=== PATIENT | female | born 1985 | race Caucasian/White ===

== ENCOUNTER 2019-01-24 20:14 | Observation (INO) | payer SELFPAY ==
[~2019-01-24] VITALS: Ht 172.7 cm; Wt 133.9 kg
--- OUTSIDE RECORDS SUMMARY | 2019-01-24 20:21 | XMS REPORT | CCD ---
Author Author MACK SCHULTZ Unknown Address [address] [facility] [address] [place] [address] Care Team Providers Care Associate Merchandise Planner Name Role Phone ELIU SANTIAGO, YAIN Locke Attphys AWAIS CRUZ MD Prisurg J., MACK NASST S., YOSHI Gonzalez NASST V., MILTON Ghosh NASST P., SUSI NASST S., DANNIELLE NASST A., MARION RENAE NASST K., DANNIELLE Gonzalez NASST R., BRIAN Locke NASST B., KYA NASST H., MARIA [place] NASST G., ODESSA NASST M., IRINA NASST G., SUSIE NASST R., ASAD NASST S., NIKKI PATTERSON NASST B., EDY NASST M., SHAAN Gonzalez NASST S., JUAN NASST A., YON NASST K., RAHUL NASST Allergies Allergy Code Allergy Type Reaction Status PCN (penicillin) 0 Drug allergy Active HALDOL 130216 Drug allergy Active BACTRIM 906852 Drug allergy Active Active Medications Problems Problem Code Start Date Resolved Date Status Swallowed foreign body 89622933 03/14/2016 Active Abdominal pain 79013306 03/14/2016 Active Procedures Procedure Code Procedure Type Date Extirpation of Matter from Small Intestine, Open Approach [id number] ICD-10 PCS 03/18/2016 Inspection of Lower Intestinal Tract, Via Natural or Artificial Opening En [id number] ICD-10 PCS 03/17/2016 Insertion of Infusion Device into Right Subclavian Vein, Percutaneous Appr [id number] ICD-10 PCS 03/18/2016 CX CHEST [id number] 03/18/2016 CT ABD AND PELVIS W/O CONTRAST 329739425 SNOMED CT 03/17/2016 ABDOMEN ONE VIEW 214416677 SNOMED CT 03/17/2016 ABDOMEN ONE VIEW 142691956 SNOMED CT 03/16/2016 ABDOMEN ONE VIEW 175478344 SNOMED CT 03/15/2016 ABDOMEN ACUTE SERIES 4433515 SNOMED CT 03/14/2016 COMPREHENSIVE METABOLIC PANEL 521580548 SNOMED CT 03/20/2016 COMPREHENSIVE METABOLIC PANEL 197658106 SNOMED CT 03/19/2016 CBC W/ AUTO DIFF (RFLX MAN DIFF IF IND) 9521933 SNOMED CT 03/20/2016 CBC W/ AUTO DIFF (RFLX MAN DIFF IF IND) 9581243 SNOMED CT 03/19/2016 PATHOLOGY ORDER [id number] SNOMED CT 03/18/2016 BEDSIDE GLUCOSE 71422689 SNOMED CT 03/17/2016 CULTURE URINE 604866570 SNOMED CT 03/14/2016 TEST URINE 768686803 SNOMED CT 03/14/2016 UA ROUTINE C&S IF IND 880988825 SNOMED CT 03/14/2016 COMPREHENSIVE METABOLIC PANEL 455257799 SNOMED CT 03/14/2016 CBC W/ AUTO DIFF (RFLX MAN DIFF IF IND) 1705389 SNOMED CT 03/14/2016 ^CBC W/AUTO DIFF 6666684 SNOMED CT 03/20/2016 ^CBC W/AUTO DIFF 9467083 SNOMED CT 03/19/2016 ^CULTURE URINE IDENTIFICATION 241366797 SNOMED CT 03/14/2016 ^CULTURE AEROBIC ID [id number] SNOMED CT 03/14/2016 ^UA WITH MICRO 136451400 SNOMED CT 03/14/2016 ^CBC W/AUTO DIFF 9592734 SNOMED CT 03/14/2016 Results BEDSIDE GLUCOSE - Collect Date/Time: 03/17/2016 11:11 Test Name Code Test Result Test Units Test Ref Range GLUCOSE POCT 96 MG/DL L=70 H=100 COMPREHENSIVE METABOLIC PANEL - Collect Date/Time: 03/20/2016 05:35 Test Name Code Test Result Test Units Test Ref Range GLUCOSE 2345-7 87 MG/DL L=70 H=100 SODIUM 2951-2 140 MEQ/L L=135 H=148 POTASSIUM 2823-3 3.4 MEQ/L L=3.5 H=5.3 CHLORIDE 2075-0 105 MEQ/L L=96 H=110 CO2 2028-9 25 MEQ/L L=22 H=29 BUN 3094-0 4 MG/DL L=8 H=22 CREATININE 2160-0 0.7 MG/DL L=0.6 H=1.6 SGOT/AST 1920-8 16 IU/L L=10 H=40 SGPT/ALT 1742-6 25 IU/L L=8 H=54 ALK PHOS 6768-6 56 IU/L L=35 H=115 TOTAL PROTEIN 2885-2 5.9 G/DL L=5.5 H=8.5 ALBUMIN 1751-7 3.2 G/DL L=3.1 H=5.4 TOTAL BILI 1975-2 0.2 MG/DL L=0.0 H=1.5 CALCIUM 85912-6 9.1 MG/DL L=8.2 H=10.6 AGE [birth year]-[age] yrs GFR NonAA 77980-1 100 GFR [place] 99168-9 121 eGFR 16266-7 >60 N/A eGFR AA* 26149-6 >60 N/A COMPREHENSIVE METABOLIC PANEL - Collect Date/Time: 03/19/2016 05:15 Test Name Code Test Result Test Units Test Ref Range GLUCOSE 2345-7 95 MG/DL L=70 H=100 SODIUM 2951-2 145 MEQ/L L=135 H=148 POTASSIUM 2823-3 3.9 MEQ/L L=3.5 H=5.3 CHLORIDE 2075-0 111 MEQ/L L=96 H=110 CO2 2028-9 26 MEQ/L L=22 H=29 BUN 3094-0 3 MG/DL L=8 H=22 CREATININE 2160-0 0.7 MG/DL L=0.6 H=1.6 SGOT/AST 1920-8 18 IU/L L=10 H=40 SGPT/ALT 1742-6 33 IU/L L=8 H=54 ALK PHOS 6768-6 62 IU/L L=35 H=115 TOTAL PROTEIN 2885-2 5.9 G/DL L=5.5 H=8.5 ALBUMIN 1751-7 3.2 G/DL L=3.1 H=5.4 TOTAL BILI 1975-2 0.2 MG/DL L=0.0 H=1.5 CALCIUM 86474-8 9.0 MG/DL L=8.2 H=10.6 AGE 82760-0 30 yrs GFR NonAA 24552-0 100 GFR AA 26601-0 121 eGFR 67633-8 >60 N/A eGFR AA* 47822-8 >60 N/A COMPREHENSIVE METABOLIC PANEL - Collect Date/Time: 03/14/2016 20:10 Test Name Code Test Result Test Units Test Ref Range GLUCOSE 2345-7 98 MG/DL L=70 H=100 SODIUM 2951-2 141 MEQ/L L=135 H=148 POTASSIUM 2823-3 4.2 MEQ/L L=3.5 H=5.3 CHLORIDE 2075-0 105 MEQ/L L=96 H=110 CO2 2028-9 24 MEQ/L L=22 H=29 BUN 3094-0 10 MG/DL L=8 H=22 CREATININE 2160-0 1.0 MG/DL L=0.6 H=1.6 SGOT/AST 1920-8 23 IU/L L=10 H=40 SGPT/ALT 1742-6 33 IU/L L=8 H=54 ALK PHOS 6768-6 70 IU/L L=35 H=115 TOTAL PROTEIN 2885-2 7.6 G/DL L=5.5 H=8.5 ALBUMIN 1751-7 4.3 G/DL L=3.1 H=5.4 TOTAL BILI 1975-2 0.3 MG/DL L=0.0 H=1.5 CALCIUM 00375-6 9.7 MG/DL L=8.2 H=10.6 AGE 30 yrs GFR NonAA 66 GFR AA 80 eGFR >60 N/A eGFR AA* >60 N/A CBC W/ AUTO DIFF (RFLX MAN DIFF IF IND) - Collect Date/Time: 03/20/2016 05:35 Test Name Code Test Result Test Units Test Ref Range WBC 75127-7 7.5 TH/CMM L=4.5 H=10.8 RBC 789-8 3.81 ML/CMM L=4.20 H=5.40 HGB 718-7 10.9 G/DL L=12.0 H=16.0 HCT 4544-3 33.8 % L=37.0 H=47.0 MCV 73207-4 89 FL L=81 H=99 MCH 33248-6 28.6 PG L=27.0 H=33.0 MCHC 03291-8 32.2 G/DL L=31.0 H=36.0 [place] [address]-0 40 FL L=36 H=50 [place] [address]-3 12.6 % L=0.0 H=14.8 MPV 52204-4 10.0 FL L=9.3 H=12.5 PLT 777-3 196 TH/CMM L=130 H=440 NRBC# 11912-5 0.00 TH/CMM L=0.00 H=0.00 NRBC% 89332-2 0.0 /100WBC L=0.0 H=2.0 %NEUT 30109-2 61.9 % %LYMP 91394-4 23.6 % %MONO 25451-4 12.6 % %EOS 40237-7 1.1 % %BASO 41629-3 0.4 % #NEUT 85455-2 4.65 TH/CMM L=2.10 H=8.20 #LYMP 98683-6 1.77 TH/CMM L=0.90 H=5.20 #MONO 74172-3 0.95 TH/CMM L=0.16 H=1.00 #EOS 32000-4 0.08 TH/CMM L=0.00 H=0.80 #BASO 42393-8 0.03 TH/CMM L=0.00 H=0.20 MANUAL DIFF 27718-4 NOT IND N/A CBC W/ AUTO DIFF (RFLX MAN DIFF IF IND) - Collect Date/Time: 03/19/2016 05:15 Test Name Code Test Result Test Units Test Ref Range WBC 92604-3 7.9 TH/CMM L=4.5 H=10.8 RBC 789-8 3.84 ML/CMM L=4.20 H=5.40 HGB 718-7 11.1 G/DL L=12.0 H=16.0 HCT 4544-3 34.7 % L=37.0 H=47.0 MCV 45631-1 90 FL L=81 H=99 MCH 75632-5 28.9 PG L=27.0 H=33.0 MCHC 25867-9 32.0 G/DL L=31.0 H=36[place] [address]-2 42 FL L=36 H=50 [place] [address]-9 12.8 % L=0.0 H=14.8 MPV 98814-1 9.9 FL L=9.3 H=12.5 PLT 777-3 203 TH/CMM L=130 H=440 NRBC# 15488-4 0.00 TH/CMM L=0.00 H=0.00 NRBC% 53304-4 0.0 /100WBC L=0.0 H=2.0 %NEUT 75413-2 65.3 % %LYMP 10506-3 23.2 % %MONO 06775-4 11.1 % %EOS 76495-5 0.0 % %BASO 14096-3 0.1 % #NEUT 17502-8 5.18 TH/CMM L=2.10 H=8.20 #LYMP 80128-8 1.84 TH/CMM L=0.90 H=5.20 #MONO 71657-4 0.88 TH/CMM L=0.16 H=1.00 #EOS 01624-3 0.00 TH/CMM L=0.00 H=0.80 #BASO 20866-9 0.01 TH/CMM L=0.00 H=0.20 MANUAL DIFF 07077-9 NOT IND N/A CBC W/ AUTO DIFF (RFLX MAN DIFF IF IND) - Collect Date/Time: 03/14/2016 20:10 Test Name Code Test Result Test Units Test Ref Range WBC 75235-0 8.7 TH/CMM L=4.5 H=10.8 RBC 789-8 4.83 ML/CMM L=4.20 H=5.40 HGB 718-7 14.1 G/DL L=12.0 H=16.0 HCT 4544-3 42.7 % L=37.0 H=47.0 MCV 88 FL L=81 H=99 MCH 29.2 PG L=27.0 H=33.0 MCHC 33.0 G/DL L=31.0 H=36.0 RDW SD 40 FL L=36 H=50 RDW CV 12.3 % L=0.0 H=14.8 MPV 9.6 FL L=9.3 H=12.5 PLT 777-3 283 TH/CMM L=130 H=440 NRBC# 0.00 TH/CMM L=0.00 H=0.00 NRBC% 0.0 /100WBC L=0.0 H=2.0 %NEUT 52.8 % %LYMP 34.0 % %MONO 10.6 % %EOS 1.9 % %BASO 0.5 % #NEUT 4.61 TH/CMM L=2.10 H=8.20 #LYMP 2.97 TH/CMM L=0.90 H=5.20 #MONO 0.93 TH/CMM L=0.16 H=1.00 #EOS 0.17 TH/CMM L=0.00 H=0.80 #BASO 0.04 TH/CMM L=0.00 H=0.20 MANUAL DIFF NOT IND N/A UA ROUTINE C&S IF IND - Collect Date/Time: 03/14/2016 20:20 Test Name Code Test Result Test Units Test Ref Range COLOR YELLOW N/A NL: YELLOW APPEARANCE CLOUDY N/A NL: CLEAR SPEC GRAV 1.020 N/A NL: 1.002 - 1.022 pH 6.5 N/A NL: 5 - 9 PROTEIN 100 N/A NL: NEGATIVE mg/dl GLUCOSE NEGATIVE N/A NL: NEGATIVE mg/dl KETONE 15 N/A NL: NEGATIVE mg/dl BILIRUBIN NEGATIVE N/A NL: NEGATIVE BLOOD NEGATIVE N/A NL: NEGATIVE NITRITE NEGATIVE N/A NL: NEGATIVE LEUK SCREEN SMALL N/A NL: NEGATIVE MICRO INDICATED? SEE BELOW N/A WBC/HPF 10-20 N/A NL: NEGATIVE RBC/HPF 0-5 N/A NL: NEGATIVE CASTS/LPF NEGATIVE N/A NL: NEGATIVE CRYSTALS NEGATIVE N/A NL: NEGATIVE MUCOUS THRDS 1+ N/A NL: NEGATIVE BACTERIA FEW N/A NL: NEGATIVE EPITH CELLS 2++ SQUAMOUS N/A NL: NEGATIVE TRICHOMONAS NEGATIVE N/A NL: NEGATIVE YEAST NEGATIVE N/A NL: NEGATIVE CULT SET UP? YES N/A TEST URINE - Collect Date/Time: 03/14/2016 20:25 Test Name Code Test Result Test Units Test Ref Range TEST UR 2106-3 NEGATIVE N/A Function Status Unknown or Not Available. History of Immunizations Immunization Code Date Hep B, adolescent or pediatric 06/03/2000 Plan of Treatment Unknown or Not Available. Social History Smoking Status Code Start Date End Date Current every day smoker 996915606 Vital Signs Vital Sign Value Unit Date/Time Recent/Initial? Weight Measured 335.38 [lb_av] 03/14/2016 20:40 Initial VS Height 69 [in_i] 03/14/2016 20:40 Initial VS BMI (Body Mass Index) 49.53 kg/m2 03/14/2016 20:40 Initial VS BSA (Body Surface Area) 2.72 m2 03/14/2016 20:40 Initial VS BP Systolic 146 mm[Hg] 03/14/2016 20:40 Initial VS BP Diastolic 91 mm[Hg] 03/14/2016 20:40 Initial VS Respiratory Rate 20 /min 03/14/2016 20:40 Initial VS Heart Rate 98 /min 03/14/2016 20:40 Initial VS O2 % BldC Oximetry 99 % 03/14/2016 20:40 Initial VS Body Temperature 97.1 [degF] 03/14/2016 20:40 Initial VS BP Systolic 139 mm[Hg] 03/23/2016 07:34 Most Recent VS BP Diastolic 88 mm[Hg] 03/23/2016 07:34 Most Recent VS Respiratory Rate 16 /min 03/23/2016 07:34 Most Recent VS Heart Rate 76 /min 03/23/2016 07:34 Most Recent VS O2 % BldC Oximetry 97 % 03/23/2016 07:34 Most Recent VS Body Temperature 96.3 [degF] 03/23/2016 07:34 Most Recent VS Function Status Unknown or Not Available. Goals Unknown or Not Available. ASSESSMENTS Unknown or Not Available. Health Concerns Section Unknown or Not Available.
--- OUTSIDE RECORDS SUMMARY | 2019-01-24 20:22 | XMS REPORT | CCD ---
Author Author JAY ALEXIS Organization Unknown Address [address] [facility] [address] [place], [place] [id number] Care Team Providers Care Can Line Operator Name Role Phone NELLI KNAPP DO Gwendolyn Attphys Vital Signs Vital Sign Value Unit Date/Time Recent/Initial? Respiratory Rate 21 bpm 09/09/2015 11:26 Initial VS Heart Rate 109 bpm 09/09/2015 11:26 Initial VS O2 % BldC Oximetry 98 % 09/09/2015 11:26 Initial VS BP Systolic 128 mmHg 09/09/2015 11:27 Initial VS BP Diastolic 81 mmHg 09/09/2015 11:27 Initial VS BP Systolic 116 mmHg 09/09/2015 11:46 Most Recent VS BP Diastolic 95 mmHg 09/09/2015 11:46 Most Recent VS Respiratory Rate 12 bpm 09/09/2015 11:46 Most Recent VS Heart Rate 83 bpm 09/09/2015 11:46 Most Recent VS O2 % BldC Oximetry 98 % 09/09/2015 11:46 Most Recent VS Allergies Allergy Code Allergy Type Reaction Status PCN (penicillin) 0 Drug allergy Active HALDOL 933780 Drug allergy Active BACTRIM 477308 Drug allergy Active Procedures Procedure Code Procedure Type Date Esophagogastroduodenoscopy, flexible, transoral; with removal of foreign b 38459 CPT 09/09/2015 TEST URINE 674524366 SNOMED CT 09/09/2015 History of Immunizations Immunization Code Date Hep B, adolescent or pediatric 08 06/03/2000 Problems Problem Code Start Date Resolved Date Status Swallowed foreign body 11034266 12/27/2014 Active Results TEST URINE - Collect Date/Time: 09/09/2015 10:20 Test Name Code Test Result Test Units Test Ref Range TEST UR 2106-3 NEGATIVE N/A Active Medications Medication Code Dose Units Frequency Route Modification Start Date/Time Chloraseptic 1.4% Oromucosal [place] 04323861829 1 EACH NEEDED EVERY 8 HR OROMUCOSAL 12/29/2014 12:08 Prescription Detail 1 EACH OROMUCOSAL NEEDED EVERY 8 HR Colace 100MG Oral Capsule, Liquid Filled 3847526 100 MILLIGRAMS TWO TIMES A DAY ORAL 05/13/2014 10:32 Prescription Detail 100 MILLIGRAMS ORAL TWO TIMES A DAY Melatonin 5MG Oral Capsule 744732 5 MILLIGRAMS NEEDED ORAL 05/13/2014 10:32 Prescription Detail 5 MILLIGRAMS ORAL NEEDED Omeprazole 20MG Oral Tablet, Delayed Release 657034 20 MILLIGRAMS DAILY ORAL 05/13/2014 10:32 Prescription Detail 20 MILLIGRAMS ORAL DAILY ROBITUSSIN 0 10 MILLILITERS NEEDED ORAL 05/13/2014 10:32 Prescription Detail 10 MILLILITERS ORAL NEEDED Tylenol 325MG Oral Tablet 058512 650 MILLIGRAMS NEEDED ORAL 05/13/2014 10:32 Prescription Detail 650 MILLIGRAMS ORAL NEEDED ZyrTEC 10MG Oral Tablet 6812869 10 MILLIGRAMS DAILY ORAL 05/13/2014 10:32 Prescription Detail 10 MILLIGRAMS ORAL DAILY Depo-Provera 150MG/ML Intramuscular Suspension 0972444 1 EACH every 3 months INTRAMUSCULAR 12/11/2013 08:39 Prescription Detail 1 EACH INTRAMUSCULAR every 3 months Depakote 500MG Oral Tablet, Delayed Release 2913070 0788 MILLIGRAMS TWO TIMES A DAY ORAL 12/07/2013 13:49 Prescription Detail 1000 MILLIGRAMS ORAL TWO TIMES A DAY Paxil 40MG Oral Tablet 296183 40 MILLIGRAMS DAILY ORAL 12/07/2013 13:49 Prescription Detail 40 MILLIGRAMS ORAL DAILY Seroquel 200MG Oral Tablet 293744 200 MILLIGRAMS AT BEDTIME ORAL 12/07/2013 13:49 Prescription Detail 200 MILLIGRAMS ORAL AT BEDTIME Medications Administered During Visit Unknown or Not Available. Encounters Encounter Diagnosis Diagnosis Code Start Date Foreign body in stomach, initial encounter [id number] 09/09/2015 Social History Smoking Status Code Start Date End Date Current every day smoker 953515855 Patient Decision Aids Unknown or Not Available. Discharge Instructions You were admitted to [facility] on 09/09/2015 09:53 with a principal diagnosis of Foreign body in stomach, initial encounter You had the following procedures done: Esophagogastroduodenoscopy, flexible, transoral; with removal of foreign b You had the following tests done: TEST URINE You were discharged from [facility] on 09/09/2015 15:51 Should you have any questions prior to discharge, please contact a member of your healthcare team. If you have left the hospital and have any questions, please contact your primary care physician. Chief Complaint and Reason For Visit Chief Complaint Date of Onset GEN EGD Function Status Unknown or Not Available. Plan of Care Unknown or Not Available. Referral/Transition of Care Unknown or Not Available.
--- OUTSIDE RECORDS SUMMARY | 2019-01-24 20:22 | XMS REPORT | CCD ---
Author Author JAY ALEXIS Organization Unknown Address [address] [facility] [address] [place], [place] [address] Care Team Providers Care Migration Specialist Name Role Phone HANDSHY ER, LARS SANTIAGO Attphys HANDSHY ER, LARS SANTIAGO Prisurg Vital Signs Unknown or Not Available. Allergies Allergy Code Allergy Type Reaction Status PCN (penicillin) 0 Drug allergy Active HALDOL 678556 Drug allergy Active BACTRIM 155952 Drug allergy Active Procedures Procedure Code Procedure Type Date CT ABD AND PELVIS W/O CONTRAST 019170099 SNOMED CT 09/08/2015 ^CBC W/AUTO DIFF 3865280 SNOMED CT 09/08/2015 COMPREHENSIVE METABOLIC PANEL 045905453 SNOMED CT 09/08/2015 CBC W/ AUTO DIFF (RFLX MAN DIFF IF IND) 5456702 SNOMED CT 09/08/2015 History of Immunizations Immunization Code Date Hep B, adolescent or pediatric 08 06/03/2000 Problems Problem Code Start Date Resolved Date Status Swallowed foreign body 98574849 12/27/2014 Active Results COMPREHENSIVE METABOLIC PANEL - Collect Date/Time: 09/08/2015 19:45 Test Name Code Test Result Test Units Test Ref Range GLUCOSE 2345-7 133 MG/DL L=70 H=100 SODIUM 2951-2 139 MEQ/L L=135 H=148 POTASSIUM 2823-3 4.4 MEQ/L L=3.5 H=5.3 CHLORIDE 2075-0 107 MEQ/L L=96 H=110 CO2 2028-9 20 MEQ/L L=22 H=29 BUN 3094-0 12 MG/DL L=8 H=22 CREATININE 2160-0 0.7 MG/DL L=0.6 H=1.6 SGOT/AST 1920-8 21 IU/L L=10 H=40 SGPT/ALT 1742-6 21 IU/L L=8 H=54 ALK PHOS 6768-6 68 IU/L L=35 H=115 TOTAL PROTEIN 2885-2 6.7 G/DL L=5.5 H=8.5 ALBUMIN 1751-7 3.9 G/DL L=3.1 H=5.4 TOTAL BILI 1975-2 0.2 MG/DL L=0.0 H=1.5 CALCIUM 45308-6 9.4 MG/DL L=8.2 H=10.6 AGE 30 yrs GFR NonAA 100 GFR AA 121 eGFR >60 N/A eGFR AA* >60 N/A CBC W/ AUTO DIFF (RFLX MAN DIFF IF IND) - Collect Date/Time: 09/08/2015 19:45 Test Name Code Test Result Test Units Test Ref Range WBC 63947-8 6.7 TH/CMM L=4.5 H=10.8 RBC 789-8 4.21 ML/CMM L=4.20 H=5.40 HGB 718-7 12.8 G/DL L=12.0 H=16.0 HCT 4544-3 38.0 % L=37.0 H=47.0 MCV 90 FL L=81 H=99 MCH 30.4 PG L=27.0 H=33.0 MCHC 33.7 G/DL L=31.0 H=36.0 RDW SD 40 FL L=36 H=50 RDW CV 12.4 % L=0.0 H=14.8 MPV 10.0 FL L=9.3 H=12.5 PLT 777-3 196 TH/CMM L=130 H=440 NRBC# 0.00 TH/CMM L=0.00 H=0.00 NRBC% 0.0 /100WBC L=0.0 H=2.0 %NEUT 52.1 % %LYMP 36.9 % %MONO 9.6 % %EOS 1.2 % %BASO 0.2 % #NEUT 3.47 TH/CMM L=2.10 H=8.20 #LYMP 2.46 TH/CMM L=0.90 H=5.20 #MONO 0.64 TH/CMM L=0.16 H=1.00 #EOS 0.08 TH/CMM L=0.00 H=0.80 #BASO 0.01 TH/CMM L=0.00 H=0.20 MANUAL DIFF NOT IND N/A Active Medications Medication Code Dose Units Frequency Route Modification Start Date/Time Chloraseptic 1.4% Oromucosal [place] 86714508495 1 EACH NEEDED EVERY 8 HR OROMUCOSAL 12/29/2014 12:08 Prescription Detail 1 EACH OROMUCOSAL NEEDED EVERY 8 HR Colace 100MG Oral Capsule, Liquid Filled 1855636 100 MILLIGRAMS TWO TIMES A DAY ORAL 05/13/2014 10:32 Prescription Detail 100 MILLIGRAMS ORAL TWO TIMES A DAY Melatonin 5MG Oral Capsule 926565 5 MILLIGRAMS NEEDED ORAL 05/13/2014 10:32 Prescription Detail 5 MILLIGRAMS ORAL NEEDED Omeprazole 20MG Oral Tablet, Delayed Release 612221 20 MILLIGRAMS DAILY ORAL 05/13/2014 10:32 Prescription Detail 20 MILLIGRAMS ORAL DAILY ROBITUSSIN 0 10 MILLILITERS NEEDED ORAL 05/13/2014 10:32 Prescription Detail 10 MILLILITERS ORAL NEEDED Tylenol 325MG Oral Tablet 010136 650 MILLIGRAMS NEEDED ORAL 05/13/2014 10:32 Prescription Detail 650 MILLIGRAMS ORAL NEEDED ZyrTEC 10MG Oral Tablet 7793986 10 MILLIGRAMS DAILY ORAL 05/13/2014 10:32 Prescription Detail 10 MILLIGRAMS ORAL DAILY Depo-Provera 150MG/ML Intramuscular Suspension 1733190 1 EACH every 3 months INTRAMUSCULAR 12/11/2013 08:39 Prescription Detail 1 EACH INTRAMUSCULAR every 3 months Depakote 500MG Oral Tablet, Delayed Release 2933377 4078 MILLIGRAMS TWO TIMES A DAY ORAL 12/07/2013 13:49 Prescription Detail 1000 MILLIGRAMS ORAL TWO TIMES A DAY Paxil 40MG Oral Tablet 097243 40 MILLIGRAMS DAILY ORAL 12/07/2013 13:49 Prescription Detail 40 MILLIGRAMS ORAL DAILY Seroquel 200MG Oral Tablet 486416 200 MILLIGRAMS AT BEDTIME ORAL 12/07/2013 13:49 Prescription Detail 200 MILLIGRAMS ORAL AT BEDTIME Medications Administered During Visit Unknown or Not Available. Encounters Encounter Diagnosis Diagnosis Code Start Date Foreign body in stomach 74339684 09/08/2015 Social History Smoking Status Code Start Date End Date Current every day smoker 014800546 Patient Decision Aids Unknown or Not Available. Discharge Instructions You were admitted to [facility] on 09/08/2015 with a principal diagnosis of Foreign body in stomach . You were discharged from [facility] on 09/08/2015. Should you have any questions prior to discharge, please contact a member of your healthcare team. If you have left the hospital and have any questions, please contact your primary care physician. Chief Complaint and Reason For Visit Chief Complaint Date of Onset SWALLOWED FOREIGN OBJECT Function Status Unknown or Not Available. Plan of Care Unknown or Not Available. Referral/Transition of Care Unknown or Not Available.
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
--- OUTSIDE RECORDS SUMMARY | 2019-01-24 20:23 | XMS REPORT ---
Author Author Wilberto Wen [facility] Address [address] [place], [place] [address] Care Team Providers Care Bonding Machine Operator Name Role Phone Wilberto Wen PCP Unavailable Allergies and Adverse Reactions Name Reaction Notes Haldol Bactrim DS PENICILLINS Plan of Treatment Not available. Medications Active Name Start Date Estimated Completion [...] HC BMI BSA BMI Percentile O2 Sat(%) 03/30/2016 10:47:00 AM 124 mmHg 86 mmHg 101 bpm 20 rpm 95.4 F 94 % 07/08/2015 1:31:00 PM 152 mmHg 97 mmHg 89 bpm 97.8 F 342 lbs 68 in 52.0004 kg/m 2.7281 m 06/24/2015 2:23:00 PM 147 mmHg 122 mmHg 100 bpm 20 rpm 97.9 F 347 lbs 68 in 52.76 kg/m2 2.75 m2 06/04/2011 3:34:00 PM 120 mmHg 70 mmHg 106 bpm 18 rpm 96.4 F 277 lbs 67 in 43.3839 kg/m 2.4371 m 97 % Social History Name Description Comments Lives at [facility] Tobacco Former smoker History of Procedures Date Ordered Description Order Status 06/24/2015 12:00 AM SPECIMEN HANDLING OFFICE-LAB Reviewed 06/24/2015 12:00 AM CHLAMYDIA CULTURE Returned 06/24/2015 12:00 AM N.GONORRHOEAE DNA AMP PROB Returned 06/24/2015 12:00 AM CYTOPATH C/V THIN LAYER Returned 07/08/2015 12:00 AM BIOPSY SKIN LESION Returned Results Summary Data and Description Results 02/28/2014 [...] >60 mL/min/1.73 m2C REACTIVE PROTEIN <0.5 MG/DL 09/09/2015 10:20 AM TEST UR NEGATIVE 03/14/2016 8:10 PM WBC 8.7 RBC 4.83 HGB 14.10 g/dLHCT 42.70 %MCV 88.0 fLMCH 29.20 pgMCHC 33.0 g/dLRDW CV 12.30 %MPV 9.60 fLPLT 283 %NEUT 52.80 %%LYMP 34.0 %%MONO 10.60 %%EOS 1.90 %%BASO 0.50 %#NEUT 4.61 #LYMP 2.97 #MONO 0.93 #EOS 0.17 #BASO 0.04 GLUCOSE 98.0 mg/dLSODIUM 141.0 mmol/LPOTASSIUM 4.20 mmol/LCHLORIDE 105.0 mmol/LCO2 24.0 mmol/LBUN 10.0 mg/dLCREATININE 1.0 mg/dLSGOT/AST 23.0 IU/LSGPT/ALT 33.0 IU/LALK PHOS 70.0 IU/LTOTAL PROTEIN 7.60 g/dLALBUMIN 4.30 g/dLTOTAL BILI 0.30 mg/dLCALCIUM 9.70 mg/dLeGFR >60 mL/min/1.73m 03/14/2016 8:20 PM COLOR YELLOW APPEARANCE CLOUDY SPEC GRAV 1.020 pH 6.5 PROTEIN 100 GLUCOSE NEGATIVE mg/dLKETONE 15 BILIRUBIN NEGATIVE BLOOD NEGATIVE NITRITE NEGATIVE LEUK SCREEN SMALL CASTS/LPF NEGATIVE /LPFCRYSTALS NEGATIVE MUCOUS THRDS 1+ BACTERIA FEW EPITH CELLS 2++ SQUAMOUS /HPFTRICHOMONAS NEGATIVE YEAST NEGATIVE 03/14/2016 8:25 PM TEST UR NEGATIVE 03/17/2016 11:11 AM GLUCOSE POCT 96.0 mg/dL 03/19/2016 5:15 AM WBC 7.9 RBC 3.84 HGB 11.10 g/dLHCT 34.70 %MCV 90.0 fLMCH 28.90 pgMCHC 32.0 g/dLRDW CV 12.80 %MPV 9.90 fLPLT 203 %NEUT 65.30 %%LYMP 23.20 %%MONO 11.10 %%EOS 0.0 %%BASO 0.10 %#NEUT 5.18 #LYMP 1.84 #MONO 0.88 #EOS 0.00 #BASO 0.01 GLUCOSE 95.0 mg/dLSODIUM 145.0 mmol/LPOTASSIUM 3.90 mmol/LCHLORIDE 111.0 mmol/LCO2 26.0 mmol/LBUN 3.0 mg/dLCREATININE 0.70 mg/dLSGOT/AST 18.0 IU/LSGPT/ALT 33.0 IU/LALK PHOS 62.0 IU/LTOTAL PROTEIN 5.90 g/dLALBUMIN 3.20 g/dLTOTAL BILI 0.20 mg/dLCALCIUM 9.0 mg/dLeGFR >60 mL/min/1.73m 03/20/2016 5:35 AM WBC 7.5 RBC 3.81 HGB 10.90 g/dLHCT 33.80 %MCV 89.0 fLMCH 28.60 pgMCHC 32.20 g/dLRDW CV 12.60 %MPV 10.0 fLPLT 196 %NEUT 61.90 %%LYMP 23.60 %%MONO 12.60 %%EOS 1.10 %%BASO 0.40 %#NEUT 4.65 #LYMP 1.77 #MONO 0.95 #EOS 0.08 #BASO 0.03 GLUCOSE 87.0 mg/dLSODIUM 140.0 mmol/LPOTASSIUM 3.40 mmol/LCHLORIDE 105.0 mmol/LCO2 25.0 mmol/LBUN 4.0 mg/dLCREATININE 0.70 mg/dLSGOT/AST 16.0 IU/LSGPT/ALT 25.0 IU/LALK PHOS 56.0 IU/LTOTAL PROTEIN 5.90 g/dLALBUMIN 3.20 g/dLTOTAL BILI 0.20 mg/dLCALCIUM 9.10 mg/dLeGFR >60 mL/min/1.73m History Of Immunizations Not available. History of [...] Routine gynecological examination Jun 24 2015 2:27PM Skin tag of labia Jul 08 2015 1:35PM Postoperative Follow-Up Mar 30 2016 10:47AM Payers Insurance Name Company Name Plan Name Plan Number Policy Number Policy Group Number Start Date [place] Pneumatic Tester Mechanic [facility] [id number] N/A [place] Medical Assistance Program [place] Medical Assistance Prog [id number] N/A History of Encounters Visit Date Visit Type Provider 03/30/2016 Office visit Wilberto Wen MD 03/18/2016 [facility] Wilberto Wen MD 03/17/2016 [facility] Wilberto Wen MD 09/09/2015 [facility] Wilian Mosley DO 07/08/2015 Procedures Mayra Matthews TELESALES SPECIALIST 06/24/2015 Office visit Mayra Matthews TELESALES SPECIALIST 12/27/2014 [facility] Wilberto Wen MD 05/15/2014 [facility] Wilian Mosley DO 05/12/2014 [facility] Wilberto Wen MD 03/06/2014 [facility] Wilberto Wen MD 03/06/2014 [facility] Wilberto Wen MD 03/01/2014 [facility] Wilberto Wen MD 02/27/2014 [facility] Wilberto Wen MD 02/27/2014 [facility] Wilberto Wen MD 12/11/2013 Voided Wilberto Wen MD 12/07/2013 [facility] Wilberto Wen MD 12/07/2013 [facility] Wilberto Wen MD 12/07/2013 Voided Wilberto Wen MD 12/07/2013 Voided Wilberto Wen MD 12/06/2013 Voided Wilberto Wen MD 12/06/2013 Voided Wilberto Wen MD 08/04/2013 [facility] Wilian Mosley DO 08/04/2013 [facility] Wilian Mosley DO 06/04/2011 Office visit Wilberto Wen MD 02/26/2011 [facility] Wilberto Wen MD
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
--- OUTSIDE RECORDS SUMMARY | 2019-01-24 20:24 | XMS REPORT ---
Author Wilberto [facility] Address [address] [place], [place] [id number] Care Team Providers Care Corrugated Sheet Material Sheeter Name Role Phone Wilberto Wen PCP Unavailable [...] HC BMI BSA BMI Percentile O2 Sat(%) 04/27/2016 10:21:00 AM 128 mmHg 76 mmHg 94 bpm 20 rpm 95.4 F 97 % 03/30/2016 10:47:00 AM 124 mmHg 86 mmHg [...] F 277 lbs 67 in 43.3839 kg/m 2.44 m2 97 % Social History Name Description Comments Lives at [facility] Tobacco Former smoker History of Procedures Date [...] 1:35PM Postoperative Follow-Up Mar 30 2016 10:47AM Postoperative Follow-Up Apr 27 2016 10:21AM Payers Insurance Name Company Name Plan Name Plan Number Policy Number Policy Group Number Start Date [place] Compatibility Test Engineer Prog - [facility] [place] Compatibility Test Engineer Prog - C [id number] N/A [place] Medical Assistance [facility] Medical Assistance Prog [id number] N/A History of Encounters Visit Date Visit Type Provider 04/27/2016 Office visit Wilberto Wen MD 03/30/2016 Office visit Wilberto Wen MD 03/19/2016 [facility] Wilberto Wen MD 03/18/2016 [facility] Wilberto Wen MD 03/17/2016 [facility] Wilberto Wen MD 03/15/2016 [facility] Wilberto Wen MD 09/09/2015 [facility] Wilian Mosley DO 07/08/2015 Procedures Mayra Matthews HATCHERY HELPER 06/24/2015 Office visit Mayra Matthews HATCHERY HELPER 12/27/2014 [facility] Wilberto Wen MD 05/15/2014 [facility] Wilian Mosley DO 05/12/2014 [facility] Wilberto Wen MD 03/06/2014 [facility] Wilberto Wen MD 03/06/2014 [facility] Wilberto Wen MD 03/01/2014 [facility] Wilberto Wen MD 02/27/2014 [facility] Wilberto Wen MD 02/27/2014 [facility] Wilberto Wen MD 12/11/2013 Voided Wilberto Wen MD 12/07/2013 [facility] Wilberto Wen MD 12/07/2013 [facility] Wilberto Wen MD 12/07/2013 Voided Wilberto Wen MD 12/07/2013 Voided Wilberto Wen MD 12/06/2013 Voided Wilberto Wen MD 12/06/2013 Voided Wilberto Wen MD 08/04/2013 [facility] Wilian Mosley DO 08/04/2013 [facility] Wilian Mosley DO 06/04/2011 Office visit Wilberto Wen MD 02/26/2011 [facility] Wilberto Wen MD
--- OUTSIDE RECORDS SUMMARY | 2019-01-24 20:25 | XMS REPORT | CCD ---
Author Author JACOBY STEWART Unknown Address [address] [facility] [address] [place], [place] [id number] Care Team Providers Care Licensed [place] Real Estate Appraiser Name Role Phone ELIU SANTIAGO, WILBERTO Locke Attphys [facility], LUPILLO TRUONG Prisurg M., MALIK NASST R., HANNAH NASST A., SHAAN NASST M., SHE S NASST M., BERTRAM NASST Vital Signs Vital Sign Value Unit Weight Measured 300.01 lbs Height 68 in BMI (Body Mass Index) 45.62 kg/m^2 BSA (Body Surface Area) 2.56 m^2 BP Systolic 129 mmHg BP Diastolic 86 mmHg BP Systolic 137 mmHg BP Diastolic 80 mmHg BP Systolic 125 mmHg BP Diastolic 85 mmHg BP Systolic 122 mmHg BP Diastolic 78 mmHg BP Systolic 117 mmHg BP Diastolic 75 mmHg BP Systolic 115 mmHg BP Diastolic 75 mmHg BP Systolic 124 mmHg BP Diastolic 75 mmHg BP Systolic 118 mmHg BP Diastolic 78 mmHg BP Systolic 145 mmHg BP Diastolic 94 mmHg BP Systolic 146 mmHg BP Diastolic 99 mmHg BP Systolic 139 mmHg BP Diastolic 96 mmHg BP Systolic 131 mmHg BP Diastolic 91 mmHg BP Systolic 146 mmHg BP Diastolic 94 mmHg BP Systolic 135 mmHg BP Diastolic 99 mmHg BP Systolic 124 mmHg BP Diastolic 86 mmHg Respiratory Rate 22 bpm Respiratory Rate 22 bpm Respiratory Rate 22 bpm Respiratory Rate 20 bpm Respiratory Rate 20 bpm Respiratory Rate 20 bpm Respiratory Rate 22 bpm Respiratory Rate 18 bpm Respiratory Rate 18 bpm Respiratory Rate 18 bpm Respiratory Rate 18 bpm Respiratory Rate 20 bpm Respiratory Rate 18 bpm Respiratory Rate 18 bpm Respiratory Rate 18 bpm Heart Rate 91 bpm Heart Rate 78 bpm Heart Rate 78 bpm Heart Rate 88 bpm Heart Rate 89 bpm Heart Rate 86 bpm Heart Rate 84 bpm Heart Rate 78 bpm Heart Rate 83 bpm Heart Rate 75 bpm Heart Rate 89 bpm Heart Rate 81 bpm Heart Rate 92 bpm Heart Rate 91 bpm Heart Rate 95 bpm O2 % BldC Oximetry 98 % O2 % BldC Oximetry 96 % O2 % BldC Oximetry 96 % O2 % BldC Oximetry 94 % O2 % BldC Oximetry 94 % O2 % BldC Oximetry 100 % O2 % BldC Oximetry 96 % O2 % BldC Oximetry 96 % O2 % BldC Oximetry 94 % O2 % BldC Oximetry 98 % O2 % BldC Oximetry 99 % O2 % BldC Oximetry 96 % O2 % BldC Oximetry 96 % O2 % BldC Oximetry 94 % O2 % BldC Oximetry 94 % Body Temperature 96.8 degrees Body Temperature 99.3 degrees Body Temperature 96.3 degrees Body Temperature 96.2 degrees Body Temperature 96.8 degrees Body Temperature 97.6 degrees Body Temperature 97.7 degrees Body Temperature 97.7 degrees Body Temperature 97.5 degrees Body Temperature 96.5 degrees Body Temperature 98.1 degrees Body Temperature 97.1 degrees Body Temperature 98 degrees Body Temperature 98.3 degrees Allergies Allergy Code Allergy Type Reaction Status PCN (penicillin) 0 Drug allergy (disorder) Active HALDOL 0 Drug allergy (disorder) Active BACTRIM 0 Drug allergy (disorder) Active Procedures Unknown. History of Immunizations Unknown. Problems Problem Code Start Date Resolved Date Status Swallowed foreign body, initial encounter [id number] 12/07/2013 Active Results Unknown. Medications Medication Code Dose Units Frequency Route Modification Start Date/Time Stop Date/Time BUTORPHANOL [STADOL] INJ 2 MG/ML VIAL 917085 2 MG PRN IVP 12/07/2013 01:19 NS 1000 ML IV [PREDEFINED] (7983) 762164 CONT IV IV 12/07/2013 01:57 ~~ NACL 0.9% (7983) 1000ML IV BAG 144663 6006 ML ONDANSETRON [ZOFRAN] INJ 4 MG/2 ML VIAL 952658 4 MG PRN Q 8 HRS SIVP 12/07/2013 01:59 PROMETHAZINE [PHENERGAN] INJ 25 MG/ML 856596 12.5 MG PRN IVP 12/07/2013 03:33 Depakote 500MG Oral Tablet, Delayed Release [id number] 8907 MILLIGRAMS TWO TIMES A DAY ORAL 12/07/2013 13:49 Paxil 40MG Oral Tablet [id number] 40 MILLIGRAMS DAILY ORAL 12/07/2013 13:49 Seroquel 200MG Oral Tablet [id number] 200 MILLIGRAMS AT BEDTIME ORAL 12/07/2013 13:49 Prilosec 20MG Oral Capsule, Delayed Release [id number] 20 MILLIGRAMS DAILY ORAL 12/07/2013 13:49 Colace 100MG Oral Capsule, Liquid Filled [id number] 100 MILLIGRAMS DAILY ORAL 12/07/2013 13:49 Colace 100MG Oral Capsule, Liquid Filled [id number] 200 MILLIGRAMS AT BEDTIME ORAL 12/07/2013 13:49 Melatonin 5MG Oral Capsule 550661 5 MILLIGRAMS AT BEDTIME ORAL 12/07/2013 13:49 Melatonin 5MG Oral Capsule 467729 5 MILLIGRAMS AT BEDTIME ORAL Colace 100MG Oral Capsule, Liquid Filled [id number] 200 MILLIGRAMS AT BEDTIME ORAL Colace 100MG Oral Capsule, Liquid Filled 5463469 100 MILLIGRAMS DAILY ORAL Prilosec 20MG Oral Capsule, Delayed Release 117325 20 MILLIGRAMS DAILY ORAL Seroquel 200MG Oral Tablet 618298 200 MILLIGRAMS AT BEDTIME ORAL Paxil 40MG Oral Tablet 706553 40 MILLIGRAMS DAILY ORAL Depakote 500MG Oral Tablet, Delayed Release [id number] 9319 MILLIGRAMS TWO TIMES A DAY ORAL Medications Administered Medication Dose Units Frequency Route Date/Time of Last Dose BUTORPHANOL [STADOL] INJ 2 MG/ML VIAL 1 MG PRN IVP 12/07/2013 14:41 PROMETHAZINE [PHENERGAN] INJ 25 MG/ML 12.5 MG PRN IVP 12/07/2013 03:36 Encounters Encounter Diagnosis Diagnosis Code Start Date FOREIGN BODY IN STOMACH 9352 12/07/2013 Social History Smoking Status Code Start Date End Date Current every day smoker [id number] Patient Decision Aids Patient Decision Aid Foreign Body Ingestion Instructions You were admitted to [facility] on 12/07/2013 with a principle diagnosis of FOREIGN BODY IN STOMACH. You had the following procedures done: EGD REMOVE FOREIGN BODY REMOV INTRALUM GASTR FB You were discharged from [facility] on 12/07/2013. Should you have any questions prior to discharge, please contact a member of your healthcare team. If you have left the hospital and have any questions, please contact your primary care physician. HOME DIET: Regular. CONDITION AT DISMISSAL Stable. ACTIVITY INSTRUCTIONS(list limitations): Activity as Tolerated. SCRIPTS WRITTEN BY DOCTOR GIVEN TO PATIENT? No-none written by physician:. FOLLOW UP APPOINTMENT: NO FOLLOW UP APPT NEEDED. PRIMARY CARE PHYSICIAN OR PRACTITIONER: Wilberto Wen MD, . CONTACT YOUR PHYSICIAN IF YOU EXPERIENCE ANY: SEVERE PAIN, Shortness of Breath, Nausea/Vomiting, Difficulty swallowing. PERSONAL ITEMS RETURNED: Yes. INSTRUCTIONS GIVEN AND DISCHARGE TO: [facility] Staff. VOICES UNDERSTANDING OF INSTRUCTIONS: Yes. INSTRUCTIONS GIVEN BY (TYPE IN NAME AND DATE) ARLEY RENTERIA 12/07/13 CHIEF COMPLAINT: ABD PAIN DUE TO SWALLOWING BATTERIES Chief Complaint and Reason For Visit Chief Complaint Date of Onset SWALLOWED FOREIGN BODY Function Status Unknown. Plan of Care Unknown. Referral/Transition of Care Unknown.
--- OUTSIDE RECORDS SUMMARY | 2019-01-24 20:25 | XMS REPORT ---
Author Author Mayra Matthews [facility] Address [address] [place], [place] [address] Care Team Providers Care Recycling Operations Manager Name Role Phone Mayra Matthews PCP Unavailable [...] Social History Name Description Comments Lives at [facility] Tobacco Former smoker History of Procedures [...] Policy Number Policy Group Number Start Date [place] Cardroom Manager Prog - [facility] Cardroom Manager Pro - [facility] [id number] N/A [place] Medical Assistance [facility] Medical Assistance Pro [id number] N/A History of Encounters Visit Date Visit Type Provider 06/24/2015 Office visit Mayra Matthews NEGATIVE RETOUCHER 12/27/2014 [facility] Wilberto Wen MD 05/15/2014 [facility] Wilian Mosely DO 05/12/2014 [facility] Wilberto Wen MD 03/06/2014 [facility] Wilberto Wen MD 03/06/2014 [facility] Wilberto Wen MD 03/01/2014 [facility] Wilberto Wen MD 02/27/2014 [facility] Wilberto Wen MD 02/27/2014 [facility] Wilberto Wen MD 12/11/2013 Voided Wilberto Wen MD 12/07/2013 [facility] Wilberto Wen MD 12/07/2013 [facility] Wilberto Wen MD 12/07/2013 Voided Wilberto Wen MD 12/07/2013 Voided Wilberto Wen MD 12/06/2013 Voided Wilberto Wen MD 12/06/2013 Voided Wilberto Wen MD 08/04/2013 [facility] Wilian Mosley DO 08/04/2013 [facility] Wilian Mosley DO 06/04/2011 Office visit Wilberto Wen MD 02/26/2011 [facility] Wilberto Wen MD
--- OUTSIDE RECORDS SUMMARY | 2019-01-24 20:26 | XMS REPORT | CCD ---
Author Author JACOBY STEWART Unknown Address [address] [facility] [address] [place] [id number] Care Team Providers Care Emt Dispatcher Name Role Phone ELIU SANTIAGO, YANI Locke Attphys SHAYLA MELVIN DO Prisurg A., ANTHONY NASST M., JEFFREY NASST F., DAISY NASST C., DANNIELLE Dang NASST M., SHE Jones NASST C., MARILYN NASST T., FREDERIC NASST Vital Signs Vital Sign Value Unit Date/Time Recent/Initial? Weight Measured 285.7 lbs 05/11/2014 23:00 Initial VS Height 71 in 05/11/2014 23:00 Initial VS BMI (Body Mass Index) 39.85 kg/m^2 05/11/2014 23:00 Initial VS BSA (Body Surface Area) 2.55 m^2 05/11/2014 23:00 Initial VS BP Systolic 148 mmHg 05/11/2014 23:00 Initial VS BP Diastolic 88 mmHg 05/11/2014 23:00 Initial VS Respiratory Rate 20 bpm 05/11/2014 23:00 Initial VS Heart Rate 86 bpm 05/11/2014 23:00 Initial VS O2 % BldC Oximetry 98 % 05/11/2014 23:00 Initial VS Body Temperature 97.2 degrees 05/11/2014 23:00 Initial VS Body Temperature 98.9 degrees 05/13/2014 00:23 Most Recent VS BP Systolic 139 mmHg 05/13/2014 07:27 Most Recent VS BP Diastolic 88 mmHg 05/13/2014 07:27 Most Recent VS Respiratory Rate 16 bpm 05/13/2014 07:27 Most Recent VS Heart Rate 77 bpm 05/13/2014 07:27 Most Recent VS O2 % BldC Oximetry 99 % 05/13/2014 07:27 Most Recent VS Allergies Allergy Code Allergy Type Reaction Status PCN (penicillin) 0 Drug allergy Active HALDOL 213903 Drug allergy Active BACTRIM 304016 Drug allergy Active Procedures Procedure Code Procedure Type Date GASTROSCOPY NEC 4413 ICD-9 CM, Volume 3 05/12/2014 REMOV INTRALUM GASTR FB 9803 ICD-9 CM, Volume 3 05/12/2014 ABDOMEN ONE VIEW 252131569 SNOMED CT 05/11/2014 BLOOD COLLECTION 74607910 SNOMED [address] 05/12/[address] 05/12/2014 VENTILATOR MGNT INITIAL DAY 603682054 SNOMED CT 05/12/2014 TECH ASSIST HOURLY 673297674 [facility] CT 05/12/2014 OXYGEN/HOUR 141339611 [facility] CT 05/12/2014 History of Immunizations Unknown or Not Available. Problems Problem Code Start Date Resolved Date Status Swallowed FB 95051542 05/12/2014 Active Results TEST - Collect Date/Time: 05/12/2014 10:20 Test Name Code Test Result Test Units Test Ref Range TEST 2117- NEGATIVE N/A Medications Medication Code Dose Units Frequency Route Modification Start Date/Time Stop Date/Time NS 1000 ML IV [PREDEFINED] (7983) 985398 CONT IV IV 05/11/2014 22:05 ~~ NACL 0.9% (7983) 1000ML IV BAG 443106 4566 ML HYDROmorphone SYR(DILAUDID)SYR:2MG/ML 279347 1 MG PRN Q 2 HRS IVP 05/11/2014 23:25 LORAZEPAM (ATIVAN) INJ : 2 MG/ML TUBEX 425510 1 MG PRN IVP 05/11/2014 23:46 DIPHENHYDRAMINE (BENADRYL)INJ : 50MG/ML 2055272 12.5 MG PRN Q 6 HRS SIVP 05/12/2014 09:39 NORCO [HYDROCODONE/APAP] 5/325MG TAB 058667 1 TAB PRN Q 4 HRS PO 05/12/2014 20:36 Depakote 500MG Oral Tablet, Delayed Release 2623934 2993 MILLIGRAMS TWO TIMES A DAY ORAL 12/07/2013 13:49 Paxil 40MG Oral Tablet 921068 40 MILLIGRAMS DAILY ORAL 12/07/2013 13:49 Seroquel 200MG Oral Tablet 801755 200 MILLIGRAMS AT BEDTIME ORAL 12/07/2013 13:49 Depo-Provera 150MG/ML Intramuscular Suspension 4640252 1 EACH every 3 months INTRAMUSCULAR 12/11/2013 08:39 ROBITUSSIN 0 10 MILLILITERS NEEDED ORAL 05/13/2014 10:32 ZyrTEC 10MG Oral Tablet 7490854 10 MILLIGRAMS DAILY ORAL 05/13/2014 10:32 Melatonin 5MG Oral Capsule 593757 5 MILLIGRAMS NEEDED ORAL 05/13/2014 10:32 Tylenol 325MG Oral Tablet 612943 650 MILLIGRAMS NEEDED ORAL 05/13/2014 10:32 Omeprazole 20MG Oral Tablet, Delayed Release 101063 20 MILLIGRAMS DAILY ORAL 05/13/2014 10:32 Colace 100MG Oral Capsule, Liquid Filled 6544467 100 MILLIGRAMS TWO TIMES A DAY ORAL 05/13/2014 10:32 Colace 100MG Oral Capsule, Liquid Filled 7329989 100 MILLIGRAMS TWO TIMES A DAY ORAL Omeprazole 20MG Oral Tablet, Delayed Release 467669 20 MILLIGRAMS DAILY ORAL Tylenol 325MG Oral Tablet 302255 650 MILLIGRAMS NEEDED ORAL Melatonin 5MG Oral Capsule 157011 5 MILLIGRAMS NEEDED ORAL ZyrTEC 10MG Oral Tablet 9618171 10 MILLIGRAMS DAILY ORAL ROBITUSSIN 0 10 MILLILITERS NEEDED ORAL ROBITUSSIN 0 10 MILLILITERS NEEDED ORAL ZyrTEC 10MG Oral Tablet 3973692 10 MILLIGRAMS DAILY ORAL Melatonin 5MG Oral Capsule 544547 5 MILLIGRAMS NEEDED ORAL Tylenol 325MG Oral Tablet 861938 650 MILLIGRAMS NEEDED ORAL Omeprazole 20MG Oral Tablet, Delayed Release 802402 20 MILLIGRAMS DAILY ORAL Colace 100MG Oral Capsule, Liquid Filled 8408466 100 MILLIGRAMS TWO TIMES A DAY ORAL Medications Administered Medication Dose Units Frequency Route Date/Time of Last Dose NS 1000 ML IV [PREDEFINED] (7983) CONT IV IV 05/13/2014 08:11 HYDROmorphone SYR(DILAUDID)SYR:2MG/ML 0.5 MG PRN Q 2 HRS IVP 05/12/2014 21:03 LORAZEPAM (ATIVAN) INJ : 2 MG/ML TUBEX 1 MG PRN IVP 05/12/2014 20:09 DIPHENHYDRAMINE (BENADRYL)INJ : 50MG/ML 12.5 MG PRN Q 6 HRS SIVP 05/13/2014 08:11 NORCO [HYDROCODONE/APAP] 5/325MG TAB 1 TAB PRN Q 4 HRS PO 05/13/2014 07:27 Encounters Encounter Diagnosis Diagnosis Code Start Date FOREIGN BODY IN STOMACH 9352 05/11/2014 Social History Smoking Status Code Start Date End Date Current every day smoker [id number] Patient Decision Aids Unknown or Not Available. Discharge Instructions You were admitted to [facility] on 05/11/2014 with a principal diagnosis of FOREIGN BODY IN STOMACH. You had the following procedures done: EGD REMOVE FOREIGN BODY REMOV INTRALUM GASTR FB You were discharged from [facility] on 05/13/2014. Should you have any questions prior to discharge, please contact a member of your healthcare team. If you have left the hospital and have any questions, please contact your primary care physician. HOME DIET: Regular. CONDITION AT DISMISSAL Stable. HOME MEDICATION INSTRUCTIONS: Take only the medications listed above.. HOME MEDS RETURNED TO PATIENT: N/A. ACTIVITY INSTRUCTIONS(list limitations): Activity as Tolerated. PRIMARY CARE PROVIDER: Danny Hare CODE STATUS: Full Code. TRANSFER TO: Report given to:Nora Drake Charge RN Time report given:_, 103 Discharge Nurse:Frederic Drake RN DIET: REGULAR. STAY DATES: Acute stay dates:_,05/11/2014- 05/13/2014 DISCHARGE HEIGHT/WEIGHT: Height:_, 71" Weight:_, 285.7# CURRENT TREATMENTS: IV fluids, PRN pain medication ELIMINATION: Bladder, 05/13/2014 Bowel - Last BM:_, None since admission AMBULATION: As tolerated BED MOBILITY: Independent. TRANSFER BED/CHAIR: Independent. TOILET USE: Indepen dent. EATING: Independent. AMBULATING: Independent. IN THE LAST 14 DAYS THE PATIENT RECEIVED: IV fluids, IV medication. VACCINATIONS: Flu Vax:__, Current Pneu Vax:__, Does not qualify [facility]: Time:_. Transported by:. [place] transport staff. Name:Noelle Lamine CHIEF COMPLAINT: PT STATES THAT SHE SWALLOWED 2 EYE GLASS LENSES AND A SCREW. Chief Complaint and Reason For Visit Chief Complaint Date of Onset SWALLOWED FOREIGN BODY Function Status Unknown or Not Available. Plan of Care Unknown or Not Available. Referral/Transition of Care Unknown or Not Available.
--- OUTSIDE RECORDS SUMMARY | 2019-01-24 20:26 | XMS REPORT | CCD ---
Author Author MACK SCHULTZ Organization Unknown Address [address] [facility] [address] [place], [place] [id number] Care Team Providers Care Incising Machine Operator Name Role Phone WILBERTO WEN MD Attphys HANDSHY ISAIAS, LARS SANTIAGO Prisurg Vital Signs Vital Sign Value Unit Weight Measured 292 lbs Height 68 in BMI (Body Mass Index) 44.4 kg/m^2 BSA (Body Surface Area) 2.52 m^2 BP Systolic 107 mmHg BP Diastolic 85 mmHg BP Systolic 127 mmHg BP Diastolic 82 mmHg BP Systolic 141 mmHg BP Diastolic 93 mmHg BP Systolic 130 mmHg BP Diastolic 94 mmHg BP Systolic 135 mmHg BP Diastolic 95 mmHg BP Systolic 136 mmHg BP Diastolic 96 mmHg BP Systolic 106 mmHg BP Diastolic 81 mmHg BP Systolic 122 mmHg BP Diastolic 73 mmHg BP Systolic 133 mmHg BP Diastolic 87 mmHg BP Systolic 120 mmHg BP Diastolic 74 mmHg Respiratory Rate 12 bpm Respiratory Rate 20 bpm Respiratory Rate 20 bpm Respiratory Rate 20 bpm Respiratory Rate 20 bpm Respiratory Rate 20 bpm Respiratory Rate 20 bpm Respiratory Rate 20 bpm Respiratory Rate 20 bpm Respiratory Rate 20 bpm Heart Rate 73 bpm Heart Rate 74 bpm Heart Rate 72 bpm Heart Rate 67 bpm Heart Rate 61 bpm Heart Rate 66 bpm Heart Rate 95 bpm Heart Rate 91 bpm Heart Rate 83 bpm Heart Rate 82 bpm O2 % BldC Oximetry 97 % O2 % BldC Oximetry 100 % O2 % BldC Oximetry 98 % O2 % BldC Oximetry 98 % O2 % BldC Oximetry 94 % O2 % BldC Oximetry 98 % O2 % BldC Oximetry 100 % O2 % BldC Oximetry 95 % O2 % BldC Oximetry 95 % O2 % BldC Oximetry 94 % Body Temperature 97.6 degrees Body Temperature 97.9 degrees Body Temperature 98 degrees Body Temperature 98 degrees Body Temperature 98.1 degrees Body Temperature 98.6 degrees Body Temperature 98 degrees Allergies Allergy Code Allergy Type Reaction Status PCN (penicillin) 0 Drug allergy (disorder) Active HALDOL 0 Drug allergy (disorder) Active BACTRIM 0 Drug allergy (disorder) Active Procedures Unknown. History of Immunizations Unknown. Problems Problem Code Start Date Resolved Date Status Swallowed foreign body, initial encounter 27207551 12/07/2013 Active Results CBC W/ AUTO DIFF (RFLX MAN DIFF IF IND) Test Name Code Test Result Test Units Test Date/Time WBC 64635-7 6.1000 TH/CMM 12/10/2013 18:35 RBC 789-8 4.1500 ML/CMM 12/10/2013 18:35 HGB 718-7 13.0000 G/DL 12/10/2013 18:35 HCT 4544-3 38.0000 % 12/10/2013 18:35 MCV 92.0000 FL 12/10/2013 18:35 MCH 31.3000 PG 12/10/2013 18:35 MCHC 34.2000 G/DL 12/10/2013 18:35 RDW SD 40.0000 FL 12/10/2013 18:35 RDW CV 11.8000 % 12/10/2013 18:35 MPV 10.1000 FL 12/10/2013 18:35 PLT 777-3 171.0000 TH/CMM 12/10/2013 18:35 NRBC# 0.0000 TH/CMM 12/10/2013 18:35 NRBC% 0.0000 /100WBC 12/10/2013 18:35 %NEUT 51.1000 % 12/10/2013 18:35 %LYMP 39.5000 % 12/10/2013 18:35 %MONO 6.7000 % 12/10/2013 18:35 %EOS 2.5000 % 12/10/2013 18:35 %BASO 0.2000 % 12/10/2013 18:35 #NEUT 3.1100 TH/CMM 12/10/2013 18:35 #LYMP 2.4000 TH/CMM 12/10/2013 18:35 #MONO 0.4100 TH/CMM 12/10/2013 18:35 #EOS 0.1500 TH/CMM 12/10/2013 18:35 #BASO 0.0100 TH/CMM 12/10/2013 18:35 MANUAL DIFF NOT IND N/A 12/10/2013 18:35 PT/PTT Test Name Code Test Result Test Units Test Date/Time PROTIME 94739-3 10.9000 SEC 12/10/2013 18:35 INR 1.1000 12/10/2013 18:35 PTT 3173-2 27.3000 SEC 12/10/2013 18:35 COMPREHENSIVE METABOLIC PANEL Test Name Code Test Result Test Units Test Date/Time GLUCOSE 2345-7 117.0000 MG/DL 12/10/2013 18:35 SODIUM 2951-2 139.0000 MEQ/L 12/10/2013 18:35 POTASSIUM 2823-3 4.5000 MEQ/L 12/10/2013 18:35 CHLORIDE 2075-0 109.0000 MEQ/L 12/10/2013 18:35 CO2 2028-9 20.0000 MEQ/L 12/10/2013 18:35 BUN 3094-0 15.0000 MG/DL 12/10/2013 18:35 CREATININE 2160-0 0.8000 MG/DL 12/10/2013 18:35 SGOT/AST 1920-8 19.0000 IU/L 12/10/2013 18:35 SGPT/ALT 1742-6 21.0000 IU/L 12/10/2013 18:35 ALK PHOS 6768-6 53.0000 IU/L 12/10/2013 18:35 TOTAL PROTEIN 2885-2 6.3000 G/DL 12/10/2013 18:35 ALBUMIN 1751-7 3.5000 G/DL 12/10/2013 18:35 TOTAL BILI 1975-2 0.2000 MG/DL 12/10/2013 18:35 CALCIUM 21145-6 9.0000 MG/DL 12/10/2013 18:35 AGE 28.0000 yrs 12/10/2013 18:35 GFR NonAA 87.0000 12/10/2013 18:35 GFR AA 105.0000 12/10/2013 18:35 eGFR 60.0000 mL/min/1.7 12/10/2013 18:35 eGFR AA* 60.0000 mL/min/1.7 12/10/2013 18:35 Medications Medication Code Dose Units Frequency Route Modification Start Date/Time Stop Date/Time PANTOPRAZOLE [PROTONIX] TABLET : 40 MG 505784 40 MG DAILY PO 12/10/2013 20:08 QUETIAPINE [SEROQUEL] TABLET: 100 MG 696274 100 MG DAILY PO 12/10/2013 20:08 PAROXETINE [PAXIL] TAB: 10 MG 100823 10 MG DAILY PO 12/10/2013 20:08 DIVALPROEX NA [DEPAKOTE] 500 MG TAB 3326473 7084 MG BID PO 12/10/2013 20:08 ZOLPIDEM [AMBIEN] TABLET : 5 MG 119849 5 MG PRN PO 12/10/2013 22:27 Depakote 500MG Oral Tablet, Delayed Release 4959885 0822 MILLIGRAMS TWO TIMES A DAY ORAL 12/07/2013 13:49 Paxil 40MG Oral Tablet 903854 40 MILLIGRAMS DAILY ORAL 12/07/2013 13:49 Seroquel 200MG Oral Tablet 782871 200 MILLIGRAMS AT BEDTIME ORAL 12/07/2013 13:49 Prilosec 20MG Oral Capsule, Delayed Release 441691 20 MILLIGRAMS DAILY ORAL 12/07/2013 13:49 Colace 100MG Oral Capsule, Liquid Filled 0297717 100 MILLIGRAMS DAILY ORAL 12/07/2013 13:49 Colace 100MG Oral Capsule, Liquid Filled 3835309 200 MILLIGRAMS AT BEDTIME ORAL 12/07/2013 13:49 Melatonin 5MG Oral Capsule 065735 5 MILLIGRAMS AT BEDTIME ORAL 12/07/2013 13:49 Tylenol 325MG Oral Tablet 462446 325 MILLIGRAMS NEEDED EVERY 4 HR ORAL 12/11/2013 08:39 Depo-Provera 150MG/ML Intramuscular Suspension 4649167 1 EACH every 3 months INTRAMUSCULAR 12/11/2013 08:39 Depo-Provera 150MG/ML Intramuscular Suspension 6056856 1 EACH every 3 months INTRAMUSCULAR Tylenol 325MG Oral Tablet 697599 325 MILLIGRAMS NEEDED EVERY 4 HR ORAL Medications Administered Medication Dose Units Frequency Route Date/Time of Last Dose PANTOPRAZOLE [PROTONIX] TABLET : 40 MG 40 MG DAILY PO 12/11/2013 09:13 QUETIAPINE [SEROQUEL] TABLET: 100 MG 100 MG DAILY PO 12/11/2013 09:13 PAROXETINE [PAXIL] TAB: 10 MG 10 MG DAILY PO 12/11/2013 09:13 DIVALPROEX NA [DEPAKOTE] 500 MG TAB 1000 MG BID PO 12/11/2013 09:13 ZOLPIDEM [AMBIEN] TABLET : 5 MG 5 MG PRN PO 12/10/2013 22:35 Encounters Encounter Diagnosis Diagnosis Code Start Date FOREIGN BODY IN STOMACH 9352 12/10/2013 Social History Smoking Status Code Start Date End Date Current every day smoker [id number] Patient Decision Aids Unknown. Instructions You were admitted to [facility] on 12/10/2013 with a principle diagnosis of FOREIGN BODY IN STOMACH. You had the following procedures done: EGD REMOVE FOREIGN BODY SM BOWEL ENDOSCOPY NEC You were discharged from [facility] on 12/11/2013. Should you have any questions prior to discharge, please contact a member of your healthcare team. If you have left the hospital and have any questions, please contact your primary care physician. HOME DIET: Regular. CONDITION AT DISMISSAL Stable. ACTIVITY INSTRUCTIONS(list limitations): Activity as Tolerated. PRIMARY CARE PHYSICIAN OR PRACTITIONER: Wilberto Wen MD, . CONTACT YOUR PHYSICIAN IF YOU EXPERIENCE ANY: pain, bleeding, fever, Shortness of Breath, Difficulty swallowing. PERSONAL ITEMS RETURNED: Yes. INSTRUCTIONS GIVEN AND DISCHARGE TO: Patient, Test Grader. VOICES UNDERSTANDING OF INSTRUCTIONS: Yes. OTHER IMMUNIZATIONS: Patient refuses vaccine:(list). Chief Complaint and Reason For Visit Chief Complaint Date of Onset SWALLOWED FB/EGD Function Status Unknown. Plan of Care Unknown. Referral/Transition of Care Unknown.
--- OUTSIDE RECORDS SUMMARY | 2019-01-24 20:27 | XMS REPORT | Continuity of Care Document ---
Author Organization Unknown Address Unknown Allergies Active Description Code Type Severity Reaction Onset Reported/Identified Relationship to Patient Clinical Status Yes BACTRIM 64740490 BRANDNAME N/A N/A Yes HALDOL 43687123 BRANDNAME N/A N/A Yes PCN (penicillin) 50384582 CLASS N/A N/A Medications There is no data. Problems There is no data. Procedures There is no data. Results There is no data. Encounters ACCT No. Visit Date/Time Discharge Status Pt. Type Provider Facility Loc./Unit Complaint [id number] 10/15/2017 12:15:33 10/15/2017 23:59:59 CLS Outpatient Trevin Christian [id number] 04/27/2016 10:58:25 04/27/2016 23:59:59 CLS Outpatient Wilberto Wen [id number] 03/31/2016 10:52:23 03/31/2016 23:59:59 CLS Outpatient Wilberto Wen [id number] 03/31/2016 10:49:20 03/31/2016 23:59:59 CLS Outpatient Wilberto Wen [id number] 03/30/2016 11:22:15 03/30/2016 23:59:59 CLS Outpatient Wilberto Wen [id number] 03/23/2016 09:52:33 03/23/2016 23:59:59 CLS Outpatient Wilberto Wen [id number] 03/23/2016 09:49:09 03/23/2016 23:59:59 CLS Outpatient Wilberto Wen [id number] 09/16/2015 10:24:31 09/16/2015 23:59:59 CLS Outpatient Wilian Mosley [id number] 07/08/2015 14:16:58 07/08/2015 23:59:59 CLS Outpatient Mayra Matthews [id number] 06/24/2015 15:19:22 06/24/2015 23:59:59 CLS Outpatient Mayra Matthews [id number] 03/11/2015 21:48:31 03/11/2015 23:59:59 CLS Outpatient [place], Wilberto [id number] 05/21/2014 13:54:14 05/21/2014 23:59:59 CLS Outpatient [place], Wilberto [id number] 05/17/2014 14:34:02 05/17/2014 23:59:59 CLS Outpatient Wilian Mosley [id number] 03/27/2014 15:35:55 03/27/2014 23:59:59 CLS Outpatient [place], Wilberto [id number] 03/20/2014 09:22:33 03/20/2014 23:59:59 CLS Outpatient [place], Wilberto [id number] 03/15/2014 15:04:13 03/15/2014 23:59:59 CLS Outpatient [place], Wilberto [id number] 03/08/2014 16:22:24 03/08/2014 23:59:59 CLS Outpatient [place], Wilberto [id number] 03/05/2014 21:53:39 03/05/2014 23:59:59 CLS Outpatient [place], Wilberto [id number] 03/05/2014 21:48:33 03/05/2014 23:59:59 CLS Outpatient [place], Wilberto [id number] 01/31/2014 11:47:47 01/31/2014 23:59:59 CLS Outpatient [place], Wilberto [id number] 12/26/2013 16:25:17 12/26/2013 23:59:59 CLS Outpatient [place], Wilberto [id number] 12/14/2013 11:25:32 12/14/2013 23:59:59 CLS Outpatient [place], Wilberto [id number] 12/14/2013 11:19:47 12/14/2013 23:59:59 CLS Outpatient [place], Wilberto [id number] 12/14/2013 11:19:06 12/14/2013 23:59:59 CLS Outpatient [place], Wilberto [id number] 12/12/2013 17:13:14 12/12/2013 23:59:59 CLS Outpatient [place], Wilberto [id number] 09/04/2013 12:58:40 09/04/2013 23:59:59 CLS Outpatient Wilian Mosley [id number] 08/23/2013 17:22:25 08/23/2013 23:59:59 CLS Outpatient Wilian Mosley [id number] 03/20/2012 20:26:00 03/20/2012 21:03:00 DIS Emergency Lázaro SANTIAGO, Wallace [facility] W.EDW [id number] 05/20/2018 09:20:03 Document Registration [id number] 02/11/2018 13:32:55 Document Registration [id number] 11/10/2017 15:59:04 Document Registration [id number] 11/05/2017 10:21:51 Document Registration [id number] 10/25/2017 15:58:05 Document Registration [id number] 09/30/2017 19:47:50 Document Registration [id number] 09/26/2017 16:57:31 Document Registration [id number] 09/26/2017 16:55:14 Document Registration [id number] 09/01/2017 10:18:00 Document Registration [id number] 05/11/2017 09:22:14 Document Registration [id number] 04/26/2015 13:45:53 04/26/2015 13:45:53 DIS Outpatient
--- NOTE | 2019-01-24 20:34 | ED Abdominal Pain ---
General Stated Complaint: VOMITING BLOOD,CRAMPING Source of Information: Patient Exam Limitations: No Limitations History of Present Illness Date Seen by Provider: Jan 24, 2019 Time Seen by Provider: 20:32 Initial Comments To ER by private vehicle accompanied by her caregiver from [employer] [facility] with reports of right-sided abdominal pain. She also has vomited some bright red blood. She states that she did have some bloody stools and vomiting blood about 3 days ago but she didn't tell anybody. She states that she has a history of eating things such as toenail clippers that have had to be removed surgically. Two weeks ago while at also [facility] she broke her eyeglasses and ate them. She assures me she has not eaten anything since then Timing/Duration: 1-2 Days Severity/Quality: Moderate Location: RUQ, RLQ Radiation: No Radiation Activities at Onset: None Associated Symptoms: Nausea/Vomiting (I1 100% vision) Allergies and Home Medications Allergies Coded Allergies: No Allergy Information Available (Unverified , 01/24/19) Patient Home Medication List Home Medication List Reviewed: Yes Review of Systems Review of Systems Constitutional: see HPI EENTM: No Symptoms Reported Respiratory: No Symptoms Reported Cardiovascular: No Symptoms Reported Gastrointestinal: See HPI, Abdominal Pain Genitourinary: No Symptoms Reported Musculoskeletal: no symptoms reported Skin: no symptoms reported Psychiatric/Neurological: No Symptoms Reported Endocrine: No Symptoms Reported Past Shfrsyp-Odmroj-Zplmgq Hx Patient Social History Recent Foreign Travel: No Contact w/Someone Who Travel: No Physical Exam Vital Signs Vital Signs - First Documented 01/24/19 20:25 Temp 97.2 Pulse 101 Resp 18 B/P (MAP) 131/95 (107) Capillary Refill : Height/Weight/BMI Height: '" Weight: lbs. oz. kg; BMI Method: General Appearance: WD/WN, no apparent distress Neck: non-tender, full range of motion Respiratory: normal breath sounds, no respiratory distress, no accessory muscle use Cardiovascular: regular rate, rhythm, no murmur Gastrointestinal: normal bowel sounds, soft, tenderness Extremities: normal range of motion, non-tender Neurologic/Psychiatric: alert, normal mood/affect, oriented x 3 Skin: normal color, warm/dry Progress/Results/Core Measures Results/Orders Lab Results Laboratory Tests Test 01/24/19 20:35 01/24/19 20:45 Range/Units White Blood Count 6.5 4.3-11.0 10^3/uL Red Blood Count 3.75 L 4.35-5.85 10^6/uL Hemoglobin 11.0 L 11.5-16.0 G/DL Hematocrit 33 L 35-52 % Mean Corpuscular Volume 89 80-99 FL Mean Corpuscular Hemoglobin 29 25-34 PG Mean Corpuscular Hemoglobin Concent 33 32-36 G/DL Red Cell Distribution Width 13.1 10.0-14.5 % Platelet Count 267 130-400 10^3/uL Mean Platelet Volume 9.5 7.4-10.4 FL Neutrophils (%) (Auto) 48 42-75 % Lymphocytes (%) (Auto) 42 12-44 % Monocytes (%) (Auto) 8 0-12 % Eosinophils (%) (Auto) 2 0-10 % Basophils (%) (Auto) 0 0-10 % Neutrophils # (Auto) 3.1 1.8-7.8 X 10^3 Lymphocytes # (Auto) 2.7 1.0-4.0 X 10^3 Monocytes # (Auto) 0.5 0.0-1.0 X 10^3 Eosinophils # (Auto) 0.1 0.0-0.3 10^3/uL Basophils # (Auto) 0.0 0.0-0.1 10^3/uL Sodium Level 140 135-145 MMOL/L Potassium Level 3.9 3.6-5.0 MMOL/L Chloride Level 109 H 98-107 MMOL/L Carbon Dioxide Level 21 21-32 MMOL/L Anion Gap 10 5-14 MMOL/L Blood Urea Nitrogen 9 7-18 MG/DL Creatinine 0.81 0.60-1.30 MG/DL Estimat Glomerular Filtration Rate > 60 BUN/Creatinine Ratio 11 Glucose Level 103 70-105 MG/DL Calcium Level 9.3 8.5-10.1 MG/DL Corrected Calcium 9.4 8.5-10.1 MG/DL Total Bilirubin 0.1 0.1-1.0 MG/DL Aspartate Amino Transf (AST/SGOT) 12 5-34 U/L Alanine Aminotransferase (ALT/SGPT) 14 0-55 U/L Alkaline Phosphatase 65 40-136 U/L Total Protein 6.6 6.4-8.2 GM/DL Albumin 3.9 3.2-4.5 GM/DL Serum Test, Qualitative NEGATIVE NEGATIVE Gastric Fluid Occult Blood POSITIVE H NEGATIVE My Orders Orders - LEON MONTOYA [employer]GER MEDICA[employer] Cbc With Automated Diff (01/24/19 20:29) Comprehensive Metabolic Panel (01/24/19 20:29) Ua Culture If Indicated (01/24/19 20:29) Hcg,Qualitative Serum (01/24/19 20:29) Ed Iv/Invasive Line Start (01/24/19 20:29) Ct Abdomen/Pelvis W (01/24/19 20:29) Abdomen/Kub 1view (01/24/19 20:29) Iohexol Injection (Omnipaque 350 Mg/Ml 1 (01/24/19 20:45) Received Contrast (Hold Metformin- Contr (01/24/19 20:45) Ns (Ivpb) (Sodium Chloride 0.9% Ivpb Bag (01/24/19 20:45) Occult Blood,Gastric Fluid (01/24/19 20:50) Pantoprazole Injection (Protonix Injecti (01/24/19 22:00) Antacid Suspension (Mylanta Suspension (01/24/19 22:00) Lidocaine 2% Viscous 15 Ml (Xylocaine Vi (01/24/19 22:00) Fentanyl Injection (Sublimaze Injection (01/24/19 22:00) Vital Signs/I&O 01/24/19 20:25 Temp 97.2 Pulse 101 Resp 18 B/P (MAP) 131/95 (107) Departure Communication (Admissions) Time/Spoke to Admitting Phy: 21:[address] Barraza. Also spoke with Dr. Phillips. We'll admit, observe nothing by mouth status IV Protonix 4-patient brings with her some blood in the Ziploc bag. I tested this for ga stric occult blood and it was positive. Patient did shake my hand promising that she would not be any foreign substances while she is admitted here Impression Primary Impression: Hematemesis Qualified Codes: K92.0 - Hematemesis Disposition: ADMITTED INPATIENT Condition: Stable Admissions Decision to Admit Reason: Admit from ER (General) Decision to Admit/Date: Jan 24, 2019 Time/Decision to Admit Time: 22:00 Departure-Patient Inst. Referrals: BUD GARCIA MD (PCP/Family) Primary Care Physician LEON MONTOYA MANAGER MEDICA[employer] Jan 24, 2019 20:34
[2019-01-24] MEDS ORDERED: HOLD METFORMIN - RECEIVED CONTRAST 20 ML VIAL IV SCH (20:45)
[2019-01-24] MEDS ORDERED: IOHEXOL 350 MG/ML 100 ML (OMNIPAQUE 350) VIAL IV ONE (20:45)
[2019-01-24] MEDS ORDERED: NS 100 ML (IVPB) BAG IV ONE (20:45)
[2019-01-24 20:47] LABS: BASOPHILS % (AUTO) 0 % (0-10); EOSINOPHILS # (AUTO) 0.1 10^3/uL (0.0-0.3); EOSINOPHILS % (AUTO) 2 % (0-10); HEMATOCRIT 33 % (35-52); LYMPHOCYTES # (AUTO) 2.7 X 10^3 (1.0-4.0); LYMPHOCYTES % (AUTO) 42 % (12-44); MEAN CORPUSCULAR HEMOGLOBIN 29 PG (25-34); MEAN CORPUSCULAR HGB CONC 33 G/DL (32-36); MEAN CORPUSCULAR VOLUME 89 FL (80-99); MEAN PLATELET VOLUME 9.5 FL (7.4-10.4); MONOCYTES # (AUTO) 0.5 X 10^3 (0.0-1.0); MONOCYTES % (AUTO) 8 % (0-12); NEUTROPHILS # (AUTO) 3.1 X 10^3 (1.8-7.8); NEUTROPHILS % (AUTO) 48 % (42-75); PLATELET COUNT 267 10^3/uL (130-400); RED CELL DISTRIBUTION WIDTH 13.1 % (10.0-14.5); WHITE BLOOD COUNT 6.5 10^3/uL (4.3-11.0)
[2019-01-24 20:57] LABS: OCCULT BLOOD,GASTRIC FLUID POSITIVE (NEGATIVE)
[2019-01-24 21:07] LABS: ALANINE AMINOTRANSFERASE 14 U/L (0-55); ALBUMIN 3.9 GM/DL (3.2-4.5); ALKALINE PHOSPHATASE 65 U/L (40-136); BILIRUBIN,TOTAL 0.1 MG/DL (0.1-1.0); BUN/CREATININE RATIO 11; CALCIUM 9.3 MG/DL (8.5-10.1); CARBON DIOXIDE 21 MMOL/L (21-32); CHLORIDE 109 MMOL/L (98-107); CREATININE SERUM 0.81 MG/DL (0.60-1.30); GFR ESTIMATED > 60; GLUCOSE 103 MG/DL (70-105); POTASSIUM 3.9 MMOL/L (3.6-5.0); SODIUM 140 MMOL/L (135-145); TOTAL PROTEIN 6.6 GM/DL (6.4-8.2)
--- NOTE | 2019-01-24 21:44 | Diagnostic Imaging Report ---
PROCEDURE: CT abdomen and pelvis with contrast. TECHNIQUE: Multiple contiguous axial images were obtained through the abdomen and pelvis after administration of intravenous contrast. Auto Exposure Controls were utilized during the CT exam to meet ALARA standards for radiation dose reduction. INDICATION: Upper abdominal and right lower quadrant pain. Vomiting blood. COMPARISON: None FINDINGS: The lung bases are clear. The heart is normal in size. There is no pericardial effusion. The liver demonstrates no focal lesions. The spleen appears normal. The pancreas is normal. Cholecystectomy clips are noted. There is a right adrenal nodule measuring 1.8 cm in size which demonstrates significant washout on delayed imaging, most likely an adenoma. The kidneys appear normal with a small 1 cm cyst on the left kidney. There is no hydronephrosis. The bowel loops are nondistended without obstruction seen. The appendix is not well seen, but no secondary findings of appendicitis are seen. There is moderate stool in the ascending colon. No free fluid or free air seen. There is mild wall thickening of the distal stomach, may represent a gastritis. IMPRESSION: 1. Mild wall thickening of the distal stomach may represent gastritis. No free air is seen. 2. Moderate stool in the ascending colon. 3. Right adrenal adenoma. Dictated by: Dictated on workstation # [id number]
--- NOTE | 2019-01-24 21:48 | Diagnostic Imaging Report ---
PATIENT HISTORY: Abdominal pain. TECHNIQUE: Frontal view of the abdomen COMPARISON: 02/07/2003 FINDINGS: There is moderate stool in the ascending colon. No distended loops of small bowel are seen. There is no large collection of free air. Contrast is seen excreting from the kidneys into the bladder. No acute osseous abnormalities seen. Cholecystectomy clips are noted. IMPRESSION: 1. No bowel obstruction or large collection of free air. 2. Moderate stool in the ascending colon. Dictated by: Dictated on workstation # [id number]
[2019-01-24] MEDS ORDERED: PANTOPRAZOLE 40 MG (PROTONIX) VIAL IV ONE (22:00)
[2019-01-24] MEDS ORDERED: LIDOCAINE 2% VISCOUS 15 ML UDC PO ONE (22:00)
[2019-01-24] MEDS ORDERED: fentaNYL INJECTION 100 MCG/2 ML AMP IVP ONE (22:00)
[2019-01-24] MEDS ORDERED: ANTACID SUSP 30 ML UDC (MYLANTA) PO ONE (22:00)
--- OUTSIDE RECORDS SUMMARY | 2019-01-24 22:31 | XMS REPORT | Continuity of Care Document ---
Author Organization Unknown Address Unknown Allergies Active Description Code Type Severity Reaction Onset Reported/Identified Relationship to Patient Clinical Status Yes BACTRIM [id number] BRANDNAME N/A N/A Yes HALDOL [id number] BRANDNAME N/A N/A Yes PCN (penicillin) [id number] CLASS N/A N/A Medications There is no data. Problems There is no data. Procedures There is no data. Results There is no data. Encounters ACCT No. Visit Date/Time Discharge Status Pt. Type Provider Facility Loc./Unit Complaint [id number] 10/15/2017 12:15:33 10/15/2017 23:59:59 CLS Outpatient Trevin Christian [id number] 04/27/2016 10:58:25 04/27/2016 23:59:59 CLS Outpatient Wilberto Wen [id number] 03/31/2016 10:52:23 03/31/2016 23:59:59 CLS Outpatient Wilberto Wen [id number] 03/31/2016 10:49:20 03/31/2016 23:59:59 CLS Outpatient Wilberto Wen [id number] 03/30/2016 11:22:15 03/30/2016 23:59:59 CLS Outpatient Wilberto Wen [id number] 03/23/2016 09:52:33 03/23/2016 23:59:59 CLS Outpatient Wilberto Wen [id number] 03/23/2016 09:49:09 03/23/2016 23:59:59 CLS Outpatient Wilberto Wen [id number] 09/16/2015 10:24:31 09/16/2015 23:59:59 CLS Outpatient Wilian Mosley [id number] 07/08/2015 14:16:58 07/08/2015 23:59:59 CLS Outpatient Mayra Matthews [id number] 06/24/2015 15:19:22 06/24/2015 23:59:59 CLS Outpatient Mayra Matthews [id number] 03/11/2015 21:48:31 03/11/2015 23:59:59 CLS Outpatient [place], Wilberto [id number] 05/21/2014 13:54:14 05/21/2014 23:59:59 CLS Outpatient [place], Wilberto [id number] 05/17/2014 14:34:02 05/17/2014 23:59:59 CLS Outpatient Wilian Mosley [id number] 03/27/2014 15:35:55 03/27/2014 23:59:59 CLS Outpatient [place], Wilberto [id number] 03/20/2014 09:22:33 03/20/2014 23:59:59 CLS Outpatient [place], Wilberto [id number] 03/15/2014 15:04:13 03/15/2014 23:59:59 CLS Outpatient [place], Wilberto [id number] 03/08/2014 16:22:24 03/08/2014 23:59:59 CLS Outpatient [place], Wilberto [id number] 03/05/2014 21:53:39 03/05/2014 23:59:59 CLS Outpatient [place], Wilberto [id number] 03/05/2014 21:48:33 03/05/2014 23:59:59 CLS Outpatient [place], Wilberto [id number] 01/31/2014 11:47:47 01/31/2014 23:59:59 CLS Outpatient [place], Wilberto [id number] 12/26/2013 16:25:17 12/26/2013 23:59:59 CLS Outpatient [place], Wilberto [id number] 12/14/2013 11:25:32 12/14/2013 23:59:59 CLS Outpatient [place], Wilberto [id number] 12/14/2013 11:19:47 12/14/2013 23:59:59 CLS Outpatient [place], Wilberto [id number] 12/14/2013 11:19:06 12/14/2013 23:59:59 CLS Outpatient [place], Wilberto [id number] 12/12/2013 17:13:14 12/12/2013 23:59:59 CLS Outpatient [place], Wilberto [id number] 09/04/2013 12:58:40 09/04/2013 23:59:59 CLS Outpatient Wilian Mosley [id number] 08/23/2013 17:22:25 08/23/2013 23:59:59 CLS Outpatient Wilian Mosley [id number] 03/20/2012 20:26:00 03/20/2012 21:03:00 DIS Emergency Lázaro SANTIAGO, [facility] W.EDW [id number] 05/20/2018 09:20:03 Document Registration [id number] 02/11/2018 13:32:55 Document Registration [id number] 11/10/2017 15:59:04 Document Registration [id number] 11/05/2017 10:21:51 Document Registration [id number] 10/25/2017 15:58:05 Document Registration [id number] 09/30/2017 19:47:50 Document Registration [id number] 09/26/2017 16:57:31 Document Registration [id number] 09/26/2017 16:55:14 Document Registration [id number] 09/01/2017 10:18:00 Document Registration [id number] 05/11/2017 09:22:14 Document Registration [id number] 04/26/2015 13:45:53 04/26/2015 13:45:53 DIS Outpatient
--- NOTE | 2019-01-24 23:10 | NUR ---
TANESHA OWENS admitted to room 405-1, with an admitting diagnosis of HEMATEMESIS, on 01/24/19 from ED via WC, accompanied by ED STAFF AND ASSEMBLER TYPE BAR AND SEGMENT.TANESHA OWENS introduced to surroundings, call light, bed controls, phone, TV, temperature control, lights, meal times, smoking policy, visitor policy, side rail policy, bathrooms and showers. Patient Rights given to patient in the handbook. TANESHA OWENS verbalizes understanding that [facility] is not responsible for the loss or damage to any personal effects or valuables that are kept in the patients posession during their hospitalization. Patient Care Plans were discussed with the PT TANESHA OWENS verbalizes understanding of Interdisciplinary Patient Education. Patient and/or family were informed about the Rapid Response Team and its purpose.
[2019-01-24 23:11] VITALS: BP 127/89
[2019-01-24] MEDS ORDERED: LACTATED RINGERS 1,000 ML IV ONE (23:28)
[2019-01-24] MEDS: LACTATED RINGERS 1,000 ML IV SCH (23:38)
[2019-01-25 00:15] VITALS: BP 127/85
[2019-01-25 03:48] VITALS: BP 121/77
[2019-01-25 06:27] LABS: BASOPHILS % (AUTO) 0 % (0-10); EOSINOPHILS # (AUTO) 0.1 10^3/uL (0.0-0.3); EOSINOPHILS % (AUTO) 2 % (0-10); HEMATOCRIT 31 % (35-52); HEMOGLOBIN 10.1 G/DL (11.5-16.0); LYMPHOCYTES # (AUTO) 2.5 X 10^3 (1.0-4.0); LYMPHOCYTES % (AUTO) 40 % (12-44); MEAN CORPUSCULAR HEMOGLOBIN 29 PG (25-34); MEAN CORPUSCULAR HGB CONC 33 G/DL (32-36); MEAN CORPUSCULAR VOLUME 89 FL (80-99); MEAN PLATELET VOLUME 9.5 FL (7.4-10.4); MONOCYTES # (AUTO) 0.5 X 10^3 (0.0-1.0); MONOCYTES % (AUTO) 8 % (0-12); NEUTROPHILS # (AUTO) 3.1 X 10^3 (1.8-7.8); NEUTROPHILS % (AUTO) 50 % (42-75); PLATELET COUNT 245 10^3/uL (130-400); RED CELL DISTRIBUTION WIDTH 13.2 % (10.0-14.5); WHITE BLOOD COUNT 6.2 10^3/uL (4.3-11.0)
[2019-01-25] MEDS: LACTATED RINGERS 1,000 ML IV SCH (06:33)
[2019-01-25 08:00] VITALS: BP 129/90
[2019-01-25] MEDS ORDERED: PANTOPRAZOLE 40 MG (PROTONIX) VIAL IV SCH (09:00)
--- NOTE | 2019-01-25 10:42 | Consultation-Hospitalist ---
HPI History of Present Illness: HPI/Chief Complaint CC: Hematemesis medical management of comorbidities while hospitalized HPI: This is a 33yo -Martiniquais female who resides in a fdc due to PICA and Bipolar syndrome who is known for eating toenails clippers and other devices who presents to the ER with Hematemesis. Labs were stable and Dr. Phillips has agreed to advance to clear liquid diet at noon if all is stable. After I saw her she decided she was going to leave against medical advice and she was taken back to her fdc with her caregiver. Source: patient, RN/MD, caregiver Exam Limitations: no limitations Date Seen 01/25/19 Attending Physician Mnauel Phillips DO PCP Scarlet Mina MD Referring Physician Date of Admission Jan 24, 2019 at 21:57 Home Medications & Allergies Home Medications Reviewed patient Home Medication Reconciliation performed by pharmacy medication reconciliations predictive maintenance technician and/or nursing. Patients Allergies have been reviewed. Allergies Allergies Coded Allergies Fish Containing Products (Verified Allergy, Unknown, 01/24/19) Penicillins (Verified Allergy, Unknown, 01/24/19) Sulfa (Sulfonamide Antibiotics) (Verified Allergy, Unknown, 01/24/19) haloperidol (Verified Allergy, Unknown, 01/24/19) Past Gapabud-Tznmyt-Sjttzh Hx Past Med/Social Hx: Reviewed Nursing Past Med/Soc Hx, Reviewed and Corrections made Patient Social History Marrital Status: single Employed/Student: unemployed Alcohol Use: Denies Use Recreational Drug Use: No Smoking Status: Current Everyday Smoker Recent Foreign Travel: No Contact w/other who traveled: No Recent Hopitalizations: No Recent Infectious Disease Expo: No Seasonal Allergies Seasonal Allergies: No Past Medical History Surgeries: Gallbladder Cardiac: Hypertension Gastrointestinal: Gastroesophageal Reflux Psychosocial: Bipolar Review of Systems Constitutional: see HPI Gastrointestinal: abdominal pain (RUQ) Physical Exam Physical Exam Vital Signs Vital Signs - First Documented 01/24/19 01/24/19 01/24/19 20:25 23:05 23:11 Temp 97.2 Pulse 101 Resp 18 B/P (MAP) 131/95 (107) Pulse Ox 100 O2 Delivery Room Air Capillary Refill : Less Than 3 Seconds Height, Weight, BMI Height: 5'8.00" Weight: 295lbs. 3.0oz. 133.242386nc; 44.9 BMI Method:Stated General Appearance: No Apparent Distress, WD/WN, Chronically ill Eyes: Bilateral Eye Normal Inspection, Bilateral Eye PERRL HEENT: PERRL/EOMI, Normal ENT Inspection, Pharynx Normal Neck: Full Range of Motion, Normal Inspection, Non Tender, Supple, Carotid Bruit Respiratory: Chest Non Tender, Lungs Clear, Normal Breath Sounds, No Accessory Muscle Use, No Respiratory Distress Cardiovascular: Regular Rate, Rhythm, No Edema, No Gallop, No JVD, No Murmur, Normal Peripheral Pulses Gastrointestinal: Normal Bowel Sounds, No Organomegaly, No Pulsatile Mass, Non Tender, Soft Back: Normal Inspection, No CVA Tenderness, No Vertebral Tenderness Extremity: Normal Capillary Refill, Normal Inspection, Normal Range of Motion, Non Tender, No Calf Tenderness, No Pedal Edema Neurologic/Psychiatric: Alert, Oriented x3, No Motor/Sensory Deficits, Normal Mood/Affect Skin: Normal Color, Warm/Dry Lymphatic: No Adenopathy Results Results/Procedures Labs Laboratory Tests 01/24/19 20:35 01/25/19 05:54 Patient resulted labs reviewed. Assessment/Plan Assessment and Plan Assess & Plan/Chief Complaint Assessment: Hematemesis PICA Bipolar Obesity Plan: CLD at lunch Patient likely will leave AMA Diagnosis/Problems Diagnosis/Problems (1) Hematemesis Status: Acute Qualifiers: Nausea presence: without nausea Qualified Codes: K92.0 - Hematemesis (2) History of pica Status: Chronic (3) Bipolar disorder Status: Chronic Qualifiers: Active/Remission status: currently active Current bipolar episode type: mixed Current episode severity: unspecified Qualified Codes: F31.60 - Bipolar disorder, current episode mixed, unspecified (4) Obesity Status: Chronic Qualifiers: Obesity type: due to excess calories Obesity classification: adult class 3 (BMI >= 40) Body mass index: BMI 40.0-44.9 Clinical Quality Measures DVT/VTE Risk/Contraindication: Risk Factor Score Per Nursin RFS Level Per Nursing on Admit: 2=Moderate JOYCE TOUSSAINT DO Jan 25, 2019 10:42
[2019-01-25] MEDS ORDERED: SUCRALFATE 1 GM (CARAFATE) TAB PO SCH (11:00)
--- NOTE | 2019-01-25 11:45 | NUR ---
Pt requested to leave Against Medical Advice. Discussed at length with patient and legal guardian, Carlos Anne, the risks of leaving against medical advice as well as the benefits to the patient of staying. Pt verbalized understanding stating she still wanted to sign out. This RN communicated with patient's legal guardian via telephone. Legal guardian Carlos Anne stated that she consented to the patient signing out against medical advice; confirmed by ARLEY Hannon via telephone. Dr. Phillips notified the patient wanted to leave. Dr. Kelsey notified of the patients intent to leave. The director of [employer] [facility] was also notified that patient wanted to leave against medial advice. Patient was escorted out by employee of [employer].
[2019-01-25] MEDS ORDERED: MEDR150D6 IM (11:51)
[2019-01-25] MEDS ORDERED: CHLO100T22 PO ×2 (11:51→12:25)
[2019-01-25] MEDS ORDERED: BACL10TA PO (11:51)
[2019-01-25] MEDS ORDERED: BENZ1TAB6 PO (11:51)
[2019-01-25] MEDS ORDERED: DIVA-21 PO (11:51)
[2019-01-25] MEDS ORDERED: CLON0.5T13 PO (11:51)
[2019-01-25] MEDS ORDERED: ATEN25TA PO (11:51)
[2019-01-25] MEDS ORDERED: DIVA500T15 PO (11:51)
[2019-01-25] MEDS ORDERED: DOCU100C37 PO (11:51)
[2019-01-25] MEDS ORDERED: FERR500P12 MC (11:51)
[2019-01-25] MEDS ORDERED: LEVO50TA6 PO (11:51)
[2019-01-25] MEDS ORDERED: FERR-65 PO (11:51)
[2019-01-25] MEDS ORDERED: MULT-904 PO (11:55)
[2019-01-25] MEDS ORDERED: OMEP40CA36 PO (11:55)
[2019-01-25] MEDS ORDERED: MIRT30TA6 PO (11:55)
[2019-01-25] MEDS ORDERED: POLY454P4 PO (11:56)
[2019-01-25] MEDS ORDERED: METH28OI2 TP (12:04)
[2019-01-25] MEDS ORDERED: BENZ14GE TOP (12:04)
[2019-01-25] MEDS ORDERED: ACET325T49 PO (12:04)
[2019-01-25] MEDS ORDERED: SENN-145 PO (12:04)
[2019-01-25] MEDS ORDERED: CHLO100T2 PO (12:04)
[2019-01-25] MEDS ORDERED: PHEN57OI3 RC (12:11)
[2019-01-25] MEDS ORDERED: MAGN400O7 PO (12:11)
[2019-01-25] MEDS ORDERED: HYDR50CA3 PO (12:11)
[2019-01-25] MEDS ORDERED: OLAN10TA19 PO (12:11)
--- NOTE | 2019-01-25 12:40 | NUR ---
UPDATED MED REC WITH MARS FROM [facility] FOUND IN PATIENT CHART. CALLED AND LEFT MESSAGE TO CLARIFY MISSING PAGE 4 OF 4, WILL UPDATE IF NEEDED Addendum: 01/25/19 at 1503 by AVA DOVER CPhT RECEIVED 4TH PAGE FROM [facility], ADDED THE FOLLOWING MEDICATIONS: SERTRALINE 100MG TRAZODONE 150MG
[2019-01-25] MEDS ORDERED: TRAZ150T72 PO (15:01)
[2019-01-25] MEDS ORDERED: SERT100T8 PO (15:01)
--- NOTE | 2019-01-25 21:44 | History & Physical-Surgical ---
History of Present Illness History of Present Illness Reason for visit/HPI CC: hematemesis patient is a 33 year old female who states she has been having hematemsis last couple of days. SHe has has nausea and vomiting and more bright red blood. Patient states she was in [place] at [facility] couple weeks ago and ate her glasses. She state that she has not ate anything since being discharged. Patient states having 7/10 pain in abdomen at times. No radiation. Since admitted not having any emesis. Denies any blood in stools. Nothing really making her symptoms worse, or better. Patient currently NPO. She has required emergency surgery previously for swallowing objects. She had a ct scan abd/pelvis demonstrating some thickening of distal stomach and moderate stool ascending colon, no free air. Abd x ray moderate stool, no free air. Date of Admission Jan 24, 2019 at 21:57 Date Seen by a Provider: Jan 25, 2019 Time Seen by a Provider: 07:43 I consulted on this patient on 01/25/19 21:39 Attending Physician Grace Phillips DO Admitting Physician Scarlet Mina MD Consult Allergies and Home Medications Allergies Coded Allergies: Fish Containing Products (Verified Allergy, Unknown, 01/24/19) Penicillins (Verified Allergy, Unknown, 01/24/19) Sulfa (Sulfonamide Antibiotics) (Verified Allergy, Unknown, 01/24/19) haloperidol (Verified Allergy, Unknown, 01/24/19) Home Medications Acetaminophen 325 Mg Tablet, 650 MG PO Q6H PRN for PAIN-MILD, (Reported) Atenolol 25 Mg Tablet, 25 MG PO BID, (Reported) Baclofen 10 Mg Tablet, 10 MG PO HS, (Reported) Benzocaine 14 Gm Gel..gram., TOP Q6H PRN for tooth pain, (Reported) APPLY TO TOOTH Benztropine Mesylate 1 Mg Tablet, 1 MG PO HS, (Reported) Chlorpromazine HCl 100 Mg Tablet, 200 MG PO HS, (Reported) Chlorpromazine HCl 100 Mg Tablet, 100 MG PO Q2H PRN for AGGRESSION, (Reported) Clonazepam 0.5 Mg Tablet, 0.5 MG PO 1200, (Reported) Divalproex Sodium 500 Mg Tab.er.24h, 500 MG PO DAILY, (Reported) Divalproex Sodium 500 Mg Tab.er.24h, 1,000 MG PO HS, (Reported) Docusate Sodium 100 Mg Capsule, 200 MG PO DAILY, (Reported) Ferrous Sulfate 325 Mg Tablet, 325 MG PO 1700, (Reported) Hydroxyzine Pamoate 50 Mg Capsule, 100 MG PO Q8H PRN for ANXIETY, (Reported) Levothyroxine Sodium 50 Mcg Tablet, 50 MCG PO DAILY, (Reported) Magnesium Hydroxide 400 Mg/5 Ml Oral.susp, 30 ML PO DAILY PRN for CONSTIPATION- 7TH LINE, (Reported) use if no bm > 3 days Medroxyprogesterone Acetate 150 Mg/1 Ml Syringe, 150 MG IM every 3 months, (Reported) NEXT DOSE DUE 02-12-19 Methyl Salicylate/Menthol 28 Gm Oint...g., TP Q4H PRN for MUSCLE PAIN, (Reported) Mirtazapine 30 Mg Tablet, 30 MG PO HS, (Reported) Multivitamin/Iron/Folic Acid 1 Each Tablet, 2 TAB PO DAILY, (Reported) Olanzapine 10 Mg Tablet, 10 MG PO Q8H PRN for AGGRESSION, (Reported) Omeprazole 40 Mg Capsule.dr, 40 MG PO BID, (Reported) Phenylephrine/Shk Lv/Mo/Pet,Wh 57 Gm Oint...g., RC UD PRN for HEMORRHOIDS, (Reported) Polyethylene Glycol 1000 500 Gm Powder, 17 GM PO DAILY, (Reported) Sennosides/Docusate Sodium 1 Each Tablet, 2 TAB PO HS, (Reported) Sertraline HCl 100 Mg Tablet, 100 MG PO DAILY, (Reported) Trazodone HCl 150 Mg Tablet, 150 MG PO HS, (Reported) Patient Home Medication List Home Medication List Reviewed: Yes Past Iwwytqd-Xcbmee-Gavfwg Hx Patient Social History Alcohol Use: Denies Use Recreational Drug Use: No Smoking Status: Current Everyday Smoker Recent Foreign Travel: No Contact w/Someone Who Travel: No Recent Infectious Disease Expo: No Recent Hopitalizations: No Seasonal Allergies Seasonal Allergies: No Surgeries History of Surgeries: Yes (CONTENTS REMOVED FROM STOMACH SHE SWALLOWED) Surgeries: Gallbladder Respiratory History of Respiratory Disorde: No Cardiovascular History of Cardiac Disorders: Yes Cardiac Disorders: Hypertension Neurological History of Neurological Disord: No Genitourinary History of Genitourinary Disor: No Gastrointestinal History of Gastrointestinal Di: Yes Gastrointestinal Disorders: Gastroesophageal Reflux Cancer History of Cancer: No Psychosocial History of Psychiatric Problem: Yes Behavioral Health Disorders: Bipolar Integumentary History of Skin or Integumenta: No Family Medical History Significant Family History: No Pertinent Family Hx Review of Systems Constitutional: see HPI EENTM: no symptoms reported Respiratory: no symptoms reported Cardiovascular: no symptoms reported Gastrointestinal: see HPI Genitourinary: no symptoms reported Musculoskeletal: no symptoms reported Skin: no symptoms reported Psychiatric/Neurological: No Symptoms Reported Physical Exam Vital Signs Vital Signs - First Documented 01/24/19 01/24/19 01/24/19 20:25 23:05 23:11 Temp 97.2 Pulse 101 Resp 18 B/P (MAP) 131/95 (107) Pulse Ox 100 O2 Delivery Room Air Capillary Refill : Less Than 3 Seconds Height, Weight, BMI Height: 5'8.00" Weight: 295lbs. 3.0oz. 133.911465rf; 44.9 BMI Method:Stated General Appearance: No Apparent Distress HEENT: PERRL/EOMI, Normal ENT Inspection Neck: Normal Inspection, Non Tender, Supple Respiratory: Chest Non Tender, No Accessory Muscle Use, No Respiratory Distress Cardiovascular: Regular Rate, Rhythm Gastrointestinal: Soft; No Distended, No Guarding; Tenderness (ruq abdomen, no pain apparent when distratcted) Rectal: Deferred Back: No CVA Tenderness, No Vertebral Tenderness Extremity: Normal Inspection, Non Tender Neurologic/Psychiatric: Alert, Oriented x3, No Motor/Sensory Deficits, Normal Mood/Affect, loft patternmaker II-XII Norm as Tested Skin: Normal Color, Warm/Dry Lymphatic: No Adenopathy Data Review Labs Laboratory Tests 01/25/19 05:54: White Blood Count 6.2, Red Blood Count 3.46L, Hemoglobin 10.1L, Hematocrit 31L, Mean Corpuscular Volume 89, Mean Corpuscular Hemoglobin 29, Mean Corpuscular Hemoglobin Concent 33, Red Cell Distribution Width 13.2, Platelet Count 245, Mean Platelet Volume 9.5, Neutrophils (%) (Auto) 50, Lymphocytes (%) (Auto) 40, Monocytes (%) (Auto) 8, Eosinophils (%) (Auto) 2, Basophils (%) (Auto) 0, Neutrophils # (Auto) 3.1, Lymphocytes # (Auto) 2.5, Monocytes # (Auto) 0.5, Eosinophils # (Auto) 0.1, Basophils # (Auto) 0.0 Assessment/Plan Assessment/Plan Admission Diagonsis hematemesis PICA bipolar ruq abdominal pain Admission Status: Observation Assessment/Plan hematemesis PICA bipolar ruq abdominal pain On protonix NPO currently, may need EGD to further evaluate, inpatient vs outpatient If abd pain improves and no further emesis will start clears later today. Later after exam and discussing plan with patient, was called by nurse, and patient left against medical advice Final Diagnosis hematemesis PICA bipolar ruq abdominal pain Patient left against medical advice. Clinical Quality Measures DVT/VTE Risk/Contraindication: Risk Factor Score Per Nursin RFS Level Per Nursing on Admit: 2=Moderate GRACE PHILLIPS DO Jan 25, 2019 21:44
== END 2019-01-25 11:45 | disposition left against medical advice (07) ==
LOC: EDUNIT# 20:14 → ER 20:16 → 4TH 21:57
PROVIDERS: ADMIT Surgery; ATTEND Surgery
DX: K92.0 Hematemesis (principal); R10.11 Right upper quadrant pain; F50.89 Other specified eating disorder; F31.60 Bipolar disorder, current episode mixed, unspecified; I10 Essential (primary) hypertension; K21.9 Gastro-esophageal reflux disease without esophagitis; F17.210 Nicotine dependence, cigarettes, uncomplicated; E66.09 Other obesity due to excess calories; Z68.41 Body mass index [BMI] 40.0-44.9, adult; Z79.899 Other long term (current) drug therapy; Z53.21 Procedure and treatment not carried out due to patient leaving prior to being seen by health care provider
CPT/HCPCS: 36415; 74018; 74177; 80053; 82271; 84703; 85025; 96374; 96375; G0378

== ENCOUNTER 2019-01-31 09:51 | Outpatient (CLI) | payer MEDICAID ==
[~2019-01-31] VITALS: Ht 172.7 cm; Wt 133.9 kg
[~2019-01-31 09:51] MED LIST: ACET325T49 PO; ATEN25TA PO; BACL10TA PO; BENZ14GE TOP; BENZ1TAB6 PO; CHLO100T2 PO; CHLO100T22 PO; CLON0.5T13 PO; DIVA-21 PO; DIVA500T15 PO; DOCU100C37 PO; FERR-65 PO; FERR500P12 MC; HYDR50CA3 PO; LEVO50TA6 PO; MAGN400O7 PO; MEDR150D6 IM; METH28OI2 TP; MIRT30TA6 PO; MULT-904 PO; OLAN10TA19 PO; OMEP40CA36 PO; PHEN57OI3 RC; POLY454P4 PO; SENN-145 PO; SERT100T8 PO; TRAZ150T72 PO
[2019-01-31] MEDS ORDERED: PANT40TA3 PO (10:25)
[2019-01-31] MEDS ORDERED: SUCR1TAB PO (10:25)
== END 2019-01-31 10:29 | disposition home or self-care (01) ==
LOC: PREOP 09:51
PROVIDERS: ATTEND Surgery
DX: Z01.818 Encounter for other preprocedural examination (principal)

== ENCOUNTER 2019-02-01 11:10 | Day surgery (SDC) | payer MEDICAID ==
[~2019-02-01] VITALS: Ht 172.7 cm; Wt 133.9 kg
[~2019-02-01 11:10] MED LIST changes: +PANT40TA3 PO; +SUCR1TAB PO
[2019-02-01] MEDS ORDERED: NS IV 500 ML 500 ML IV PRN (11:12)
[2019-02-01] MEDS ORDERED: MIDAZOLAM 2 MG/2 ML (VERSED) VIAL IVP ONE (11:15)
[2019-02-01] MEDS ORDERED: HURRICAINE EXT TUBE (BENZOCAINE) XX PRN (11:15)
[2019-02-01] MEDS ORDERED: fentaNYL INJECTION 100 MCG/2 ML AMP IVP ONE (11:15)
[2019-02-01] MEDS ORDERED: NS IV 500 ML 500 ML ONE (11:16)
--- NOTE | 2019-02-01 11:42 | Conscious Sedation/ASA ---
Conscious Sedation Pre-Proced Time 11:30 ASA Score 2 For ASA 3 and 4: Consider anesthesia and medical clearance. Also, for patients with a history of failed moderate sedation consider anesthesia. Airway Lungs Heart ASA score ASA 1: a normal healthy patient ASA 2: a patient with a mild systemic disease (mid diabetes, controlled hypertension, obesity ASA 3: a patient with a severe systemic disease that limits activity (angina, COPD, prior Myocardial infarction) ASA 4: a patient with an incapacitating disease that is a constant threat to life (CHF, renal failure) ASA 5: a moribund patient not expected to survive 24 hrs. (ruptured aneurysm) ASA 6: a declared brain- patient whose organs are being harvested. For emergent operations, add the letter E after the classification Mallampati Classification Grade 2 Sedation Plan Analgesia, Amnesia, Plan communicated to team members, Discussed options with patient/fam, Discussed risks with patient/fam The patient is an appropriate candidate to undergo the planned procedure, sedation, and anesthesia. The patient immediately re-assessed prior to indication. MARCI SERRANO MD Feb 01, 2019 11:42
--- NOTE | 2019-02-01 11:43 | Progress Note-Pre Operative ---
Pre-Operative Progress Note H&P Reviewed The H&P was reviewed, patient examined and no changes noted. Date Seen by Provider: Feb 01, 2019 Time Seen by Provider: 11:30 Date H&P Reviewed: Feb 01, 2019 Time H&P Reviewed: 11:30 Pre-Operative Diagnosis: hematamesis MARCI SERRANO MD Feb 01, 2019 11:43
[2019-02-01] MEDS ORDERED: ONDANSETRON 4 MG/2 ML (SDV) Z0FRAN IVP PRN (11:45)
[2019-02-01] MEDS ORDERED: HYDROcodone/APAP 5 MG/325 MG (LORTAB) TAB PO PRN (11:45)
[2019-02-01] MEDS ORDERED: ACETAMINOPHEN 325 MG TABLET PO PRN (11:45)
[2019-02-01] MEDS ORDERED: morphine INJ 10 MG/ML 1ML (SYR OR VIAL) IVP PRN ×2 (11:45)
--- NOTE | 2019-02-01 11:46 | Discharge Inst-Surgical ---
D/C Lap Instructions-ZACH Follow Up Activity as tolerated High Fiber Diet 25g or more per day Avoid Alcohol, Caffeine, Spicy [place] and Acid foods. Drink 64 fluid oz or more of fluids per day. Symptoms to Report: Fever over 101 degree F, Nausea/Vomiting If any problems/questions: Contact your physician or go to Emergency Room MARCI SERRANO MD Feb 01, 2019 11:46
--- OUTSIDE RECORDS SUMMARY | 2019-02-01 11:58 | XMS REPORT | Continuity of Care Document ---
Author Organization Unknown Address Unknown Allergies Active Description Code Type Severity Reaction Onset Reported/Identified Relationship to Patient Clinical Status Yes BACTRIM [id number] BRANDNAME N/A N/A Yes HALDOL [id number] BRANDNAME N/A N/A Yes PCN (penicillin) [id number] CLASS N/A N/A Medications There is no data. Problems There is no data. Procedures There is no data. Results There is no data. Encounters ACCT No. Visit Date/Time Discharge Status Pt. Type Provider Facility Loc./Unit Complaint [id number] 10/15/2017 12:15:33 10/15/2017 23:59:59 CLS Outpatient Trevin Christian [id number] 04/27/2016 10:58:25 04/27/2016 23:59:59 CLS Outpatient Wilberto eWn [id number] 03/31/2016 10:52:23 03/31/2016 23:59:59 CLS Outpatient Wilberto Wen [id number] 03/31/2016 10:49:20 03/31/2016 23:59:59 CLS Outpatient Wilberto Wen [id number] 03/30/2016 11:22:15 03/30/2016 23:59:59 CLS Outpatient Wilberto Wen [id number] 03/23/2016 09:52:33 03/23/2016 23:59:59 CLS Outpatient Wilberto Wen [id number] 03/23/2016 09:49:09 03/23/2016 23:59:59 CLS Outpatient Wilberto Wen [id number] 09/16/2015 10:24:31 09/16/2015 23:59:59 CLS Outpatient Wilian Mosley [id number] 07/08/2015 14:16:58 07/08/2015 23:59:59 CLS Outpatient Mayra Matthews [id number] 06/24/2015 15:19:22 06/24/2015 23:59:59 CLS Outpatient Mayra Matthews [id number] 03/11/2015 21:48:31 03/11/2015 23:59:59 CLS Outpatient [place], Wilberto [id number] 05/21/2014 13:54:14 05/21/2014 23:59:59 CLS Outpatient [place], Wilberto [id number] 05/17/2014 14:34:02 05/17/2014 23:59:59 CLS Outpatient Wilian Mosley [id number] 03/27/2014 15:35:55 03/27/2014 23:59:59 CLS Outpatient [place], Wilberto [id number] 03/20/2014 09:22:33 03/20/2014 23:59:59 CLS Outpatient [place], Wilberto [id number] 03/15/2014 15:04:13 03/15/2014 23:59:59 CLS Outpatient [place], Wilberto [id number] 03/08/2014 16:22:24 03/08/2014 23:59:59 CLS Outpatient [place], Wilberto [id number] 03/05/2014 21:53:39 03/05/2014 23:59:59 CLS Outpatient [place], Wilberto [id number] 03/05/2014 21:48:33 03/05/2014 23:59:59 CLS Outpatient [place], Wilberto [id number] 01/31/2014 11:47:47 01/31/2014 23:59:59 CLS Outpatient [place], Wilberto [id number] 12/26/2013 16:25:17 12/26/2013 23:59:59 CLS Outpatient [place], Wilberto [id number] 12/14/2013 11:25:32 12/14/2013 23:59:59 CLS Outpatient [place], Wilberto [id number] 12/14/2013 11:19:47 12/14/2013 23:59:59 CLS Outpatient [place], Wilberto [id number] 12/14/2013 11:19:06 12/14/2013 23:59:59 CLS Outpatient [place], Wilberto [id number] 12/12/2013 17:13:14 12/12/2013 23:59:59 CLS Outpatient [place], Wilberto [id number] 09/04/2013 12:58:40 09/04/2013 23:59:59 CLS Outpatient Wilian Mosley [id number] 08/23/2013 17:22:25 08/23/2013 23:59:59 CLS Outpatient Wilian Mosley [id number] 03/20/2012 20:26:00 03/20/2012 21:03:00 DIS Emergency Lázaro SANTIAGO, [facility] W.EDW [id number] 05/20/2018 09:20:03 Document Registration [id number] 02/11/2018 13:32:55 Document Registration [id number] 11/10/2017 15:59:04 Document Registration [id number] 11/05/2017 10:21:51 Document Registration [id number] 10/25/2017 15:58:05 Document Registration [id number] 09/30/2017 19:47:50 Document Registration [id number] 09/26/2017 16:57:31 Document Registration [id number] 09/26/2017 16:55:14 Document Registration [id number] 09/01/2017 10:18:00 Document Registration [id number] 05/11/2017 09:22:14 Document Registration [id number] 04/26/2015 13:45:53 04/26/2015 13:45:53 DIS Outpatient
[2019-02-01 12:42] VITALS: BP 111/85
[2019-02-01] MEDS ORDERED: fentaNYL INJECTION 100 MCG/2 ML AMP ONE (13:55)
[2019-02-01] MEDS ORDERED: LIDOCAINE JELLY 2% 6 ML SYRINGE ONE (13:55)
[2019-02-01] MEDS ORDERED: HURRICAINE EXT TUBE (BENZOCAINE) ONE (13:56)
[2019-02-01] MEDS ORDERED: MIDAZOLAM 2 MG/2 ML (VERSED) VIAL ONE ×5 (13:56→14:25)
[2019-02-01] MEDS ORDERED: LACTATED RINGERS 1,000 ML IV ONE (14:17)
[2019-02-01] MEDS ORDERED: proPOfol 200 MG/20 ML (DIPRIVAN) VIAL IV ONE ×2 (14:25→14:50)
[2019-02-01] MEDS ORDERED: LACTATED RINGERS 1,000 ML IV SCH (14:45)
--- NOTE | 2019-02-01 15:10 | Progress Note-Post Operative ---
Post-Operative Progess Note Surgeon (s)/Plant Production Worker (s) Surgeon MARCI SERRANO MD Plant Production Worker: none Pre-Operative Diagnosis hematamesis Post-Operative Diagnosis reflux esophagitis(stage 2), small HH(2cm), moderate-severe gastritis. Procedure & Operative Findings Date of Procedure 02/01/19 Procedure Performed/Findings EGD with bx. Anesthesia Type mac Estimated Blood Loss Estimated blood loss (mL): minimal Specimens/Packing Specimens Removed ge jxn, antrum MARCI SERRANO MD Feb 01, 2019 15:10
[2019-02-01 15:15] VITALS: BP 118/78
[2019-02-01 15:35] VITALS: BP 116/76
[2019-02-01 15:57] VITALS: BP 116/76
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
== END 2019-02-01 15:45 | disposition home or self-care (01) ==
LOC: ENDO 11:10
PROVIDERS: ATTEND Surgery
DX: K21.0 Gastro-esophageal reflux disease with esophagitis (principal); K44.9 Diaphragmatic hernia without obstruction or gangrene; K29.70 Gastritis, unspecified, without bleeding; E03.9 Hypothyroidism, unspecified; I10 Essential (primary) hypertension; F41.9 Anxiety disorder, unspecified; F32.9 Major depressive disorder, single episode, unspecified; G47.00 Insomnia, unspecified; F79 Unspecified intellectual disabilities; F43.10 Post-traumatic stress disorder, unspecified; F17.210 Nicotine dependence, cigarettes, uncomplicated; E66.9 Obesity, unspecified; Z68.41 Body mass index [BMI] 40.0-44.9, adult; Z79.899 Other long term (current) drug therapy
CPT/HCPCS: 84703

== ENCOUNTER → 2019-02-07 | Day surgery (SDC) | payer MEDICAID ==
[~2019-02-07] VITALS: Ht 175.3 cm; Wt 133.9 kg
[~2019-02-07] MED LIST changes: +HURRICAINE EXT TUBE (BENZOCAINE) ONE; +HURRICAINE EXT TUBE (BENZOCAINE) XX ONE; +LACTATED RINGERS 1,000 ML IV ONE; +MIDAZOLAM 2 MG/2 ML (VERSED) VIAL ONE; +proPOfol 200 MG/20 ML (DIPRIVAN) VIAL IV ONE
--- NOTE | 2019-02-07 19:20 | ED Psychosocial ---
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 I saw her January 24 after she broke her eyeglasses and ate them. She has a history of doing this, she's been inpatient at [facility]. Timing/Duration: just prior to arrival Severity: moderate Associated Symptoms: denies symptoms Allergies and Home Medications Allergies Coded Allergies: Fish Containing Products (Verified Allergy, Unknown, 01/24/19) Penicillins (Verified Allergy, Unknown, 01/24/19) Sulfa (Sulfonamide Antibiotics) (Verified Allergy, Unknown, 01/24/19) haloperidol (Verified Allergy, Unknown, 01/24/19) Home Medications Acetaminophen 325 Mg Tablet, 650 MG PO Q6H PRN for PAIN-MILD, (Reported) Atenolol 25 Mg Tablet, 25 MG PO BID, (Reported) Baclofen 10 Mg Tablet, 10 MG PO HS, (Reported) Benzocaine 14 Gm Gel..gram., TOP Q6H PRN for tooth pain, (Reported) APPLY TO TOOTH Benztropine Mesylate 1 Mg Tablet, 1 MG PO HS, (Reported) Chlorpromazine HCl 100 Mg Tablet, 200 MG PO HS, (Reported) Chlorpromazine HCl 100 Mg Tablet, 100 MG PO Q2H PRN for AGGRESSION, (Reported) Clonazepam 0.5 Mg Tablet, 0.5 MG PO 1200, (Reported) Divalproex Sodium 500 Mg Tab.er.24h, 500 MG PO DAILY, (Reported) Divalproex Sodium 500 Mg Tab.er.24h, 1,000 MG PO HS, (Reported) Docusate Sodium 100 Mg Capsule, 200 MG PO DAILY, (Reported) Ferrous Sulfate 325 Mg Tablet, 325 MG PO 1700, (Reported) Hydroxyzine Pamoate 50 Mg Capsule, 100 MG PO Q8H PRN for ANXIETY, (Reported) Levothyroxine Sodium 50 Mcg Tablet, 50 MCG PO DAILY, (Reported) Magnesium Hydroxide 400 Mg/5 Ml Oral.susp, 30 ML PO DAILY PRN for CONSTIPATION- 7TH LINE, (Reported) use if no bm > 3 days Medroxyprogesterone Acetate 150 Mg/1 Ml Syringe, 150 MG IM every 3 months, (Reported) NEXT DOSE DUE 02-12-19 Methyl Salicylate/Menthol 28 Gm Oint...g., TP Q4H PRN for MUSCLE PAIN, (Reported) Mirtazapine 30 Mg Tablet, 30 MG PO HS, (Reported) Multivitamin/Iron/Folic Acid 1 Each Tablet, 2 TAB PO DAILY, (Reported) Olanzapine 10 Mg Tablet, 10 MG PO Q8H PRN for AGGRESSION, (Reported) Omeprazole 40 Mg Capsule.dr, 40 MG PO BID, (Reported) Pantoprazole Sodium 40 Mg Tablet.dr, 40 MG PO DAILY, (Reported) Phenylephrine/Shk Lv/Mo/Pet,Wh 57 Gm Oint...g., RC UD PRN for HEMORRHOIDS, (Reported) Polyethylene Glycol 1000 500 Gm Powder, 17 GM PO DAILY, (Reported) Sennosides/Docusate Sodium 1 Each Tablet, 2 TAB PO HS, (Reported) Sertraline HCl 100 Mg Tablet, 100 MG PO DAILY, (Reported) Sucralfate 1 Gm Tablet, 1 GM PO QID, (Reported) Trazodone HCl 150 Mg Tablet, 150 MG PO HS, (Reported) Patient Home Medication List Home Medication List Reviewed: Yes Review of Systems Constitutional: see HPI EENTM: see HPI Respiratory: no symptoms reported Cardiovascular: no symptoms reported Genitourinary: no symptoms reported Musculoskeletal: no symptoms reported Skin: no symptoms reported Psychiatric/Neurological: No Symptoms Reported Past Fjcbajj-Bdksxh-Eptpwk Hx Patient Social History Type Used: Cigarettes Recent Foreign Travel: No Contact w/Someone Who Travel: No Recent Hopitalizations: No Seasonal Allergies Seasonal Allergies: No Past Medical History Surgeries: Yes (CONTENTS REMOVED FROM STOMACH SHE SWALLOWED) Gallbladder Respiratory: No Cardiac: Yes Hypertension Neurological: No Genitourinary: No Gastrointestinal: Yes Gastroesophageal Reflux Musculoskeletal: No Endocrine: No HEENT: No Cancer: No Psychosocial: Yes Bipolar Integumentary: No Blood Disorders: No Family Medical History No Pertinent Family Hx Physical Exam Vital Signs - First Documented 02/07/19 19:17 Temp 97.6 Pulse 91 Resp 18 B/P (MAP) 130/94 (106) Pulse Ox 99 Capillary Refill : Height, Weight, BMI Height: 5'8.00" Weight: 295lbs. 3.0oz. 133.972278js; 44.9 BMI Method:Stated General Appearance: WD/WN, no apparent distress Respiratory: normal breath sounds, no respiratory distress, no accessory muscle use Cardiovascular: regular rate, rhythm, no murmur Gastrointestinal: normal bowel sounds, soft Extremities: normal range of motion, non-tender Neurologic/Psychiatric: alert, normal mood/affect, oriented x 3 Appearance/Memory: appropriate appearance, appropriate insight, neat Behavior/Eye Contact: cooperative, good eye contact, normal speech, other (cooperative, pleasant) Thoughts/Hallucinations: normal thought pattern, no apparent hallucination Skin: normal color, warm/dry Progress/Results/Core Measures Results/Orders Lab Results Laboratory Tests Test 02/07/19 19:28 02/07/19 20:11 Range/Units Urine Color YELLOW Urine Clarity CLEAR Urine pH 7 5-9 Urine Specific Pr[place]ard 1.005 L 1.016-1.022 Urine Protein NEGATIVE NEGATIVE Urine Glucose (UA) NEGATIVE NEGATIVE Urine Ketones NEGATIVE NEGATIVE Urine Nitrite NEGATIVE NEGATIVE Urine Bilirubin NEGATIVE NEGATIVE Urine Urobilinogen NORMAL NORMAL MG/DL Urine Leukocyte Esterase 2+ H NEGATIVE Urine RBC (Auto) NEGATIVE NEGATIVE Urine RBC NONE /HPF Urine WBC 5-10 H /HPF Urine Squamous Epithelial Cells 2-5 /HPF Urine Crystals NONE /LPF Urine Bacteria FEW H /HPF Urine Casts NONE /LPF Urine Mucus NEGATIVE /LPF Urine Culture Indicated YES White Blood Count 6.9 4.3-11.0 10^3/uL Red Blood Count 3.89 L 4.35-5.85 10^6/uL Hemoglobin 11.5 11.5-16.0 G/DL Hematocrit 34 L 35-52 % Mean Corpuscular Volume 87 80-99 FL Mean Corpuscular Hemoglobin 30 25-34 PG Mean Corpuscular Hemoglobin Concent 34 32-36 G/DL Red Cell Distribution Width 12.5 10.0-14.5 % Platelet Count 261 130-400 10^3/uL Mean Platelet Volume 9.3 7.4-10.4 FL Neutrophils (%) (Auto) 62 42-75 % Lymphocytes (%) (Auto) 32 12-44 % Monocytes (%) (Auto) 6 0-12 % Eosinophils (%) (Auto) 0 0-10 % Basophils (%) (Auto) 0 0-10 % Neutrophils # (Auto) 4.3 1.8-7.8 X 10^3 Lymphocytes # (Auto) 2.2 1.0-4.0 X 10^3 Monocytes # (Auto) 0.4 0.0-1.0 X 10^3 Eosinophils # (Auto) 0.0 0.0-0.3 10^3/uL Basophils # (Auto) 0.0 0.0-0.1 10^3/uL Sodium Level 139 135-145 MMOL/L Potassium Level 4.0 3.6-5.0 MMOL/L Chloride Level 109 H 98-107 MMOL/L Carbon Dioxide Level 19 L 21-32 MMOL/L Anion Gap 11 5-14 MMOL/L Blood Urea Nitrogen 8 7-18 MG/DL Creatinine 0.75 0.60-1.30 MG/DL Estimat Glomerular Filtration Rate > 60 BUN/Creatinine Ratio 11 Glucose Level 90 70-105 MG/DL Calcium Level 9.6 8.5-10.1 MG/DL Corrected Calcium 9.7 8.5-10.1 MG/DL Total Bilirubin 0.2 0.1-1.0 MG/DL Aspartate Amino Transf (AST/SGOT) 12 5-34 U/L Alanine Aminotransferase (ALT/SGPT) 13 0-55 U/L Alkaline Phosphatase 56 40-136 U/L Total Protein 6.8 6.4-8.2 GM/DL Albumin 3.9 3.2-4.5 GM/DL Salicylates Level < 5.0 L 5.0-20.0 MG/DL Acetaminophen Level < 10 L 10-30 UG/ML Serum Alcohol < 10 <10 MG/DL My Orders Orders - LEON MONTOYA APRN Acute Abd Series (02/07/19 19:13) Ua Culture If Indicated (02/07/19 19:24) Cbc With Automated Diff (02/07/19 19:24) Comprehensive Metabolic Panel (02/07/19 19:24) Ed Iv/Invasive Line Start (02/07/19 19:24) Urine Culture (02/07/19 19:28) Salicylate (02/07/19 19:56) Ekg Tracing (02/07/19 19:56) Acetaminophen (02/07/19 19:56) Alcohol (02/07/19 19:56) Vital Signs/I&O 02/07/19 7 19:17 22:06 Temp 97.6 97.6 Pulse 91 91 Resp 18 18 B/P (MAP) 130/94 (106) 130/94 (106) Pulse Ox 99 99 Departure Communication (Admissions) 2034-To Endoscopy 2046- I've spoken with even medical support specialist Camron Ajerd. He states they would be willing to take her back tonight, they have plans to put her in "lockdown" which is whether remove all belongings from the room, they bring him additional staff stay with her. States they wanted to do this to begin with but insurance wouldn't pay for it until there was evidence that she would act out. Patient's guardian/power of divorce attorney is Carlos burton at [phone]. 2140-Dr. Phillips called to inform that he was able to remove the toenail clippers. I relayed the plan to Carlos who agrees with plan to discharge back to the [facility] facility. She is in agreement with this. Impression Primary Impression: Foreign body ingestion Qualified Codes: T18.9XXA - Foreign body of alimentary tract, part unspecified, initial encounter Disposition: 01 HOME, SELF-CARE Condition: Stable Departure-Patient Inst. Decision time for Depature: 21:45 Referrals: BUD GARCIA MD (PCP/Family) Primary Care Physician Patient Instructions: Foreign Body, Swallowed, Adult (DC) Add. Discharge Instructions: All discharge instructions reviewed with patient and/or family. Voiced understanding. LEON MONTOYA PRESIDENTIAL SUPPORT SPECIALIST Feb 07, 2019 19:19
[2019-02-07 19:33] LABS: BILIRUBIN,URINE NEGATIVE (NEGATIVE); CLARITY,URINE CLEAR; COLOR,URINE YELLOW; GLUCOSE, URINE (UA) NEGATIVE (NEGATIVE); KETONES,URINE NEGATIVE (NEGATIVE); LEUKOCYTE ESTERASE ,URINE 2+ (NEGATIVE); NITRITE,URINE NEGATIVE (NEGATIVE); PH,URINE 7 (5-9); PROTEIN,URINE NEGATIVE (NEGATIVE); UROBILINOGEN,URINE NORMAL (NORMAL)
--- NOTE | 2019-02-07 19:40 | Diagnostic Imaging Report ---
INDICATION: Foreign body, toenail clippers. FINDINGS: A frontal view of the chest and supine and upright views of the abdomen demonstrate toenail clippers overlying the gastric antrum. The lungs are clear. The heart and vascularity are normal. Bowel loops appear normal. IMPRESSION: Toenail clippers overlie the stomach. Dictated by: Dictated on workstation # [id number]
[2019-02-07 19:42] LABS: BACTERIA,URINE FEW /HPF
--- OUTSIDE RECORDS SUMMARY | 2019-02-07 19:45 | XMS REPORT | Continuity of Care Document ---
Author Organization Unknown Address Unknown Allergies Active Description Code Type Severity Reaction Onset Reported/Identified Relationship to Patient Clinical Status Yes BACTRIM [id number] BRANDNAME N/A N/A Yes HALDOL [id number] BRANDNAME N/A N/A Yes PCN (penicillin) [id number] CLASS N/A N/A Medications There is no data. Problems There is no data. Procedures There is no data. Results There is no data. Encounters ACCT No. Visit Date/Time Discharge Status Pt. Type Provider Facility Loc./Unit Complaint [id number] 10/15/2017 12:15:33 10/15/2017 23:59:59 CLS Outpatient Trevin Christian [id number] 04/27/2016 10:58:25 04/27/2016 23:59:59 CLS Outpatient Wilberto Wen [id number] 03/31/2016 10:52:23 03/31/2016 23:59:59 CLS Outpatient Wilberto Wen [id number] 03/31/2016 10:49:20 03/31/2016 23:59:59 CLS Outpatient Wilberto Wen [id number] 03/30/2016 11:22:15 03/30/2016 23:59:59 CLS Outpatient Wilberto Wen [id number] 03/23/2016 09:52:33 03/23/2016 23:59:59 CLS Outpatient Wilberto Wen [id number] 03/23/2016 09:49:09 03/23/2016 23:59:59 CLS Outpatient Wilberto Wen [id number] 09/16/2015 10:24:31 09/16/2015 23:59:59 CLS Outpatient Wilian Mosley [id number] 07/08/2015 14:16:58 07/08/2015 23:59:59 CLS Outpatient Mayra Matthews [id number] 06/24/2015 15:19:22 06/24/2015 23:59:59 CLS Outpatient Mayra Matthews [id number] 03/11/2015 21:48:31 03/11/2015 23:59:59 CLS Outpatient [place], Wilberto [id number] 05/21/2014 13:54:14 05/21/2014 23:59:59 CLS Outpatient [place], Wilberto [id number] 05/17/2014 14:34:02 05/17/2014 23:59:59 CLS Outpatient Wilian Mosley [id number] 03/27/2014 15:35:55 03/27/2014 23:59:59 CLS Outpatient [place], Wilberto [id number] 03/20/2014 09:22:33 03/20/2014 23:59:59 CLS Outpatient [place], Wilberto [id number] 03/15/2014 15:04:13 03/15/2014 23:59:59 CLS Outpatient [place], Wilberto [id number] 03/08/2014 16:22:24 03/08/2014 23:59:59 CLS Outpatient [place], Wilberto [id number] 03/05/2014 21:53:39 03/05/2014 23:59:59 CLS Outpatient [place], Wilberto [id number] 03/05/2014 21:48:33 03/05/2014 23:59:59 CLS Outpatient [place], Wilberto [id number] 01/31/2014 11:47:47 01/31/2014 23:59:59 CLS Outpatient [place], Wilberto [id number] 12/26/2013 16:25:17 12/26/2013 23:59:59 CLS Outpatient [place], Wilberto [id number] 12/14/2013 11:25:32 12/14/2013 23:59:59 CLS Outpatient [place], Wilberto [id number] 12/14/2013 11:19:47 12/14/2013 23:59:59 CLS Outpatient [place], Wilberto [id number] 12/14/2013 11:19:06 12/14/2013 23:59:59 CLS Outpatient [place], Wilberto [id number] 12/12/2013 17:13:14 12/12/2013 23:59:59 CLS Outpatient [place], Wilberto [id number] 09/04/2013 12:58:40 09/04/2013 23:59:59 CLS Outpatient Wilian Mosley [id number] 08/23/2013 17:22:25 08/23/2013 23:59:59 CLS Outpatient Wilian Mosley [id number] 03/20/2012 20:26:00 03/20/2012 21:03:00 DIS Emergency Lázaro SANTIAGO, [facility] W.EDW [id number] 05/20/2018 09:20:03 Document Registration [id number] 02/11/2018 13:32:55 Document Registration [id number] 11/10/2017 15:59:04 Document Registration [id number] 11/05/2017 10:21:51 Document Registration [id number] 10/25/2017 15:58:05 Document Registration [id number] 09/30/2017 19:47:50 Document Registration [id number] 09/26/2017 16:57:31 Document Registration [id number] 09/26/2017 16:55:14 Document Registration [id number] 09/01/2017 10:18:00 Document Registration [id number] 05/11/2017 09:22:14 Document Registration [id number] 04/26/2015 13:45:53 04/26/2015 13:45:53 DIS Outpatient
[2019-02-07 20:18] LABS: BASOPHILS % (AUTO) 0 % (0-10); EOSINOPHILS % (AUTO) 0 % (0-10); HEMATOCRIT 34 % (35-52); HEMOGLOBIN 11.5 G/DL (11.5-16.0); LYMPHOCYTES # (AUTO) 2.2 X 10^3 (1.0-4.0); LYMPHOCYTES % (AUTO) 32 % (12-44); MEAN CORPUSCULAR HEMOGLOBIN 30 PG (25-34); MEAN CORPUSCULAR HGB CONC 34 G/DL (32-36); MEAN CORPUSCULAR VOLUME 87 FL (80-99); MEAN PLATELET VOLUME 9.3 FL (7.4-10.4); MONOCYTES # (AUTO) 0.4 X 10^3 (0.0-1.0); MONOCYTES % (AUTO) 6 % (0-12); NEUTROPHILS # (AUTO) 4.3 X 10^3 (1.8-7.8); NEUTROPHILS % (AUTO) 62 % (42-75); PLATELET COUNT 261 10^3/uL (130-400); RED CELL DISTRIBUTION WIDTH 12.5 % (10.0-14.5); WHITE BLOOD COUNT 6.9 10^3/uL (4.3-11.0)
[2019-02-07 20:34] LABS: ALANINE AMINOTRANSFERASE 13 U/L (0-55); ALBUMIN 3.9 GM/DL (3.2-4.5); ALKALINE PHOSPHATASE 56 U/L (40-136); BILIRUBIN,TOTAL 0.2 MG/DL (0.1-1.0); BUN/CREATININE RATIO 11; CALCIUM 9.6 MG/DL (8.5-10.1); CARBON DIOXIDE 19 MMOL/L (21-32); CHLORIDE 109 MMOL/L (98-107); CREATININE SERUM 0.75 MG/DL (0.60-1.30); GFR ESTIMATED > 60; GLUCOSE 90 MG/DL (70-105); SALICYLATE < 5.0 MG/DL (5.0-20.0); SODIUM 139 MMOL/L (135-145); TOTAL PROTEIN 6.8 GM/DL (6.4-8.2)
--- NOTE | 2019-02-07 20:38 | NUR ---
PT TO ENDO AT THIS TIME.
[2019-02-07 20:42] LABS: ACETAMINOPHEN < 10 UG/ML (10-30)
--- NOTE | 2019-02-07 20:59 | Consultation (Surgery) ---
History of Present Illness History of Present Illness Patient Consulted On(luis miguel/time) 02/07/19 20:51 Date Seen by Provider: Feb 07, 2019 Time Seen by Provider: 20:51 History of Present Illness Consult requested by Gómez Salas for ingestion foreign body. Patient is a 33 swallowed toenail clippers prior to arrival. She has had nausea and hematemesis. She has history of swallowing eye glasses previously that she broke. She denies any significant pain at this time. Not had any emesis since here. No other complaints. Allergies and Home Medications Allergies Coded Allergies: Fish Containing Products (Verified Allergy, Unknown, 01/24/19) Penicillins (Verified Allergy, Unknown, 01/24/19) Sulfa (Sulfonamide Antibiotics) (Verified Allergy, Unknown, 01/24/19) haloperidol (Verified Allergy, Unknown, 01/24/19) Home Medications Acetaminophen 325 Mg Tablet, 650 MG PO Q6H PRN for PAIN-MILD, (Reported) Atenolol 25 Mg Tablet, 25 MG PO BID, (Reported) Baclofen 10 Mg Tablet, 10 MG PO HS, (Reported) Benzocaine 14 Gm Gel..gram., TOP Q6H PRN for tooth pain, (Reported) APPLY TO TOOTH Benztropine Mesylate 1 Mg Tablet, 1 MG PO HS, (Reported) Chlorpromazine HCl 100 Mg Tablet, 200 MG PO HS, (Reported) Chlorpromazine HCl 100 Mg Tablet, 100 MG PO Q2H PRN for AGGRESSION, (Reported) Clonazepam 0.5 Mg Tablet, 0.5 MG PO 1200, (Reported) Divalproex Sodium 500 Mg Tab.er.24h, 500 MG PO DAILY, (Reported) Divalproex Sodium 500 Mg Tab.er.24h, 1,000 MG PO HS, (Reported) Docusate Sodium 100 Mg Capsule, 200 MG PO DAILY, (Reported) Ferrous Sulfate 325 Mg Tablet, 325 MG PO 1700, (Reported) Hydroxyzine Pamoate 50 Mg Capsule, 100 MG PO Q8H PRN for ANXIETY, (Reported) Levothyroxine Sodium 50 Mcg Tablet, 50 MCG PO DAILY, (Reported) Magnesium Hydroxide 400 Mg/5 Ml Oral.susp, 30 ML PO DAILY PRN for CONSTIPATION- 7TH LINE, (Reported) use if no bm > 3 days Medroxyprogesterone Acetate 150 Mg/1 Ml Syringe, 150 MG IM every 3 months, (Reported) NEXT DOSE DUE 02-12-19 Methyl Salicylate/Menthol 28 Gm Oint...g., TP Q4H PRN for MUSCLE PAIN, (Reported) Mirtazapine 30 Mg Tablet, 30 MG PO HS, (Reported) Multivitamin/Iron/Folic Acid 1 Each Tablet, 2 TAB PO DAILY, (Reported) Olanzapine 10 Mg Tablet, 10 MG PO Q8H PRN for AGGRESSION, (Reported) Omeprazole 40 Mg Capsule.dr, 40 MG PO BID, (Reported) Pantoprazole Sodium 40 Mg Tablet.dr, 40 MG PO DAILY, (Reported) Phenylephrine/Shk Lv/Mo/Pet,Wh 57 Gm Oint...g., RC UD PRN for HEMORRHOIDS, (Reported) Polyethylene Glycol 1000 500 Gm Powder, 17 GM PO DAILY, (Reported) Sennosides/Docusate Sodium 1 Each Tablet, 2 TAB PO HS, (Reported) Sertraline HCl 100 Mg Tablet, 100 MG PO DAILY, (Reported) Sucralfate 1 Gm Tablet, 1 GM PO QID, (Reported) Trazodone HCl 150 Mg Tablet, 150 MG PO HS, (Reported) Patient Home Medication List Home Medication List Reviewed: Yes Past [id number] Hx Patient Social History Alcohol Use: Denies Use Recreational Drug Use: No Type Used: Cigarettes Recent Foreign Travel: No Contact w/Someone Who Travel: No Recent Infectious Disease Expo: No Recent Hopitalizations: No Seasonal Allergies Seasonal Allergies: No Surgeries History of Surgeries: Yes (CONTENTS REMOVED FROM STOMACH SHE SWALLOWED) Surgeries: Gallbladder Respiratory History of Respiratory Disorde: No Cardiovascular History of Cardiac Disorders: Yes Cardiac Disorders: Hypertension Neurological History of Neurological Disord: No Genitourinary History of Genitourinary Disor: No Gastrointestinal History of Gastrointestinal Di: Yes Gastrointestinal Disorders: Gastroesophageal Reflux Musculoskeletal History of Musculoskeletal Dis: No Endocrine History of Endocrine Disorders: No HEENT History of HEENT Disorders: No Cancer History of Cancer: No Psychosocial History of Psychiatric Problem: Yes Behavioral Health Disorders: Bipolar Integumentary History of Skin or Integumenta: No Blood Transfusions History of Blood Disorders: No Family Medical History Significant Family History: No Pertinent Family Hx Review of Systems-General Constitutional: no symptoms reported EENTM: no symptoms reported Respiratory: no symptoms reported Cardiovascular: no symptoms reported Gastrointestinal: see HPI Genitourinary: no symptoms reported Musculoskeletal: no symptoms reported Skin: no symptoms reported Psychiatric/Neurological: No Symptoms Reported Physical Exam-General Problems Physical Exam Vital Signs Vital Signs - First Documented 02/07/19 19:17 Temp 97.6 Pulse 91 Resp 18 B/P (MAP) 130/94 (106) Pulse Ox 99 Capillary Refill : Less Than 3 Seconds General Appearance: WD/WN, no apparent distress, obese HEENT: PERRL/EOMI, normal ENT inspection Neck: non-tender, full range of motion, supple Respiratory: chest non-tender, no respiratory distress, no accessory muscle use Cardiovascular: regular rate, rhythm Gastrointestinal: non tender, soft, no organomegaly Rectal: deferred Back: normal inspection, no CVA tenderness Extremities: non-tender, normal inspection Neurologic/Psychiatric: field care coordinator II-XII nml as tested, no motor/sensory deficits, alert, normal mood/affect, oriented x 3 Skin: normal color, warm/dry Lymphatic: no adenopathy Data Review Labs Laboratory Tests 02/07/19 19:28: Urine Color YELLOW, Urine Clarity CLEAR, Urine pH 7, Urine Specific [place] 1.005L, Urine Protein NEGATIVE, Urine Glucose (UA) NEGATIVE, Urine Ketones NEGATIVE, Urine Nitrite NEGATIVE, Urine Bilirubin NEGATIVE, Urine Urobilinogen NORMAL, Urine Leukocyte Esterase 2+H, Urine RBC (Auto) NEGATIVE, Urine RBC NONE, Urine WBC 5-10H, Urine Squamous Epithelial Cells 2-5, Urine Crystals NONE, Urine Bacteria FEWH, Urine Casts NONE, Urine Mucus NEGATIVE, Urine Culture Indicated YES 02/07/19 20:11: White Blood Count 6.9, Red Blood Count 3.89L, Hemoglobin 11.5, Hematocrit 34L, Mean Corpuscular Volume 87, Mean Corpuscular Hemoglobin 30, Mean Corpuscular Hemoglobin Concent 34, Red Cell Distribution Width 12.5, Platelet Count 261, Mean Platelet Volume 9.3, Neutrophils (%) (Auto) 62, Lymphocytes (%) (Auto) 32, Monocytes (%) (Auto) 6, Eosinophils (%) (Auto) 0, Basophils (%) (Auto) 0, Neutrophils # (Auto) 4.3, Lymphocytes # (Auto) 2.2, Monocytes # (Auto) 0.4, Eosinophils # (Auto) 0.0, Basophils # (Auto) 0.0, Sodium Level 139, Potassium Level 4.0, Chloride Level 109H, Carbon Dioxide Level 19L, Anion Gap 11, Blood Urea Nitrogen 8, Creatinine 0.75, Estimat Glomerular Filtration Rate > 60, BUN/Creatinine Ratio 11, Glucose Level 90, Calcium Level 9.6, Corrected Calcium 9.7, Total Bilirubin 0.2, Aspartate Amino Transf (AST/SGOT) 12, Alanine Aminotransferase (ALT/SGPT) 13, Alkaline Phosphatase 56, Total Protein 6.8, Albumin 3.9, Salicylates Level < 5.0L, Acetaminophen Level < 10L, Serum Alcohol < 10 Assessment/Plan Assessment/Plan Assessment/Plan ingested foreign body hematemesis discussed risks and benefits of egd and removal of foreign body if able to retrieve it. Understands risks and benefits, consent obtained to endoscopy for egd GRACE QUEZADA DO Feb 07, 2019 20:59
--- NOTE | 2019-02-07 21:44 | Progress Note-Post Operative ---
Post-Operative Progess Note Surgeon (s)/Line Builder (s) Surgeon GRACE QUEZADA DO Line Builder: na Pre-Operative Diagnosis ingested foreign body, hematamesis Post-Operative Diagnosis ingested foreign body Procedure & Operative Findings Date of Procedure 02/07/19 Procedure Performed/Findings egd c removal ingested foreign body Anesthesia Type per client consultant Estimated Blood Loss Estimated blood loss (mL): na Specimens/Packing Specimens Removed foreign body retrieved GRACE QUEZADA DO Feb 07, 2019 21:44
--- OUTSIDE RECORDS SUMMARY | 2019-02-07 21:50 | XMS REPORT | Continuity of Care Document ---
Author Organization Unknown Address Unknown Allergies Active Description Code Type Severity Reaction Onset Reported/Identified Relationship to Patient Clinical Status Yes BACTRIM [id number] BRANDNAME N/A N/A Yes HALDOL [id number] BRANDNAME N/A N/A Yes PCN (penicillin) [id number] CLASS N/A N/A Medications There is no data. Problems There is no data. Procedures There is no data. Results There is no data. Encounters ACCT No. Visit Date/Time Discharge Status Pt. Type Provider Facility Loc./Unit Complaint [id number] 10/15/2017 12:15:33 10/15/2017 23:59:59 CLS Outpatient Trevin Christian [id number] 04/27/2016 10:58:25 04/27/2016 23:59:59 CLS Outpatient Wilberto Wen [id number] 03/31/2016 10:52:23 03/31/2016 23:59:59 CLS Outpatient Wilberto Wen [id number] 03/31/2016 10:49:20 03/31/2016 23:59:59 CLS Outpatient Wilberto Wen [id number] 03/30/2016 11:22:15 03/30/2016 23:59:59 CLS Outpatient Wilberto Wen [id number] 03/23/2016 09:52:33 03/23/2016 23:59:59 CLS Outpatient Wilberto Wen [id number] 03/23/2016 09:49:09 03/23/2016 23:59:59 CLS Outpatient Wilberto Wen [id number] 09/16/2015 10:24:31 09/16/2015 23:59:59 CLS Outpatient Wilian Mosley [id number] 07/08/2015 14:16:58 07/08/2015 23:59:59 CLS Outpatient Mayra Matthews [id number] 06/24/2015 15:19:22 06/24/2015 23:59:59 CLS Outpatient Mayra Matthews [id number] 03/11/2015 21:48:31 03/11/2015 23:59:59 C[place], Wilberto [id number] 05/21/2014 13:54:14 05/21/2014 23:59:59 CLS Outpatient [place], Wilberto [id number] 05/17/2014 14:34:02 05/17/2014 23:59:59 CLS Outpatient Wilian Mosley [id number] 03/27/2014 15:35:55 03/27/2014 23:59:59 CLS Outpatient [place], Wilberto [id number] 03/20/2014 09:22:33 03/20/2014 23:59:59 CLS Outpatient [place], Wilberto [id number] 03/15/2014 15:04:13 03/15/2014 23:59:59 CLS Outpatient [place], Wilberto [id number] 03/08/2014 16:22:24 03/08/2014 23:59:59 CLS Outpatient [place], Wilberto [id number] 03/05/2014 21:53:39 03/05/2014 23:59:59 CLS Outpatient [place], Wilberto [id number] 03/05/2014 21:48:33 03/05/2014 23:59:59 CLS Outpatient [place], Wilberto [id number] 01/31/2014 11:47:47 01/31/2014 23:59:59 CLS Outpatient [place], Wilberto [id number] 12/26/2013 16:25:17 12/26/2013 23:59:59 CLS Outpatient [place], Wilberto [id number] 12/14/2013 11:25:32 12/14/2013 23:59:59 CLS Outpatient [place], Wilberto [id number] 12/14/2013 11:19:47 12/14/2013 23:59:59 CLS Outpatient [place], Wilberto [id number] 12/14/2013 11:19:06 12/14/2013 23:59:59 CLS Outpatient [place], Wilberto [id number] 12/12/2013 17:13:14 12/12/2013 23:59:59 CLS Outpatient [place], Wilberto [id number] 09/04/2013 12:58:40 09/04/2013 23:59:59 CLS Outpatient Wilian Mosley [id number] 08/23/2013 17:22:25 08/23/2013 23:59:59 CLS Outpatient Wilian Mosley [id number] 03/20/2012 20:26:00 03/20/2012 21:03:00 DIS Emergency Lázaro SANTIAGO, Wallace [facility] W.EDW [id number] 05/20/2018 09:20:03 Document Registration [id number] 02/11/2018 13:32:55 Document Registration [id number] 11/10/2017 15:59:04 Document Registration [id number] 11/05/2017 10:21:51 Document Registration [id number] 10/25/2017 15:58:05 Document Registration [id number] 09/30/2017 19:47:50 Document Registration [id number] 09/26/2017 16:57:31 Document Registration [id number] 09/26/2017 16:55:14 Document Registration [id number] 09/01/2017 10:18:00 Document Registration [id number] 05/11/2017 09:22:14 Document Registration [id number] 04/26/2015 13:45:53 04/26/2015 13:45:53 DIS Outpatient
--- NOTE | 2019-02-07 22:01 | NUR ---
PT RETURN FROM ENDOSCOPY. PT SITTING UP, ALERT AND ORIENT AND ABLE TO TAKE FLUIDS.
[2019-02-07 22:06] VITALS: BP 130/94
--- NOTE | 2019-02-08 04:42 | OPERATIVE REPORT ---
DATE OF SERVICE: 02/07/2019 PREOPERATIVE DIAGNOSES: Ingested foreign body, hematemesis. POSTOPERATIVE DIAGNOSIS: Ingested foreign body in the stomach. PROCEDURE: EGD with removal of ingested foreign body. SURGEON: Grace Phillips DO ANESTHESIA: Per SUPERVISOR BENZENE REFINING. ESTIMATED BLOOD LOSS: None. COMPLICATIONS: None. INDICATIONS: The patient is a 33-year-old female who ingested a pair of fingernail clippers. She was having episodes of hematemesis as well. Risks and benefits were discussed and consent was signed and on the chart. DESCRIPTION OF PROCEDURE: The patient was taken to the endoscopy suite, placed in left lateral recumbent position. Timeout was performed. Scope was inserted into the mouth, down the esophagus, stomach and into the duodenum without difficulty. There were no polyps, mass or ulceration of the duodenum. The scope was slowly retracted back into the stomach, where it was further insufflated. No evidence of any polyps, masses or ulcerations. A pair of nail clippers were present within the stomach. Scope was retroflexed noting no other pathology. Scope was returned to its normal position. A Reynolds Net was used to grasp on to the nail clippers and then slowly withdrawn until completely removed. The scope was then reinserted into the mouth, down the esophagus and into the stomach. No evidence of any trauma or any active bleeding present. At this time, the scope was then slowly retracted back to completely remove, noting no other pathology. The patient tolerated the procedure well without any complications. She was taken to recovery room in stable condition. Job ID: [id number] DocumentID: [id number] Dictated Date: 02/07/2019 21:47:00 Babysitter Date: 02/08/2019 04:41:15 Dictated By: GRACE PHILLIPS DO
== END | disposition home or self-care (01) ==
LOC: EDUNIT# 19:08 → ER 19:10 → ENDO 20:34
PROVIDERS: ATTEND Surgery
DX: T18.2XXA Foreign body in stomach, initial encounter (principal); K92.0 Hematemesis; I10 Essential (primary) hypertension; K21.9 Gastro-esophageal reflux disease without esophagitis; F31.9 Bipolar disorder, unspecified; F17.210 Nicotine dependence, cigarettes, uncomplicated; Z88.0 Allergy status to penicillin; Z88.2 Allergy status to sulfonamides; Z79.899 Other long term (current) drug therapy
CPT/HCPCS: 36415; 74022; 80053; 80320; 80329; 81000; 84703; 85025; 87088; 93005; 96360

== ENCOUNTER → 2019-03-18 | Day surgery (SDC) | payer MEDICAID ==
[~2019-03-18] VITALS: Ht 172.7 cm; Wt 108.9 kg
[~2019-03-18] MED LIST changes: +DEXAMETHASONE 10 MG/ML (DECADRON) 1 ML VIAL ONE; -HURRICAINE EXT TUBE (BENZOCAINE) ONE; -HURRICAINE EXT TUBE (BENZOCAINE) XX ONE; +HYDROmorphone 2 MG/ML VIAL (DILAUDID) IV ONE; +LACTATED RINGERS 1,000 ML IV SCH; +LIDOCAINE PF 2% 5 ML (XYLOCAINE) VIAL ONE; +ONDANSETRON 4 MG/2 ML (SDV) Z0FRAN IVP PRN; +ONDANSETRON 4 MG/2 ML (SDV) Z0FRAN ONE; +SEVOFLURANE (ULTANE) 15 ML INHAL SOLN ONE; +SUCCINYLCHOLINE INJ 100 MG/5 ML SYR ONE; +fentaNYL INJECTION 100 MCG/2 ML AMP ONE
--- NOTE | 2019-03-18 14:43 | Diagnostic Imaging Report ---
INDICATION: Belief of foreign body ingestion, anna as well as a battery. COMPARISON: Exam compared with study 02/07/2019. FINDINGS: No radiopaque thoracic foreign body. No pneumomediastinum, pneumothorax, infiltrate, effusion or atelectatic segment. There are at least five aggregates of what appears to be anna projecting over the epigastrium, likely in the distal stomach. There are clips at the gallbladder fossa. There are more cylindrical solid metallic opacities compatible with batteries in the right lower quadrant. The midline pelvic one could be within the sigmoid and the right lower quadrant may be within the proximal ascending colon. IMPRESSION: 1. Multiple metallic foreign bodies include multiple aggregated ingested but unused anna, likely in the stomach as well as cylindrical opacities compatible with batteries in the midline pelvis and right lower quadrant, more likely than not in the large bowel proximally and distally. 2. No thoracic foreign body. Dictated by: Dictated on workstation # [id number]
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
[2019-03-18 14:51] LABS: BILIRUBIN,URINE NEGATIVE (NEGATIVE); CLARITY,URINE CLEAR; COLOR,URINE YELLOW; GLUCOSE, URINE (UA) NEGATIVE (NEGATIVE); KETONES,URINE NEGATIVE (NEGATIVE); LEUKOCYTE ESTERASE ,URINE NEGATIVE (NEGATIVE); NITRITE,URINE NEGATIVE (NEGATIVE); PH,URINE 7 (5-9); PROTEIN,URINE NEGATIVE (NEGATIVE); UROBILINOGEN,URINE NORMAL (NORMAL)
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
[2019-03-18 15:06] LABS: BACTERIA,URINE NEGATIVE /HPF; SQUAMOUS EPITHELIAL CELL,UR 0-2 /HPF
[2019-03-18 15:09] LABS: AMPHETAMINE SCREEN, URINE NEGATIVE (NEGATIVE); BARBITURATE SCREEN URINE NEGATIVE (NEGATIVE); BENZODIAZEPINES SCREEN URINE NEGATIVE (NEGATIVE); CANNABINOID SCREEN, URINE NEGATIVE (NEGATIVE); COCAINE SCREEN URINE NEGATIVE (NEGATIVE); METHADONE STAT NEGATIVE (NEGATIVE); METHAMPHETAMINE SCREEN URINE S NEGATIVE (NEGATIVE); OPIATE SCREEN URINE NEGATIVE (NEGATIVE); OXYCODONE STAT NEGATIVE (NEGATIVE); PROPOXYPHENE STAT NEGATIVE (NEGATIVE); TRICYCLIC ANTIDEPRESSANTS SCRE NEGATIVE (NEGATIVE)
[2019-03-18 15:47] LABS: BASOPHILS % (AUTO) 1 % (0-10); EOSINOPHILS # (AUTO) 0.4 10^3/uL (0.0-0.3); EOSINOPHILS % (AUTO) 5 % (0-10); HEMATOCRIT 36 % (35-52); HEMOGLOBIN 12.2 G/DL (11.5-16.0); LYMPHOCYTES # (AUTO) 1.9 X 10^3 (1.0-4.0); LYMPHOCYTES % (AUTO) 28 % (12-44); MEAN CORPUSCULAR HEMOGLOBIN 29 PG (25-34); MEAN CORPUSCULAR HGB CONC 34 G/DL (32-36); MEAN CORPUSCULAR VOLUME 88 FL (80-99); MEAN PLATELET VOLUME 10.4 FL (7.4-10.4); MONOCYTES # (AUTO) 0.5 X 10^3 (0.0-1.0); MONOCYTES % (AUTO) 7 % (0-12); NEUTROPHILS % (AUTO) 59 % (42-75); PLATELET COUNT 196 10^3/uL (130-400); RED CELL DISTRIBUTION WIDTH 12.2 % (10.0-14.5); WHITE BLOOD COUNT 6.8 10^3/uL (4.3-11.0)
--- NOTE | 2019-03-18 15:55 | NUR ---
REPORT TO OR NURSE AT THIS TIME. PT TAKEN TO PREOP AT THIS TIME.
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
--- NOTE | 2019-03-18 16:58 | Progress Note-Post Operative ---
Post-Operative Progess Note Surgeon (s)/Global Account Director (s) Surgeon BILL HILL DO Global Account Director: none Pre-Operative Diagnosis ingested foreign body, hematamesis Post-Operative Diagnosis same Procedure & Operative Findings Date of Procedure 03/18/19 Procedure Performed/Findings EGD with removal of foreign body x 8 Anesthesia Type GET Estimated Blood Loss Estimated blood loss (mL): scant Specimens/Packing Specimens Removed 8 pieces of staple BILL HILL DO Mar 18, 2019 16:58
[2019-03-18 17:02] VITALS: BP 139/99
--- NOTE | 2019-03-18 17:03 | Discharge Inst-Surgical ---
Discharge Inst-Surgical Depart Medication/Instructions New, Converted or Re-Newed RX: Other (no rx needed) Patient Instructions Follow up Appt: Make appointment for 1 week. [phone] Instructions: May shower in 24 hours or tub bath or soaking. Use incentive spirometer at home as directed. No Smoking Symptoms to Report: Appetite Changes, Extremity Discoloration, Numbness/Tingling, Swelling Increased, Bleeding Excessive, Eyesight Changes, Pain Increased, Urine Color Change, Constipation(Persistent), Fever over 101 degree F, Pain/Pressure in chest, Urinating Difficulty, Cough Up/Vomit Blood, Heart Beat Irreg/Pounding, Pain/Pressure in jaw, Cramps in feet or legs, Lightheadedness, Pain/Pressure in shoulder, Diarrhea(Persistent), Memory Changes Suddenly, Questions/Concerns, Weight gain consecutive days, Dizziness/Fainting, Nausea/Vomiting, Shortness of Breath, Weight gain over 2 pounds If questions or concerns contact your physician Or seek help at emergency department. Activity Activity as Tolerated: Yes Diet Discharge Diet: Liquid Diet, Soft Diet If Any Problems/Questions/Issu: Contact Your Physician, Go to Emergency Room Skin/Wound Care Infection Signs and Symptoms: Temperature Above 101 F BILL HILL DO Mar 18, 2019 17:03
[2019-03-18 17:10] VITALS: BP 142/106
--- NOTE | 2019-03-18 17:16 | Anesthesia-General Post-Op ---
General Patient Condition Mental Status/LOC: Same as Preop Cardiovascular: Satisfactory Nausea/Vomiting: Absent Respiratory: Satisfactory Pain: Controlled Complications: Absent Post Op Complications Complications None Follow Up Care/Instructions Patient Instructions None needed. Anesthesia/Patient Condition Patient Condition Patient is doing well, no complaints, stable vital signs, no apparent adverse anesthesia problems. No complications reported per nursing. D/C home per [facility] Criteria: Yes JASPAL CASTILLO CRNA Mar 18, 2019 17:16
[2019-03-18 17:20] VITALS: BP 148/96
[2019-03-18 17:30] VITALS: BP 151/109
[2019-03-18 17:40] VITALS: BP 154/100
[2019-03-18 17:50] VITALS: BP 153/103
--- NOTE | 2019-03-18 18:11 | NUR ---
pt returns to ED FOR RECOVERY FROM EGD. PT ALERT AND ORIENT X4 AND ABLE TO DRINK. CALL [facility] FOR PT TO BE TRANSPORTED BACK.
--- NOTE | 2019-03-18 18:23 | NUR ---
PT DISCHARGED INTO CARE OF [facility] FROM [facility]. IV REMOVED INTACT.
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
== END ==
LOC: EDUNIT# 14:09 → ER 14:11 → ENDO 15:51
PROVIDERS: ATTEND Surgery
DX: T18.2XXA Foreign body in stomach, initial encounter (principal); K21.9 Gastro-esophageal reflux disease without esophagitis; I10 Essential (primary) hypertension; F17.210 Nicotine dependence, cigarettes, uncomplicated; G43.909 Migraine, unspecified, not intractable, without status migrainosus; E66.01 Morbid (severe) obesity due to excess calories; E03.9 Hypothyroidism, unspecified; F32.9 Major depressive disorder, single episode, unspecified; F41.9 Anxiety disorder, unspecified; Z88.0 Allergy status to penicillin; Z88.2 Allergy status to sulfonamides; Z91.013 Allergy to seafood; Z88.8 Allergy status to other drugs, medicaments and biological substances; Z79.891 Long term (current) use of opiate analgesic; Z90.49 Acquired absence of other specified parts of digestive tract; Z68.36 Body mass index [BMI] 36.0-36.9, adult
CPT/HCPCS: 74022; 80306; 81000; 84703; 96360

== ENCOUNTER 2019-05-07 13:09 | Emergency (ER) | payer MEDICAID ==
[~2019-05-07] VITALS: Ht 175 cm; Wt 142.0 kg
[~2019-05-07 13:09] MED LIST changes: -DEXAMETHASONE 10 MG/ML (DECADRON) 1 ML VIAL ONE; -HYDROmorphone 2 MG/ML VIAL (DILAUDID) IV ONE; -LACTATED RINGERS 1,000 ML IV ONE; -LACTATED RINGERS 1,000 ML IV SCH; -LIDOCAINE PF 2% 5 ML (XYLOCAINE) VIAL ONE; -MIDAZOLAM 2 MG/2 ML (VERSED) VIAL ONE; -ONDANSETRON 4 MG/2 ML (SDV) Z0FRAN IVP PRN; -ONDANSETRON 4 MG/2 ML (SDV) Z0FRAN ONE; -SEVOFLURANE (ULTANE) 15 ML INHAL SOLN ONE; -SUCCINYLCHOLINE INJ 100 MG/5 ML SYR ONE; -fentaNYL INJECTION 100 MCG/2 ML AMP ONE; -proPOfol 200 MG/20 ML (DIPRIVAN) VIAL IV ONE
[2019-05-07] MEDS ORDERED: PANTOPRAZOLE 40 MG (PROTONIX) VIAL IV ONE (13:30)
[2019-05-07] MEDS ORDERED: ONDANSETRON 4 MG/2 ML (SDV) Z0FRAN IVP ONE (13:30)
--- NOTE | 2019-05-07 13:37 | ED GI ---
General Chief Complaint: Abdominal/GI Problems Stated Complaint: VOMITING BLOOD Nursing Triage Note: STATES AT APPX 1215 SHE VOMITED BLOOD AFTER EATING LUNCH AND IT HAS CONTINUED. Sepsis Screen: No Definite Risk Source of Information: Patient, Caregiver Exam Limitations: No Limitations History of Present Illness Date Seen by Provider: May 07, 2019 Time Seen by Provider: 13:17 Initial Comments Patient presents to ER by private conveyance with chief complaint of about an hour ago she was eating chicken Scot and then says she started vomiting of bloody secretions. She denies having swallowed any foreign objects away she doesn't history of swallowing multiple foreign objects in the past, toenail clippers, needles, pencils, pins, eyeglasses, batteries, anna etc. She denies a history of esophageal varices or ulcers. She's had multiple EGDs and colonoscopies as well as 3 separate surgeries to remove foreign objects. She has a headache. She does not have anything at home for nausea. She denies a history of hepatitis or liver disorders although she says many people in her family have cirrhosis. She has had a cholecystectomy. She is on Depo-Provera shots. The patient states she has had several episodes of hematemesis in the past and it does not usually related to anything she eats. Allergies and Home Medications Allergies Coded Allergies: Fish Containing Products (Verified Allergy, Unknown, 01/24/19) Penicillins (Verified Allergy, Unknown, 01/24/19) Sulfa (Sulfonamide Antibiotics) (Verified Allergy, Unknown, 01/24/19) haloperidol (Verified Allergy, Unknown, 01/24/19) Home Medications Acetaminophen 325 Mg Tablet, 650 MG PO Q6H PRN for PAIN-MILD, (Reported) Atenolol 25 Mg Tablet, 25 MG PO BID, (Reported) Baclofen 10 Mg Tablet, 10 MG PO HS, (Reported) Benzocaine 14 Gm Gel..gram., TOP Q6H PRN for tooth pain, (Reported) APPLY TO TOOTH Benztropine Mesylate 1 Mg Tablet, 1 MG PO HS, (Reported) Chlorpromazine HCl 100 Mg Tablet, 200 MG PO HS, (Reported) Chlorpromazine HCl 100 Mg Tablet, 100 MG PO Q2H PRN for AGGRESSION, (Reported) Clonazepam 0.5 Mg Tablet, 0.5 MG PO 1200, (Reported) Divalproex Sodium 500 Mg Tab.er.24h, 500 MG PO DAILY, (Reported) Divalproex Sodium 500 Mg Tab.er.24h, 1,000 MG PO HS, (Reported) Docusate Sodium 100 Mg Capsule, 200 MG PO DAILY, (Reported) Ferrous Sulfate 325 Mg Tablet, 325 MG PO 1700, (Reported) Hydroxyzine Pamoate 50 Mg Capsule, 100 MG PO Q8H PRN for ANXIETY, (Reported) Levothyroxine Sodium 50 Mcg Tablet, 50 MCG PO DAILY, (Reported) Magnesium Hydroxide 400 Mg/5 Ml Oral.susp, 30 ML PO DAILY PRN for CONSTIPATION- 7TH LINE, (Reported) use if no bm > 3 days Medroxyprogesterone Acetate 150 Mg/1 Ml Syringe, 150 MG IM every 3 months, (Reported) NEXT DOSE DUE 02-12-19 Methyl Salicylate/Menthol 28 Gm Oint...g., TP Q4H PRN for MUSCLE PAIN, (Reported) Mirtazapine 30 Mg Tablet, 30 MG PO HS, (Reported) Multivitamin/Iron/Folic Acid 1 Each Tablet, 2 TAB PO DAILY, (Reported) Olanzapine 10 Mg Tablet, 10 MG PO Q8H PRN for AGGRESSION, (Reported) Omeprazole 40 Mg Capsule.dr, 40 MG PO BID, (Reported) Pantoprazole Sodium 40 Mg Tablet.dr, 40 MG PO DAILY, (Reported) Phenylephrine/Shk Lv/Mo/Pet,Wh 57 Gm Oint...g., RC UD PRN for HEMORRHOIDS, (Reported) Polyethylene Glycol 1000 500 Gm Powder, 17 GM PO DAILY, (Reported) Sennosides/Docusate Sodium 1 Each Tablet, 2 TAB PO HS, (Reported) Sertraline HCl 100 Mg Tablet, 100 MG PO DAILY, (Reported) Sucralfate 1 Gm Tablet, 1 GM PO QID, (Reported) Trazodone HCl 150 Mg Tablet, 150 MG PO HS, (Reported) Patient Home Medication List Home Medication List Reviewed: Yes Review of Systems Review of Systems Constitutional: No chills, No diaphoresis, No fever EENTM: No Blurred Vision, No Double Vision Respiratory: Denies Cough, Denies Shortness of Air Cardiovascular: Denies Chest Pain, Denies Edema Gastrointestinal: See HPI; Denies Abdominal Pain, Denies Constipated, Denies Diarrhea; Nausea, Vomiting Genitourinary: Denies Burning, Denies Discharge Musculoskeletal: No back pain, No joint pain Past Vkhygdq-Jlbdmr-Gaycbe Hx Patient Social History Alcohol Use: Occasionally Uses Recreational Drug Use: No Smoking Status: Current Everyday Smoker Type Used: Cigarettes Recent Foreign Travel: No Contact w/Someone Who Travel: No Recent Infectious Disease Expo: No Recent Hopitalizations: No Seasonal Allergies Seasonal Allergies: No Past Medical History Surgeries: Yes (CONTENTS REMOVED FROM STOMACH SHE SWALLOWED) Gallbladder Respiratory: No Cardiac: Yes Hypertension Neurological: No Genitourinary: No Gastrointestinal: Yes Gastroesophageal Reflux Musculoskeletal: No Endocrine: No HEENT: No Cancer: No Psychosocial: Yes Bipolar Integumentary: No Blood Disorders: No Family Medical History Hypertension Physical Exam Vital Signs Vital Signs - First Documented 05/07/19 13:10 Temp 36.0 Pulse 99 Resp 16 B/P (MAP) 133/93 (106) Pulse Ox 100 O2 Delivery Room Air Capillary Refill : Less Than 3 Seconds Height/Weight/BMI Height: 5'8.00" Weight: 240lbs. 3.0oz. 108.219123pv; 46.00 BMI Method:Estimated General Appearance: mild distress, obese HEENT: PERRL/EOMI, pharynx normal Neck: full range of motion, normal inspection Respiratory: no respiratory distress, no accessory muscle use Cardiovascular: normal peripheral pulses, regular rate, rhythm Peripheral Pulses: 2+ Radial Pulses (R), 2+ Radial Pulses (L) Gastrointestinal: normal bowel sounds, non tender, soft Neurologic/Psychiatric: alert, normal mood/affect, oriented x 3 Progress/Results/Core Measures Results/Orders Lab Results Laboratory Tests Test 05/07/19 14:05 05/07/19 15:14 Range/Units White Blood Count 8.7 4.3-11.0 10^3/uL Red Blood Count 4.15 L 4.35-5.85 10^6/uL Hemoglobin 12.5 11.5-16.0 G/DL Hematocrit 37 35-52 % Mean Corpuscular Volume 88 80-99 FL Mean Corpuscular Hemoglobin 30 25-34 PG Mean Corpuscular Hemoglobin Concent 34 32-36 G/DL Red Cell Distribution Width 12.2 10.0-14.5 % Platelet Count 266 130-400 10^3/uL Mean Platelet Volume 9.2 7.4-10.4 FL Neutrophils (%) (Auto) 60 42-75 % Lymphocytes (%) (Auto) 31 12-44 % Monocytes (%) (Auto) 7 0-12 % Eosinophils (%) (Auto) 1 0-10 % Basophils (%) (Auto) 0 0-10 % Neutrophils # (Auto) 5.3 1.8-7.8 X 10^3 Lymphocytes # (Auto) 2.7 1.0-4.0 X 10^3 Monocytes # (Auto) 0.7 0.0-1.0 X 10^3 Eosinophils # (Auto) 0.1 0.0-0.3 10^3/uL Basophils # (Auto) 0.0 0.0-0.1 10^3/uL Sodium Level 141 135-145 MMOL/L Potassium Level 3.9 3.6-5.0 MMOL/L Chloride Level 107 98-107 MMOL/L Carbon Dioxide Level 23 21-32 MMOL/L Anion Gap 11 5-14 MMOL/L Blood Urea Nitrogen 12 7-18 MG/DL Creatinine 0.72 0.60-1.30 MG/DL Estimat Glomerular Filtration Rate > 60 BUN/Creatinine Ratio 17 Glucose Level 96 70-105 MG/DL Calcium Level 9.3 8.5-10.1 MG/DL Corrected Calcium 9.5 8.5-10.1 MG/DL Magnesium Level 1.7 1.6-2.4 MG/DL Total Bilirubin 0.1 0.1-1.0 MG/DL Aspartate Amino Transf (AST/SGOT) 12 5-34 U/L Alanine Aminotransferase (ALT/SGPT) 18 0-55 U/L Alkaline Phosphatase 63 40-136 U/L Total Protein 6.8 6.4-8.2 GM/DL Albumin 3.8 3.2-4.5 GM/DL Lipase 37 8-78 U/L Human Chorionic Gonadotropin, Quant < 5 <5 MIU/ML Urine Color YELLOW Urine Clarity CLEAR Urine pH 6.5 5-9 Urine Specific [place] 1.010 L 1.016-1.022 Urine Protein NEGATIVE NEGATIVE Urine Glucose (UA) NEGATIVE NEGATIVE Urine Ketones NEGATIVE NEGATIVE Urine Nitrite NEGATIVE NEGATIVE Urine Bilirubin NEGATIVE NEGATIVE Urine Urobilinogen NORMAL NORMAL MG/DL Urine Leukocyte Esterase NEGATIVE NEGATIVE Urine RBC (Auto) NEGATIVE NEGATIVE Urine RBC NONE /HPF Urine WBC NONE /HPF Urine Squamous Epithelial Cells >50 H /HPF Urine Crystals NONE /LPF Urine Bacteria TRACE /HPF Urine Casts NONE /LPF Urine Mucus NEGATIVE /LPF Urine Culture Indicated NO My Orders Orders - ROYAL ROCK Urine Bedside (05/07/19 13:16) Ua Culture If Indicated (05/07/19 13:16) Cbc With Automated Diff (05/07/19 13:19) Comprehensive Metabolic Panel (05/07/19 13:19) Lipase (05/07/19 13:19) Magnesium (05/07/19 13:19) Ed Iv/Invasive Line Start (05/07/19 13:28) Ondansetron Injection (Zofran Injectio (05/07/19 13:30) Acute Abd Series (05/07/19 13:28) Pantoprazole Injection (Protonix Injecti (05/07/19 13:30) Occult Blood,Gastric Fluid (05/07/19 13:56) Hcg,Quantitative (05/07/19 14:03) Medications Given in ED Current Medications Medications Dose Ordered Sig/Susanna Route Start Time Stop Time Status Last Admin Dose Admin Ondansetron HCl 8 mg ONCE ONCE IVP 05/07/19 13:30 05/07/19 13:33 DC 05/07/19 13:58 8 MG Pantoprazole 40 mg ONCE ONCE IV 05/07/19 13:30 05/07/19 13:33 DC 05/07/19 13:57 40 MG Vital Signs/I&O 05/07/19 13:10 Temp 36.0 Pulse 99 Resp 16 B/P (MAP) 133/93 (106) Pulse Ox 100 O2 Delivery Room Air Blood Pressure Mean: 106 Progress Progress Note #1: Time: 13:36 Progress Note Plan to obtain acute abdominal x-ray series looking for foreign objects. Pantoprazole, labs and urine to include bedside . Progress Note #2: Time: 16:00 Progress Note Patient says her nausea and discomfort went away after the IV injections. Plan to put her on antacids and send her home some Zofran and urine. Diagnostic Imaging Diagonstic Imaging: Xray Plain Films/CT/US/NM/MRI: abdomen (acute series) Comments NAME: AUGUSTO OWENSAugie Nettles [facility] REC#: [id number] PT STATUS: REG ER : 1985 PHYSICIAN: ROYAL ROCK MD ADMIT DATE: 05/07/19/ER Draft Date of Exam:05/07/19 ACUTE ABD SERIES REASON FOR EXAM: Vomiting blood. COMPARISON: 03/18/2019 TECHNIQUE: frontal views of the chest and abdomen. FINDINGS: Lung volumes are normal. No focal consolidation or mass. No pleural effusion or pneumothorax. The cardiac silhouette is unremarkable. The osseous structures demonstrate no evidence of acute abnormalities. The bowel gas pattern is nondistended. No large collection of free intraperitoneal air is seen. A moderate amount of gas and fecal material are present in the colon. No abnormal extraosseous calcifications are present. No evidence of radiopaque foreign body. The osseous structures are age-appropriate. IMPRESSION: 1. No evidence of radiopaque foreign body. No bowel obstruction. 2. No acute pleuroparenchymal process. 3. Moderate amount of stool throughout the colon, which can be seen with constipation. Dictated on workstation # [id number] Dict: 05/07/19 1446 Trans: 05/07/19 1454 [facility] [id number] Interpreted by: ARNULFO JACOBSEN DO Electronically signed by: Reviewed: Reviewed by Me Consults : Consulting Physician: GRACE QUEZADA DO Consults Notes He is okay with outpatient follow-up in the clinic. Departure Impression Primary Impression: Hematemesis Qualified Codes: K92.0 - Hematemesis Disposition: 01 HOME, SELF-CARE Condition: Improved Departure-Patient Inst. Decision time for Depature: 16:01 Referrals: GRACE QUEZADA RACHEL L MD (PCP/Family) Primary Care Physician Patient Instructions: Nausea and Vomiting, Adult (DC) Add. Discharge Instructions: Tomorrow morning call Dr. Quezada General Surgery and request an appointment for follow-up. For the next 2 weeks start taking omeprazole 40 mg daily. If you have nausea you can take Zofran 1 tablet under the tongue every 6 hours as needed. For intractable nausea vomiting, worsening symptoms or severe pain or shortness of breath please return to the nearest ER. All discharge instructions reviewed with patient and/or family. Voiced understanding. Scripts Ondansetron (Ondansetron Odt) 4 Mg Tab.rapdis 4 MG PO Q6H PRN for NAUSEA/VOMITING, #12 TAB 0 Refills Prov: ROYAL ROCK 05/07/19 Omeprazole (Omeprazole) 40 Mg Capsule. 40 MG PO DAILY for 14 Days, #30 CAP 0 Refills Prov: ROYAL ROCK 05/07/19 ROYAL ROCK May 07, 2019 13:37
[2019-05-07 14:13] LABS: BASOPHILS % (AUTO) 0 % (0-10); EOSINOPHILS # (AUTO) 0.1 10^3/uL (0.0-0.3); EOSINOPHILS % (AUTO) 1 % (0-10); HEMATOCRIT 37 % (35-52); HEMOGLOBIN 12.5 G/DL (11.5-16.0); LYMPHOCYTES # (AUTO) 2.7 X 10^3 (1.0-4.0); LYMPHOCYTES % (AUTO) 31 % (12-44); MEAN CORPUSCULAR HEMOGLOBIN 30 PG (25-34); MEAN CORPUSCULAR HGB CONC 34 G/DL (32-36); MEAN CORPUSCULAR VOLUME 88 FL (80-99); MEAN PLATELET VOLUME 9.2 FL (7.4-10.4); MONOCYTES # (AUTO) 0.7 X 10^3 (0.0-1.0); MONOCYTES % (AUTO) 7 % (0-12); NEUTROPHILS # (AUTO) 5.3 X 10^3 (1.8-7.8); NEUTROPHILS % (AUTO) 60 % (42-75); PLATELET COUNT 266 10^3/uL (130-400); RED CELL DISTRIBUTION WIDTH 12.2 % (10.0-14.5); WHITE BLOOD COUNT 8.7 10^3/uL (4.3-11.0)
[2019-05-07 14:34] LABS: ALANINE AMINOTRANSFERASE 18 U/L (0-55); ALBUMIN 3.8 GM/DL (3.2-4.5); ALKALINE PHOSPHATASE 63 U/L (40-136); BILIRUBIN,TOTAL 0.1 MG/DL (0.1-1.0); BUN/CREATININE RATIO 17; CALCIUM 9.3 MG/DL (8.5-10.1); CARBON DIOXIDE 23 MMOL/L (21-32); CHLORIDE 107 MMOL/L (98-107); CREATININE SERUM 0.72 MG/DL (0.60-1.30); GFR ESTIMATED > 60; GLUCOSE 96 MG/DL (70-105); LIPASE 37 U/L (8-78); MAGNESIUM 1.7 MG/DL (1.6-2.4); POTASSIUM 3.9 MMOL/L (3.6-5.0); SODIUM 141 MMOL/L (135-145); TOTAL PROTEIN 6.8 GM/DL (6.4-8.2)
--- NOTE | 2019-05-07 14:54 | Diagnostic Imaging Report ---
REASON FOR EXAM: Vomiting blood. COMPARISON: 03/18/2019 TECHNIQUE: frontal views of the chest and abdomen. FINDINGS: Lung volumes are normal. No focal consolidation or mass. No pleural effusion or pneumothorax. The cardiac silhouette is unremarkable. The osseous structures demonstrate no evidence of acute abnormalities. The bowel gas pattern is nondistended. No large collection of free intraperitoneal air is seen. A moderate amount of gas and fecal material are present in the colon. No abnormal extraosseous calcifications are present. No evidence of radiopaque foreign body. The osseous structures are age-appropriate. IMPRESSION: 1. No evidence of radiopaque foreign body. No bowel obstruction. 2. No acute pleuroparenchymal process. 3. Moderate amount of stool throughout the colon, which can be seen with constipation. Dictated by: Dictated on workstation # [id number]
[2019-05-07 15:22] LABS: BILIRUBIN,URINE NEGATIVE (NEGATIVE); CLARITY,URINE CLEAR; COLOR,URINE YELLOW; GLUCOSE, URINE (UA) NEGATIVE (NEGATIVE); KETONES,URINE NEGATIVE (NEGATIVE); LEUKOCYTE ESTERASE ,URINE NEGATIVE (NEGATIVE); NITRITE,URINE NEGATIVE (NEGATIVE); PH,URINE 6.5 (5-9); PROTEIN,URINE NEGATIVE (NEGATIVE); UROBILINOGEN,URINE NORMAL (NORMAL)
[2019-05-07 15:29] LABS: BACTERIA,URINE TRACE /HPF; SQUAMOUS EPITHELIAL CELL,UR >50 /HPF
[2019-05-07] MEDS ORDERED: OMEP40CA36 PO (16:04)
[2019-05-07] MEDS ORDERED: ONDA4TAB11 PO (16:04)
[2019-05-07 16:31] VITALS: BP 125/89
== END 2019-05-07 16:31 | disposition home or self-care (01) ==
LOC: EDUNIT# 13:09 → ER 13:10
DX: K92.0 Hematemesis (principal); I10 Essential (primary) hypertension; K21.9 Gastro-esophageal reflux disease without esophagitis; F31.9 Bipolar disorder, unspecified; F17.210 Nicotine dependence, cigarettes, uncomplicated; Z90.49 Acquired absence of other specified parts of digestive tract; Z88.0 Allergy status to penicillin; Z88.2 Allergy status to sulfonamides; Z88.8 Allergy status to other drugs, medicaments and biological substances; Z82.49 Family history of ischemic heart disease and other diseases of the circulatory system
CPT/HCPCS: 36415; 74022; 80053; 81000; 83690; 83735; 84702; 85025

== ENCOUNTER → 2019-05-10 | Outpatient (CLI) | payer MEDICAID ==
[~2019-05-10] MED LIST changes: +ONDA4TAB11 PO
--- NOTE | 2019-05-10 12:46 | Diagnostic Imaging Report ---
INDICATION: Milky discharge from the right nipple. COMPARISON: 02/22/2018. TECHNIQUE: 2D and 3D bilateral diagnostic mammography was performed with CAD. FINDINGS: Scattered fibroglandular densities are identified bilaterally. There has been an increase in the calcifications in the lateral portion of the left breast. The calcifications are indeterminate. No soft tissue mass is seen. The axillae are unremarkable. The right breast is unremarkable. IMPRESSION: 1. No abnormality in the retroareolar right breast. Sonographic interrogation of the retroareolar right breast will be performed due to discharge from the right nipple. 2. New calcifications in the lateral portion of the left breast are indeterminate. Tissue sampling would be recommended. These would be amenable to stereotactic biopsy approach. ACR BI-RADS Category 0: Incomplete. (Needs additional imaging evaluation). Result letter will be mailed to the patient. Note: At least 10% of breast cancer is not imaged by mammography. Dictated by: Dictated on workstation # [id number]
--- NOTE | 2019-05-10 12:52 | Diagnostic Imaging Report ---
INDICATION: Galactorrhea. COMPARISON: Correlation is made with the diagnostic mammogram from earlier this same day. TECHNIQUE/FINDINGS: Sonographic interrogation of the retroareolar right breast was performed. No sonographic abnormality is seen. No solid or cystic mass is detected. IMPRESSION: 1. No sonographic abnormality in the right breast is identified. 2. Left breast calcifications as described on the diagnostic mammogram report. A stereotactic biopsy of the left breast calcifications is recommended. ACR BI-RADS Category 4: Suspicious abnormality. Result letter will be mailed to the patient. Note: At least 10% of breast cancer is not imaged by mammography. Dictated by: Dictated on workstation # [id number]
== END ==
LOC: RAD 08:45
PROVIDERS: ATTEND Family Medicine
DX: N64.3 Galactorrhea not associated with childbirth (principal); R92.1 Mammographic calcification found on diagnostic imaging of breast
CPT/HCPCS: 77066

== ENCOUNTER → 2019-05-18 | Outpatient (CLI) | payer MEDICAID ==
[~2019-05-18] VITALS: Ht 171 cm; Wt 127.0 kg
[~2019-05-18] MED LIST changes: +LIDOCAINE 1% INJ 20 ML 20 ML VIAL INJ ONE
--- NOTE | 2019-05-18 11:04 | Diagnostic Imaging Report ---
INDICATION: Left breast calcifications. Patient presents for stereotactic biopsy. Patient is brought to the stereotactic suite and placed in a chair in a sitting upright position. Left breast was positioned lateral medial. Mammographic imaging was performed to evaluate appropriate entry site. Sterile tactic imaging was performed. The calcifications in lateral left breast were stereotactically targeted. The lateral left breast was then prepped and draped in usual sterile fashion. Small amount of 1% lidocaine was utilized for local anesthesia. 8 gauge needle was advanced into the left breast and placed per stereotactic coordinates. A total of 4 core biopsies were obtained utilizing a vacuum-assisted device. Specimen radiographs demonstrate multiple calcifications within the samples: #1, #3 as well as #7 and #8. A marker clip was then deployed. Needle was removed and hemostasis was obtained. Follow-up two-view mammogram demonstrates marker clip in the outer portion of the left breast. IMPRESSION: Stereotactic biopsy of calcifications in the outer aspect of the left breast. Pathology results are currently pending. Dictated by: Dictated on workstation # [id number]
== END ==
LOC: RAD 08:17
PROVIDERS: ATTEND Family Medicine
DX: R92.0 Mammographic microcalcification found on diagnostic imaging of breast (principal); R92.8 Other abnormal and inconclusive findings on diagnostic imaging of breast
CPT/HCPCS: 19081

== ENCOUNTER 2019-05-20 19:27 | Emergency (ER) | payer MEDICAID ==
[~2019-05-20] VITALS: Ht 170 cm; Wt 144.0 kg
[~2019-05-20 19:27] MED LIST changes: -LIDOCAINE 1% INJ 20 ML 20 ML VIAL INJ ONE
--- NOTE | 2019-05-20 19:43 | ED General ---
General Chief Complaint: Psych/Social Disorder Stated Complaint: ANXIETY,SOA Source of Information: Patient Exam Limitations: No Limitations History of Present Illness Date Seen by Provider: May 20, 2019 Time Seen by Provider: 19:43 Initial Comments to ER services where she lives with her heritage consultant with reports of anxiety since this morning. Timing/Duration: 4-6 Hours Severity: Moderate Associated Systoms: Denies Symptoms Allergies and Home Medications Allergies Coded Allergies: Fish Containing Products (Verified Allergy, Unknown, 01/24/19) Penicillins (Verified Allergy, Unknown, 01/24/19) Sulfa (Sulfonamide Antibiotics) (Verified Allergy, Unknown, 01/24/19) haloperidol (Verified Allergy, Unknown, 01/24/19) Home Medications Acetaminophen 325 Mg Tablet, 650 MG PO Q6H PRN for PAIN-MILD, (Reported) Atenolol 25 Mg Tablet, 25 MG PO BID, (Reported) Baclofen 10 Mg Tablet, 10 MG PO HS, (Reported) Benzocaine 14 Gm Gel..gram., TOP Q6H PRN for tooth pain, (Reported) APPLY TO TOOTH Benztropine Mesylate 1 Mg Tablet, 1 MG PO HS, (Reported) Chlorpromazine HCl 100 Mg Tablet, 200 MG PO HS, (Reported) Chlorpromazine HCl 100 Mg Tablet, 100 MG PO Q2H PRN for AGGRESSION, (Reported) Clonazepam 0.5 Mg Tablet, 0.5 MG PO 1200, (Reported) Divalproex Sodium 500 Mg Tab.er.24h, 500 MG PO DAILY, (Reported) Divalproex Sodium 500 Mg Tab.er.24h, 1,000 MG PO HS, (Reported) Docusate Sodium 100 Mg Capsule, 200 MG PO DAILY, (Reported) Ferrous Sulfate 325 Mg Tablet, 325 MG PO 1700, (Reported) Hydroxyzine Pamoate 50 Mg Capsule, 100 MG PO Q8H PRN for ANXIETY, (Reported) Levothyroxine Sodium 50 Mcg Tablet, 50 MCG PO DAILY, (Reported) Magnesium Hydroxide 400 Mg/5 Ml Oral.susp, 30 ML PO DAILY PRN for CONSTIPATION- 7TH LINE, (Reported) use if no bm > 3 days Medroxyprogesterone Acetate 150 Mg/1 Ml Syringe, 150 MG IM every 3 months, (Reported) NEXT DOSE DUE 02-12-19 Methyl Salicylate/Menthol 28 Gm Oint...g., TP Q4H PRN for MUSCLE PAIN, (Reported) Mirtazapine 30 Mg Tablet, 30 MG PO HS, (Reported) Multivitamin/Iron/Folic Acid 1 Each Tablet, 2 TAB PO DAILY, (Reported) Olanzapine 10 Mg Tablet, 10 MG PO Q8H PRN for AGGRESSION, (Reported) Omeprazole 40 Mg Capsule.dr, 40 MG PO BID, (Reported) Omeprazole 40 Mg Capsule.dr, 40 MG PO DAILY Prescribed by: ROYAL ROCK on 05/07/19 160 Ondansetron 4 Mg Tab.rapdis, 4 MG PO Q6H PRN for NAUSEA/VOMITING Prescribed by: ROYAL ROCK on 05/07/19 1604 Pantoprazole Sodium 40 Mg Tablet.dr, 40 MG PO DAILY, (Reported) Phenylephrine/Shk Lv/Mo/Pet,Wh 57 Gm Oint...g., RC UD PRN for HEMORRHOIDS, (Reported) Polyethylene Glycol 1000 500 Gm Powder, 17 GM PO DAILY, (Reported) Sennosides/Docusate Sodium 1 Each Tablet, 2 TAB PO HS, (Reported) Sertraline HCl 100 Mg Tablet, 100 MG PO DAILY, (Reported) Sucralfate 1 Gm Tablet, 1 GM PO QID, (Reported) Trazodone HCl 150 Mg Tablet, 150 MG PO HS, (Reported) Patient Home Medication List Home Medication List Reviewed: Yes Review of Systems Review of Systems Constitutional: see HPI EENTM: see HPI Respiratory: no symptoms reported Cardiovascular: no symptoms reported Genitourinary: no symptoms reported Musculoskeletal: no symptoms reported Skin: no symptoms reported Psychiatric/Neurological: No Symptoms Reported Hematologic/Lymphatic: No Symptoms Reported Past Mlkngtt-[id number]-Foqucq Hx Patient Social History Type Used: Cigarettes Recent Foreign Travel: No Contact w/Someone Who Travel: No Recent Hopitalizations: No Seasonal Allergies Seasonal Allergies: No Past Medical History Surgeries: Yes (CONTENTS REMOVED FROM STOMACH SHE SWALLOWED) Gallbladder Respiratory: No Cardiac: Yes Hypertension Neurological: No Genitourinary: No Gastrointestinal: Yes Gastroesophageal Reflux Musculoskeletal: No Endocrine: No HEENT: No Cancer: No Psychosocial: Yes Bipolar Integumentary: No Blood Disorders: No Family Medical History Hypertension Physical Exam Vital Signs Vital Signs - First Documented 05/20/19 19:36 Temp 38.1 Pulse 95 Resp 18 B/P (MAP) 150/109 (123) Pulse Ox 98 Capillary Refill : Height, Weight, BMI Height: 5'8.00" Weight: 240lbs. 3.0oz. [id number]; 43.43 BMI Method:Estimated General Appearance: WD/WN, Anxious, Obese Eyes: Bilateral Eye Normal Inspection, Bilateral Eye PERRL, Bilateral Eye EOMI Respiratory: Lungs Clear, Normal Breath Sounds, No Accessory Muscle Use, No Respiratory Distress Cardiovascular: Regular Rate, Rhythm, Normal Peripheral Pulses Gastrointestinal: Normal Bowel Sounds, Non Tender, Soft Neurologic/Psychiatric: Alert, Oriented x3 Progress/Results/Core Measures Suspected Sepsis SIRS Temperature: Pulse: Respiratory Rate: Laboratory Tests 05/20/19 19:40: White Blood Count 7.8 Blood Pressure / Mean: Laboratory Tests 05/20/19 19:40: Creatinine 0.77, INR Comment 0.9, Platelet Count 315, Total Bilirubin 0.2 Results/Orders Lab Results Laboratory Tests Test 05/20/19 19:40 05/20/19 20:02 Range/Units White Blood Count 7.8 4.3-11.0 10^3/uL Red Blood Count 4.06 L 4.35-5.85 10^6/uL Hemoglobin 12.3 11.5-16.0 G/DL Hematocrit 36 35-52 % Mean Corpuscular Volume 88 80-99 FL Mean Corpuscular Hemoglobin 30 25-34 PG Mean Corpuscular Hemoglobin Concent 35 32-36 G/DL Red Cell Distribution Width 12.0 10.0-14.5 % Platelet Count 315 130-400 10^3/uL Mean Platelet Volume 9.1 7.4-10.4 FL Neutrophils (%) (Auto) 73 42-75 % Lymphocytes (%) (Auto) 20 12-44 % Monocytes (%) (Auto) 7 0-12 % Eosinophils (%) (Auto) 1 0-10 % Basophils (%) (Auto) 0 0-10 % Neutrophils # (Auto) 5.7 1.8-7.8 X 10^3 Lymphocytes # (Auto) 1.5 1.0-4.0 X 10^3 Monocytes # (Auto) 0.6 0.0-1.0 X 10^3 Eosinophils # (Auto) 0.1 0.0-0.3 10^3/uL Basophils # (Auto) 0.0 0.0-0.1 10^3/uL Prothrombin Time 12.5 12.2-14.7 SEC INR Comment 0.9 0.8-1.4 D-Dimer 0.58 H 0.00-0.49 UG/ML Sodium Level 137 135-145 MMOL/L Potassium Level 4.2 3.6-5.0 MMOL/L Chloride Level 104 98-107 MMOL/L Carbon Dioxide Level 21 21-32 MMOL/L Anion Gap 12 5-14 MMOL/L Blood Urea Nitrogen 11 7-18 MG/DL Creatinine 0.77 0.60-1.30 MG/DL Estimat Glomerular Filtration Rate > 60 BUN/Creatinine Ratio 14 Glucose Level 112 H 70-105 MG/DL Calcium Level 9.3 8.5-10.1 MG/DL Corrected Calcium 9.4 8.5-10.1 MG/DL Total Bilirubin 0.2 0.1-1.0 MG/DL Aspartate Amino Transf (AST/SGOT) 13 5-34 U/L Alanine Aminotransferase (ALT/SGPT) 20 0-55 U/L Alkaline Phosphatase 73 40-136 U/L Total Protein 6.6 6.4-8.2 GM/DL Albumin 3.9 3.2-4.5 GM/DL Serum Test, Qualitative NEGATIVE NEGATIVE Urine Color YELLOW Urine Clarity CLEAR Urine pH 7 5-9 Urine Specific [place] 1.010 L 1.016-1.022 Urine Protein 1+ H NEGATIVE Urine Glucose (UA) NEGATIVE NEGATIVE Urine Ketones NEGATIVE NEGATIVE Urine Nitrite NEGATIVE NEGATIVE Urine Bilirubin NEGATIVE NEGATIVE Urine Urobilinogen NORMAL NORMAL MG/DL Urine Leukocyte Esterase 1+ H NEGATIVE Urine RBC (Auto) NEGATIVE NEGATIVE Urine RBC NONE /HPF Urine WBC 0-2 /HPF Urine Squamous Epithelial Cells 10-25 H /HPF Urine Crystals PRESENT H /LPF Urine Calcium Oxalate Crystals FEW H /LPF Urine Bacteria TRACE /HPF Urine Casts NONE /LPF Urine Mucus SMALL H /LPF Urine Culture Indicated NO My Orders Orders - LEON MONTOYA APRN Lorazepam Injection (Ativan Injection) (05/20/19 19:45) Ketorolac Injection (Toradol Injection) (05/20/19 19:45) Cbc With Automated Diff (05/20/19 19:40) Comprehensive Metabolic Panel (05/20/19 19:40) Protime With Inr (05/20/19 19:40) Fibrin Degradation Products (05/20/19 19:40) Ua Culture If Indicated (05/20/19 19:40) Hcg,Qualitative Serum (05/20/19 19:40) Ct Angio Chest W (05/20/19 20:09) Iohexol Injection (Omnipaque 350 Mg/Ml 1 (05/20/19 20:30) Received Contrast (Hold Metformin- Contr (05/20/19 20:30) Ns (Ivpb) (Sodium Chloride 0.9% Ivpb Bag (05/20/19 20:30) Medications Given in ED Current Medications Medications Dose Ordered Sig/Susanna Route Start Time Stop Time Status Last Admin Dose Admin Ketorolac Tromethamine 30 mg ONCE ONCE IVP 05/20/19 19:45 05/20/19 19:46 DC 05/20/19 19:49 30 MG Lorazepam 1 mg ONCE ONCE IVP 05/20/19 19:45 05/20/19 19:46 DC 05/20/19 19:51 1 MG Vital Signs/I&O 05/20/19 19:36 Temp 38.1 Pulse 95 Resp 18 B/P (MAP) 150/109 (123) Pulse Ox 98 Capillary Refill : Departure Impression Primary Impression: Anxiety Disposition: 01 HOME, SELF-CARE Condition: Stable Departure-Patient Inst. Decision time for Depature: 21:06 Referrals: BUD GARCIA MD (PCP/Family) Primary Care Physician Patient Instructions: Panic Disorder (DC) Add. Discharge Instructions: 1. Return to ER for any concerns 2. Follow-up with your doctor next week 3. All discharge instructions reviewed with patient and/or family. Voiced understanding. LEON MONTOYA SPEECH INSTRUCTOR May 20, 2019 19:43
[2019-05-20] MEDS ORDERED: KETOROLAC 30 MG/ML VIAL IVP ONE (19:45)
[2019-05-20] MEDS ORDERED: LORazepam INJ 2 MG/ML (ATIVAN) VIAL IVP ONE (19:45)
[2019-05-20 19:49] LABS: BASOPHILS % (AUTO) 0 % (0-10); EOSINOPHILS # (AUTO) 0.1 10^3/uL (0.0-0.3); EOSINOPHILS % (AUTO) 1 % (0-10); HEMATOCRIT 36 % (35-52); HEMOGLOBIN 12.3 G/DL (11.5-16.0); LYMPHOCYTES # (AUTO) 1.5 X 10^3 (1.0-4.0); LYMPHOCYTES % (AUTO) 20 % (12-44); MEAN CORPUSCULAR HEMOGLOBIN 30 PG (25-34); MEAN CORPUSCULAR HGB CONC 35 G/DL (32-36); MEAN CORPUSCULAR VOLUME 88 FL (80-99); MEAN PLATELET VOLUME 9.1 FL (7.4-10.4); MONOCYTES # (AUTO) 0.6 X 10^3 (0.0-1.0); MONOCYTES % (AUTO) 7 % (0-12); NEUTROPHILS # (AUTO) 5.7 X 10^3 (1.8-7.8); NEUTROPHILS % (AUTO) 73 % (42-75); PLATELET COUNT 315 10^3/uL (130-400); WHITE BLOOD COUNT 7.8 10^3/uL (4.3-11.0)
[2019-05-20 20:02] LABS: FIBRIN DEGRADATION PRODUCTS 0.58 UG/ML (0.00-0.49); INR 0.9 (0.8-1.4); PROTHROMBIN TIME PATIENT 12.5 SEC (12.2-14.7)
[2019-05-20 20:08] LABS: ALANINE AMINOTRANSFERASE 20 U/L (0-55); ALBUMIN 3.9 GM/DL (3.2-4.5); ALKALINE PHOSPHATASE 73 U/L (40-136); BILIRUBIN,TOTAL 0.2 MG/DL (0.1-1.0); BUN/CREATININE RATIO 14; CALCIUM 9.3 MG/DL (8.5-10.1); CARBON DIOXIDE 21 MMOL/L (21-32); CHLORIDE 104 MMOL/L (98-107); CREATININE SERUM 0.77 MG/DL (0.60-1.30); GFR ESTIMATED > 60; GLUCOSE 112 MG/DL (70-105); POTASSIUM 4.2 MMOL/L (3.6-5.0); SODIUM 137 MMOL/L (135-145); TOTAL PROTEIN 6.6 GM/DL (6.4-8.2)
[2019-05-20 20:10] LABS: BILIRUBIN,URINE NEGATIVE (NEGATIVE); CLARITY,URINE CLEAR; COLOR,URINE YELLOW; GLUCOSE, URINE (UA) NEGATIVE (NEGATIVE); KETONES,URINE NEGATIVE (NEGATIVE); LEUKOCYTE ESTERASE ,URINE 1+ (NEGATIVE); NITRITE,URINE NEGATIVE (NEGATIVE); PH,URINE 7 (5-9); PROTEIN,URINE 1+ (NEGATIVE)
[2019-05-20 20:18] LABS: BACTERIA,URINE TRACE /HPF; CALCIUM OXALATE CRYSTALS,UR FEW /LPF; WBC,URINE 0-2 /HPF
[2019-05-20] MEDS ORDERED: HOLD METFORMIN - RECEIVED CONTRAST 20 ML VIAL IV SCH (20:30)
[2019-05-20] MEDS ORDERED: NS 100 ML (IVPB) BAG IV ONE (20:30)
[2019-05-20] MEDS ORDERED: IOHEXOL 350 MG/ML 100 ML (OMNIPAQUE 350) VIAL IV ONE (20:30)
--- NOTE | 2019-05-20 21:04 | Diagnostic Imaging Report ---
INDICATION: Chest tightness and difficulty breathing. EXAMINATION: CTA chest was obtained with IV contrast bolus and axial slices and MIP reconstructions. FINDINGS: There are no enlarged mediastinal or hilar nodes. There is no pleural or pericardial fluid. There are no enlarged axillary nodes. There is no evidence of aortic dissection or aneurysm. Great vessel origins are patent. The pulmonary parenchymal vessels appear well opacified with no CT evidence of pulmonary emboli. Visualized portions of the upper abdomen demonstrate postcholecystectomy changes. Lung parenchymal windows demonstrate some dependent atelectatic changes in the lung bases. There is no consolidation, pleural fluid or pneumothorax. IMPRESSION: No evidence of pulmonary emboli, aortic dissection or aneurysm. No acute process in the chest except for mild dependent atelectatic changes in the lung bases. Dictated by: Dictated on workstation # [id number]
[2019-05-20] MEDS ORDERED: RX-HYDROXYZINE PAMOATE 25 MG CAP #4 PO STA (21:11)
[2019-05-20 21:19] VITALS: BP 150/100
== END 2019-05-20 21:21 | disposition home or self-care (01) ==
LOC: EDUNIT# 19:27 → ER 19:28
DX: F41.9 Anxiety disorder, unspecified (principal); I10 Essential (primary) hypertension; K21.9 Gastro-esophageal reflux disease without esophagitis; F31.9 Bipolar disorder, unspecified; Z88.0 Allergy status to penicillin; Z88.2 Allergy status to sulfonamides; Z88.8 Allergy status to other drugs, medicaments and biological substances; Z82.49 Family history of ischemic heart disease and other diseases of the circulatory system
CPT/HCPCS: 36415; 71275; 80053; 81000; 84703; 85025; 85379; 85610

== ENCOUNTER 2019-08-06 23:17 | Emergency (ER) | payer MEDICAID ==
[~2019-08-06] VITALS: Ht 160 cm; Wt 91.0 kg
[2019-08-06] MEDS ORDERED: FAMOTIDINE 20 MG (PEPCID) TABLET PO STA (23:27)
[2019-08-06] MEDS ORDERED: ONDANSETRON 4 MG (ZOFRAN) ORAL DISSOLVE TAB SL STA (23:27)
[2019-08-06] MEDS ORDERED: ANTACID SUSP 30 ML UDC (MYLANTA) PO ONE (23:30)
[2019-08-06] MEDS ORDERED: LIDOCAINE 2% VISCOUS 15 ML UDC PO ONE (23:30)
--- NOTE | 2019-08-06 23:36 | ED GI ---
General Chief Complaint: Abdominal/GI Problems Stated Complaint: VOMITING BLOOD Source of Information: Patient Exam Limitations: No Limitations History of Present Illness Date Seen by Provider: Aug 06, 2019 Time Seen by Provider: 23:20 Initial Comments Patient presents to ER by private conveyance with her caregiver from her snf with chief complaint that about half an hour prior to arrival she was sitting watching TV and she started feeling queasy and then threw up some bright red blood tinged vomitus without blood clots. She's having some abdominal pain mostly in her left flank. No history of kidney stones. No dysuria. She'll bowel movement was normal, soft earlier today. She has a history of swallowing foreign objects. She denies having done that in the last few weeks. She has had endoscopy and surgeries by Dr. Newell and Jacqueline previously. No blood in her stool. Because she was having pain in her back her staff gave her cyclobenzaprine which she subsequently vomited back up. Allergies and Home Medications Allergies Coded Allergies: Fish Containing Products (Verified Allergy, Unknown, 01/24/19) Penicillins (Verified Allergy, Unknown, 01/24/19) Sulfa (Sulfonamide Antibiotics) (Verified Allergy, Unknown, 01/24/19) haloperidol (Verified Allergy, Unknown, 01/24/19) Home Medications Acetaminophen 325 Mg Tablet, 650 MG PO Q6H PRN for PAIN-MILD, (Reported) Atenolol 25 Mg Tablet, 25 MG PO BID, (Reported) Baclofen 10 Mg Tablet, 10 MG PO HS, (Reported) Benzocaine 14 Gm Gel..gram., TOP Q6H PRN for tooth pain, (Reported) APPLY TO TOOTH Benztropine Mesylate 1 Mg Tablet, 1 MG PO HS, (Reported) Chlorpromazine HCl 100 Mg Tablet, 200 MG PO HS, (Reported) Chlorpromazine HCl 100 Mg Tablet, 100 MG PO Q2H PRN for AGGRESSION, (Reported) Clonazepam 0.5 Mg Tablet, 0.5 MG PO 1200, (Reported) Divalproex Sodium 500 Mg Tab.er.24h, 500 MG PO DAILY, (Reported) Divalproex Sodium 500 Mg Tab.er.24h, 1,000 MG PO HS, (Reported) Docusate Sodium 100 Mg Capsule, 200 MG PO DAILY, (Reported) Ferrous Sulfate 325 Mg Tablet, 325 MG PO 1700, (Reported) Hydroxyzine Pamoate 50 Mg Capsule, 100 MG PO Q8H PRN for ANXIETY, (Reported) Levothyroxine Sodium 50 Mcg Tablet, 50 MCG PO DAILY, (Reported) Magnesium Hydroxide 400 Mg/5 Ml Oral.susp, 30 ML PO DAILY PRN for CONSTIPATION- 7TH LINE, (Reported) use if no bm > 3 days Medroxyprogesterone Acetate 150 Mg/1 Ml Syringe, 150 MG IM every 3 months, (Reported) NEXT DOSE DUE 02-12-19 Methyl Salicylate/Menthol 28 Gm Oint...g., TP Q4H PRN for MUSCLE PAIN, (Reported) Mirtazapine 30 Mg Tablet, 30 MG PO HS, (Reported) Multivitamin/Iron/Folic Acid 1 Each Tablet, 2 TAB PO DAILY, (Reported) Olanzapine 10 Mg Tablet, 10 MG PO Q8H PRN for AGGRESSION, (Reported) Omeprazole 40 Mg Capsule.dr, 40 MG PO BID, (Reported) Omeprazole 40 Mg Capsule.dr, 40 MG PO DAILY Prescribed by: ROYAL ROCK on 05/07/19 1604 Ondansetron 4 Mg Tab.rapdis, 4 MG PO Q6H PRN for NAUSEA/VOMITING Prescribed by: ROYAL ROCK on 05/07/19 1604 Ondansetron 4 Mg Tab.rapdis, 4 MG PO Q6H PRN for NAUSEA/VOMITING-1ST LINE Prescribed by: ROYAL ROCK on 08/07/19 0056 Pantoprazole Sodium 40 Mg Tablet.dr, 40 MG PO DAILY, (Reported) Phenylephrine/Shk Lv/Mo/Pet,Wh 57 Gm Oint...g., RC UD PRN for HEMORRHOIDS, (Reported) Polyethylene Glycol 1000 500 Gm Powder, 17 GM PO DAILY, (Reported) Sennosides/Docusate Sodium 1 Each Tablet, 2 TAB PO HS, (Reported) Sertraline HCl 100 Mg Tablet, 100 MG PO DAILY, (Reported) Sucralfate 1 Gm Tablet, 1 GM PO QID, (Reported) Trazodone HCl 150 Mg Tablet, 150 MG PO HS, (Reported) Patient Home Medication List Home Medication List Reviewed: Yes Review of Systems Review of Systems Constitutional: No chills, No diaphoresis EENTM: No Blurred Vision, No Double Vision Respiratory: Denies Cough, Denies Orthopnea Cardiovascular: Denies Chest Pain, Denies Edema Gastrointestinal: See HPI, Abdominal Pain; Denies Constipated, Denies Diarrhea; Nausea, Vomiting Genitourinary: Denies Burning, Denies Discharge Musculoskeletal: No back pain, No joint pain Skin: No change in color, No rash Psychiatric/Neurological: Denies Headache, Denies Numbness Hematologic/Lymphatic: Denies Anemia, Denies Blood Clots, Denies Easy Bleeding, Denies Easy Bruising All Other Systems Reviewed Negative Unless Noted: Yes Past Nasfcjy-Xjeirb-Bjuymz Hx Patient Social History Alcohol Use: Occasionally Uses Recreational Drug Use: No Smoking Status: Current Everyday Smoker Type Used: Cigarettes (0.25 ppd) Recent Foreign Travel: No Contact w/Someone Who Travel: No Recent Hopitalizations: No Seasonal Allergies Seasonal Allergies: No Past Medical History Surgeries: No Gallbladder Respiratory: No Cardiac: No Hypertension Neurological: No Genitourinary: No Gastrointestinal: Yes Gastroesophageal Reflux Musculoskeletal: No Endocrine: No HEENT: No Cancer: No Psychosocial: Yes Bipolar Integumentary: No Blood Disorders: No Family Medical History Hypertension Physical Exam Vital Signs Vital Signs - First Documented 08/06/19 23:30 Temp 36.7 Pulse 86 Resp 18 B/P (MAP) 154/100 (118) Pulse Ox 97 O2 Delivery Room Air Capillary Refill : Height/Weight/BMI Height: 5'8.00" Weight: 240lbs. 3.0oz. [id number]; 49.00 BMI Method:Estimated General Appearance: no apparent distress, obese HEENT: PERRL/EOMI, normal ENT inspection Neck: full range of motion, normal inspection Respiratory: lungs clear, normal breath sounds, no respiratory distress, no accessory muscle use Cardiovascular: normal peripheral pulses, regular rate, rhythm Peripheral Pulses: 2+ Radial Pulses (R), 2+ Radial Pulses (L) Gastrointestinal: normal bowel sounds, non tender, soft, no organomegaly Extremities: no pedal edema, normal capillary refill Back: normal inspection, no vertebral tenderness, CVA tenderness (L) Neurologic/Psychiatric: alert, normal mood/affect, oriented x 3 Skin: normal color, warm/dry Progress/Results/Core Measures Results/Orders Lab Results Laboratory Tests Test 08/06/19 23:44 08/06/19 23:50 Range/Units White Blood Count 8.0 4.3-11.0 10^3/uL Red Blood Count 4.02 L 4.35-5.85 10^6/uL Hemoglobin 12.0 11.5-16.0 G/DL Hematocrit 35 35-52 % Mean Corpuscular Volume 87 80-99 FL Mean Corpuscular Hemoglobin 30 25-34 PG Mean Corpuscular Hemoglobin Concent 35 32-36 G/DL Red Cell Distribution Width 11.7 10.0-14.5 % Platelet Count 270 130-400 10^3/uL Mean Platelet Volume 9.6 7.4-10.4 FL Neutrophils (%) (Auto) 56 42-75 % Lymphocytes (%) (Auto) 34 12-44 % Monocytes (%) (Auto) 9 0-12 % Eosinophils (%) (Auto) 1 0-10 % Basophils (%) (Auto) 0 0-10 % Neutrophils # (Auto) 4.5 1.8-7.8 X 10^3 Lymphocytes # (Auto) 2.7 1.0-4.0 X 10^3 Monocytes # (Auto) 0.7 0.0-1.0 X 10^3 Eosinophils # (Auto) 0.1 0.0-0.3 10^3/uL Basophils # (Auto) 0.0 0.0-0.1 10^3/uL Sodium Level 139 135-145 MMOL/L Potassium Level 3.8 3.6-5.0 MMOL/L Chloride Level 109 H 98-107 MMOL/L Carbon Dioxide Level 18 L 21-32 MMOL/L Anion Gap 12 5-14 MMOL/L Blood Urea Nitrogen 7 7-18 MG/DL Creatinine 0.65 0.60-1.30 MG/DL Estimat Glomerular Filtration Rate > 60 BUN/Creatinine Ratio 11 Glucose Level 108 H 70-105 MG/DL Calcium Level 8.9 8.5-10.1 MG/DL Corrected Calcium 9.2 8.5-10.1 MG/DL Total Bilirubin 0.1 0.1-1.0 MG/DL Aspartate Amino Transf (AST/SGOT) 14 5-34 U/L Alanine Aminotransferase (ALT/SGPT) 19 0-55 U/L Alkaline Phosphatase 67 40-136 U/L Total Protein 6.5 6.4-8.2 GM/DL Albumin 3.6 3.2-4.5 GM/DL Urine Color YELLOW Urine Clarity CLEAR Urine pH 6.5 5-9 Urine Specific [place] 1.015 L 1.016-1.022 Urine Protein NEGATIVE NEGATIVE Urine Glucose (UA) NEGATIVE NEGATIVE Urine Ketones NEGATIVE NEGATIVE Urine Nitrite NEGATIVE NEGATIVE Urine Bilirubin NEGATIVE NEGATIVE Urine Urobilinogen 0.2 < = 1.0 MG/DL Urine Leukocyte Esterase NEGATIVE NEGATIVE Urine RBC (Auto) NEGATIVE NEGATIVE Urine RBC NONE /HPF Urine WBC 2-5 /HPF Urine Squamous Epithelial Cells 2-5 /HPF Urine Crystals NONE /LPF Urine Bacteria MODERATE H /HPF Urine Casts NONE /LPF Urine Mucus SMALL H /LPF Urine Culture Indicated YES My Orders Orders - ROYAL ROCK Ondansetron Oral Dissolve Tab (Zofran (08/06/19 23:27) Lidocaine 2% Viscous 15 Ml (Xylocaine Vi (08/06/19 23:30) Famotidine Tablet (Pepcid Tablet) (08/06/19 23:27) Antacid Suspension (Mylanta Suspension (08/06/19 23:30) Cbc With Automated Diff (08/06/19 23:27) Comprehensive Metabolic Panel (08/06/19 23:27) Ua Culture If Indicated (08/06/19 23:27) Urine Bedside (08/06/19 23:27) Abdomen/[place]ub 1[place] (08/07/19 00:01) Urine Culture (08/06/19 23:50) Ketorolac Injection (Toradol Injection) (08/07/19 00:15) Medications Given in ED Current Medications Medications Dose Ordered Sig/Susanna Route Start Time Stop Time Status Last Admin Dose Admin Al Hydrox/Mg Hydrox/Simethicone 30 ml ONCE ONCE PO 08/06/19 23:30 08/06/19 23:31 DC 08/06/19 23:42 30 ML Ketorolac Tromethamine 60 mg ONCE ONCE IM 08/07/19 00:15 08/07/19 00:16 DC 08/07/19 00:17 60 MG Lidocaine HCl 15 ml ONCE ONCE PO 08/06/19 23:30 08/06/19 23:31 DC 08/06/19 23:42 15 ML Vital Signs/I&O 08/06/19 23:30 Temp 36.7 Pulse 86 Resp 18 B/P (MAP) 154/100 (118) Pulse Ox 97 O2 Delivery Room Air Progress Progress Note : Time: 23:35 Progress Note GI cocktail after some Zofran for her nausea vomiting and bloody emesis. We'll check urine and labs. X-ray flat plate of her abdomen. If nothing significant then we'll let her follow up with surgeons to explore endoscopy. She denies ingestion of any foreign objects. Gastritis, esophagitis possible. Because of her left CVA tenderness to percussion could also consider bladder infection or kidney stone. Diagnostic Imaging Diagonstic Imaging: Xray Plain Films/CT/US/NM/MRI: abdomen Comments No radiopaque foreign bodies seen on KUB. Reviewed: Reviewed by Me Departure Impression Primary Impression: Hematemesis Qualified Codes: K92.0 - Hematemesis Disposition: HOME, SELF-CARE Condition: Improved Departure-Patient Inst. Decision time for Depature: 00:53 Referrals: GRACE PHILLIPS RACHEL L MD (PCP/Family) Primary Care Physician Patient Instructions: Gastrointestinal Bleeding (DC) Add. Discharge Instructions: Zofran 1 tablet every 6 hours under the tongue as necessary for nausea or vomiting. Tomorrow during business hours please call Dr. Phillips and request a follow-up appointment for endoscopy. All discharge instructions reviewed with patient and/or family. Voiced understanding. Scripts Naproxen (Naprosyn) 500 Mg Tablet 500 MG PO BID, #30 TAB 0 Refills Prov: ROYAL ROCK 08/07/19 Ondansetron (Ondansetron Odt) 4 Mg Tab.rapdis 4 MG PO Q6H PRN for NAUSEA/VOMITING-1ST LINE, #12 TAB 0 Refills Prov: ROYAL ROCK 08/07/19 Copy Copies To 1: GRACE PHILLIPS TITUS J Aug 06, 2019 23:36
[2019-08-06 23:53] LABS: BASOPHILS % (AUTO) 0 % (0-10); EOSINOPHILS # (AUTO) 0.1 10^3/uL (0.0-0.3); EOSINOPHILS % (AUTO) 1 % (0-10); HEMATOCRIT 35 % (35-52); LYMPHOCYTES # (AUTO) 2.7 X 10^3 (1.0-4.0); LYMPHOCYTES % (AUTO) 34 % (12-44); MEAN CORPUSCULAR HEMOGLOBIN 30 PG (25-34); MEAN CORPUSCULAR HGB CONC 35 G/DL (32-36); MEAN CORPUSCULAR VOLUME 87 FL (80-99); MEAN PLATELET VOLUME 9.6 FL (7.4-10.4); MONOCYTES # (AUTO) 0.7 X 10^3 (0.0-1.0); MONOCYTES % (AUTO) 9 % (0-12); NEUTROPHILS # (AUTO) 4.5 X 10^3 (1.8-7.8); NEUTROPHILS % (AUTO) 56 % (42-75); PLATELET COUNT 270 10^3/uL (130-400); RED CELL DISTRIBUTION WIDTH 11.7 % (10.0-14.5)
[2019-08-07 00:01] LABS: BILIRUBIN,URINE NEGATIVE (NEGATIVE); CLARITY,URINE CLEAR; COLOR,URINE YELLOW; GLUCOSE, URINE (UA) NEGATIVE (NEGATIVE); KETONES,URINE NEGATIVE (NEGATIVE); LEUKOCYTE ESTERASE ,URINE NEGATIVE (NEGATIVE); NITRITE,URINE NEGATIVE (NEGATIVE); PH,URINE 6.5 (5-9); PROTEIN,URINE NEGATIVE (NEGATIVE)
[2019-08-07 00:13] LABS: ALANINE AMINOTRANSFERASE 19 U/L (0-55); ALBUMIN 3.6 GM/DL (3.2-4.5); ALKALINE PHOSPHATASE 67 U/L (40-136); BILIRUBIN,TOTAL 0.1 MG/DL (0.1-1.0); BUN/CREATININE RATIO 11; CALCIUM 8.9 MG/DL (8.5-10.1); CARBON DIOXIDE 18 MMOL/L (21-32); CHLORIDE 109 MMOL/L (98-107); CREATININE SERUM 0.65 MG/DL (0.60-1.30); GFR ESTIMATED > 60; GLUCOSE 108 MG/DL (70-105); POTASSIUM 3.8 MMOL/L (3.6-5.0); SODIUM 139 MMOL/L (135-145); TOTAL PROTEIN 6.5 GM/DL (6.4-8.2)
[2019-08-07 00:13] LABS: BACTERIA,URINE MODERATE /HPF
[2019-08-07] MEDS ORDERED: KETOROLAC 60 MG/2 ML VIAL IM ONE (00:15)
[2019-08-07] MEDS ORDERED: ONDA4TAB11 PO (00:56)
[2019-08-07] MEDS ORDERED: RX-ONDANSETRON 4 MG ODT (ZOFRAN) PPK #4 PO STA (01:00)
[2019-08-07] MEDS ORDERED: NAPR-1071 PO (01:01)
[2019-08-07 01:08] VITALS: BP 136/95
--- NOTE | 2019-08-07 05:34 | Diagnostic Imaging Report ---
INDICATION: Nausea and vomiting COMPARISON: None FINDINGS: Two supine radiographic views of the abdomen were obtained and demonstrate nondistended loops of small bowel. There is no large collection of free peritoneal air. Mild air and stool are seen scattered throughout the colon. No unexpected extraosseous calcifications or radiopaque foreign bodies are seen. Bony structures show no gross acute abnormalities. IMPRESSION: 1. Nonobstructed small bowel gas pattern. Dictated by: Dictated on workstation # [id number]
== END 2019-08-07 01:07 | disposition home or self-care (01) ==
LOC: ER 23:17 → EDUNIT# 23:17 → ER 08-07 01:07
DX: K92.0 Hematemesis (principal); I10 Essential (primary) hypertension; K21.9 Gastro-esophageal reflux disease without esophagitis; F31.9 Bipolar disorder, unspecified; F17.210 Nicotine dependence, cigarettes, uncomplicated; Z88.0 Allergy status to penicillin; Z88.2 Allergy status to sulfonamides; Z88.8 Allergy status to other drugs, medicaments and biological substances; Z82.49 Family history of ischemic heart disease and other diseases of the circulatory system
CPT/HCPCS: 36415; 74018; 80053; 81000; 84703; 85025; 87088; 96372

== ENCOUNTER 2019-08-23 12:00 | Outpatient (CLI) | payer MEDICAID ==
[~2019-08-23] VITALS: Ht 175.3 cm; Wt 143.2 kg
[~2019-08-23 12:00] MED LIST changes: -CLON0.5T13 PO; +CLON0.5T4 PO; +NAPR-1071 PO; +OMEP40CA27 PO; -OMEP40CA36 PO
== END 2019-08-23 13:55 | disposition home or self-care (01) ==
LOC: PREOP 12:00
PROVIDERS: ATTEND Surgery
DX: Z01.818 Encounter for other preprocedural examination (principal)

== ENCOUNTER 2019-11-04 15:16 | Day surgery (SDC) | payer MEDICAID ==
[~2019-11-04] VITALS: Ht 68 cm; Wt 136.1 kg
--- NOTE | 2019-11-04 15:22 | ED General ---
General Stated Complaint: SWALLOWED A NAIL Source of Information: Patient Exam Limitations: No Limitations History of Present Illness Date Seen by Provider: Nov 04, 2019 Time Seen by Provider: 15:20 Initial Comments [facility] after she reportedly swallowed a nail just prior to arrival. She states that she was upset because they take one of her staff workers away last week, he swallowed a nail to get back at them. Timing/Duration: 1/2 Hour Severity: Mild Associated Systoms: Denies Symptoms Allergies and Home Medications Allergies Coded Allergies: Fish Containing Products (Verified Allergy, Unknown, 01/24/19) Penicillins (Verified Allergy, Unknown, 01/24/19) Sulfa (Sulfonamide Antibiotics) (Verified Allergy, Unknown, 01/24/19) haloperidol (Verified Allergy, Unknown, 01/24/19) Home Medications Acetaminophen 325 Mg Tablet, 650 MG PO Q6H PRN for PAIN-MILD, (Reported) Atenolol 25 Mg Tablet, 25 MG PO BID, (Reported) Baclofen 10 Mg Tablet, 10 MG PO HS, (Reported) Benzocaine 14 Gm Gel..gram., TOP Q6H PRN for tooth pain, (Reported) APPLY TO TOOTH Benztropine Mesylate 1 Mg Tablet, 1 MG PO HS, (Reported) Chlorpromazine HCl 100 Mg Tablet, 200 MG PO HS, (Reported) Chlorpromazine HCl 100 Mg Tablet, 100 MG PO Q2H PRN for AGGRESSION, (Reported) Divalproex Sodium 500 Mg Tab.er.24h, 500 MG PO DAILY, (Reported) Divalproex Sodium 500 Mg Tab.er.24h, 1,000 MG PO HS, (Reported) Docusate Sodium 100 Mg Capsule, 200 MG PO DAILY, (Reported) Ferrous Sulfate 325 Mg Tablet, 325 MG PO 1700, (Reported) Hydroxyzine Pamoate 50 Mg Capsule, 100 MG PO Q8H PRN for ANXIETY, (Reported) Levothyroxine Sodium 50 Mcg Tablet, 50 MCG PO DAILY, (Reported) Medroxyprogesterone Acetate 150 Mg/1 Ml Syringe, 150 MG IM every 3 months, (Reported) Methyl Salicylate/Menthol 28 Gm Oint...g., TP Q4H PRN for MUSCLE PAIN, (Reported) Multivitamin/Iron/Folic Acid 1 Each Tablet, 2 TAB PO DAILY, (Reported) Olanzapine 10 Mg Tablet, 10 MG PO Q8H PRN for AGGRESSION, (Reported) Pantoprazole Sodium 40 Mg Tablet.dr, 40 MG PO DAILY, (Reported) Phenylephrine/Shk Lv/Mo/Pet,Wh 57 Gm Oint...g., RC UD PRN for HEMORRHOIDS, (Reported) Polyethylene Glycol 1000 500 Gm Powder, 17 GM PO DAILY, (Reported) Sennosides/Docusate Sodium 1 Each Tablet, 2 TAB PO HS, (Reported) Sertraline HCl 100 Mg Tablet, 100 MG PO DAILY, (Reported) Sucralfate 1 Gm Tablet, 2 GM PO QID, (Reported) Trazodone HCl 150 Mg Tablet, 200 MG PO HS, (Reported) Patient Home Medication List Home Medication List Reviewed: Yes Review of Systems Review of Systems Constitutional: see HPI EENTM: see HPI Respiratory: no symptoms reported Cardiovascular: no symptoms reported Genitourinary: no symptoms reported Musculoskeletal: no symptoms reported Skin: no symptoms reported Psychiatric/Neurological: No Symptoms Reported Hematologic/Lymphatic: No Symptoms Reported Immunological/Allergic: no symptoms reported Past Unpsywc-Xpqppj-Wmlsgc Hx Patient Social History Type Used: Cigarettes Recent Hopitalizations: No Immunizations Up To Date PED Vaccines UTD: No Date of Influenza Vaccine: May 17, 2019 Seasonal Allergies Seasonal Allergies: No Past Medical History Surgeries: Yes (bilat upper arm F.B. removal, colon resection with F.B removal) Gallbladder Respiratory: No Cardiac: Yes Hypertension Neurological: No Genitourinary: No Gastrointestinal: Yes (hematemesis) Gastroesophageal Reflux Musculoskeletal: No Endocrine: Yes Hypothyroidsim HEENT: No Cancer: No Psychosocial: Yes (lots of pysch issues) Bipolar Integumentary: No Blood Disorders: No Family Medical History Hypertension Physical Exam Vital Signs Vital Signs - First Documented 11/04/19 15:16 Temp 35.9 Pulse 96 Resp 18 B/P (MAP) 141/96 (111) Pulse Ox 97 O2 Delivery Room Air Capillary Refill : Height, Weight, BMI Height: 5'8.00" Weight: 240lbs. 3.0oz. [id number]; 46.59 BMI Method:Estimated General Appearance: No Apparent Distress, WD/WN, Other (allergic no distress no stridor no hematemesis) HEENT: PERRL/EOMI, TMs Normal Neck: Full Range of Motion, Normal Inspection Respiratory: No Accessory Muscle Use, No Respiratory Distress Cardiovascular: Regular Rate, Rhythm, Normal Peripheral Pulses Gastrointestinal: Normal Bowel Sounds, Non Tender, Soft Extremity: Normal Capillary Refill, Normal Inspection Neurologic/Psychiatric: Alert, Oriented x3 Skin: Normal Color, Warm/Dry Progress/Results/Core Measures Suspected Sepsis SIRS Temperature: Pulse: Respiratory Rate: Blood Pressure / Mean: Results/Orders My Orders Orders - LEON MONTOYA APRN Acute Abd Series (11/04/19 15:19) Urine Bedside (11/04/19 15:19) Vital Signs/I&O 11/04/19 15:16 Temp 35.9 Pulse 96 Resp 18 B/P (MAP) 141/96 (111) Pulse Ox 97 O2 Delivery Room Air Capillary Refill : Departure Communication (Admissions) [id number] with Dr. Phillips he'll be in. Would like anesthesia and endo crew called in unable to establish IV access despite multiple attempts by RN and me, eventually placed a 20ga 3 inch peripheral IV into the right IJ using ultrasound guidance. Impression Primary Impression: Foreign body ingestion Qualified Codes: T18.9XXA - Foreign body of alimentary tract, part unspecified, initial encounter Disposition: ADMITTED INPATIENT Condition: Stable Departure-Patient Inst. Referrals: BUD GARCIA MD (PCP/Family) Primary Care Physician LEON MONTOYA APRN Nov 04, 2019 15:22
--- NOTE | 2019-11-04 15:44 | NUR ---
Dr. Phillips contacted by provider. Endo staff called in.
--- NOTE | 2019-11-04 15:52 | Diagnostic Imaging Report ---
HISTORY: Swallowed a nail. COMPARISON: 08/07/2019 TECHNIQUE: Upright and supine frontal views of the abdomen. Frontal view of the chest. FINDINGS: Lung volumes are normal. No focal consolidation is seen. There is no pleural effusion or pneumothorax. The cardiac silhouette is normal in size and contour. There is a metal nail measuring 4.5 cm in length projecting just to the left of midline in the midabdomen. This appears to be in the body or antrum of the stomach on this frontal view. No bowel distention is seen. There is no free air seen. Cholecystectomy clips are noted. IMPRESSION: 1. Metal nail projects over the stomach. No free air is seen. 2. No acute pulmonary abnormality is seen. Dictated by: Dictated on workstation # [id number]
--- NOTE | 2019-11-04 16:00 | NUR ---
PASCUAL Chandler in room with pt at this time.
--- NOTE | 2019-11-04 16:15 | NUR ---
Dr. Phillips in room with pt at this time.
[2019-11-04] MEDS ORDERED: PROPOFOL INJECTION 50 ML IV ONE ×3 (16:22→18:01)
[2019-11-04] MEDS ORDERED: MIDAZOLAM 2 MG/2 ML (VERSED) VIAL ONE (16:22)
--- NOTE | 2019-11-04 16:24 | History & Physical-Surgical ---
History of Present Illness History of Present Illness Reason for visit/HPI CC: swallowed nail seen and evaluated in ed patient is a 34 year old female. [facility]. got upset with staff being taken away. swallowed nail to get back at them. occurred about 45 min ago. Last ate food last night. Has had some liquids this morning. Not having any abdominal pain, but nervous. Denies n/v fever sweats chills shortness of breath or chest pain. Abdominal x ray shows nail that appears to be in region of stomach, no free air. Date of Admission T Date Seen by a Provider: Nov 04, 2019 Time Seen by a Provider: 16:20 I consulted on this patient on 11/04/19 16:18 Attending Physician Grace Phillips DO Admitting Physician Scarlet Mina MD Consult Allergies and Home Medications Allergies Coded Allergies: Fish Containing Products (Verified Allergy, Unknown, 01/24/19) Penicillins (Verified Allergy, Unknown, 01/24/19) Sulfa (Sulfonamide Antibiotics) (Verified Allergy, Unknown, 01/24/19) haloperidol (Verified Allergy, Unknown, 01/24/19) Home Medications Acetaminophen 325 Mg Tablet, 650 MG PO Q6H PRN for PAIN-MILD, (Reported) Atenolol 25 Mg Tablet, 25 MG PO BID, (Reported) Baclofen 10 Mg Tablet, 10 MG PO HS, (Reported) Benzocaine 14 Gm Gel..gram., TOP Q6H PRN for tooth pain, (Reported) APPLY TO TOOTH Benztropine Mesylate 1 Mg Tablet, 1 MG PO HS, (Reported) Chlorpromazine HCl 100 Mg Tablet, 200 MG PO HS, (Reported) Chlorpromazine HCl 100 Mg Tablet, 100 MG PO Q2H PRN for AGGRESSION, (Reported) Divalproex Sodium 500 Mg Tab.er.24h, 500 MG PO DAILY, (Reported) Divalproex Sodium 500 Mg Tab.er.24h, 1,000 MG PO HS, (Reported) Docusate Sodium 100 Mg Capsule, 200 MG PO DAILY, (Reported) Ferrous Sulfate 325 Mg Tablet, 325 MG PO 1700, (Reported) Hydroxyzine Pamoate 50 Mg Capsule, 100 MG PO Q8H PRN for ANXIETY, (Reported) Levothyroxine Sodium 50 Mcg Tablet, 50 MCG PO DAILY, (Reported) Medroxyprogesterone Acetate 150 Mg/1 Ml Syringe, 150 MG IM every 3 months, (Reported) Methyl Salicylate/Menthol 28 Gm Oint...g., TP Q4H PRN for MUSCLE PAIN, ( Reported) Multivitamin/Iron/Folic Acid 1 Each Tablet, 2 TAB PO DAILY, (Reported) Olanzapine 10 Mg Tablet, 10 MG PO Q8H PRN for AGGRESSION, (Reported) Pantoprazole Sodium 40 Mg Tablet.dr, 40 MG PO DAILY, (Reported) Phenylephrine/Shk Lv/Mo/Pet,Wh 57 Gm Oint...g., RC UD PRN for HEMORRHOIDS, (Reported) Polyethylene Glycol 1000 500 Gm Powder, 17 GM PO DAILY, (Reported) Sennosides/Docusate Sodium 1 Each Tablet, 2 TAB PO HS, (Reported) Sertraline HCl 100 Mg Tablet, 100 MG PO DAILY, (Reported) Sucralfate 1 Gm Tablet, 2 GM PO QID, (Reported) Trazodone HCl 150 Mg Tablet, 200 MG PO HS, (Reported) Patient Home Medication List Home Medication List Reviewed: Yes Past Trxkcon-Kizvbv-Rwpupn Hx Patient Social History Alcohol Use: Past History Number of Drinks Today: 0 Recreational Drug Use: No Drug of Choice: HX: ICE, THC Smoking Status: Current Everyday Smoker Type Used: Cigarettes 2nd Hand Smoke Exposure: Yes Recent Foreign Travel: No Contact w/Someone Who Travel: No Recent Infectious Disease Expo: No Recent Hopitalizations: No Immunizations Up To Date PED Vaccines UTD: No Date of Influenza Vaccine: May 17, 2019 Seasonal Allergies Seasonal Allergies: No Surgeries History of Surgeries: Yes (bilat upper arm F.B. removal, colon resection with F.B removal) Surgeries: Gallbladder Respiratory History of Respiratory Disorde: No Cardiovascular History of Cardiac Disorders: Yes Cardiac Disorders: Hypertension Neurological History of Neurological Disord: No Reproductive System : No Genitourinary History of Genitourinary Disor: No Gastrointestinal History of Gastrointestinal Di: Yes (hematemesis) Gastrointestinal Disorders: Gastroesophageal Reflux Musculoskeletal History of Musculoskeletal Dis: No Endocrine History of Endocrine Disorders: Yes Endocrine Disorders: Hypothyroidsim HEENT History of HEENT Disorders: No Cancer History of Cancer: No Psychosocial History of Psychiatric Problem: Yes (lots of pysch issues) Behavioral Health Disorders: Bipolar Integumentary History of Skin or Integumenta: No Blood Transfusions History of Blood Disorders: No Reviewed Nursing Assessment Reviewed/Agree w Nursing PMH: Yes Family Medical History Significant Family History: Hypertension Review of Systems Constitutional: No chills, No diaphoresis EENTM: No blurred vision, No double vision Respiratory: No dyspnea on exertion, No short of breath Cardiovascular: No chest pain Gastrointestinal: No abdominal pain, No hematemesis, No heartburn Genitourinary: No decreased output, No discharge Musculoskeletal: No back pain, No joint pain Skin: No change in color, No change in hair/nails Psychiatric/Neurological: Emotional Problems Physical Exam Vital Signs Vital Signs - First Documented 11/04/19 15:16 Temp 35.9 Pulse 96 Resp 18 B/P (MAP) 141/96 (111) Pulse Ox 97 O2 Delivery Room Air Capillary Refill : Less Than 3 Seconds Height, Weight, BMI Height: 5'8.00" Weight: 240lbs. 3.0oz. 108.717277uq; 294.00 BMI Method:Estimated General Appearance: No Apparent Distress, WD/WN HEENT: PERRL/EOMI, Normal ENT Inspection Neck: Normal Inspection, Non Tender, Supple Respiratory: Chest Non Tender, No Accessory Muscle Use, No Respiratory Distress Cardiovascular: Regular Rate, Rhythm Gastrointestinal: No Organomegaly, No Pulsatile Mass, Non Tender, Soft Rectal: Deferred Back: No Vertebral Tenderness Extremity: Normal Inspection, Non Tender, No Calf Tenderness Neurologic/Psychiatric: Alert, Oriented x3, No Motor/Sensory Deficits, Normal Mood/Affect, tile erector II-XII Norm as Tested Skin: Normal Color, Warm/Dry Lymphatic: No Adenopathy Assessment/Plan Assessment/Plan Admission Diagonsis Foreign body ingestion Admission Status: Other (Same Day Surgery) Assessment/Plan Foreign body ingestion discussed risks and benefits of EGD and all other indicated procedures she understands along with caregiver who is present and they wish to proceed. to ENDO for EGD. GRACE PHILLIPS DO Nov 04, 2019 16:24
--- NOTE | 2019-11-04 16:30 | NUR ---
Contacted, Carlos Anne, pt legal gardian for verbal consent for esophagogastroduodenoscopy preformed by Dr. Phillips. Carlos voices no further questions or concerns regarding procedure.
[2019-11-04] MEDS ORDERED: LACTATED RINGERS 1,000 ML IV ONE (16:39)
--- NOTE | 2019-11-04 17:15 | NUR ---
IJ NOT FUNCTIONING PROPERLY. NEW IV ACCESS STARTED BY Cherri READING TO LEFT FOOT #24 GAUGE. PT STUCK x6 BY ANESTHESIA TO OBTAIN ACCESS.
[2019-11-04 18:25] VITALS: BP 113/63
[2019-11-04 18:30] VITALS: BP 137/67
[2019-11-04] MEDS ORDERED: LACTATED RINGERS 1,000 ML IV STA (18:34)
[2019-11-04 18:35] VITALS: BP 125/68
--- NOTE | 2019-11-04 18:37 | Discharge Inst-Simple/Standard ---
Discharge Inst-Standard Patient Instructions/Follow Up Plan of Care/Instructions/FU: Follow up Dr. Phillips as needed. Recommend 1 on 1 observational care at long term. Activity as Tolerated: Yes Discharge Diet: Regular Diet GRACE PHILLIPS DO Nov 04, 2019 18:37
--- NOTE | 2019-11-04 18:39 | Progress Note-Post Operative ---
Post-Operative Progess Note Surgeon (s)/Tire Beader Maker (s) Surgeon GRACE QUEZADA DO Tire Beader Maker: na Pre-Operative Diagnosis foreign body stomach Post-Operative Diagnosis same Procedure & Operative Findings Date of Procedure 11/04/19 Procedure Performed/Findings egd c removal of foreign body stomach Anesthesia Type per filter changer Estimated Blood Loss Estimated blood loss (mL): none Specimens/Packing Specimens Removed foreign body GRACE QUEZADA DO Nov 04, 2019 18:39
[2019-11-04] MEDS ORDERED: HURRICAINE EXT TUBE (BENZOCAINE) XX PRN (18:45)
--- NOTE | 2019-11-04 18:49 | Anesthesia-General Post-Op ---
MAC Patient Condition Mental Status/LOC: Same as Preop Cardiovascular: Satisfactory Nausea/Vomiting: Absent Respiratory: Satisfactory Pain: Controlled Complications: Absent Post Op Complications Complications None Follow Up Care/Instructions Patient Instructions None needed. Anesthesiology Discharge Order Discharge Order Patient is doing well, no complaints, stable vital signs, no apparent adverse anesthesia problems. No complications reported per nursing. SOURAV SARABIA CRNA Nov 04, 2019 18:49
--- NOTE | 2019-11-04 19:10 | NUR ---
IV ACCESS DC'D AT THIS TIME. PT INSTRUCTED TO GET DRESSED FOR DC TO HOME.
--- NOTE | 2019-11-04 19:16 | OPERATIVE REPORT ---
DATE OF SERVICE: 11/04/2019 PREOPERATIVE DIAGNOSIS: Foreign body of stomach. POSTOPERATIVE DIAGNOSIS: Foreign body of stomach. PROCEDURE: EGD with removal of foreign body. SURGEON: Grace Phillips DO ANESTHESIA: Per REC THERAPIST. ESTIMATED BLOOD LOSS: None. COMPLICATIONS: None. INDICATIONS: The patient is a 34-year-old female who swallowed a nail after being upset with staffing, she did this just prior to arrival to the hospital. The patient went to endoscopy for EGD and attempted removal. DESCRIPTION OF PROCEDURE: The patient was placed in left lateral recumbent position. Timeout was performed. Scope was inserted in mouth, down the esophagus and into the stomach, which had a lot of food particulate present within the stomach. Lots of irrigation and suction was performed. Unable to visualize anything and difficult to suction any of the food particulate. The scope was then continued to advance through the pylorus into the duodenum, which was easily visualized. There was no foreign body or any other pathology noted within the visualized portion of the duodenum. Scope was then slowly retracted back into the stomach where it was further insufflated, irrigated and suctioned, but still difficult to visualize due to the food particulate. A Reynolds Net was then used to begin retrieving a significant portion of the food particulate. Once a lot of this burden was removed by inserting and retracting the scope with a Reynolds Net multiple times, the metallic foreign body was able to be visualized within the stomach, which then a snare was able to be used to go around the metallic object and grasped it. This was then retracted out without any difficulty and removed. The scope was then reinserted in mouth, down the esophagus and into the stomach and I reinsufflated . Scope was retroflexed noting no other pathology or any injury. Scope was then returned to its normal position, slowly withdrawn through the distal esophagus and slowly removing noting no other pathology or injury. The patient tolerated the procedure well without any complications. She was taken to recovery room in stable condition. RECOMMENDATIONS: The patient to follow up on an as needed basis with myself. We also recommended one-on-one observational care. Job ID: [id number] DocumentID: [id number] Dictated Date: 11/04/2019 18:43:28 Blower Installer Date: 11/04/2019 19:15:37 Dictated By: GRACE PHILLIPS DO
== END 2019-11-04 19:16 | disposition home or self-care (01) ==
LOC: EDUNIT# 15:16 → ER 15:18 → SDC 15:47
PROVIDERS: ATTEND Surgery
DX: T18.2XXA Foreign body in stomach, initial encounter (principal); I10 Essential (primary) hypertension; K21.9 Gastro-esophageal reflux disease without esophagitis; E03.9 Hypothyroidism, unspecified; F17.200 Nicotine dependence, unspecified, uncomplicated; E66.01 Morbid (severe) obesity due to excess calories; Z88.2 Allergy status to sulfonamides; Z88.8 Allergy status to other drugs, medicaments and biological substances; Z88.0 Allergy status to penicillin; Z91.013 Allergy to seafood; Z79.891 Long term (current) use of opiate analgesic; Z79.899 Other long term (current) drug therapy
CPT/HCPCS: 74022; 84703

== ENCOUNTER 2019-12-06 10:37 | Emergency (ER) | payer MEDICAID ==
[~2019-12-06] VITALS: Ht 170.1 cm; Wt 133.9 kg
[2019-12-06] MEDS ORDERED: DOXY100T2 PO (11:15)
--- NOTE | 2019-12-06 11:16 | ED Integumentary General ---
General Chief Complaint: Skin/Wound Problems Stated Complaint: ABCESSE ON R BREAST Source: patient Exam Limitations: no limitations History of Present Illness Date Seen by Provider: December 06, 2019 Time Seen by Provider: 11:12 Initial Comments To ER with abscess on the inferior aspect of the right breast for a few days. Timing/Duration: just prior to arrival Severity: mild Associated Symptoms: denies symptoms Allergies and Home Medications Allergies Coded Allergies: Fish Containing Products (Verified Allergy, Unknown, 01/24/19) Penicillins (Verified Allergy, Unknown, 01/24/19) Sulfa (Sulfonamide Antibiotics) (Verified Allergy, Unknown, 01/24/19) haloperidol (Verified Allergy, Unknown, 01/24/19) Home Medications Acetaminophen 325 Mg Tablet, 650 MG PO Q6H PRN for PAIN-MILD, (Reported) Atenolol 25 Mg Tablet, 25 MG PO BID, (Reported) Baclofen 10 Mg Tablet, 10 MG PO HS, (Reported) Benzocaine 14 Gm Gel..gram., TOP Q6H PRN for tooth pain, (Reported) APPLY TO TOOTH Benztropine Mesylate 1 Mg Tablet, 1 MG PO HS, (Reported) Chlorpromazine HCl 100 Mg Tablet, 200 MG PO HS, (Reported) Chlorpromazine HCl 100 Mg Tablet, 100 MG PO Q2H PRN for AGGRESSION, (Reported) Divalproex Sodium 500 Mg Tab.er.24h, 500 MG PO DAILY, (Reported) Divalproex Sodium 500 Mg Tab.er.24h, 1,000 MG PO HS, (Reported) Docusate Sodium 100 Mg Capsule, 200 MG PO DAILY, (Reported) Ferrous Sulfate 325 Mg Tablet, 325 MG PO 1700, (Reported) Hydroxyzine Pamoate 50 Mg Capsule, 100 MG PO Q8H PRN for ANXIETY, (Reported) Levothyroxine Sodium 50 Mcg Tablet, 50 MCG PO DAILY, (Reported) Medroxyprogesterone Acetate 150 Mg/1 Ml Syringe, 150 MG IM every 3 months, (Reported) Methyl Salicylate/Menthol 28 Gm Oint...g., TP Q4H PRN for MUSCLE PAIN, (Reported) Multivitamin/Iron/Folic Acid 1 Each Tablet, 2 TAB PO DAILY, (Reported) Olanzapine 10 Mg Tablet, 10 MG PO Q8H PRN for AGGRESSION, (Reported) Pantoprazole Sodium 40 Mg Tablet.dr, 40 MG PO DAILY, (Reported) Phenylephrine/Shk Lv/Mo/Pet,Wh 57 Gm Oint...g., RC UD PRN for HEMORRHOIDS, (Reported) Polyethylene Glycol 1000 500 Gm Powder, 17 GM PO DAILY, (Reported) Sennosides/Docusate Sodium 1 Each Tablet, 2 TAB PO HS, (Reported) Sertraline HCl 100 Mg Tablet, 100 MG PO DAILY, (Reported) Sucralfate 1 Gm Tablet, 2 GM PO QID, (Reported) Trazodone HCl 150 Mg Tablet, 200 MG PO HS, (Reported) Patient Home Medication List Home Medication List Reviewed: Yes Review of Systems Review of Systems Constitutional: see HPI EENTM: see HPI Respiratory: no symptoms reported Cardiovascular: no symptoms reported Genitourinary: no symptoms reported Musculoskeletal: no symptoms reported Skin: see HPI Psychiatric/Neurological: No Symptoms Reported Endocrine: No Symptoms Reported Hematologic/Lymphatic: No Symptoms Reported Past Ewpomve-Ularur-Unqzdc Hx Patient Social History Alcohol Beverage of Choice: Vodka Drug of Choice: HX: ICE, THC Type Used: Cigarettes 2nd Hand Smoke Exposure: Yes Recent Foreign Travel: No Contact w/Someone Who Travel: No Recent Hopitalizations: No Immunizations Up To Date PED Vaccines UTD: No Date of Influenza Vaccine: May 17, 2019 Seasonal Allergies Seasonal Allergies: No Past Medical History Surgeries: Yes (bilat upper arm F.B. removal, colon resection with F.B removal) Gallbladder Respiratory: No Cardiac: Yes Hypertension Neurological: No Genitourinary: No Gastrointestinal: Yes (hematemesis) Gastroesophageal Reflux Musculoskeletal: No Endocrine: Yes Hypothyroidsim HEENT: No Cancer: No Psychosocial: Yes (lots of pysch issues) Bipolar Integumentary: No Blood Disorders: No Family Medical History Hypertension Physical Exam Vital Signs Capillary Refill : General Appearance: WD/WN, no apparent distress, obese HEENT: PERRL/EOMI, normal ENT inspection Respiratory: no respiratory distress, no accessory muscle use Neurologic/Psychiatric: alert, normal mood/affect, oriented x 3 Skin: normal color, warm/dry Skin Problem Location: other (inferior aspect of the right breast is a nickel- sized fluctuant abscess well demarcated. Procedure note incision and drainage: Anesthetized the overlying skin with 0.5 mL of 1% lidocaine without epinephrine. A stab incision made with an 11 blade scalpel, small amount of purulent material expressed. Culture collected and sent to lab) Skin Problem Character: abscess Progress/Results/Core Measures Results/Orders My Orders Orders - LEON MONTOYA APRN Wound Culture (12/06/19 11:09) Departure Impression Primary Impression: Abscess Disposition: 01 HOME, SELF-CARE Condition: Stable Departure-Patient Inst. Decision time for Depature: 11:14 Referrals: BUD GARCIA MD (PCP/Family) Primary Care Physician Patient Instructions: Skin Abscess Add. Discharge Instructions: Change the dressing as needed Antibiotics as directed 3. Follow-up with your doctor next week. All discharge instructions reviewed with patient and/or family. Voiced understanding. Scripts Doxycycline Hyclate (Doxycycline Hyclate) 100 Mg Tablet 100 MG PO BID, #14 TAB 0 Refills Prov: LEON MONTOYA APRN 12/06/19 LEON MONTOYA APRN December 06, 2019 11:16
[2019-12-06 11:23] VITALS: BP 124/83
== END 2019-12-06 11:22 | disposition home or self-care (01) ==
LOC: EDUNIT# 10:37 → ER 10:41
DX: N61.1 Abscess of the breast and nipple (principal); I10 Essential (primary) hypertension; K21.9 Gastro-esophageal reflux disease without esophagitis; E03.9 Hypothyroidism, unspecified; F31.9 Bipolar disorder, unspecified; Z88.0 Allergy status to penicillin; Z88.2 Allergy status to sulfonamides; Z79.899 Other long term (current) drug therapy; Z87.891 Personal history of nicotine dependence; Z77.22 Contact with and (suspected) exposure to environmental tobacco smoke (acute) (chronic)
CPT/HCPCS: 10060; 87070; 87205

== ENCOUNTER 2020-01-24 20:34 | Emergency (ER) | payer MEDICAID ==
[~2020-01-24] VITALS: Ht 178 cm; Wt 132.2 kg
[~2020-01-24 20:34] MED LIST changes: +DOXY100T2 PO
--- OUTSIDE RECORDS SUMMARY | 2020-01-24 20:41 | XMS REPORT | Continuity of Care Document ---
Demographics Preferred Language Unknown Marital Status Unknown Jainism Affiliation Unknown Race Unknown Ethnic Group Unknown Author Organization Unknown Address Unknown Phone Unavailable Allergies Active Description Code Type Severity Reaction Onset Reported/Identified Relationship to Patient Clinical Status Yes BACTRIM [id number] BRANDNAME N/A N/A Yes HALDOL [id number] BRANDNAME N/A N/A Yes PCN (penicillin) [id number] CLASS N/A N/A Yes SULFA (SULFONAMIDE ANTIBIOTICS) UNKNOWN UNKNOWN Yes Fish Containing Products [id number] Drug Allergy Unknown N/A 01/24/2019 Yes haloperidol [id number] Drug Aller gy Unknown N/A 01/24/2019 Yes No Allergy Information Available [id number] Drug Allergy Unknown N/A 019 Yes Penicillins [id number] Drug Aller gy Unknown N/A 01/24/2019 Yes Sulfa (Sulfonamide Antibiotics) [id number] Drug Allergy Unknown N/A 019 Medications There is no data. Problems Date Dx Coded Attending Type Code Diagnosis Diagnosed By 01/25/2019 GRACE QUEZADA DO Ot E66. 09 OTHER OBESITY DUE TO EXCESS CALORIES 01/25/2019 GRACE QUEZADA DO Ot F17.210 NICOTINE DEPENDENCE, CIGARETTES, UNCOMPL 01/25/2019 GRACE QUEZADA DO Ot F31. 60 BIPOLAR DISORDER, CURRENT EPISODE MIXED, 01/25/2019 GRACE QUEZADA DO Ot F50. 89 OTHER SPECIFIED EATING DISORDER 01/25/2019 GRACE QUEZADA DO Ot I10 ESSENTIAL (PRIMARY) HYPERTENSION 01/25/2019 GRACE QUEZADA DO Ot K21. 9 GASTRO-ESOPHAGEAL REFLUX DISEASE WITHOUT 01/25/2019 GRACE QUEZADA DO Ot K92. 0 HEMATEMESIS 01/25/2019 GRACE QUEZADA DO Ot R10. 11 RIGHT UPPER QUADRANT PAIN 01/25/2019 GRACE QUEZADA DO Ot Z53. 21 PROC/TRTMT NOT CRD OUT D/T PT LV BEF SEE 01/25/2019 GRACE QUEZADA DO Ot Z68. 41 BODY MASS INDEX (BMI) 40.0-44.9, ADULT 01/25/2019 GRACE QUEZADA DO Ot Z79.899 OTHER STORY READER (CURRENT) DRUG THERAPY 01/26/2019 W 300.89 OTH ER SOMATOFORM DISORDERS 01/26/2019 W 578.0 CJ TEMESIS 01/26/2019 W K92.0 CJ TEMESIS 01/26/2019 W Z72.89 OTH ER PROBLEMS RELATED TO LIFESTYLE 01/31/2019 MARCI SERRANO MD Ot Z01.81 8 ENCOUNTER FOR OTHER PREPROCEDURAL EXAMIN 02/01/2019 MARCI SERRANO MD, Ot Z01.81 8 ENCOUNTER FOR OTHER PREPROCEDURAL EXAMIN 02/01/2019 MARCI SERRANO MD, Ot E03.9 HYPOTHYROIDISM, UNSPECIFIED 02/01/2019 MARCI SERRANO MD, Ot E66.9 OBESITY, UNSPECIFIED 02/01/2019 MARCI SERRANO MD, Ot F17.21 0 NICOTINE DEPENDENCE, CIGARETTES, UNCOMPL 02/01/2019 MARCI SERRANO MD, Ot F32.9 MAJOR DEPRESSIVE DISORDER, SINGLE EPISOD 02/01/2019 MARCI SERRANO MD, Ot F41.9 ANXIETY DISORDER, UNSPECIFIED 02/01/2019 MARCI SERRANO MD, Ot F43.10 POST-TRAUMATIC STRESS DISORDER, UNSPECIF 02/01/2019 MARCI SERRANO MD, Ot F79 UNSPECIFIED INTELLECTUAL DISABILITIES 02/01/2019 MARCI SERRANO MD, Ot G47.00 INSOMNIA, UNSPECIFIED 02/01/2019 MARCI SERRANO MD Ot I10 ESSENTIAL (PRIMARY) HYPERTENSION 02/01/2019 MARCI SERRANO MD Ot K21.0 GASTRO-ESOPHAGEAL REFLUX DISEASE WITH ES 02/01/2019 MARCI SERRANO MD Ot K29.70 GASTRITIS, UNSPECIFIED, WITHOUT BLEEDING 02/01/2019 MARCI SERRANO MD Ot K44.9 DIAPHRAGMATIC HERNIA WITHOUT OBSTRUCTION 02/01/2019 MARCI SERRANO MD, Ot Z68.41 BODY MASS INDEX (BMI) 40.0-44.9, ADULT 02/01/2019 MARCI SERRANO MD, Ot Z79.89 9 OTHER HALFWAY (CURRENT) DRUG THERAPY 02/07/2019 MARCI SERRANO MD, Ot E03.9 HYPOTHYROIDISM, UNSPECIFIED 02/07/2019 KIDO MD, TAKAAKI Ot E66.9 OBESITY, UNSPECIFIED 02/07/2019 MARCI SERRANO MD Ot F17.21 0 NICOTINE DEPENDENCE, CIGARETTES, UNCOMPL 02/07/2019 MARCI SERRANO MD Ot F32.9 MAJOR DEPRESSIVE DISORDER, SINGLE EPISOD 02/07/2019 MARCI SERRANO MD Ot F41.9 ANXIETY DISORDER, UNSPECIFIED 02/07/2019 MARCI SERRANO MD Ot F43.10 POST-TRAUMATIC STRESS DISORDER, UNSPECIF 02/07/2019 MARCI SERRANO MD Ot F79 UNSPECIFIED INTELLECTUAL DISABILITIES 02/07/2019 MARCI SERRANO MD Ot G47.00 INSOMNIA, UNSPECIFIED 02/07/2019 MARCI SERRANO MD Ot I10 ESSENTIAL (PRIMARY) HYPERTENSION 02/07/2019 MARCI SERRANO MD Ot K21.0 GASTRO-ESOPHAGEAL REFLUX DISEASE WITH ES 02/07/2019 MARCI SERRANO MD Ot K29.70 GASTRITIS, UNSPECIFIED, WITHOUT BLEEDING 02/07/2019 MARCI SERRANO MD Ot K44.9 DIAPHRAGMATIC HERNIA WITHOUT OBSTRUCTION 02/07/2019 MARCI SERRANO MD Ot Z68.41 BODY MASS INDEX (BMI) 40.0-44.9, ADULT 02/07/2019 MARCI SERRANO MD Ot Z79.89 9 OTHER HALFWAY (CURRENT) DRUG THERAPY 02/08/2019 MARCI SERRANO MD Ot E03.9 HYPOTHYROIDISM, UNSPECIFIED 02/08/2019 MARCI SERRANO MD Ot E66.9 OBESITY, UNSPECIFIED 02/08/2019 MARCI SERRANO MD Ot F17.21 0 NICOTINE DEPENDENCE, CIGARETTES, UNCOMPL 02/08/2019 MARCI SERRANO MD Ot F32.9 MAJOR DEPRESSIVE DISORDER, SINGLE EPISOD 02/08/2019 MARCI SERRANO MD Ot F41.9 ANXIETY DISORDER, UNSPECIFIED 02/08/2019 MARCI SERRANO MD Ot F43.10 POST-TRAUMATIC STRESS DISORDER, UNSPECIF 02/08/2019 MARCI SERRANO MD Ot F79 UNSPECIFIED INTELLECTUAL DISABILITIES 02/08/2019 MARCI SERRANO MD Ot G47.00 INSOMNIA, UNSPECIFIED 02/08/2019 MARCI SERRANO MD Ot I10 ESSENTIAL (PRIMARY) HYPERTENSION 02/08/2019 MARCI SERRANO MD, Ot K21.0 GASTRO-ESOPHAGEAL REFLUX DISEASE WITH ES 02/08/2019 MARCI SERRANO MD, Ot K29.70 GASTRITIS, UNSPECIFIED, WITHOUT BLEEDING 02/08/2019 MARCI SERRANO MD, Ot K44.9 DIAPHRAGMATIC HERNIA WITHOUT OBSTRUCTION 02/08/2019 MARCI SERRANO MD, Ot Z68.41 BODY MASS INDEX (BMI) 40.0-44.9, ADULT 02/08/2019 MARCI SERRANO MD, Ot Z79.89 9 OTHER STORY READER (CURRENT) DRUG THERAPY 02/09/2019 GRACE QUEZADA DO D Ot F17.210 NICOTINE DEPENDENCE, CIGARETTES, UNCOMPL 02/09/2019 GRACE QUEZADA DO D Ot F31. 9 BIPOLAR DISORDER, UNSPECIFIED 02/09/2019 MIKAYLA QUEZADA DOTT D Ot I10 ESSENTIAL (PRIMARY) HYPERTENSION 02/09/2019 GRACE QUEZADA DO D Ot K21. 9 GASTRO-ESOPHAGEAL REFLUX DISEASE WITHOUT 02/09/2019 MIKAYLA QUEZADA DOTT D Ot K92. 0 HEMATEMESIS 02/09/2019 GRACE QUEZADA DO D Ot T18.2XXA FOREIGN BODY IN STOMACH, INITIAL ENCOUNT 02/09/2019 MIKAYLA QUEZADA DOTT D Ot Z79.899 OTHER HALFWAY (CURRENT) DRUG THERAPY 02/09/2019 GRACE QUEZADA DO D Ot Z88. 0 ALLERGY STATUS TO PENICILLIN 02/09/2019 MIKAYLA QUEZADA DOTT D Ot Z88. 2 ALLERGY STATUS TO SULFONAMIDES STATUS 02/14/2019 GRACE QUEZADA DO D Ot F17.210 NICOTINE DEPENDENCE, CIGARETTES, UNCOMPL 02/14/2019 GRACE QUEZADA DO Ot F31. 9 BIPOLAR DISORDER, UNSPECIFIED 02/14/2019 MIKAYLA QUEZADA DOTT D Ot I10 ESSENTIAL (PRIMARY) HYPERTENSION 02/14/2019 MIKAYLA QUEZADA DOTT D Ot K21. 9 GASTRO-ESOPHAGEAL REFLUX DISEASE WITHOUT 02/14/2019 MIKAYLA QUEZADA DOTT D Ot K92. 0 HEMATEMESIS 02/14/2019 MIKAYLA QUEZADA DOTT D Ot T18.2XXA FOREIGN BODY IN STOMACH, INITIAL ENCOUNT 02/14/2019 MIKAYLA QUEZADA DOTT D Ot Z79.899 OTHER STORY READER (CURRENT) DRUG THERAPY 02/14/2019 MIKAYLA QUEZADA DOTT D Ot Z88. 0 ALLERGY STATUS TO PENICILLIN 02/14/2019 DAMIEN DO, GRACE D Ot Z88. 2 ALLERGY STATUS TO SULFONAMIDES STATUS 02/20/2019 MIKAYLA QUEZADA DOTT D Ot F17.210 NICOTINE DEPENDENCE, CIGARETTES, UNCOMPL 02/20/2019 MIKAYLA QUEZADA DOTT D Ot F31. 9 BIPOLAR DISORDER, UNSPECIFIED 02/20/2019 DAMIEN TRUONG GRACE D Ot I10 ESSENTIAL (PRIMARY) HYPERTENSION 02/20/2019 MIKAYLA QUEZADA DOTT D Ot K21. 9 GASTRO-ESOPHAGEAL REFLUX DISEASE WITHOUT 02/20/2019 DAMIEN DO, GRACE D Ot K92. 0 HEMATEMESIS 02/20/2019 MIKAYLA QUEZADA DOTT D Ot T18.2XXA FOREIGN BODY IN STOMACH, INITIAL ENCOUNT 02/20/2019 GRACE QUEZADA DO D Ot Z79.899 OTHER HALFWAY (CURRENT) DRUG THERAPY 02/20/2019 MIKAYLA QUEZADA DOTT D Ot Z88. 0 ALLERGY STATUS TO PENICILLIN 02/20/2019 GRACE QUEZADA DO Ot Z88. 2 ALLERGY STATUS TO SULFONAMIDES STATUS 02/23/2019 GRACE QUEZADA DO Ot F17.210 NICOTINE DEPENDENCE, CIGARETTES, UNCOMPL 02/23/2019 MIKAYLA QUEZADA DOTT D Ot F31. 9 BIPOLAR DISORDER, UNSPECIFIED 02/23/2019 MIKAYLA QUEZADA DOTT D Ot I10 ESSENTIAL (PRIMARY) HYPERTENSION 02/23/2019 MIKAYLA QUEZADA DOTT D Ot K21. 9 GASTRO-ESOPHAGEAL REFLUX DISEASE WITHOUT 02/23/2019 MIKAYLA QUEZADA DOTT D Ot K92. 0 HEMATEMESIS 02/23/2019 GRACE QUEZADA DO D Ot T18.2XXA FOREIGN BODY IN STOMACH, INITIAL ENCOUNT 02/23/2019 MIKAYLA QUEZADA DOTT D Ot Z79.899 OTHER HALFWAY (CURRENT) DRUG THERAPY 02/23/2019 MIKAYLA QUEZADA DOTT D Ot Z88. 0 ALLERGY STATUS TO PENICILLIN 02/23/2019 MIKAYLA QUEZADA DOTT D Ot Z88. 2 ALLERGY STATUS TO SULFONAMIDES STATUS 03/24/2019 BILL HILL DO Ot E03.9 HYPOTHYROIDISM, UNSPECIFIED 03/24/2019 BILL HILL DO Ot E66.0 1 MORBID (SEVERE) OBESITY DUE TO EXCESS CA 03/24/2019 BILL HILL DO Ot F17.2 10 NICOTINE DEPENDENCE, CIGARETTES, UNCOMPL 03/24/2019 BILL HILL DO Ot F32.9 MAJOR DEPRESSIVE DISORDER, SINGLE EPISOD 03/24/2019 BILL HILL DO Ot F41.9 ANXIETY DISORDER, UNSPECIFIED 03/24/2019 BILL HILL DO Ot G43.9 09 MIGRAINE, UNSP, NOT INTRACTABLE, WITHOUT 03/24/2019 BILL HILL DO Ot I10 ESSENTIAL (PRIMARY) HYPERTENSION 03/24/2019 BILL HILL DO Ot K21.9 GASTRO-ESOPHAGEAL REFLUX DISEASE WITHOUT 03/24/2019 BILL HILL DO Ot T18.2XXA FOREIGN BODY IN STOMACH, INITIAL ENCOUNT 03/24/2019 BILL HILL DO Ot Z68.3 6 BODY MASS INDEX (BMI) 36.0-36.9, ADULT 03/24/2019 BILL HILL DO Ot Z79.8 91 STORY READER (CURRENT) USE OF OPIATE ANALGE 03/24/2019 BILL HILL DO Ot Z88.0 ALLERGY STATUS TO PENICILLIN 03/24/2019 BILL HILL DO Ot Z88.2 ALLERGY STATUS TO SULFONAMIDES STATUS 03/24/2019 BILL HILL DO Ot Z88.8 ALLERGY STATUS TO OTH DRUG/MEDS/BIOL SUB 03/24/2019 BILL HILL DO Ot Z90.4 9 ACQUIRED ABSENCE OF OTHER SPECIFIED PART 03/24/2019 BILL HILL DO Ot Z91.0 13 ALLERGY TO SEAFOOD 03/27/2019 BILL HILL DO Ot E03.9 HYPOTHYROIDISM, UNSPECIFIED 03/27/2019 BILL HILL DO Ot E66.0 1 MORBID (SEVERE) OBESITY DUE TO EXCESS CA 03/27/2019 BILL HILL DO Ot F17.2 10 NICOTINE DEPENDENCE, CIGARETTES, UNCOMPL 03/27/2019 BILL HILL DO Ot F32.9 MAJOR DEPRESSIVE DISORDER, SINGLE EPISOD 03/27/2019 BILL HILL DO Ot F41.9 ANXIETY DISORDER, UNSPECIFIED 03/27/2019 BILL HILL DO Ot G43.9 09 MIGRAINE, UNSP, NOT INTRACTABLE, WITHOUT 03/27/2019 BILL HILL DO Ot I10 ESSENTIAL (PRIMARY) HYPERTENSION 03/27/2019 BILL HILL DO B Ot K21.9 GASTRO-ESOPHAGEAL REFLUX DISEASE WITHOUT 03/27/2019 BILL HILL DO B Ot T18.2XXA FOREIGN BODY IN STOMACH, INITIAL ENCOUNT 03/27/2019 BILL HILL DO B Ot Z68.3 6 BODY MASS INDEX (BMI) 36.0-36.9, ADULT 03/27/2019 BILL HILL DO B Ot Z79.8 91 HALFWAY (CURRENT) USE OF OPIATE ANALGE 03/27/2019 BILL HILL DO B Ot Z88.0 ALLERGY STATUS TO PENICILLIN 03/27/2019 BILL HILL DO B Ot Z88.2 ALLERGY STATUS TO SULFONAMIDES STATUS 03/27/2019 BILL HILL DO Ot Z88.8 ALLERGY STATUS TO OTH DRUG/MEDS/BIOL SUB 03/27/2019 BILL HILL DO Ot Z90.4 9 ACQUIRED ABSENCE OF OTHER SPECIFIED PART 03/27/2019 BILL HILL DO Ot Z91.0 13 ALLERGY TO SEAFOOD 03/27/2019 BILL HILL DO B Ot E03.9 HYPOTHYROIDISM, UNSPECIFIED 03/27/2019 BILL HILL DO B Ot E66.0 1 MORBID (SEVERE) OBESITY DUE TO EXCESS CA 03/27/2019 BILL HILL DO B Ot F17.2 10 NICOTINE DEPENDENCE, CIGARETTES, UNCOMPL 03/27/2019 BILL HILL DO B Ot F32.9 MAJOR DEPRESSIVE DISORDER, SINGLE EPISOD 03/27/2019 BILL HILL DO B Ot F41.9 ANXIETY DISORDER, UNSPECIFIED 03/27/2019 BILL HILL DO Ot G43.9 09 MIGRAINE, UNSP, NOT INTRACTABLE, WITHOUT 03/27/2019 ISAIAS HILL DOIC B Ot I10 ESSENTIAL (PRIMARY) HYPERTENSION 03/27/2019 BILL HILL DO B Ot K21.9 GASTRO-ESOPHAGEAL REFLUX DISEASE WITHOUT 03/27/2019 BILL HILL DO B Ot T18.2XXA FOREIGN BODY IN STOMACH, INITIAL ENCOUNT 03/27/2019 BILL HILL DO B Ot Z68.3 6 BODY MASS INDEX (BMI) 36.0-36.9, ADULT 03/27/2019 BLIL HILL DO B Ot Z79.8 91 HALFWAY (CURRENT) USE OF OPIATE ANALGE 03/27/2019 SERGIO ISAIAS TRUONGIC Trey Ot Z88.0 ALLERGY STATUS TO PENICILLIN 03/27/2019 SERGIO TRUONGISAIASIC Trey Ot Z88.2 ALLERGY STATUS TO SULFONAMIDES STATUS 03/27/2019 SERGIO TRUONGBILL Ot Z88.8 ALLERGY STATUS TO OTH DRUG/MEDS/BIOL SUB 03/27/2019 SERGIO TRUONGBILL Ot Z90.4 9 ACQUIRED ABSENCE OF OTHER SPECIFIED PART 03/27/2019 SERGIO BILL TRUONG Ot Z91.0 13 ALLERGY TO SEAFOOD 05/01/2019 BUD GARCIA V76.47 SCREENING FOR MALIGNANT NEOPLASMS OF THE VAGINA 05/01/2019 BUD GARCIA Z12.72 ENCOUNTER FOR SCREENING FOR MALIGNANT NEOPLASM OF VAGINA 05/01/2019 BUD GARCIA V76.47 SCREENING FOR MALIGNANT NEOPLASMS OF THE VAGINA 05/01/2019 BUD GARCIA Z12.72 ENCOUNTER FOR SCREENING FOR MALIGNANT NEOPLASM OF VAGINA 05/01/2019 BUD GARCIA V76.47 SCREENING FOR MALIGNANT NEOPLASMS OF THE VAGINA 05/01/2019 BUD GARCIA Z12.72 ENCOUNTER FOR SCREENING FOR MALIGNANT NEOPLASM OF VAGINA 05/01/2019 BUD GARCIA V76.47 SCREENING FOR MALIGNANT NEOPLASMS OF THE VAGINA 05/01/2019 BUD GARCIA Z12.72 ENCOUNTER FOR SCREENING FOR MALIGNANT NEOPLASM OF VAGINA 05/07/2019 ROYAL ROCK MD Ot F17.210 NICOTINE DEPENDENCE, CIGARETTES, UNCOMPL 05/07/2019 ROYAL ROCK MD Ot F31. 9 BIPOLAR DISORDER, UNSPECIFIED 05/07/2019 ROYAL ROCK MD Ot I10 ESSENTIAL (PRIMARY) HYPERTENSION 05/07/2019 ROYAL ROCK MD Ot K21. 9 GASTRO-ESOPHAGEAL REFLUX DISEASE WITHOUT 05/07/2019 ROYAL ROCK MD Ot K92. 0 HEMATEMESIS 05/07/2019 ROYAL ROCK MD Ot Z82. 49 FAMILY HX OF ISCHEM HEART DIS AND OTH DI 05/07/2019 ROYAL ROCK MD Ot Z88. 0 ALLERGY STATUS TO PENICILLIN 05/07/2019 ROYAL ROCK MD Ot Z88. 2 ALLERGY STATUS TO SULFONAMIDES STATUS 05/07/2019 SHWETA MD, ROYAL J Ot Z88. 8 ALLERGY STATUS TO OTH DRUG/MEDS/BIOL SUB 05/07/2019 ROYAL ROCK MD Ot Z90. 49 ACQUIRED ABSENCE OF OTHER SPECIFIED PART 05/17/2019 ROYAL ROCK MD Ot F17.210 NICOTINE DEPENDENCE, CIGARETTES, UNCOMPL 05/17/2019 ROYAL ROCK MD Ot F31. 9 BIPOLAR DISORDER, UNSPECIFIED 05/17/2019 ROYAL ROCK MD Ot I10 ESSENTIAL (PRIMARY) HYPERTENSION 05/17/2019 ROYAL ROCK MD Ot K21. 9 GASTRO-ESOPHAGEAL REFLUX DISEASE WITHOUT 05/17/2019 ROYAL ROCK MD Ot K92. 0 HEMATEMESIS 05/17/2019 ROYAL ROCK MD Ot Z82. 49 FAMILY HX OF ISCHEM HEART DIS AND OTH DI 05/17/2019 ROYAL ROCK MD Ot Z88. 0 ALLERGY STATUS TO PENICILLIN 05/17/2019 ROYAL ROCK MD Ot Z88. 2 ALLERGY STATUS TO SULFONAMIDES STATUS 05/17/2019 ROYAL ROCK MD Ot Z88. 8 ALLERGY STATUS TO OTH DRUG/MEDS/BIOL SUB 05/17/2019 ROYAL ROCK MD Ot Z90. 49 ACQUIRED ABSENCE OF OTHER SPECIFIED PART 05/20/2019 LEON MONTOYA APRN Ot F31 .9 BIPOLAR DISORDER, UNSPECIFIED 05/20/2019 LEON MONTOYA APRN Ot F41 .9 ANXIETY DISORDER, UNSPECIFIED 05/20/2019 LEON MONTOYA APRN Ot I10 ESSENTIAL (PRIMARY) HYPERTENSION 05/20/2019 LEON MONTOYA APRN Ot K21 .9 GASTRO-ESOPHAGEAL REFLUX DISEASE WITHOUT 05/20/2019 LEON MONTOYA APRN Ot R06.02 SHORTNESS OF BREATH 05/20/2019 LEON MONTOYA APRN Ot Z82.49 FAMILY HX OF ISCHEM HEART DIS AND OTH DI 05/20/2019 LEON MONTOYA APRN Ot Z88 .0 ALLERGY STATUS TO PENICILLIN 05/20/2019 LEON MONTOYA APRN Ot Z88 .2 ALLERGY STATUS TO SULFONAMIDES STATUS 05/20/2019 LEON MONTOYA APRN Ot Z88 .8 ALLERGY STATUS TO OTH DRUG/MEDS/BIOL SUB 05/22/2019 JOSE SANTIAGO, BUD Dang Ot R92.0 MAMMOGRAPHIC MICROCALCIFICATION FOUND ON 05/22/2019 JOSE SANTIAGO, BUD L Ot R92.8 OTH ABN AND INCONCLUSIVE FINDINGS ON DX 05/24/2019 LEON MONTOYA APRN Ot F31 .9 BIPOLAR DISORDER, UNSPECIFIED 05/24/2019 LEON MONTOYA APRN Ot F41 .9 ANXIETY DISORDER, UNSPECIFIED 05/24/2019 LEON MONTOYA APRN Ot I10 ESSENTIAL (PRIMARY) HYPERTENSION 05/24/2019 LEON MONTOYA APRN Ot K21 .9 GASTRO-ESOPHAGEAL REFLUX DISEASE WITHOUT 05/24/2019 LEON MONTOYA APRN Ot R06.02 SHORTNESS OF BREATH 05/24/2019 LEON MONTOYA APRN Ot Z82.49 FAMILY HX OF ISCHEM HEART DIS AND OTH DI 05/24/2019 ELON MONTOYA APRN Ot Z88 .0 ALLERGY STATUS TO PENICILLIN 05/24/2019 LEON MONTOYA APRN Ot Z88 .2 ALLERGY STATUS TO SULFONAMIDES STATUS 05/24/2019 LEON MONTOYA APRN Ot Z88 .8 ALLERGY STATUS TO OTH DRUG/MEDS/BIOL SUB 05/30/2019 BUD GARCIA MD L Ot R92.0 MAMMOGRAPHIC MICROCALCIFICATION FOUND ON 05/30/2019 JOSE SANTIAGO, BUD L Ot R92.8 OTH ABN AND INCONCLUSIVE FINDINGS ON DX 08/07/2019 ROYAL ROCK MD Ot F17.210 NICOTINE DEPENDENCE, CIGARETTES, UNCOMPL 08/07/2019 ROYAL ROCK MD Ot F31. 9 BIPOLAR DISORDER, UNSPECIFIED 08/07/2019 ROYAL ROCK MD Ot I10 ESSENTIAL (PRIMARY) HYPERTENSION 08/07/2019 ROYAL ROCK MD Ot K21. 9 GASTRO-ESOPHAGEAL REFLUX DISEASE WITHOUT 08/07/2019 ROYAL ROCK MD Ot K92. 0 HEMATEMESIS 08/07/2019 ROYAL ROCK MD Ot Z82. 49 FAMILY HX OF ISCHEM HEART DIS AND OTH DI 08/07/2019 ROYAL ROCK MD Ot Z88. 0 ALLERGY STATUS TO PENICILLIN 08/07/2019 ROYAL ROCK MD Ot Z88. 2 ALLERGY STATUS TO SULFONAMIDES STATUS 08/07/2019 ROYAL ROCK MD Ot Z88. 8 ALLERGY STATUS TO OTH DRUG/MEDS/BIOL SUB 08/14/2019 ROYAL ROCK MD Ot F17.210 NICOTINE DEPENDENCE, CIGARETTES, UNCOMPL 08/14/2019 ROYAL ROCK MD Ot F31. 9 BIPOLAR DISORDER, UNSPECIFIED 08/14/2019 ROYAL ROCK MD Ot I10 ESSENTIAL (PRIMARY) HYPERTENSION 08/14/2019 ROYAL ROCK MD Ot K21. 9 GASTRO-ESOPHAGEAL REFLUX DISEASE WITHOUT 08/14/2019 ROYAL ROCK MD Ot K92. 0 HEMATEMESIS 08/14/2019 ROYAL ROCK MD Ot Z82. 49 FAMILY HX OF ISCHEM HEART DIS AND OTH DI 08/14/2019 ROYAL ROCK MD Ot Z88. 0 ALLERGY STATUS TO PENICILLIN 08/14/2019 ROYAL ROCK MD Ot Z88. 2 ALLERGY STATUS TO SULFONAMIDES STATUS 08/14/2019 ROYAL ROCK MD Ot Z88. 8 ALLERGY STATUS TO OTH DRUG/MEDS/BIOL SUB 08/22/2019 ISAIAS HILL DOIC B Ot Z01.8 18 ENCOUNTER FOR OTHER PREPROCEDURAL EXAMIN 08/23/2019 SERGIO TRUONG BILL B Ot Z01.8 18 ENCOUNTER FOR OTHER PREPROCEDURAL EXAMIN 08/23/2019 SERGIO TRUONG BILL B Ot Z01.8 18 ENCOUNTER FOR OTHER PREPROCEDURAL EXAMIN 09/01/2019 ISAIAS HILL DOIC B Ot E03.9 HYPOTHYROIDISM, UNSPECIFIED 09/01/2019 SERGIO TRUONG BILL B Ot E66.0 1 MORBID (SEVERE) OBESITY DUE TO EXCESS CA 09/01/2019 SERGIO TRUONG BILL B Ot F17.2 10 NICOTINE DEPENDENCE, CIGARETTES, UNCOMPL 09/01/2019 SERGIO TRUONG BILL B Ot F31.9 BIPOLAR DISORDER, UNSPECIFIED 09/01/2019 SERGIO TRUONG BILL B Ot I10 ESSENTIAL (PRIMARY) HYPERTENSION 09/01/2019 SERGIO TRUONG BILL B Ot K20.9 ESOPHAGITIS, UNSPECIFIED 09/01/2019 ISAIAS HILL DOIC B Ot K29.5 0 UNSPECIFIED CHRONIC GASTRITIS WITHOUT BL 09/01/2019 SERGIO TRUONG BILL B Ot K31.8 9 OTHER DISEASES OF STOMACH AND DUODENUM 09/01/2019 SERGIO TRUONG BILL B Ot K44.9 DIAPHRAGMATIC HERNIA WITHOUT OBSTRUCTION 09/01/2019 DELMAN DO, BILL B Ot K57.3 0 DVRTCLOS OF LG INT W/O PERFORATION OR AB 09/01/2019 [facility] BILL B Ot K62.5 HEMORRHAGE OF ANUS AND RECTUM 09/01/2019 [facility] BILL B Ot K64.8 OTHER HEMORRHOIDS 09/01/2019 [facility] BILL B Ot K92.0 HEMATEMESIS 09/01/2019 [facility] BILL B Ot Z68.4 2 BODY MASS INDEX (BMI) 45.0-49.9, ADULT 09/01/2019 [facility] BILL B Ot Z79.8 99 OTHER HALFWAY (CURRENT) DRUG THERAPY 09/01/2019 [facility] BILL B Ot Z80.8 FAMILY HISTORY OF MALIGNANT NEOPLASM OF 09/01/2019 [facility] BILL B Ot Z88.0 ALLERGY STATUS TO PENICILLIN 09/01/2019 [facility] BILL B Ot Z88.2 ALLERGY STATUS TO SULFONAMIDES STATUS 09/01/2019 [facility] BILL B Ot Z88.8 ALLERGY STATUS TO OTH DRUG/MEDS/BIOL SUB 09/01/2019 [facility] BILL B Ot Z91.0 13 ALLERGY TO SEAFOOD 09/03/2019 [facility] BILL B Ot E03.9 HYPOTHYROIDISM, UNSPECIFIED 09/03/2019 [facility] BILL B Ot E66.0 1 MORBID (SEVERE) OBESITY DUE TO EXCESS CA 09/03/2019 [facility] BILL B Ot F17.2 10 NICOTINE DEPENDENCE, CIGARETTES, UNCOMPL 09/03/2019 [facility] BILL B Ot F31.9 BIPOLAR DISORDER, UNSPECIFIED 09/03/2019 [facility], BILL B Ot I10 ESSENTIAL (PRIMARY) HYPERTENSION 09/03/2019 [facility] BILL B Ot K20.9 ESOPHAGITIS, UNSPECIFIED 09/03/2019 [facility] BILL B Ot K29.5 0 UNSPECIFIED CHRONIC GASTRITIS WITHOUT BL 09/03/2019 [facility] BILL B Ot K31.8 9 OTHER DISEASES OF STOMACH AND DUODENUM 09/03/2019 [facility] BILL B Ot K44.9 DIAPHRAGMATIC HERNIA WITHOUT OBSTRUCTION 09/03/2019 [facility] BILL B Ot K57.3 0 DVRTCLOS OF LG INT W/O PERFORATION OR AB 09/03/2019 [facility], BILL B Ot K62.5 HEMORRHAGE OF ANUS AND RECTUM 09/03/2019 [facility] BILL B Ot K64.8 OTHER HEMORRHOIDS 09/03/2019 [facility], BILL B Ot K92.0 HEMATEMESIS 09/03/2019 [facility], BILL B Ot Z68.4 2 BODY MASS INDEX (BMI) 45.0-49.9, ADULT 09/03/2019 [facility] BILL B Ot Z79.8 99 OTHER STORY READER (CURRENT) DRUG THERAPY 09/03/2019 [facility] BILL B Ot Z80.8 FAMILY HISTORY OF MALIGNANT NEOPLASM OF 09/03/2019 [facility] BILL B Ot Z88.0 ALLERGY STATUS TO PENICILLIN [facility] ALLERGY STATUS TO SULFONAMIDES STATUS [facility]/03[facility].8 ALLERGY STATUS TO OT DRUG/MEDS/BIOL SUB [facility]/03[facility].0 13 ALLERGY TO SEAFOOD 11/04/2019 GRACE QUEZADA DO Ot E03. 9 HYPOTHYROIDISM, UNSPECIFIED 11/04/2019 GRACE QUEZADA DO Ot E66. 01 MORBID (SEVERE) OBESITY DUE TO EXCESS CA 11/04/2019 GRACE QUEZADA DO Ot F17.200 NICOTINE DEPENDENCE, UNSPECIFIED, UNCOMP 11/04/2019 GRACE QUEZADA DO Ot I10 ESSENTIAL (PRIMARY) HYPERTENSION 11/04/2019 GRACE QUEZADA DO Ot K21. 9 GASTRO-ESOPHAGEAL REFLUX DISEASE WITHOUT 11/04/2019 GRACE QUEZADA DO Ot T18.2XXA FOREIGN BODY IN STOMACH, INITIAL ENCOUNT 11/04/2019 GRACE QUEZADA DO Ot Z79.891 HALFWAY (CURRENT) USE OF OPIATE ANALGE 11/04/2019 GRACE QUEZADA DO Ot Z79.899 OTHER STORY READER (CURRENT) DRUG THERAPY 11/04/2019 GRACE QUEZADA DO Ot Z88. 0 ALLERGY STATUS TO PENICILLIN 11/04/2019 GRACE QUEZADA DO Ot Z88. 2 ALLERGY STATUS TO SULFONAMIDES STATUS 11/04/2019 GRACE QUEZADA DO Ot Z88. 8 ALLERGY STATUS TO OTH DRUG/MEDS/BIOL SUB 11/04/2019 MANNING DO, GRACE D Ot Z91.013 ALLERGY TO SEAFOOD 11/07/2019 MANNING DO, GRACE D Ot E03. 9 HYPOTHYROIDISM, UNSPECIFIED 11/07/2019 MANNING DO, GRACE D Ot E66. 01 MORBID (SEVERE) OBESITY DUE TO EXCESS CA 11/07/2019 MANNING DO, GRACE D Ot F17.200 NICOTINE DEPENDENCE, UNSPECIFIED, UNCOMP 11/07/2019 MANNING DO, GRACE D Ot I10 ESSENTIAL (PRIMARY) HYPERTENSION 11/07/2019 MANNING DO, GRACE D Ot K21. 9 GASTRO-ESOPHAGEAL REFLUX DISEASE WITHOUT 11/07/2019 MANNING DO, GRACE D Ot T18.2XXA FOREIGN BODY IN STOMACH, INITIAL ENCOUNT 11/07/2019 MANNING DO, GRACE Lisa Ot Z79.891 STORY READER (CURRENT) USE OF OPIATE ANALGE 11/07/2019 [facility], GRACE D Ot Z79.899 OTHER STORY READER (CURRENT) DRUG THERAPY 11/07/[facility] Z88. 0 ALLERGY STATUS TO PENICILLIN 11/07/[facility] Z88. 2 ALLERGY STATUS TO SULFONAMIDES STATUS 11/07/2019 [facility] Z88. 8 ALLERGY STATUS TO OTH DRUG/MEDS/BIOL SUB 11/07/2019 MANNING DO, GRACE D Ot Z91.013 ALLERGY TO SEAFOOD 11/10/2019 MANNING DOMIKAYLATT D Ot E03. 9 HYPOTHYROIDISM, UNSPECIFIED 11/10/2019 MANNING DOMIKAYLATT D Ot E66. 01 MORBID (SEVERE) OBESITY DUE TO EXCESS CA 11/10/2019 MANNING DO, GRACE D Ot F17.200 NICOTINE DEPENDENCE, UNSPECIFIED, UNCOMP 11/10/2019 MANNING DO, GRACE D Ot I10 ESSENTIAL (PRIMARY) HYPERTENSION 11/10/2019 MANNING DO, GRACE D Ot K21. 9 GASTRO-ESOPHAGEAL REFLUX DISEASE WITHOUT 11/10/2019 MANNING DO, GRACE D Ot T18.2XXA FOREIGN BODY IN STOMACH, INITIAL ENCOUNT 11/10/2019 QUEZADA DOMIKAYLATT D Ot Z79.891 HALFWAY (CURRENT) USE OF OPIATE ANALGE 11/10/2019 MANNING DO, GRACE D Ot Z79.899 OTHER HALFWAY (CURRENT) DRUG THERAPY 11/10/[facility]. 0 ALLERGY STATUS TO PENICILLIN 11/10/2019 QUEZADA DOGRACE Ot Z88. 2 ALLERGY STATUS TO SULFONAMIDES STATUS 11/10/2019 [facility] Z88. 8 ALLERGY STATUS TO OTH DRUG/MEDS/BIOL SUB 11/10/2019 [facility] Z91.013 ALLERGY TO SEAFOOD 12/07/2019 LEON MONTOYA APRN Ot E03 .9 HYPOTHYROIDISM, UNSPECIFIED 12/07/2019 LEON MONTOYA APRN Ot F31 .9 BIPOLAR DISORDER, UNSPECIFIED 12/07/2019 LEON MONTOYA APRN Ot I10 ESSENTIAL (PRIMARY) HYPERTENSION 12/07/2019 LEON MONTOYA APRN Ot K21 .9 GASTRO-ESOPHAGEAL REFLUX DISEASE WITHOUT 12/07/2019 LEON MONTOYA APRN Ot N61 .1 ABSCESS OF THE BREAST AND NIPPLE 12/07/2019 LEON MONTOYA APRN Ot Z77.22 CNTCT W AND EXPSR TO ENVIRON TOBACCO SMO 12/07/2019 LEON MONTOYA APRN Ot Z79.899 OTHER HALFWAY (CURRENT) DRUG THERAPY 12/07/2019 LEON MONTOYA APRN Ot Z87.891 PERSONAL HISTORY OF NICOTINE DEPENDENCE 12/07/2019 LEON MONTOYA APRN Ot Z88 .0 ALLERGY STATUS TO PENICILLIN 12/07/2019 LEON MONTOYA APRN Ot Z88 .2 ALLERGY STATUS TO SULFONAMIDES STATUS Procedures There is no data. Results Test Result Range Complete blood count (CBC) with automate d white blood cell (WBC) differential - 01/24/19 20:35 Blood leukocytes automated count (number/volume) 6.5 10*3/uL 4.3-11.0 Blood erythrocytes automated count (number/volume) 3.75 10*6/uL 4.35-5.85 Venous blood hemoglobin measurement (mass/volume) 11.0 g/dL 11.5-16.0 Blood hematocrit (volume fraction) 33 % 35-52 Automated erythrocyte mean corpuscular volume 89 [ foz_us] 80-99 Automated erythrocyte mean corpuscular h emoglobin (mass per erythrocyte) 29 pg 25-34 Automated erythrocyte mean corpuscular h emoglobin concentration measurement (mass/volume) 33 g/dL 32-36 Automated erythrocyte distribution width ratio 13. 1 % 10.0- 14.5 Automated blood platelet count (count/volume) 267 10*3/uL 130-400 Automated blood platelet mean volume measurement 9.5 [foz_us] 7.4-10.4 Automated blood neutrophils/100 leukocytes 48 % 42-75 Automated blood lymphocytes/100 leukocytes 42 % 12-44 Blood monocytes/100 leukocytes 8 % 0-12 Automated blood eosinophils/100 leukocytes 2 % 0-10 Automated blood basophils/100 leukocytes 0 % 0-10 Blood neutrophils automated count (number/volume) 3.1 10*3 1.8-7.8 Blood lymphocytes automated count (number/volume) 2.7 10*3 1.0-4.0 Blood monocytes automated count (number/volume) 0. 5 10*3 0.0-1.0 Automated eosinophil count 0.1 10*3/uL 0 .0-0.3 Automated blood basophil count (count/volume) 0.0 10*3/uL 0.0-0.1 Serum or plasma choriogonadotropin (preg catalino test) detection - 01/24/19 20:35 Serum or plasma choriogonadotropin ( test) de tection NEGATIVE NEGATIVE Comprehensive metabolic panel - 01/24/19 20:35 Serum or plasma sodium measurement (moles/volume) 140 mmol/L 135-145 Serum or plasma potassium measurement (moles/volume) 3.9 mmol/L 3.6-5.0 Serum or plasma chloride measurement (moles/volume) 109 mmol/L 98-107 Carbon dioxide 21 mmol/L 21-32 Serum or plasma anion gap determination (moles/volume) 10 mmol/L 5-14 Serum or plasma urea nitrogen measurement (mass/volume ) 9 mg/dL 7-18 Serum or plasma creatinine measurement (mass/volume) 0.81 mg/dL 0.60-1.30 Serum or plasma urea nitrogen/creatinine mass ratio 11 NRG Serum or plasma creatinine measurement w ith calculation of estimated glomerular filtration rate > NRG Serum or plasma glucose measurement (mass/volume) 103 mg/dL 70-105 Serum or plasma calcium measurement (mass/volume) 9.3 mg/dL 8.5-10.1 Serum or plasma total bilirubin measurement (mass/volu me) 0.1 mg/dL 0.1-1.0 Serum or plasma alkaline phosphatase arcadio surement (enzymatic activity/volume) 65 U/L 40-136 Serum or plasma aspartate aminotransfera se measurement (enzymatic activity/volume) 12 U/L 5-34 Serum or plasma alanine aminotransferase measurement (enzymatic activity/volume) 14 U/L 0-55 Serum or plasma protein measurement (mass/volume) 6.6 g/dL 6.4-8.2 Serum or plasma albumin measurement (mass/volume) 3.9 g/dL 3.2-4.5 CALCIUM CORRECTED 9.4 mg/dL 8.5-10.1 Occult blood panel - gastric fluid - 20:45 Gastric fluid gastrointestinal hemoglobin detection POSITIVE NEGATIVE Complete blood count (CBC) with automate d white blood cell (WBC) differential - 01/25/19 05:54 Blood leukocytes automated count (number/volume) 6.2 10*3/uL 4.3-11.0 Blood erythrocytes automated count (number/volume) 3.46 10*6/uL 4.35-5.85 Venous blood hemoglobin measurement (mass/volume) 10.1 g/dL 11.5-16.0 Blood hematocrit (volume fraction) 31 % 35-52 Automated erythrocyte mean corpuscular volume 89 [ foz_us] 80-99 Automated erythrocyte mean corpuscular h emoglobin (mass per erythrocyte) 29 pg 25-34 Automated erythrocyte mean corpuscular h emoglobin concentration measurement (mass/volume) 33 g/dL 32-36 Automated erythrocyte distribution width ratio 13. 2 % 10.0- 14.5 Automated blood platelet count (count/volume) 245 10*3/uL 130-400 Automated blood platelet mean volume measurement 9.5 [foz_us] 7.4-10.4 Automated blood neutrophils/100 leukocytes 50 % 42-75 Automated blood lymphocytes/100 leukocytes 40 % 12-44 Blood monocytes/100 leukocytes 8 % 0-12 Automated blood eosinophils/100 leukocytes 2 % 0-10 Automated blood basophils/100 leukocytes 0 % 0-10 Blood neutrophils automated count (number/volume) 3.1 10*3 1.8-7.8 Blood lymphocytes automated count (number/volume) 2.5 10*3 1.0-4.0 Blood monocytes automated count (number/volume) 0. 5 10*3 0.0-1.0 Automated eosinophil count 0.1 10*3/uL 0 .0-0.3 Automated blood basophil count (count/volume) 0.0 10*3/uL 0.0-0.1 Complete urinalysis with reflex to cultu re - 02/07/19 19:28 Urine color determination YELLOW NRG Urine clarity determination CLEAR NR G Urine pH measurement by test strip 7 5-9 Specific gravity of urine by test strip 1.005 1.016-1.022 Urine protein assay by test strip, semi-quantitative NEGATIVE NEGATIVE Urine glucose detection by automated test strip NE GATIVE NEGATIVE Erythrocytes detection in urine sediment by light micr oscopy NEGATIVE NEGATIVE Urine ketones detection by automated test strip NE GATIVE NEGATIVE Urine nitrite detection by test strip NEGATIVE NEGATIVE Urine total bilirubin detection by test strip NEGA TIVE NEGATIVE Urine urobilinogen measurement by automated test strip (mass/volume) NORMAL NORMAL Urine leukocyte esterase detection by dipstick 2+ NEGATIVE Automated urine sediment erythrocyte cou nt by microscopy (number/high power field) NONE NRG Automated urine sediment leukocyte count by microscopy (number/high power field) [HPF] NRG Bacteria detection in urine sediment by light microsco py FEW NRG Squamous epithelial cells detection in u rine sediment by light microscopy 2-5 NRG Crystals detection in urine sediment by light microsco py NONE NRG Casts detection in urine sediment by light microscopy NONE NRG Mucus detection in urine sediment by light microscopy NEGATIVE NRG Complete urinalysis with reflex to culture YES NRG Bacterial urine culture - 02/07/19 19:28 Bacterial urine culture 3 OR MORE NRG COLONY COUNT 40,000 CFU/ML NRG FTX;REPORTABLE GRAM POSITIVE ISOLATES; SUGGESTING NRG FREE TEXT ENTRY 2 PROBABLE COLLECTION CONTAMINATIO N WITH NRG FREE TEXT ENTRY 3 SKIN BRANDIN. NO SUSCEPTIBILITY PE RFORMED. NRG Complete blood count (CBC) with automate d white blood cell (WBC) differential - 02/07/19 20:11 Blood leukocytes automated count (number/volume) 6.9 10*3/uL 4.3-11.0 Blood erythrocytes automated count (number/volume) 3.89 10*6/uL 4.35-5.85 Venous blood hemoglobin measurement (mass/volume) 11.5 g/dL 11.5-16.0 Blood hematocrit (volume fraction) 34 % 35-52 Automated erythrocyte mean corpuscular volume 87 [ foz_us] 80-99 Automated erythrocyte mean corpuscular h emoglobin (mass per erythrocyte) 30 pg 25-34 Automated erythrocyte mean corpuscular h emoglobin concentration measurement (mass/volume) 34 g/dL 32-36 Automated erythrocyte distribution width ratio 12. 5 % 10.0- 14.5 Automated blood platelet count (count/volume) 261 10*3/uL 130-400 Automated blood platelet mean volume measurement 9.3 [foz_us] 7.4-10.4 Automated blood neutrophils/100 leukocytes 62 % 42-75 Automated blood lymphocytes/100 leukocytes 32 % 12-44 Blood monocytes/100 leukocytes 6 % 0-12 Automated blood eosinophils/100 leukocytes 0 % 0-10 Automated blood basophils/100 leukocytes 0 % 0-10 Blood neutrophils automated count (number/volume) 4.3 10*3 1.8-7.8 Blood lymphocytes automated count (number/volume) 2.2 10*3 1.0-4.0 Blood monocytes automated count (number/volume) 0. 4 10*3 0.0-1.0 Automated eosinophil count 0.0 10*3/uL 0 .0-0.3 Automated blood basophil count (count/volume) 0.0 10*3/uL 0.0-0.1 Comprehensive metabolic panel - 02/07/19 20:11 Serum or plasma sodium measurement (moles/volume) 139 mmol/L 135-145 Serum or plasma potassium measurement (moles/volume) 4.0 mmol/L 3.6-5.0 Serum or plasma chloride measurement (moles/volume) 109 mmol/L 98-107 Carbon dioxide 19 mmol/L 21-32 Serum or plasma anion gap determination (moles/volume) 11 mmol/L 5-14 Serum or plasma urea nitrogen measurement (mass/volume ) 8 mg/dL 7-18 Serum or plasma creatinine measurement (mass/volume) 0.75 mg/dL 0.60-1.30 Serum or plasma urea nitrogen/creatinine mass ratio 11 NRG Serum or plasma creatinine measurement w ith calculation of estimated glomerular filtration rate > NRG Serum or plasma glucose measurement (mass/volume) 90 mg/dL 70-105 Serum or plasma calcium measurement (mass/volume) 9.6 mg/dL 8.5-10.1 Serum or plasma total bilirubin measurement (mass/volu me) 0.2 mg/dL 0.1-1.0 Serum or plasma alkaline phosphatase arcadio surement (enzymatic activity/volume) 56 U/L 40-136 Serum or plasma aspartate aminotransfera se measurement (enzymatic activity/volume) 12 U/L 5-34 Serum or plasma alanine aminotransferase measurement (enzymatic activity/volume) 13 U/L 0-55 Serum or plasma protein measurement (mass/volume) 6.8 g/dL 6.4-8.2 Serum or plasma albumin measurement (mass/volume) 3.9 g/dL 3.2-4.5 CALCIUM CORRECTED 9.7 mg/dL 8.5-10.1 Serum or plasma salicylates measurement (mass/volume) - 02/07/19 20:11 Serum or plasma salicylates measurement (mass/volume) < mg/dL 5.0-20.0 Serum or plasma acetaminophen measuremen t (mass/volume) - 02/07/19 20:11 Serum or plasma acetaminophen measurement (mass/volume ) < ug/mL 10-30 Serum or plasma ethanol measurement (mas s/volume) - 02/07/19 20:11 Serum or plasma ethanol measurement (mass/volume) < mg/dL <10 Complete urinalysis with reflex to cultu re - 03/18/19 14:45 Urine color determination YELLOW NRG Urine clarity determination CLEAR NR G Urine pH measurement by test strip 7 5-9 Specific gravity of urine by test strip 1.010 1.016-1.022 Urine protein assay by test strip, semi-quantitative NEGATIVE NEGATIVE Urine glucose detection by automated test strip NE GATIVE NEGATIVE Erythrocytes detection in urine sediment by light micr oscopy NEGATIVE NEGATIVE Urine ketones detection by automated test strip NE GATIVE NEGATIVE Urine nitrite detection by test strip NEGATIVE NEGATIVE Urine total bilirubin detection by test strip NEGA TIVE NEGATIVE Urine urobilinogen measurement by automated test strip (mass/volume) NORMAL NORMAL Urine leukocyte esterase detection by dipstick NEG ATIVE NEGATIVE Automated urine sediment erythrocyte cou nt by microscopy (number/high power field) NONE NRG Automated urine sediment leukocyte count by microscopy (number/high power field) NONE NRG Bacteria detection in urine sediment by light microsco py NEGATIVE NRG Squamous epithelial cells detection in u rine sediment by light microscopy 0-2 NRG Crystals detection in urine sediment by light microsco py NONE NRG Casts detection in urine sediment by light microscopy NONE NRG Mucus detection in urine sediment by light microscopy NEGATIVE NRG Complete urinalysis with reflex to culture NO NRG Urine drug screening test - 03/18/19 14: 45 Urine phencyclidine detection by screening method NEGATIVE NEGATIVE Urine benzodiazepines detection by screening method NEGATIVE NEGATIVE Urine cocaine detection NEGATIVE NEGATI VE Urine amphetamines detection by screening method N EGATIVE NEGATIVE Urine methamphetamine detection by screening method NEGATIVE NEGATIVE Urine cannabinoids detection by screening method N EGATIVE NEGATIVE Urine opiates detection by screening method NEGATI VE NEGATIVE Urine barbiturates detection NEGATIVE N EGATIVE Screening urine tricyclic antidepressants detection NEGATIVE NEGATIVE Urine methadone detection by screening method NEGA TIVE NEGATIVE Urine oxycodone detection NEGATIVE NEGA TIVE Urine propoxyphene detection NEGATIVE N EGATIVE Urine beta human chorionic gonadotropin (hCG) measurement - 03/18/19 14:45 Urine beta human chorionic gonadotropin (hCG) measurem ent NEGATIVE NEGATIVE Complete blood count (CBC) with automate d white blood cell (WBC) differential - 03/18/19 15:39 Blood leukocytes automated count (number/volume) 6.8 10*3/uL 4.3-11.0 Blood erythrocytes automated count (number/volume) 4.15 10*6/uL 4.35-5.85 Venous blood hemoglobin measurement (mass/volume) 12.2 g/dL 11.5-16.0 Blood hematocrit (volume fraction) 36 % 35-52 Automated erythrocyte mean corpuscular volume 88 [ foz_us] 80-99 Automated erythrocyte mean corpuscular h emoglobin (mass per erythrocyte) 29 pg 25-34 Automated erythrocyte mean corpuscular h emoglobin concentration measurement (mass/volume) 34 g/dL 32-36 Automated erythrocyte distribution width ratio 12. 2 % 10.0- 14.5 Automated blood platelet count (count/volume) 196 10*3/uL 130-400 Automated blood platelet mean volume measurement 10.4 [foz_us] 7.4-10.4 Automated blood neutrophils/100 leukocytes 59 % 42-75 Automated blood lymphocytes/100 leukocytes 28 % 12-44 Blood monocytes/100 leukocytes 7 % 0-12 Automated blood eosinophils/100 leukocytes 5 % 0-10 Automated blood basophils/100 leukocytes 1 % 0-10 Blood neutrophils automated count (number/volume) 4.0 10*3 1.8-7.8 Blood lymphocytes automated count (number/volume) 1.9 10*3 1.0-4.0 Blood monocytes automated count (number/volume) 0. 5 10*3 0.0-1.0 Automated eosinophil count 0.4 10*3/uL 0 .0-0.3 Automated blood basophil count (count/volume) 0.0 10*3/uL 0.0-0.1 IGP, Aptima HPV, rfx 16/18,45 - 05/01/19 10:00 HPV Aptima Negative Negative DIAGNOSIS: Comment Specimen adequacy: Comment Performed by: Comment . . Note: Comment Test Methodology: Comment Complete blood count (CBC) with automate d white blood cell (WBC) differential - 05/07/19 14:05 Blood leukocytes automated count (number/volume) 8.7 10*3/uL 4.3-11.0 Blood erythrocytes automated count (number/volume) 4.15 10*6/uL 4.35-5.85 Venous blood hemoglobin measurement (mass/volume) 12.5 g/dL 11.5-16.0 Blood hematocrit (volume fraction) 37 % 35-52 Automated erythrocyte mean corpuscular volume 88 [ foz_us] 80-99 Automated erythrocyte mean corpuscular h emoglobin (mass per erythrocyte) 30 pg 25-34 Automated erythrocyte mean corpuscular h emoglobin concentration measurement (mass/volume) 34 g/dL 32-36 Automated erythrocyte distribution width ratio 12. 2 % 10.0- 14.5 Automated blood platelet count (count/volume) 266 10*3/uL 130-400 Automated blood platelet mean volume measurement 9.2 [foz_us] 7.4-10.4 Automated blood neutrophils/100 leukocytes 60 % 42-75 Automated blood lymphocytes/100 leukocytes 31 % 12-44 Blood monocytes/100 leukocytes 7 % 0-12 Automated blood eosinophils/100 leukocytes 1 % 0-10 Automated blood basophils/100 leukocytes 0 % 0-10 Blood neutrophils automated count (number/volume) 5.3 10*3 1.8-7.8 Blood lymphocytes automated count (number/volume) 2.7 10*3 1.0-4.0 Blood monocytes automated count (number/volume) 0. 7 10*3 0.0-1.0 Automated eosinophil count 0.1 10*3/uL 0 .0-0.3 Automated blood basophil count (count/volume) 0.0 10*3/uL 0.0-0.1 Comprehensive metabolic panel - 05/07/19 14:05 Serum or plasma sodium measurement (moles/volume) 141 mmol/L 135-145 Serum or plasma potassium measurement (moles/volume) 3.9 mmol/L 3.6-5.0 Serum or plasma chloride measurement (moles/volume) 107 mmol/L 98-107 Carbon dioxide 23 mmol/L 21-32 Serum or plasma anion gap determination (moles/volume) 11 mmol/L 5-14 Serum or plasma urea nitrogen measurement (mass/volume ) 12 mg/dL 7-18 Serum or plasma creatinine measurement (mass/volume) 0.72 mg/dL 0.60-1.30 Serum or plasma urea nitrogen/creatinine mass ratio 17 NRG Serum or plasma creatinine measurement w ith calculation of estimated glomerular filtration rate > NRG Serum or plasma glucose measurement (mass/volume) 96 mg/dL 70-105 Serum or plasma calcium measurement (mass/volume) 9.3 mg/dL 8.5-10.1 Serum or plasma total bilirubin measurement (mass/volu me) 0.1 mg/dL 0.1-1.0 Serum or plasma alkaline phosphatase arcadio surement (enzymatic activity/volume) 63 U/L 40-136 Serum or plasma aspartate aminotransfera se measurement (enzymatic activity/volume) 12 U/L 5-34 Serum or plasma alanine aminotransferase measurement (enzymatic activity/volume) 18 U/L 0-55 Serum or plasma protein measurement (mass/volume) 6.8 g/dL 6.4-8.2 Serum or plasma albumin measurement (mass/volume) 3.8 g/dL 3.2-4.5 CALCIUM CORRECTED 9.5 mg/dL 8.5-10.1 Magnesium - 05/07/19 14:05 Magnesium 1.7 mg/dL 1.6-2.4 Lipase - 05/07/19 14:05 Lipase 37 U/L 8-78 Serum or plasma choriogonadotropin measu rement (units/volume) - 05/07/19 14:05 Serum or plasma choriogonadotropin measurement (units/ volume) < m[iU]/mL <5 Complete urinalysis with reflex to cultu re - 05/07/19 15:14 Urine color determination YELLOW NRG Urine clarity determination CLEAR NR G Urine pH measurement by test strip 6.5 5-9 Specific gravity of urine by test strip 1.010 1.016-1.022 Urine protein assay by test strip, semi-quantitative NEGATIVE NEGATIVE Urine glucose detection by automated test strip NE GATIVE NEGATIVE Erythrocytes detection in urine sediment by light micr oscopy NEGATIVE NEGATIVE Urine ketones detection by automated test strip NE GATIVE NEGATIVE Urine nitrite detection by test strip NEGATIVE NEGATIVE Urine total bilirubin detection by test strip NEGA TIVE NEGATIVE Urine urobilinogen measurement by automated test strip (mass/volume) NORMAL NORMAL Urine leukocyte esterase detection by dipstick NEG ATIVE NEGATIVE Automated urine sediment erythrocyte cou nt by microscopy (number/high power field) NONE NRG Automated urine sediment leukocyte count by microscopy (number/high power field) NONE NRG Bacteria detection in urine sediment by light microsco py TRACE NRG Squamous epithelial cells detection in u rine sediment by light microscopy >50 NRG Crystals detection in urine sediment by light microsco py NONE NRG Casts detection in urine sediment by light microscopy NONE NRG Mucus detection in urine sediment by light microscopy NEGATIVE NRG Complete urinalysis with reflex to culture NO NRG Complete blood count (CBC) with automate d white blood cell (WBC) differential - 05/20/19 19:40 Blood leukocytes automated count (number/volume) 7.8 10*3/uL 4.3-11.0 Blood erythrocytes automated count (number/volume) 4.06 10*6/uL 4.35-5.85 Venous blood hemoglobin measurement (mass/volume) 12.3 g/dL 11.5-16.0 Blood hematocrit (volume fraction) 36 % 35-52 Automated erythrocyte mean corpuscular volume 88 [ foz_us] 80-99 Automated erythrocyte mean corpuscular h emoglobin (mass per erythrocyte) 30 pg 25-34 Automated erythrocyte mean corpuscular h emoglobin concentration measurement (mass/volume) 35 g/dL 32-36 Automated erythrocyte distribution width ratio 12. 0 % 10.0- 14.5 Automated blood platelet count (count/volume) 315 10*3/uL 130-400 Automated blood platelet mean volume measurement 9.1 [foz_us] 7.4-10.4 Automated blood neutrophils/100 leukocytes 73 % 42-75 Automated blood lymphocytes/100 leukocytes 20 % 12-44 Blood monocytes/100 leukocytes 7 % 0-12 Automated blood eosinophils/100 leukocytes 1 % 0-10 Automated blood basophils/100 leukocytes 0 % 0-10 Blood neutrophils automated count (number/volume) 5.7 10*3 1.8-7.8 Blood lymphocytes automated count (number/volume) 1.5 10*3 1.0-4.0 Blood monocytes automated count (number/volume) 0. 6 10*3 0.0-1.0 Automated eosinophil count 0.1 10*3/uL 0 .0-0.3 Automated blood basophil count (count/volume) 0.0 10*3/uL 0.0-0.1 Serum or plasma choriogonadotropin (preg catalino test) detection - 05/20/19 19:40 Serum or plasma choriogonadotropin ( test) de tection NEGATIVE NEGATIVE PT panel in platelet poor plasma by coag ulation assay - 05/20/19 19:40 Prothrombin time (PT) in platelet poor plasma by coagu lation assay 12.5 s 12.2-14.7 INR in platelet poor plasma or blood by coagulation as say 0.9 0.8-1.4 Fibrin D-dimer FEU measurement in platel et poor plasma (mass/volume) - 05/20/19 19:40 Fibrin D-dimer FEU measurement in platelet poor plasma (mass/volume) 0.58 ug/mL 0.00-0.49 Comprehensive metabolic panel - 05/20/19 19:40 Serum or plasma sodium measurement (moles/volume) 137 mmol/L 135-145 Serum or plasma potassium measurement (moles/volume) 4.2 mmol/L 3.6-5.0 Serum or plasma chloride measurement (moles/volume) 104 mmol/L 98-107 Carbon dioxide 21 mmol/L 21-32 Serum or plasma anion gap determination (moles/volume) 12 mmol/L 5-14 Serum or plasma urea nitrogen measurement (mass/volume ) 11 mg/dL 7-18 Serum or plasma creatinine measurement (mass/volume) 0.77 mg/dL 0.60-1.30 Serum or plasma urea nitrogen/creatinine mass ratio 14 NRG Serum or plasma creatinine measurement w ith calculation of estimated glomerular filtration rate > NRG Serum or plasma glucose measurement (mass/volume) 112 mg/dL 70-105 Serum or plasma calcium measurement (mass/volume) 9.3 mg/dL 8.5-10.1 Serum or plasma total bilirubin measurement (mass/volu me) 0.2 mg/dL 0.1-1.0 Serum or plasma alkaline phosphatase arcadio surement (enzymatic activity/volume) 73 U/L 40-136 Serum or plasma aspartate aminotransfera se measurement (enzymatic activity/volume) 13 U/L 5-34 Serum or plasma alanine aminotransferase measurement (enzymatic activity/volume) 20 U/L 0-55 Serum or plasma protein measurement (mass/volume) 6.6 g/dL 6.4-8.2 Serum or plasma albumin measurement (mass/volume) 3.9 g/dL 3.2-4.5 CALCIUM CORRECTED 9.4 mg/dL 8.5-10.1 Complete urinalysis with reflex to cultu re - 05/20/19 20:02 Urine color determination YELLOW NRG Urine clarity determination CLEAR NR G Urine pH measurement by test strip 7 5-9 Specific gravity of urine by test strip 1.010 1.016-1.022 Urine protein assay by test strip, semi-quantitative 1+ NEGATIVE Urine glucose detection by automated test strip NE GATIVE NEGATIVE Erythrocytes detection in urine sediment by light micr oscopy NEGATIVE NEGATIVE Urine ketones detection by automated test strip NE GATIVE NEGATIVE Urine nitrite detection by test strip NEGATIVE NEGATIVE Urine total bilirubin detection by test strip NEGA TIVE NEGATIVE Urine urobilinogen measurement by automated test strip (mass/volume) NORMAL NORMAL Urine leukocyte esterase detection by dipstick 1+ NEGATIVE Automated urine sediment erythrocyte cou nt by microscopy (number/high power field) NONE NRG Automated urine sediment leukocyte count by microscopy (number/high power field) [HPF] NRG Bacteria detection in urine sediment by light microsco py TRACE NRG Squamous epithelial cells detection in u rine sediment by light microscopy 10-25 NRG Crystals detection in urine sediment by light microsco py PRESENT NRG Casts detection in urine sediment by light microscopy NONE NRG Mucus detection in urine sediment by light microscopy SMALL NRG Complete urinalysis with reflex to culture NO NRG Calcium oxalate crystals detection in ur ine sediment by light microscopy FEW NRG Complete blood count (CBC) with automate d white blood cell (WBC) differential - 08/06/19 23:44 Blood leukocytes automated count (number/volume) 8.0 10*3/uL 4.3-11.0 Blood erythrocytes automated count (number/volume) 4.02 10*6/uL 4.35-5.85 Venous blood hemoglobin measurement (mass/volume) 12.0 g/dL 11.5-16.0 Blood hematocrit (volume fraction) 35 % 35-52 Automated erythrocyte mean corpuscular volume 87 [ foz_us] 80-99 Automated erythrocyte mean corpuscular h emoglobin (mass per erythrocyte) 30 pg 25-34 Automated erythrocyte mean corpuscular h emoglobin concentration measurement (mass/volume) 35 g/dL 32-36 Automated erythrocyte distribution width ratio 11. 7 % 10.0- 14.5 Automated blood platelet count (count/volume) 270 10*3/uL 130-400 Automated blood platelet mean volume measurement 9.6 [foz_us] 7.4-10.4 Automated blood neutrophils/100 leukocytes 56 % 42-75 Automated blood lymphocytes/100 leukocytes 34 % 12-44 Blood monocytes/100 leukocytes 9 % 0-12 Automated blood eosinophils/100 leukocytes 1 % 0-10 Automated blood basophils/100 leukocytes 0 % 0-10 Blood neutrophils automated count (number/volume) 4.5 10*3 1.8-7.8 Blood lymphocytes automated count (number/volume) 2.7 10*3 1.0-4.0 Blood monocytes automated count (number/volume) 0. 7 10*3 0.0-1.0 Automated eosinophil count 0.1 10*3/uL 0 .0-0.3 Automated blood basophil count (count/volume) 0.0 10*3/uL 0.0-0.1 Comprehensive metabolic panel - 08/06/19 23:44 Serum or plasma sodium measurement (moles/volume) 139 mmol/L 135-145 Serum or plasma potassium measurement (moles/volume) 3.8 mmol/L 3.6-5.0 Serum or plasma chloride measurement (moles/volume) 109 mmol/L 98-107 Carbon dioxide 18 mmol/L 21-32 Serum or plasma anion gap determination (moles/volume) 12 mmol/L 5-14 Serum or plasma urea nitrogen measurement (mass/volume ) 7 mg/dL 7-18 Serum or plasma creatinine measurement (mass/volume) 0.65 mg/dL 0.60-1.30 Serum or plasma urea nitrogen/creatinine mass ratio 11 NRG Serum or plasma creatinine measurement w ith calculation of estimated glomerular filtration rate > NRG Serum or plasma glucose measurement (mass/volume) 108 mg/dL 70-105 Serum or plasma calcium measurement (mass/volume) 8.9 mg/dL 8.5-10.1 Serum or plasma total bilirubin measurement (mass/volu me) 0.1 mg/dL 0.1-1.0 Serum or plasma alkaline phosphatase arcadio surement (enzymatic activity/volume) 67 U/L 40-136 Serum or plasma aspartate aminotransfera se measurement (enzymatic activity/volume) 14 U/L 5-34 Serum or plasma alanine aminotransferase measurement (enzymatic activity/volume) 19 U/L 0-55 Serum or plasma protein measurement (mass/volume) 6.5 g/dL 6.4-8.2 Serum or plasma albumin measurement (mass/volume) 3.6 g/dL 3.2-4.5 CALCIUM CORRECTED 9.2 mg/dL 8.5-10.1 Complete urinalysis with reflex to cultu re - 08/06/19 23:50 Urine color determination YELLOW NRG Urine clarity determination CLEAR NR G Urine pH measurement by test strip 6.5 5-9 Specific gravity of urine by test strip 1.015 1.016-1.022 Urine protein assay by test strip, semi-quantitative NEGATIVE NEGATIVE Urine glucose detection by automated test strip NE GATIVE NEGATIVE Erythrocytes detection in urine sediment by light micr oscopy NEGATIVE NEGATIVE Urine ketones detection by automated test strip NE GATIVE NEGATIVE Urine nitrite detection by test strip NEGATIVE NEGATIVE Urine total bilirubin detection by test strip NEGA TIVE NEGATIVE Urine urobilinogen measurement by automated test strip (mass/volume) 0.2 mg/dL < = 1.0 Urine leukocyte esterase detection by dipstick NEG ATIVE NEGATIVE Automated urine sediment erythrocyte cou nt by microscopy (number/high power field) NONE NRG Automated urine sediment leukocyte count by microscopy (number/high power field) [HPF] NRG Bacteria detection in urine sediment by light microsco py MODERATE NRG Squamous epithelial cells detection in u rine sediment by light microscopy 2-5 NRG Crystals detection in urine sediment by light microsco py NONE NRG Casts detection in urine sediment by light microscopy NONE NRG Mucus detection in urine sediment by light microscopy SMALL NRG Complete urinalysis with reflex to culture YES NRG Bacterial urine culture - 08/06/19 23:50 Bacterial urine culture 3 OR MORE NRG COLONY COUNT 70,000 cfu/ml NRG FTX;REPORTABLE (GRAM POSITIVE) SUGGESTING PROBBLE NRG FREE TEXT ENTRY 2 COLLECTION CONTAMINATION WITH SK IN BRANDIN NRG Valproic Acid - 09/12/19 11:50 Valproic Acid 62.6 ug/mL 55.0-105.0 Gram stain microscopy - 12/06/19 11:07 Gram stain microscopy NO BACTERIA SEEN NRG Bacteria identification in wound by cult ure - 12/06/19 11:07 Bacteria identification in wound by culture NG NRG Valproic Acid - 12/13/19 13:15 Valproic Acid 53.8 ug/mL 55.0-105.0 Encounters ACCT No. Visit Date/Time Discharge Status Pt. Type Provider Facility Loc./Unit Complaint [id number] 12/12/2019 08:43:46 Document Registration [id number] 09/20/2019 15:51:43 Document Registration [id number] 05/20/2018 09:20:03 Document Registration [id number] 02/11/2018 13:32:55 Document Registration [id number] 11/10/2017 15:59:04 Document Registration [id number] 11/05/2017 10:21:51 Document Registration [id number] 10/25/2017 15:58:05 Document Registration [id number] 09/30/2017 19:47:50 Document Registration [id number] 09/26/2017 16:57:31 Document Registration [id number] 09/26/2017 16:55:14 Document Registration [id number] 09/01/2017 10:18:00 Document Registration [id number] 05/11/2017 09:22:14 Document Registration [id number] 03/20/2012 20:26:00 012 21:03:00 DIS Emergency Lázaro SANTIAGO, [facility] W.EDW [id number] 05/04/2019 21:06:00 Document Registration [id number] 10/15/2017 12:15:33 10/15/2017 23:59: 59 CLS Outpatient Trevin Christian [id number] 04/27/2016 10:58:25 04/27/2016 23:59: 59 CLS Outpatient Wilberto Wen [id number] 03/31/2016 10:52:23 03/31/2016 23:59: 59 CLS Outpatient Wilberto Wen [id number] 03/31/2016 10:49:20 03/31/2016 23:59: 59 ANN Outpatient Wilberto Wen [id number] 03/30/2016 11:22:15 03/30/2016 23:59: 59 CLS Outpatient Van, Wilberto [id number] 03/23/2016 09:52:33 03/23/2016 23:59: 59 CLS Outpatient Van, Wilberto [id number] 03/23/2016 09:49:09 03/23/2016 23:59: 59 CLS Outpatient Van, Wilberto [id number] 09/16/2015 10:24:31 09/16/2015 23:59: 59 CLS Outpatient Wilian Mosley [id number] 07/08/2015 14:16:58 07/08/2015 23:59: 59 CLS Outpatient Byron Mayra M [id number] 06/24/2015 15:19:22 06/24/2015 23:59: 59 CLS Outpatient Mayra Matthews [id number] 03/11/2015 21:48:31 03/11/2015 23:59: 59 CLS Outpatient Van, Wilberto [id number] 05/21/2014 13:54:14 05/21/2014 23:59: 59 CLS Outpatient Van, Wilberto [id number] 05/17/2014 14:34:02 05/17/2014 23:59: 59 CLS Outpatient Wilian Mosley [id number] 03/27/2014 15:35:55 03/27/2014 23:59: 59 CLS Outpatient Van, Wilberto [id number] 03/20/2014 09:22:33 03/20/2014 23:59: 59 CLS Outpatient Van, Wilberto [id number] 03/15/2014 15:04:13 03/15/2014 23:59: 59 CLS Outpatient Van, Wilberto [id number] 03/08/2014 16:22:24 03/08/2014 23:59: 59 CLS Outpatient Van, Wilberto [id number] 03/05/2014 21:53:39 03/05/2014 23:59: 59 CLS Outpatient Van, Wilberto [id number] 03/05/2014 21:48:33 03/05/2014 23:59: 59 CLS Outpatient Van, Wilberto [id number] 01/31/2014 11:47:47 01/31/2014 23:59: 59 CLS Outpatient Van, Wilberto [id number] 12/26/2013 16:25:17 12/26/2013 23:59: 59 CLS Outpatient Van, Wilberto [id number] 12/14/2013 11:25:32 12/14/2013 23:59: 59 CLS Outpatient Van, Wilberto [id number] 12/14/2013 11:19:47 12/14/2013 23:59: 59 CLS Outpatient Van, Wilberto [id number] 12/14/2013 11:19:06 12/14/2013 23:59: 59 CLS Outpatient Van, Wilberto [id number] 12/12/2013 17:13:14 12/12/2013 23:59: 59 CLS Outpatient Wilberto Wen [id number] 09/04/2013 12:58:40 09/04/2013 23:59: 59 CLS Outpatient Wilian Mosley [id number] 08/23/2013 17:22:25 08/23/2013 23:59: 59 CLS Outpatient Wilian Mosley [id number] 01/15/2020 15:53:00 01/15/2020 23:59 :00 DIS Outpatient BUD GARCIA [id number] 01/09/2020 12:59:00 01/09/2020 23:59 :00 DIS Outpatient Jaqueline Gonzalez [id number] 01/01/2020 16:33:00 01/01/2020 23:59 :00 DIS Outpatient Jaqueline Gonzalez [id number] 12/13/2019 15:16:00 12/13/2019 23:59 :00 DIS Outpatient BUD GARCIA [id number] 12/13/2019 14:34:00 12/13/2019 23:59 :00 DIS Outpatient Courtney Mcconnell [id number] 12/12/2019 00:00:00 12/12/2019 23:59 :00 DIS Outpatient BUD GARCIA [id number] 11/06/2019 12:47:00 11/06/2019 23:59 :00 DIS Outpatient BUD GARCIA [id number] 10/12/2019 17:48:00 10/12/2019 23:59 :00 DIS Outpatient BUD GARCIA [id number] 10/06/2019 11:26:00 10/06/2019 23:59 :00 DIS Outpatient Jaqueline Gonzalez [id number] 09/12/2019 18:13:00 09/12/2019 23:59 :00 DIS Outpatient BUD GARCIA [id number] 09/12/2019 12:41:00 09/12/2019 23:59 :00 DIS Outpatient BUD GARCIA [id number] 07/28/2019 13:47:00 07/28/2019 23:59 :00 DIS Outpatient Bethany Verma [id number] 07/11/2019 10:48:00 07/11/2019 23:59 :00 DIS Outpatient Jaqueline Gonzalez [id number] 05/01/2019 12:20:00 05/01/2019 23:59: 00 DIS Outpatient BUD GARCIA [id number] 05/01/2019 09:30:00 05/01/2019 23:59: 00 DIS Outpatient BUD GARCIA [id number] 04/07/2019 10:52:00 04/07/2019 23:59: 00 DIS Outpatient Jaqueline Gonzalez [id number] 01/26/2019 15:00:00 Document Registration [id number] 12/06/2019 10:41:00 11:22:00 DIS Outpatient LEON MONTOYA APRN [facility] ER ABCESSE ON R BREAST [id number] 11/04/2019 15:47:00 19:16:00 DIS Outpatient GRACE QUEZADA DO [facility] SDC SWALLOWED A NAIL [id number] 09/20/2019 12:30:00 12:30:00 CAN Preadmit BUD GARCIA MD [facility] RAD NEW ONSET SEIZURES [id number] 08/28/2019 09:59:00 12:30:00 DIS Outpatient BILL HILL DO [facility] ENDO RECTAL BLEED/HEMATEMESI S [id number] 08/23/2019 12:00:00 13:55:00 DIS Outpatient BILL HILL DO [facility] PREOP COLONOSCOPY/EGD [id number] 08/06/2019 23:17:00 01:07:00 DIS Emergency ROYAL ROCK MD [facility] ER VOMITING BLOOD [id number] 05/20/2019 19:28:00 21:21:00 DIS Emergency LEON MONTOYA APRN [facility] ER ANXIETY,SOA [id number] 05/18/2019 08:17:00 23:59:59 CLS Outpatient BUD GARCIA MD [facility] RAD ABN DX MAMMO [id number] 05/10/2019 08:45:00 23:59:59 CLS Outpatient BUD GARCIA MD [facility] RAD GALACTORRHEA [id number] 05/07/2019 13:10:00 16:31:00 DIS Emergency SHWETA SANTIAGO, ROYAL Kellogg [facility] ER VOMITING BLOOD [id number] 03/18/2019 15:51:00 23:59:59 CLS Outpatient BILL HILL DO B [facility] ENDO EGD [id number] 02/07/2019 20:34:00 23:59:59 CLS Outpatient GRACE QUEZADA DO [facility] ENDO FOREIGN BODY [id number] 02/01/2019 11:10:00 15:45:00 DIS Outpatient MARCI SERRANO MD [facility] ENDO HEMATEMEOSIS/ABD PAIN [id number] 01/31/2019 09:51:00 10:29:00 DIS Outpatient MARCI SERRANO MD [facility] PREOP EGD [id number] 01/24/2019 21:57:00 11:45:00 DIS Inpatient GRACE QUEZADA DO [facility] 4TH HEMATEMESIS
--- NOTE | 2020-01-24 20:50 | NUR ---
pt denies being able to void at this time.
[2020-01-24] MEDS ORDERED: LISI1TAB26 (20:52)
[2020-01-24] MEDS ORDERED: DCS100C (20:52)
[2020-01-24] MEDS ORDERED: LEVE500T6 (20:52)
[2020-01-24] MEDS ORDERED: ATEN50TA (20:52)
[2020-01-24] MEDS ORDERED: FERR325T18 (20:52)
[2020-01-24] MEDS ORDERED: KETOROLAC 30 MG/ML VIAL IVP ONE (21:00)
[2020-01-24] MEDS ORDERED: PANTOPRAZOLE 40 MG (PROTONIX) VIAL IV ONE (21:00)
[2020-01-24] MEDS ORDERED: ONDANSETRON 4 MG/2 ML (SDV) Z0FRAN IVP ONE (21:00)
[2020-01-24] MEDS ORDERED: NS IV 1000 ML 1,000 ML IV SCH (21:03)
--- NOTE | 2020-01-24 21:03 | ED Abdominal Pain ---
General Chief Complaint: Abdominal/GI Problems Stated Complaint: VOMITING BLOOD Nursing Triage Note: c/o luq abdominal pain today with vomitting blood x30min. Sepsis Screen: No Definite Risk Source of Information: Patient Exam Limitations: No Limitations History of Present Illness Date Seen by Provider: Jan 24, 2020 Time Seen by Provider: 20:49 Initial Comments Patient presents ER by private conveyance with her caregiver and chief complaint that she ate lunch around 11:00 a picnic and having fun for last few days. She says by early afternoon she started having some progressively worsening left upper quadrant abdominal pain. About one hour prior to arrival she had an emesis with red tinge color. She has a history of peptic ulcer disease. She is supposed to be in on an antacid and also has antinausea medicines which she has not taken yet today. She is taking all of her other medications as prescribed. She's had no fevers chills cough shortness of breath chest pain, dysuria. She did have some several loose watery stools today. She has a history of ingesting foreign bodies related to her psychiatric diagnoses but she denies that she has ingested anything foreign or intentionally today. No history of pancreatitis. She does not drink any alcohol recently. She still has her spleen intact. Multiple exp loratory laparotomies to retrieve foreign bodies from her stomach. Allergies and Home Medications Allergies Coded Allergies: Fish Containing Products (Verified Allergy, Unknown, 01/24/19) Penicillins (Verified Allergy, Unknown, 01/24/19) Sulfa (Sulfonamide Antibiotics) (Verified Allergy, Unknown, 01/24/19) haloperidol (Verified Allergy, Unknown, 01/24/19) Home Medications Acetaminophen 325 Mg Tablet, 650 MG PO Q6H PRN for PAIN-MILD, (Reported) Atenolol 25 Mg Tablet, 25 MG PO BID, (Reported) Baclofen 10 Mg Tablet, 10 MG PO HS, (Reported) Benzocaine 14 Gm Gel..gram., TOP Q6H PRN for tooth pain, (Reported) APPLY TO TOOTH Benztropine Mesylate 1 Mg Tablet, 1 MG PO HS, (Reported) Chlorpromazine HCl 100 Mg Tablet, 200 MG PO HS, (Reported) Chlorpromazine HCl 100 Mg Tablet, 100 MG PO Q2H PRN for AGGRESSION, (Reported) Divalproex Sodium 500 Mg Tab.er.24h, 500 MG PO DAILY, (Reported) Divalproex Sodium 500 Mg Tab.er.24h, 1,000 MG PO HS, (Reported) Docusate Sodium 100 Mg Capsule, 200 MG PO DAILY, (Reported) Doxycycline Hyclate 100 Mg Tablet, 100 MG PO BID Prescribed by: LEON MONTOYA on 12/06/19 1115 Ferrous Sulfate 325 Mg Tablet, 325 MG PO 1700, (Reported) Hydroxyzine Pamoate 50 Mg Capsule, 100 MG PO Q8H PRN for ANXIETY, (Reported) Levothyroxine Sodium 50 Mcg Tablet, 50 MCG PO DAILY, (Reported) Medroxyprogesterone Acetate 150 Mg/1 Ml Syringe, 150 MG IM every 3 months, (Reported) Methyl Salicylate/Menthol 28 Gm Oint...g., TP Q4H PRN for MUSCLE PAIN, (Reported) Multivitamin/Iron/Folic Acid 1 Each Tablet, 2 TAB PO DAILY, (Reported) Olanzapine 10 Mg Tablet, 10 MG PO Q8H PRN for AGGRESSION, (Reported) Pantoprazole Sodium 40 Mg Tablet.dr, 40 MG PO DAILY, (Reported) Phenylephrine/Shk Lv/Mo/Pet,Wh 57 Gm Oint...g., RC UD PRN for HEMORRHOIDS, (Reported) Polyethylene Glycol 1000 500 Gm Powder, 17 GM PO DAILY, (Reported) Sennosides/Docusate Sodium 1 Each Tablet, 2 TAB PO HS, (Reported) Sertraline HCl 100 Mg Tablet, 100 MG PO DAILY, (Reported) Sucralfate 1 Gm Tablet, 2 GM PO QID, (Reported) Trazodone HCl 150 Mg Tablet, 200 MG PO HS, (Reported) Patient Home Medication List Home Medication List Reviewed: Yes Review of Systems Review of Systems Constitutional: No chills, No diaphoresis EENTM: No Blurred Vision, No Double Vision Respiratory: Denies Cough, Denies Shortness of Air Cardiovascular: Denies Chest Pain, Denies Lightheadedness Gastrointestinal: See HPI, Abdominal Pain; Denies Constipated; Diarrhea, Nausea, Vomiting Genitourinary: Denies Burning, Denies Discharge Musculoskeletal: No back pain, No joint pain Psychiatric/Neurological: Denies Anxiety, Denies Depressed All Other Systems Reviewed Negative Unless Noted: Yes Past Skbatoe-Mrddzz-Ysuxzl Hx Patient Social History Alcohol Use: Rarely Uses Number of Drinks Today: FF Alcohol Beverage of Choice: Vodka Recreational Drug Use: No Drug of Choice: HX: meth, THC Smoking Status: Current Everyday Smoker Type Used: Cigarettes 2nd Hand Smoke Exposure: Yes Recent Foreign Travel: No Contact w/Someone Who Travel: No Recent Infectious Disease Expo: No Recent Hopitalizations: No Immunizations Up To Date Tetanus Booster (TDap): Less than 5yrs PED Vaccines UTD: No Date of Influenza Vaccine: May 17, 2019 Seasonal Allergies Seasonal Allergies: No Past Medical History Surgeries: Yes (bilat upper arm F.B. removal, colon resection with F.B removal) Gallbladder Respiratory: No Cardiac: Yes Hypertension Neurological: Yes Seizure Disorder Genitourinary: No Gastrointestinal: Yes (hematemesis) Gastroesophageal Reflux Musculoskeletal: No Endocrine: Yes Hypothyroidsim HEENT: No Cancer: No Psychosocial: Yes Bipolar Integumentary: No Blood Disorders: No Family Medical History Hypertension Physical Exam Vital Signs Vital Signs - First Documented 01/24/20 20:40 Temp 36.8 Pulse 94 Resp 18 B/P (MAP) 123/79 (94) Pulse Ox 98 O2 Delivery Room Air Capillary Refill : Less Than 3 Seconds Height/Weight/BMI Height: 5'8.00" Weight: 240lbs. 3.0oz. 108.888109zs; 41.00 BMI Method:Estimated General Appearance: mild distress, obese HEENT: PERRL/EOMI, normal ENT inspection, pharynx normal Neck: full range of motion, supple, normal inspection Respiratory: no respiratory distress, no accessory muscle use Cardiovascular: normal peripheral pulses, regular rate, rhythm Peripheral Pulses: 2+ Radial Pulses (R), 2+ Radial Pulses (L) Gastrointestinal: normal bowel sounds, soft, tenderness (LUQ), other (large ventral well-healed scar from previous exploratory laparotomies) Extremities: normal range of motion, non-tender, normal capillary refill Neurologic/Psychiatric: alert, normal mood/affect, oriented x 3 Skin: normal color, warm/dry Progress/Results/Core Measures Results/Orders Lab Results Laboratory Tests Test 01/24/20 21:00 01/24/20 21:08 Range/Units White Blood Count 9.3 4.3-11.0 10^3/uL Red Blood Count 4.31 L 4.35-5.85 10^6/uL Hemoglobin 13.1 11.5-16.0 G/DL Hematocrit 37 35-52 % Mean Corpuscular Volume 87 80-99 FL Mean Corpuscular Hemoglobin 30 25-34 PG Mean Corpuscular Hemoglobin Concent 35 32-36 G/DL Red Cell Distribution Width 12.0 10.0-14.5 % Platelet Count 259 130-400 10^3/uL Mean Platelet Volume 10.4 7.4-10.4 FL Neutrophils (%) (Auto) 59 42-75 % Lymphocytes (%) (Auto) 33 12-44 % Monocytes (%) (Auto) 7 0-12 % Eosinophils (%) (Auto) 1 0-10 % Basophils (%) (Auto) 0 0-10 % Neutrophils # (Auto) 5.5 1.8-7.8 X 10^3 Lymphocytes # (Auto) 3.1 1.0-4.0 X 10^3 Monocytes # (Auto) 0.7 0.0-1.0 X 10^3 Eosinophils # (Auto) 0.1 0.0-0.3 10^3/uL Basophils # (Auto) 0.0 0.0-0.1 10^3/uL Sodium Level 140 135-145 MMOL/L Potassium Level 3.4 L 3.6-5.0 MMOL/L Chloride Level 106 98-107 MMOL/L Carbon Dioxide Level 23 21-32 MMOL/L Anion Gap 11 5-14 MMOL/L Blood Urea Nitrogen 16 7-18 MG/DL Creatinine 0.97 0.60-1.30 MG/DL Estimat Glomerular Filtration Rate > 60 BUN/Creatinine Ratio 16 Glucose Level 103 70-105 MG/DL Calcium Level 9.8 8.5-10.1 MG/DL Corrected Calcium 9.6 8.5-10.1 MG/DL Total Bilirubin 0.2 0.1-1.0 MG/DL Aspartate Amino Transf (AST/SGOT) 19 5-34 U/L Alanine Aminotransferase (ALT/SGPT) 38 0-55 U/L Alkaline Phosphatase 74 40-136 U/L Total Protein 7.5 6.4-8.2 GM/DL Albumin 4.2 3.2-4.5 GM/DL Lipase 57 8-78 U/L Monoscreen NEGATIVE NEGATIVE Urine Color YELLOW Urine Clarity CLEAR Urine pH 5.5 5-9 Urine Specific [place] >=1.030 1.016-1.022 Urine Protein NEGATIVE NEGATIVE Urine Glucose (UA) NEGATIVE NEGATIVE Urine Ketones NEGATIVE NEGATIVE Urine Nitrite NEGATIVE NEGATIVE Urine Bilirubin NEGATIVE NEGATIVE Urine Urobilinogen 0.2 < = 1.0 MG/DL Urine Leukocyte Esterase NEGATIVE NEGATIVE Urine RBC (Auto) NEGATIVE NEGATIVE Urine RBC NONE /HPF Urine WBC 0-2 /HPF Urine Crystals PRESENT H /LPF Urine Amorphous Sediment MOD GLENN URATES H /LPF Urine Bacteria TRACE /HPF Urine Casts NONE /LPF Urine Mucus LARGE H /LPF Urine Culture Indicated NO Urine Opiates Screen NEGATIVE NEGATIVE Urine Oxycodone Screen NEGATIVE NEGATIVE Urine Methadone Screen NEGATIVE NEGATIVE Urine Propoxyphene Screen NEGATIVE NEGATIVE Urine Barbiturates Screen NEGATIVE NEGATIVE Ur Tricyclic Antidepressants Screen NEGATIVE NEGATIVE Urine Phencyclidine Screen NEGATIVE NEGATIVE Urine Amphetamines Screen NEGATIVE NEGATIVE Urine Methamphetamines Screen NEGATIVE NEGATIVE Urine Benzodiazepines Screen NEGATIVE NEGATIVE Urine Cocaine Screen NEGATIVE NEGATIVE Urine Cannabinoids Screen NEGATIVE NEGATIVE My Orders Orders - ROYAL ROCK Cbc With Automated Diff (01/24/20 20:48) Comprehensive Metabolic Panel (01/24/20 20:48) Ua Culture If Indicated (01/24/20 20:48) Urine Bedside (01/24/20 20:48) Ondansetron Injection (Zofran Injectio (01/24/20 21:00) Pantoprazole Injection (Protonix Injecti (01/24/20 21:00) Ketorolac Injection (Toradol Injection) (01/24/20 21:00) Ed Iv/Invasive Line Start (01/24/20 21:03) Ns Iv 1000 Ml (Sodium Chloride 0.9%) (01/24/20 21:03) Ct Abdomen/Pelvis W (01/24/20 21:03) Lipase (01/24/20 21:10) Monotest (01/24/20 21:10) Drug Screen Stat (Urine) (01/24/20 21:10) Lidocaine 2% Viscous 15 Ml (Xylocaine Vi (01/24/20 23:00) Antacid Suspension (Mylanta Suspension (01/24/20 23:00) Famotidine Injection (Pepcid Injection) (01/24/20 22:49) Iohexol Injection (Omnipaque 350 Mg/Ml 1 (01/24/20 23:15) Received Contrast (Hold Metformin- Contr (01/24/20 23:15) Medications Given in ED Current Medications Medications Dose Ordered Sig/Susanna Route Start Time Stop Time Status Last Admin Dose Admin Al Hydrox/Mg Hydrox/Simethicone 30 ml ONCE ONCE PO 01/24/20 23:00 01/24/20 23:01 DC 01/24/20 22:54 30 ML Ketorolac Tromethamine 15 mg ONCE ONCE IVP 01/24/20 21:00 01/24/20 21:01 DC 01/24/20 21:22 15 MG Lidocaine HCl 15 ml ONCE ONCE PO 01/24/20 23:00 01/24/20 23:01 DC 01/24/20 22:54 15 ML Ondansetron HCl 8 mg ONCE ONCE IVP 01/24/20 21:00 01/24/20 21:01 DC 01/24/20 21:22 8 MG Pantoprazole 40 mg ONCE ONCE IV 01/24/20 21:00 01/24/20 21:01 DC 01/24/20 21:22 40 MG Vital Signs/I&O 01/24/20 01/24/20 20:40 21:22 Temp 36.8 36.8 Pulse 94 Resp 18 B/P (MAP) 123/79 (94) Pulse Ox 98 O2 Delivery Room Air Blood Pressure Mean: 94 Progress Progress Note #1: Time: 21:[address] of the abdomen pelvis with IV contrast. Liter of fluids, 8 mg Zofran, Toradol initially for pain. Pantoprazole. If we get her nausea under control then we can try GI cocktail. Last oral intake was at 11:00 this morning. Possibility exists for a foreign body however other possibilities include hepatitis, gastritis/PUD, less likely mononucleosis or appendicitis. With her history of diarrhea this could be caused by an upper GI bleed however she notes that the color of the stool has not changed. We'll get fecal and Gastroccult if possible. Progress Note #2: Time: 22:50 Progress Note The patient's pain does not correlate to the area where her appendix is seen on CT. She has no acute findings on the CT. Her pain was marginally helped by Toradol. We'll try GI cocktail and some Pepcid next. Progress Note #3: Time: 23:20 Progress Note The patient's symptoms are significantly improved by GI cocktail. She is already on sucralfate. She is already on a PPI. We will give her referral to the general surgeon, Dr. Serrano or she may alternatively follow up with primary care. Patient says she is ready to go home. Diagnostic Imaging Diagonstic Imaging: CT (With IV contrast) Plain Films/CT/US/NM/MRI: abdomen, pelvis Comments No acute findings involving the solid abdominal organs. Increase in size of low attenuation right adrenal nodule that is indeterminate and Hounsfield units or greater than 20 on this postcontrast study. Dedicated renal protocol imaging is recommended. The gallbladder is absent. Negative for lower GI tract obstruction, focal wall thickening or pneumatosis. The appendix is enlarged by CT criteria measuring 8 mm in cross section. There are however no adjacent inflammatory changes identified. Correlation with patient presentation and physical exam required to exclude early acute appendicitis. Reviewed: Reviewed by Me Departure Impression Primary Impression: LUQ abdominal pain Additional Impression: Gastritis Qualified Codes: K29.00 - Acute gastritis without bleeding Disposition: HOME, SELF-CARE Condition: Stable Departure-Patient Inst. Decision time for Depature: 23:22 Referrals: MARCI SERRANO MD, RACHEL L MD (PCP/Family) Primary Care Physician Patient Instructions: Gastritis (DC) Add. Discharge Instructions: Continue taking her medications and plan to follow-up in one week with either your primary care doctor or Dr. Serrano discuss the next Appropriate management steps or your abdominal pain/gastritis. All discharge instructions reviewed with patient and/or family. Voiced unders tanding. Copy Copies To 1: MARCI SERRANO MD, TITUS J Jan 24, 2020 21:03
[2020-01-24 21:10] LABS: BASOPHILS % (AUTO) 0 % (0-10); EOSINOPHILS # (AUTO) 0.1 10^3/uL (0.0-0.3); EOSINOPHILS % (AUTO) 1 % (0-10); HEMATOCRIT 37 % (35-52); HEMOGLOBIN 13.1 G/DL (11.5-16.0); LYMPHOCYTES # (AUTO) 3.1 X 10^3 (1.0-4.0); LYMPHOCYTES % (AUTO) 33 % (12-44); MEAN CORPUSCULAR HEMOGLOBIN 30 PG (25-34); MEAN CORPUSCULAR HGB CONC 35 G/DL (32-36); MEAN CORPUSCULAR VOLUME 87 FL (80-99); MEAN PLATELET VOLUME 10.4 FL (7.4-10.4); MONOCYTES # (AUTO) 0.7 X 10^3 (0.0-1.0); MONOCYTES % (AUTO) 7 % (0-12); NEUTROPHILS # (AUTO) 5.5 X 10^3 (1.8-7.8); NEUTROPHILS % (AUTO) 59 % (42-75); PLATELET COUNT 259 10^3/uL (130-400); WHITE BLOOD COUNT 9.3 10^3/uL (4.3-11.0)
[2020-01-24 21:20] LABS: ALBUMIN 4.2 GM/DL (3.2-4.5); CHLORIDE 106 MMOL/L (98-107); POTASSIUM 3.4 MMOL/L (3.6-5.0); SODIUM 140 MMOL/L (135-145)
[2020-01-24 21:21] LABS: CALCIUM 9.8 MG/DL (8.5-10.1)
[2020-01-24 21:22] LABS: GLUCOSE 103 MG/DL (70-105); TOTAL PROTEIN 7.5 GM/DL (6.4-8.2)
[2020-01-24 21:23] LABS: CARBON DIOXIDE 23 MMOL/L (21-32)
[2020-01-24 21:24] LABS: BILIRUBIN,TOTAL 0.2 MG/DL (0.1-1.0)
[2020-01-24 21:26] LABS: ALKALINE PHOSPHATASE 74 U/L (40-136); CREATININE SERUM 0.97 MG/DL (0.60-1.30); GFR ESTIMATED > 60
[2020-01-24 21:27] LABS: BUN/CREATININE RATIO 16
[2020-01-24 21:29] LABS: ALANINE AMINOTRANSFERASE 38 U/L (0-55)
[2020-01-24 21:41] LABS: BILIRUBIN,URINE NEGATIVE (NEGATIVE); CLARITY,URINE CLEAR; COLOR,URINE YELLOW; GLUCOSE, URINE (UA) NEGATIVE (NEGATIVE); KETONES,URINE NEGATIVE (NEGATIVE); LEUKOCYTE ESTERASE ,URINE NEGATIVE (NEGATIVE); NITRITE,URINE NEGATIVE (NEGATIVE); PH,URINE 5.5 (5-9); PROTEIN,URINE NEGATIVE (NEGATIVE)
[2020-01-24 21:53] LABS: AMPHETAMINE SCREEN, URINE NEGATIVE (NEGATIVE); BARBITURATE SCREEN URINE NEGATIVE (NEGATIVE); BENZODIAZEPINES SCREEN URINE NEGATIVE (NEGATIVE); CANNABINOID SCREEN, URINE NEGATIVE (NEGATIVE); COCAINE SCREEN URINE NEGATIVE (NEGATIVE); METHADONE STAT NEGATIVE (NEGATIVE); METHAMPHETAMINE SCREEN URINE S NEGATIVE (NEGATIVE); OPIATE SCREEN URINE NEGATIVE (NEGATIVE); OXYCODONE STAT NEGATIVE (NEGATIVE); TRICYCLIC ANTIDEPRESSANTS SCRE NEGATIVE (NEGATIVE)
[2020-01-24 21:54] LABS: PROPOXYPHENE STAT NEGATIVE (NEGATIVE)
[2020-01-24 22:04] LABS: AMORPHOUS SEDIMENT,UR MOD AMOR URATES /LPF; BACTERIA,URINE TRACE /HPF; WBC,URINE 0-2 /HPF
[2020-01-24] MEDS ORDERED: FAMOTIDINE 20MG/2ML IV (PEPCID) IV STA (22:49)
[2020-01-24] MEDS ORDERED: ANTACID SUSP 30 ML UDC (MYLANTA) PO ONE (23:00)
[2020-01-24] MEDS ORDERED: LIDOCAINE 2% VISCOUS 15 ML UDC PO ONE (23:00)
[2020-01-24] MEDS ORDERED: HOLD METFORMIN - RECEIVED CONTRAST 20 ML VIAL IV SCH (23:15)
[2020-01-24] MEDS ORDERED: IOHEXOL 350 MG/ML 100 ML (OMNIPAQUE 350) VIAL IV ONE (23:15)
[2020-01-24 23:25] VITALS: BP 127/76
--- NOTE | 2020-01-25 06:04 | Diagnostic Imaging Report ---
PROCEDURE: CT abdomen and pelvis with contrast. TECHNIQUE: Multiple contiguous axial images were obtained through the abdomen and pelvis after administration of intravenous contrast. Auto Exposure Controls were utilized during the CT exam to meet ALARA standards for radiation dose reduction. INDICATION: Left upper quadrant pain and hemoptysis. Comparison made with prior examination 01/24/2019. FINDINGS: The heart size is normal. The lung bases are clear. The liver is normal in size without focal lesions. Gallbladder is surgically absent. There is no biliary ductal dilatation. Spleen is normal. The pancreas and left adrenal glands are normal. There is 2.5 cm low-density right adrenal mass. Kidneys are normal in appearance. Aorta is nonaneurysmal. Bowel gas pattern is nonspecific. Specifically the stomach appears to be normal. There is no free air. There is no ascites. There are no focal inflammatory changes. Bladder is normal. Uterus is normal. There is no pelvic mass, adenopathy or free fluid. The osseous structures are unremarkable. The appendix does measure up to 8 mm. There are, however no surrounding inflammatory changes. IMPRESSION: Appendix measures up to 8 mm in cross-section. There are, however no focal inflammatory changes. Recommend correlation with patient's presentation and physical examination to exclude early appendicitis. The low-density right adrenal mass has increased in size since prior examination at which time it measured 2 cm now measures 2.5 cm. Additionally it does measure 20 Hounsfield units on postcontrast exam. Recommend further evaluation with either dedicated adrenal protocol imaging or MRI. No other acute abnormality in the abdomen or pelvis. Dictated by: Dictated on workstation # [id number]
== END 2020-01-24 23:25 | disposition home or self-care (01) ==
LOC: EDUNIT# 20:34 → ER 20:36
DX: K29.70 Gastritis, unspecified, without bleeding (principal); I10 Essential (primary) hypertension; K21.9 Gastro-esophageal reflux disease without esophagitis; F31.9 Bipolar disorder, unspecified; E03.9 Hypothyroidism, unspecified; F17.210 Nicotine dependence, cigarettes, uncomplicated; Z87.11 Personal history of peptic ulcer disease; Z88.0 Allergy status to penicillin; Z88.2 Allergy status to sulfonamides; Z88.8 Allergy status to other drugs, medicaments and biological substances; Z79.890 Hormone replacement therapy
CPT/HCPCS: 36415; 74177; 80053; 80306; 81000; 83690; 84703; 85025; 86308

== ENCOUNTER 2020-04-12 17:50 | Emergency (ER) | payer MEDICAID ==
[~2020-04-12] VITALS: Ht 167.7 cm; Wt 57.2 kg
[~2020-04-12 17:50] MED LIST changes: +ATEN50TA; +DCS100C; +FERR325T18; +LEVE500T6; +LISI1TAB26
[2020-04-12] MEDS ORDERED: LORazepam INJ 2 MG/ML (ATIVAN) VIAL IVP PRN (18:15)
--- NOTE | 2020-04-12 18:50 | ED General ---
General Chief Complaint: General Problems/Pain Stated Complaint: LOWER BACK PAIN & PAIN/HEAT OFF OF LOWER L BUTTOCK Nursing Triage Note: PT CAME TO ER WITH COMPLAINTS OF ABSCESS ON INNER PART OF LEFT LOWER BUTT CHEEK. PT ALSO C/O CHILLS Nursing Sepsis Screen: Possible Sepsis Risk Source of Information: Patient Exam Limitations: No Limitations History of Present Illness Date Seen by Provider: Apr 12, 2020 Time Seen by Provider: 18:49 Initial Comments Patient resides in a senior care for mental illness. 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 No nausea or vomiting. Timing/Duration: 3-4 Days Associated Systoms: Denies Symptoms Allergies and Home Medications Allergies Coded Allergies: Fish Containing Products (Verified Allergy, Unknown, 01/24/19) Penicillins (Verified Allergy, Unknown, 01/24/19) Sulfa (Sulfonamide Antibiotics) (Verified Allergy, Unknown, 01/24/19) haloperidol (Verified Allergy, Unknown, 01/24/19) Home Medications Acetaminophen 325 Mg Tablet, 650 MG PO Q6H PRN for PAIN-MILD, (Reported) Atenolol 25 Mg Tablet, 25 MG PO BID, (Reported) Baclofen 10 Mg Tablet, 10 MG PO HS, (Reported) Benzocaine 14 Gm Gel..gram., TOP Q6H PRN for tooth pain, (Reported) APPLY TO TOOTH Benztropine Mesylate 1 Mg Tablet, 1 MG PO HS, (Reported) Chlorpromazine HCl 100 Mg Tablet, 200 MG PO HS, (Reported) Chlorpromazine HCl 100 Mg Tablet, 100 MG PO Q2H PRN for AGGRESSION, (Reported) Divalproex Sodium 500 Mg Tab.er.24h, 500 MG PO DAILY, (Reported) Divalproex Sodium 500 Mg Tab.er.24h, 1,000 MG PO HS, (Reported) Docusate Sodium 100 Mg Capsule, 200 MG PO DAILY, (Reported) Doxycycline Hyclate 100 Mg Tablet, 100 MG PO BID Prescribed by: LEON MONTOYA on 12/06/19 1115 Ferrous Sulfate 325 Mg Tablet, 325 MG PO 1700, (Reported) Hydroxyzine Pamoate 50 Mg Capsule, 100 MG PO Q8H PRN for ANXIETY, (Reported) Levothyroxine Sodium 50 Mcg Tablet, 50 MCG PO DAILY, (Reported) Medroxyprogesterone Acetate 150 Mg/1 Ml Syringe, 150 MG IM every 3 months, (Reported) Methyl Salicylate/Menthol 28 Gm Oint...g., TP Q4H PRN for MUSCLE PAIN, (Reported) Multivitamin/Iron/Folic Acid 1 Each Tablet, 2 TAB PO DAILY, (Reported) Olanzapine 10 Mg Tablet, 10 MG PO Q8H PRN for AGGRESSION, (Reported) Pantoprazole Sodium 40 Mg Tablet.dr, 40 MG PO DAILY, (Reported) Phenylephrine/Shk Lv/Mo/Pet,Wh 57 Gm Oint...g., RC UD PRN for HEMORRHOIDS, (Reported) Polyethylene Glycol 1000 500 Gm Powder, 17 GM PO DAILY, (Reported) Sennosides/Docusate Sodium 1 Each Tablet, 2 TAB PO HS, (Reported) Sertraline HCl 100 Mg Tablet, 100 MG PO DAILY, (Reported) Sucralfate 1 Gm Tablet, 2 GM PO QID, (Reported) Trazodone HCl 150 Mg Tablet, 200 MG PO HS, (Reported) Patient Home Medication List Home Medication List Reviewed: Yes Review of Systems Review of Systems Constitutional: see HPI EENTM: see HPI Respiratory: no symptoms reported Cardiovascular: no symptoms reported Genitourinary: no symptoms reported Musculoskeletal: no symptoms reported Skin: no symptoms reported Psychiatric/Neurological: No Symptoms Reported Past Pkjmzgt-Ttrmpp-Ynezjc Hx Patient Social History Alcohol Use: Denies Use Number of Drinks Today: FF Alcohol Beverage of Choice: Vodka Recreational Drug Use: No Drug of Choice: HX: meth, THC Type Used: Cigarettes 2nd Hand Smoke Exposure: Yes Recent Foreign Travel: No Contact w/Someone Who Travel: No Recent Infectious Disease Expo: No Recent Hopitalizations: No Physical Abuse: No Sexual Abuse: No Mistreated: No Fear: No Immunizations Up To Date Tetanus Booster (TDap): Less than 5yrs PED Vaccines UTD: No Date of Influenza Vaccine: May 17, 2019 Seasonal Allergies Seasonal Allergies: No Past Medical History Surgeries: Yes (bilat upper arm F.B. removal, colon resection with F.B removal) Gallbladder Respiratory: No Cardiac: Yes Hypertension Neurological: Yes Seizure Disorder : No Genitourinary: No Gastrointestinal: Yes (hematemesis) Gastroesophageal Reflux Musculoskeletal: No Endocrine: Yes Hypothyroidsim HEENT: No Cancer: No Psychosocial: Yes Bipolar Integumentary: No Blood Disorders: No Family Medical History Hypertension Physical Exam Vital Signs Vital Signs - First Documented 04/12/20 18:06 Temp 36.1 Pulse 96 Resp 22 B/P (MAP) 117/81 (93) Pulse Ox 99 Capillary Refill : Less Than 3 Seconds Height, Weight, BMI Height: 5'8.00" Weight: 240lbs. 3.0oz. 108.469393qy; 20.00 BMI Method:Estimated General Appearance: No Apparent Distress, WD/WN, Obese Eyes: Bilateral Eye Normal Inspection, Bilateral Eye PERRL, Bilateral Eye EOMI Neck: Full Range of Motion, Normal Inspection Respiratory: No Accessory Muscle Use, No Respiratory Distress Cardiovascular: Regular Rate, Rhythm, Normal Peripheral Pulses Gastrointestinal: Normal Bowel Sounds, Non Tender, Soft Rectal: Other (there is a palpable left perianal/ischio mobile nodule that is very tender to palpation. Would suspect a perianal abscess.) Extremity: Normal Capillary Refill Neurologic/Psychiatric: Alert, Oriented x3 Skin: Normal Color, Warm/Dry Progress/Results/Core Measures Suspected Sepsis Recent Fever Within 48 Hours: No Infection Criteria Present: Suspected New Infection New/Unexplained Altered Menta: No Sepsis Screen: Possible Sepsis Risk SIRS Temperature: Pulse: 96 Respiratory Rate: 22 Laboratory Tests 04/12/20 18:47: White Blood Count 10.1 Blood Pressure 117 /81 Mean: 93 Laboratory Tests 04/12/20 18:47: Creatinine 0.86, Platelet Count 250 Results/Orders Lab Results Laboratory Tests Test 04/12/20 18:47 Range/Units White Blood Count 10.1 4.3-11.0 10^3/uL Red Blood Count 3.84 L 4.35-5.85 10^6/uL Hemoglobin 11.6 11.5-16.0 G/DL Hematocrit 34 L 35-52 % Mean Corpuscular Volume 89 80-99 FL Mean Corpuscular Hemoglobin 30 25-34 PG Mean Corpuscular Hemoglobin Concent 34 32-36 G/DL Red Cell Distribution Width 11.7 10.0-14.5 % Platelet Count 250 130-400 10^3/uL Mean Platelet Volume 10.6 H 7.4-10.4 FL Neutrophils (%) (Auto) 63 42-75 % Lymphocytes (%) (Auto) 28 12-44 % Monocytes (%) (Auto) 7 0-12 % Eosinophils (%) (Auto) 1 0-10 % Basophils (%) (Auto) 0 0-10 % Neutrophils # (Auto) 6.4 1.8-7.8 X 10^3 Lymphocytes # (Auto) 2.9 1.0-4.0 X 10^3 Monocytes # (Auto) 0.7 0.0-1.0 X 10^3 Eosinophils # (Auto) 0.1 0.0-0.3 10^3/uL Basophils # (Auto) 0.0 0.0-0.1 10^3/uL Sodium Level 137 135-145 MMOL/L Potassium Level 3.1 L 3.6-5.0 MMOL/L Chloride Level 106 98-107 MMOL/L Carbon Dioxide Level 20 L 21-32 MMOL/L Anion Gap 11 5-14 MMOL/L Blood Urea Nitrogen 16 7-18 MG/DL Creatinine 0.86 0.60-1.30 MG/DL Estimat Glomerular Filtration Rate > 60 BUN/Creatinine Ratio 19 Glucose Level 91 70-105 MG/DL Calcium Level 9.5 8.5-10.1 MG/DL Serum Test, Qualitative NEGATIVE NEGATIVE My Orders Orders - LEON MONTOYA APRN Cbc With Automated Diff (04/12/20 18:11) Hcg,Qualitative Serum (04/12/20 18:11) Basic Metabolic Panel (04/12/20 18:11) Ed Iv/Invasive Line Start (04/12/20 18:11) Lorazepam Injection (Ativan Injection) (04/12/20 18:15) Ketorolac Injection (Toradol Injection) (04/12/20 19:00) Ct Pelvis Wo (04/12/20 19:35) Lidocaine 1% Inj 20 Ml (Xylocaine 1% Inj (04/12/20 20:00) Ceftriaxone For Im Use (Rocephin For Im (04/12/20 20:00) Metronidazole Tablet (Flagyl Tablet) (04/12/20 20:00) Rx-Hydrocodone/Apap 5-325 Mg (Rx-Vicodin (04/12/20 20:00) Lidocaine 1% Inj 20 Ml (Xylocaine 1% Inj (04/12/20 20:00) Medications Given in ED Current Medications Medications Dose Ordered Sig/Susanna Route Start Time Stop Time Status Last Admin Dose Admin Ketorolac Tromethamine 15 mg ONCE ONCE IVP 04/12/20 19:00 04/12/20 19:01 DC 04/12/20 19:00 15 MG Lorazepam 0.5 mg ONCE PRN IVP 04/12/20 18:15 04/12/20 19:00 0.5 MG Vital Signs/I&O 04/12/20 18:06 Temp 36.1 Pulse 96 Resp 22 B/P (MAP) 117/81 (93) Pulse Ox 99 Capillary Refill : Less Than 3 Seconds Blood Pressure Mean: 93 Diagnostic Imaging Diagonstic Imaging: CT Comments NAME: TANESHA OWENS [facility] REC#: [id number] PT STATUS: REG ER : 1985 PHYSICIAN: LEON MONTOYA APRN ADMIT DATE: 04/12/20/ER Draft Date of Exam:04/12/20 CT PELVIS WO PROCEDURE: CT pelvis without contrast. TECHNIQUE: Multiple contiguous axial images were obtained through the pelvis without the use of intravenous contrast. Sagittal and coronal reformations were performed. Auto Exposure Controls were utilized during the CT exam to meet ALARA standards for radiation dose reduction. INDICATION: Left ischial abscess. FINDINGS: The recent CT abdomen/pelvis exam of 01/24/2020 failed to show any sign of an acute abnormality. On this study, there is an asymmetrical 2.9 x 2.9 cm area of increased density in the left buttock near midline. In retrospect, this finding was present on the prior exam and does not seem to have changed significantly. This could represent a small inflammatory/infectious process although there does not appear to be any significant distortion of the gluteal fat in this area. There is mild distortion of the subcutaneous fat in each gluteal region but this seems similar to the prior exam. There is no other mass or abscess identified. There is no pelvic mass or free fluid collection noted. The uterus and urinary bladder are grossly unremarkable. The appendix was not particularly well visualized but there are no indirect signs of acute appendicitis. The bone windows show no evidence for a fracture or for a destructive lesion. IMPRESSION: 1. There is an asymmetric soft tissue density in the fat of the left buttock near midline. This finding could represent a small inflammatory/infectious process although it does seem similar to the prior exam of 01/24/2020. If further evaluation is desired, then ultrasound should be considered. 2. There is no acute pelvic abnormality noted otherwise. Dictated on workstation # [id number] Dict: 04/12/201952 Trans: 04/12/202004 [id number] Interpreted by: CANDACE BRADEN MD Electronically signed by: Departure Communication (Admissions) 2014-with female patient care nursing assistant Yenifer Kyle from [facility] at the bedside and the patient's female caregiver at the bedside we did do an ultrasound-guided needle aspiration of this as it was fairly deep. Using an 18- gauge 1-1/2 inch needle attached to a 10 cc syringe was able to aspirate 7 mL of purulent/bloody material that was foul smelling. Spoke with Dr. SERRANO, agrees with plan of care. He'll follow up with her in the clinic and do anal exam under anesthesia if necessary Impression Primary Impression: Perianal abscess Disposition: HOME, SELF-CARE Condition: Stable Departure-Patient Inst. Decision time for Depature: 20:16 Referrals: BUD GARCIA MD (PCP/Family) Primary Care Physician Patient Instructions: Anal Abscess and Fistula Add. Discharge Instructions: 1. Soak in a warm bathtub a couple times a day. Antibiotics as directed. Pain medication as directed. Call Dr. SERRANO Wednesday to make an appointment to be seen All discharge instructions reviewed with patient and/or family. Voiced understanding. Scripts Cefdinir (Cefdinir) 300 Mg Capsule 300 MG PO BID, #14 CAP Prov: LEON MONTOYA EMBROIDERY SPECIALIST 04/12/20 Metronidazole (Metronidazole) 500 Mg Tablet 500 MG PO TID, #21 TAB 0 Refills Prov: LEON MONTOYA EMBROIDERY SPECIALIST 04/12/20 Copy Copies To 1: MARCI SERRANO MD, PETER J EMBROIDERY SPECIALIST Apr 12, 2020 18:50
[2020-04-12 18:55] LABS: BASOPHILS % (AUTO) 0 % (0-10); EOSINOPHILS # (AUTO) 0.1 10^3/uL (0.0-0.3); EOSINOPHILS % (AUTO) 1 % (0-10); HEMATOCRIT 34 % (35-52); HEMOGLOBIN 11.6 G/DL (11.5-16.0); LYMPHOCYTES # (AUTO) 2.9 X 10^3 (1.0-4.0); LYMPHOCYTES % (AUTO) 28 % (12-44); MEAN CORPUSCULAR HEMOGLOBIN 30 PG (25-34); MEAN CORPUSCULAR HGB CONC 34 G/DL (32-36); MEAN CORPUSCULAR VOLUME 89 FL (80-99); MEAN PLATELET VOLUME 10.6 FL (7.4-10.4); MONOCYTES # (AUTO) 0.7 X 10^3 (0.0-1.0); MONOCYTES % (AUTO) 7 % (0-12); NEUTROPHILS # (AUTO) 6.4 X 10^3 (1.8-7.8); NEUTROPHILS % (AUTO) 63 % (42-75); PLATELET COUNT 250 10^3/uL (130-400); WHITE BLOOD COUNT 10.1 10^3/uL (4.3-11.0)
[2020-04-12] MEDS ORDERED: KETOROLAC 30 MG/ML VIAL IVP ONE (19:00)
[2020-04-12 19:06] LABS: CHLORIDE 106 MMOL/L (98-107); POTASSIUM 3.1 MMOL/L (3.6-5.0); SODIUM 137 MMOL/L (135-145)
[2020-04-12 19:07] LABS: CALCIUM 9.5 MG/DL (8.5-10.1)
[2020-04-12 19:08] LABS: GLUCOSE 91 MG/DL (70-105)
[2020-04-12 19:09] LABS: CARBON DIOXIDE 20 MMOL/L (21-32)
--- NOTE | 2020-04-12 19:11 | NUR ---
Report from ARLEY Dotson.
[2020-04-12 19:12] LABS: CREATININE SERUM 0.86 MG/DL (0.60-1.30); GFR ESTIMATED > 60
[2020-04-12 19:13] LABS: BUN/CREATININE RATIO 19
--- NOTE | 2020-04-12 19:21 | NUR ---
TO ROOM FOR INTRODUCTION; PT REPORTS THAT ONSET WAS 4 DAYS AGO WITH PAIN IN HER LOWER BACK THAT RADIATED INTO HER LEFT INNER BUTTOCK. PT RATING PAIN 7/10. PT ON MONITOR; WILL CONTINUE TO MONITOR.
[2020-04-12] MEDS ORDERED: IOHEXOL 350 MG/ML 100 ML (OMNIPAQUE 350) VIAL IV ONE (19:30)
[2020-04-12] MEDS ORDERED: CATHETER FLUSH 10 ML SYR IV PRN (19:30)
[2020-04-12] MEDS ORDERED: NS 100 ML (IVPB) BAG IV ONE (19:30)
[2020-04-12] MEDS ORDERED: HOLD METFORMIN - RECEIVED CONTRAST 20 ML VIAL IV SCH (19:30)
[2020-04-12] MEDS ORDERED: cefTRIAXone 1,000 MG/2.86 ml vial (IM ONLY) IM SCH (20:00)
[2020-04-12] MEDS ORDERED: metroNIDAZOLE 500 MG (FLAGYL) TAB PO ONE (20:00)
[2020-04-12] MEDS ORDERED: LIDOCAINE 1% INJ 20 ML 20 ML VIAL INJ ONE ×2 (20:00)
[2020-04-12] MEDS ORDERED: RX-HYDROCODONE/APAP 5/325 MG #4 TAB PK PO PRN (20:00)
--- NOTE | 2020-04-12 20:07 | Diagnostic Imaging Report ---
PROCEDURE: CT pelvis without contrast. TECHNIQUE: Multiple contiguous axial images were obtained through the pelvis without the use of intravenous contrast. Sagittal and coronal reformations were performed. Auto Exposure Controls were utilized during the CT exam to meet ALARA standards for radiation dose reduction. INDICATION: Left ischial abscess. FINDINGS: The recent CT abdomen/pelvis exam of 01/24/2020 failed to show any sign of an acute abnormality. On this study, there is an asymmetrical 2.9 x 2.9 cm area of increased density in the left buttock near midline. In retrospect, this finding was present on the prior exam and does not seem to have changed significantly. This could represent a small inflammatory/infectious process although there does not appear to be any significant distortion of the gluteal fat in this area. There is no drainable abscess visualized. There is mild distortion of the subcutaneous fat in each gluteal region but this seems similar to the prior exam. There is no other mass or abscess identified. There is no pelvic mass or free fluid collection noted. The uterus and urinary bladder are grossly unremarkable. The appendix was not particularly well visualized but there are no indirect signs of acute appendicitis. The bone windows show no evidence for a fracture or for a destructive lesion. IMPRESSION: 1. There is an asymmetric soft tissue density in the fat of the left buttock near midline. This finding could represent a small indolent inflammatory/infectious process although it does seem similar to the prior exam of 01/24/2020. There is no drainable abscess visualized. If further evaluation is desired, then ultrasound should be considered. 2. There is no acute pelvic abnormality noted otherwise. Dictated by: Dictated on workstation # [id number]
[2020-04-12] MEDS ORDERED: CEFD300C3 PO (20:20)
[2020-04-12] MEDS ORDERED: HYDR-3870 PO (20:20)
[2020-04-12] MEDS ORDERED: METR-145 PO (20:20)
[2020-04-12 21:12] VITALS: BP 117/81
== END 2020-04-12 21:17 | disposition home or self-care (01) ==
LOC: EDUNIT# 17:50 → ER 17:53
DX: K61.0 Anal abscess (principal); E66.9 Obesity, unspecified; F31.9 Bipolar disorder, unspecified; K21.9 Gastro-esophageal reflux disease without esophagitis; I10 Essential (primary) hypertension; E03.9 Hypothyroidism, unspecified; G40.909 Epilepsy, unspecified, not intractable, without status epilepticus; Z68.20 Body mass index [BMI] 20.0-20.9, adult; Z82.49 Family history of ischemic heart disease and other diseases of the circulatory system; Z77.22 Contact with and (suspected) exposure to environmental tobacco smoke (acute) (chronic); Z79.890 Hormone replacement therapy; Z88.0 Allergy status to penicillin; Z88.2 Allergy status to sulfonamides; Z88.8 Allergy status to other drugs, medicaments and biological substances
CPT/HCPCS: 36415; 72192; 80048; 84703; 85025

== ENCOUNTER 2020-04-16 05:48 | Outpatient (CLI) | payer MEDICAID ==
[~2020-04-16] VITALS: Ht 172.7 cm; Wt 125.9 kg
[~2020-04-16 05:48] MED LIST changes: +CEFD300C3 PO; -FERR325T18; +FERR325T18 PO; +HYDR-3870 PO; +METR-145 PO
== END 2020-04-16 10:13 | disposition home or self-care (01) ==
LOC: PREOP 05:48
PROVIDERS: ATTEND Surgery
DX: Z01.818 Encounter for other preprocedural examination (principal)

== ENCOUNTER 2020-04-18 09:09 | Day surgery (SDC) | payer MEDICAID ==
[2020-04-18] VITALS (8 sets, daily range): BP systolic 93–106; BP diastolic 63–74
[~2020-04-18] VITALS: Ht 172 cm; Wt 125.9 kg
[~2020-04-18 09:09] MED LIST changes: -PANT40TA3 PO; +PANT40TA52 PO
--- NOTE | 2020-04-18 09:16 | Progress Note-Pre Operative ---
Pre-Operative Progress Note H&P Reviewed The H&P was reviewed, patient examined and no changes noted. Date Seen by Provider: Apr 18, 2020 Time Seen by Provider: 09:15 Date H&P Reviewed: Apr 18, 2020 Time H&P Reviewed: 09:10 Pre-Operative Diagnosis: perirectal abscess SIMI PALMER APRN Apr 18, 2020 09:16
[2020-04-18] MEDS ORDERED: HYDR-4227 PO (09:19)
--- NOTE | 2020-04-18 09:20 | Discharge Inst-Surgical ---
D/C Lap Instructions-KIDO Reconcile Patient Problems Problems Reviewed?: Yes New, Converted, or Re-Newed RX: RX on Chart Follow Up Appt in 2 weeks Activity as tolerated No driving for 24 hours No driving while on pain medications Incentive Spirometry use every 2 hours while awake Regular Diet Symptoms to Report: Fever over 101 degree F, Nausea/Vomiting Infection Signs and Symptoms to report: Increased redness, Foul odor of wound, Increased drainage Bathing instructions: May shower Operative Area Clean/Dry; Keep incision clean/dry If any problems/questions: Contact your physician or go to Emergency Room SIMI PALMER APRN Apr 18, 2020 09:20
[2020-04-18] MEDS ORDERED: BUPIVACAINE 0.5% 30 ML (SENSORCAINE) VIAL ONE (09:26)
[2020-04-18] MEDS ORDERED: LIDOCAINE/EPI 1%-1:100,000 (XYLOCAINE) 20ML ONE (09:26)
[2020-04-18] MEDS ORDERED: ONDANSETRON 4 MG/2 ML (SDV) Z0FRAN IVP PRN ×2 (09:30→13:00)
[2020-04-18] MEDS ORDERED: morphine INJ 10 MG/ML 1ML (SYR OR VIAL) IVP PRN (09:30)
[2020-04-18] MEDS ORDERED: ACETAMINOPHEN 325 MG TABLET PO PRN (09:30)
[2020-04-18] MEDS ORDERED: HYDROcodone/APAP 5 MG/325 MG (LORTAB) TAB PO ONE (09:30)
[2020-04-18] MEDS ORDERED: CLINDAMYCIN 600 MG/50 ML IVPB 50 ML IV ONE (09:45)
[2020-04-18] MEDS ORDERED: MIDAZOLAM 2 MG/2 ML (VERSED) VIAL IV ONE (10:15)
[2020-04-18] MEDS ORDERED: FAMOTIDINE 20MG/2ML IV (PEPCID) IV ONE (10:15)
[2020-04-18] MEDS: LACTATED RINGERS 1,000 ML IV PRN ×2 (10:32→12:21)
[2020-04-18] MEDS ORDERED: MIDAZOLAM 2 MG/2 ML (VERSED) VIAL ONE (10:51)
[2020-04-18] MEDS ORDERED: ONDANSETRON 4 MG/2 ML (SDV) Z0FRAN ONE (10:51)
[2020-04-18] MEDS ORDERED: fentaNYL INJECTION 100 MCG/2 ML AMP ONE (10:51)
[2020-04-18] MEDS ORDERED: SEVOFLURANE (ULTANE) 15 ML INHAL SOLN ONE (10:51)
[2020-04-18] MEDS ORDERED: proPOfol 200 MG/20 ML (DIPRIVAN) VIAL IV ONE (10:51)
[2020-04-18] MEDS ORDERED: LIDOCAINE PF 2% 5 ML (XYLOCAINE) VIAL ONE (10:51)
[2020-04-18 11:21] LABS: AMPHETAMINE SCREEN, URINE NEGATIVE (NEGATIVE); BARBITURATE SCREEN URINE NEGATIVE (NEGATIVE); BENZODIAZEPINES SCREEN URINE NEGATIVE (NEGATIVE); CANNABINOID SCREEN, URINE POSITIVE (NEGATIVE); COCAINE SCREEN URINE NEGATIVE (NEGATIVE); METHADONE STAT NEGATIVE (NEGATIVE); METHAMPHETAMINE SCREEN URINE S NEGATIVE (NEGATIVE); OPIATE SCREEN URINE POSITIVE (NEGATIVE); OXYCODONE STAT NEGATIVE (NEGATIVE); PROPOXYPHENE STAT NEGATIVE (NEGATIVE); TRICYCLIC ANTIDEPRESSANTS SCRE NEGATIVE (NEGATIVE)
--- NOTE | 2020-04-18 12:43 | Progress Note-Post Operative ---
Post-Operative Progess Note Surgeon (s)/Diesel Powerplant Mechanic Helper (s) Surgeon MARCI SERRANO MD Diesel Powerplant Mechanic Helper: taco palomo COMPUTER SYSTEMS ENGINEER Pre-Operative Diagnosis perirectal abscess Post-Operative Diagnosis perianal fistula Procedure & Operative Findings Date of Procedure 04/18/20 Procedure Performed/Findings anal exam under anesthesia. fistulotomy. Anesthesia Type general LMA Estimated Blood Loss Estimated blood loss (mL): minimal Specimens/Packing Specimens Removed none MARCI SERRANO MD Apr 18, 2020 12:43
[2020-04-18] MEDS ORDERED: morphine INJ 10 MG/ML 1ML (SYR OR VIAL) IVP ONE (13:00)
--- NOTE | 2020-04-18 13:06 | Anesthesia-General Post-Op ---
General Patient Condition Mental Status/LOC: Same as Preop Cardiovascular: Satisfactory Nausea/Vomiting: Absent Respiratory: Satisfactory Pain: Controlled Complications: Absent Post Op Complications Complications None Follow Up Care/Instructions Patient Instructions None needed. Anesthesia/Patient Condition Patient Condition Patient is doing well, no complaints, stable vital signs, no apparent adverse anesthesia problems. RUSSEL WHITFIELD DO Apr 18, 2020 13:06
[2020-04-18] MEDS ORDERED: HYDROcodone/APAP 5 MG/325 MG (LORTAB) TAB ONE (13:24)
[2020-04-18] MEDS ORDERED: HYDROcodone/APAP 7.5 MG/325 MG (LORTAB, LORCET PLUS) TABLET PO ONE (13:30)
--- NOTE | 2020-04-18 23:56 | OPERATIVE REPORT ---
DATE OF SERVICE: 04/18/2020 ATTENDING PRIMARY CARE PHYSICIAN: Dr. Scarlet Mina PREOPERATIVE DIAGNOSIS: Recurrent perianal abscess. POSTOPERATIVE DIAGNOSIS: Left lateral perianal fistula. PROCEDURE: Anal exam under anesthesia, fistulotomy and pudendal nerve block. SURGEON: Marci Serrano MD MEDICAID SPECIALIST: José Miguel Bran APRN ANESTHESIA: General laryngeal mask airway. ESTIMATED BLOOD LOSS: Minimal. 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 DISPOSITION: The patient tolerated the procedure well. INDICATIONS: The patient is a 34-year-old female who has had issues with pain and swelling in the perianal region. She reports that this has been going on for several months; however, this was worse approximately 1 week ago and she was seen in the Emergency Department and found to have an abscess and underwent a needle drainage of the abscess. She was seen in the office and she did have significant amount of pain; however, fistula opening was identified consistent with some form of fistula. DESCRIPTION OF PROCEDURE: The patient was brought to the operating room, laid supine on the table. After adequate IV pain and sedative medications and general laryngeal mask airway intubation, the patient was then placed in lithotomy position. The perineum was then prepped and draped in standard surgical fashion. A pudendal nerve block was then performed using 1% lidocaine with epinephrine using a 25-gauge needle just inferior to the ischial tuberosity. The anal sphincters then relaxed and a self-retaining speculum was placed and the anal canal examined. There was chronic stage II external and internal hemorrhoids. There were no masses to indicate any current abscesses. A fistula tract was identified, which was left lateral. This was probed with a lacrimal probe and did open up near the dentate line. This was superficial and not encompassing the anal sphincters and a fistulotomy was then performed using electrocautery with visualization of good hemostasis. A Gelfoam covered in Surgicel and Surgilube was then placed into the anal canal. The patient tolerated the procedure well. She will be instructed to keep the area clean and dry and with her first bowel movement to remove the rest of the packing. She will need to apply gauze dressing as frequent as possible to keep the area clean and dry. She will also need to do Sitz baths 4 times a day as well as after every bowel movement. Job ID: [id number] DocumentID: [id number] Dictated Date: 04/18/2020 12:51:56 Industry Operations Investigator Date: 04/18/2020 23:55:17 Dictated By: MARCI SERRANO MD MTDD
== END 2020-04-18 14:05 | disposition home or self-care (01) ==
LOC: SDC 09:09
PROVIDERS: ATTEND Surgery
DX: K60.3 Anal fistula (principal); I10 Essential (primary) hypertension; K21.9 Gastro-esophageal reflux disease without esophagitis; E03.9 Hypothyroidism, unspecified; F32.9 Major depressive disorder, single episode, unspecified; E66.9 Obesity, unspecified; Z68.41 Body mass index [BMI] 40.0-44.9, adult; F41.9 Anxiety disorder, unspecified; G47.00 Insomnia, unspecified; F43.10 Post-traumatic stress disorder, unspecified; Z79.899 Other long term (current) drug therapy; Z88.0 Allergy status to penicillin; Z88.2 Allergy status to sulfonamides; Z88.8 Allergy status to other drugs, medicaments and biological substances; Z91.013 Allergy to seafood; Z91.030 Bee allergy status; Z87.11 Personal history of peptic ulcer disease
CPT/HCPCS: 80306; 84703; 87081

== ENCOUNTER 2020-05-16 14:41 | Emergency (ER) | payer MEDICAID ==
[~2020-05-16] VITALS: Ht 167.7 cm; Wt 127.0 kg
[~2020-05-16 14:41] MED LIST changes: +HYDR-4227 PO
[2020-05-16] MEDS ORDERED: morphine INJ 10 MG/ML 1ML (SYR OR VIAL) IM STA (14:56)
[2020-05-16] MEDS ORDERED: LIDOCAINE 1% INJ 20 ML 20 ML VIAL INJ ONE (15:00)
[2020-05-16] MEDS ORDERED: cefTRIAXone 1,000 MG/2.86 ml vial (IM ONLY) IM SCH (15:00)
[2020-05-16] MEDS ORDERED: metroNIDAZOLE 500 MG (FLAGYL) TAB PO ONE (15:00)
--- NOTE | 2020-05-16 15:03 | ED GI ---
General Chief Complaint: Rect Problems Stated Complaint: ABSCESS Source of Information: Patient Exam Limitations: No Limitations History of Present Illness Date Seen by Provider: May 16, 2020 Time Seen by Provider: 15:00 Initial Comments Mentally handicapped individual lives in a snf and comes in accompanied by caregiver with a recurrent perianal abscess that seemed to get worse about 4 days ago. She was seen here on April 12 for perianal abscess and had needle aspiration done in the emergency room. She subsequently underwent exam under anesthesia with anoscopy and fistulotomy with Dr. SERRANO on April 18. Again, 4 days ago symptoms recurred. No fevers or chills. She has follow up appointment with Dr. SERRANO next week Timing/Duration: 1-2 Days Severity/Quality: Moderate, Severe Location: Other Radiation: No Radiation Activities at Onset: None Allergies and Home Medications Allergies Coded Allergies: Fish Containing Products (Verified Allergy, Unknown, 01/24/19) Penicillins (Verified Allergy, Unknown, 01/24/19) Sulfa (Sulfonamide Antibiotics) (Verified Allergy, Unknown, 01/24/19) haloperidol (Verified Allergy, Unknown, 01/24/19) Home Medications Acetaminophen 325 Mg Tablet, 650 MG PO Q6H PRN for PAIN-MILD, (Reported) Atenolol 25 Mg Tablet, 25 MG PO BID, (Reported) Baclofen 10 Mg Tablet, 10 MG PO HS, (Reported) Benztropine Mesylate 1 Mg Tablet, 1 MG PO HS, (Reported) Cefdinir 300 Mg Capsule, 300 MG PO BID Prescribed by: LEON MONTOYA on 04/12/202019 Chlorpromazine HCl 100 Mg Tablet, 200 MG PO HS, (Reported) Ciprofloxacin HCl 500 Mg Tablet, 500 MG PO BID Prescribed by: LEON MONTOYA on 05/16/20 154 Divalproex Sodium 500 Mg Tab.er.24h, 500 MG PO DAILY, (Reported) Divalproex Sodium 500 Mg Tab.er.24h, 1,000 MG PO HS, (Reported) Docusate Sodium 100 Mg Capsule, 200 MG PO DAILY, (Reported) Ferrous Sulfate 325 Mg Tablet, 325 MG PO DAILY@1700, (Reported) Hydrocodone/Acetaminophen 1 Each Tablet, 1 EACH PO Q4-6HR PRN for PAIN-MODERATE Prescribed by: LEON MONTOYA on 04/12/202020 Hydrocodone/Acetaminophen 1 Each Tablet, 1-2 TAB PO Q4H Prescribed by: SIMI PALMER on 04/18/20 09 Hydrocodone/Acetaminophen 1 Each Tablet, 1 EACH PO Q4-6HR PRN for PAIN-MODERATE Prescribed by: LEON MONTOYA on 05/16/20 155 Levothyroxine Sodium 50 Mcg Tablet, 50 MCG PO DAILY, (Reported) Medroxyprogesterone Acetate 150 Mg/1 Ml Syringe, 150 MG IM every 3 months, (Reported) Metronidazole 500 Mg Tablet, 500 MG PO TID Prescribed by: LEON MONTOYA on 04/12/202019 Metronidazole 500 Mg Tablet, 500 MG PO TID Prescribed by: LEON MONTOYA on 05/16/201548 Multivitamin/Iron/Folic Acid 1 Each Tablet, 2 TAB PO DAILY, (Reported) Pantoprazole Sodium 40 Mg Tablet.dr, 40 MG PO DAILY, (Reported) Polyethylene Glycol 1000 500 Gm Powder, 17 GM PO DAILY, (Reported) Sennosides/Docusate Sodium 1 Each Tablet, 2 TAB PO HS, (Reported) Sertraline HCl 100 Mg Tablet, 100 MG PO DAILY, (Reported) Sucralfate 1 Gm Tablet, 2 GM PO QID, (Reported) Trazodone HCl 150 Mg Tablet, 200 MG PO HS, (Reported) Patient Home Medication List Home Medication List Reviewed: Yes Review of Systems Review of Systems Constitutional: see HPI; No chills EENTM: No Symptoms Reported Respiratory: No Symptoms Reported Cardiovascular: No Symptoms Reported Gastrointestinal: See HPI, Other (Rectal pain) Genitourinary: No Symptoms Reported Musculoskeletal: no symptoms reported Skin: no symptoms reported Psychiatric/Neurological: No Symptoms Reported Endocrine: No Symptoms Reported Past Marzsld-Raahbx-Dwaafs Hx Patient Social History Alcohol Use: Occasionally Uses Number of Drinks Today: FF Alcohol Beverage of Choice: Vodka Recreational Drug Use: No Drug of Choice: HX: meth, THC Smoking Status: Current Everyday Smoker Type Used: Cigarettes 2nd Hand Smoke Exposure: Yes Recent Hopitalizations: No Immunizations Up To Date Tetanus Booster (TDap): Less than 5yrs PED Vaccines UTD: No Date of Influenza Vaccine: May 17, 2019 Seasonal Allergies Seasonal Allergies: No Past Medical History Surgeries: Yes (bilat upper arm F.B. removal, colon resection with F.B removal) Gallbladder Respiratory: No Cardiac: Yes Hypertension Neurological: Yes Seizure Disorder Genitourinary: No Gastrointestinal: Yes (rectal abscess) Gastroesophageal Reflux Musculoskeletal: No Endocrine: Yes Hypothyroidsim HEENT: No Cancer: No Psychosocial: Yes Bipolar Integumentary: No Blood Disorders: No Family Medical History Hypertension Physical Exam Vital Signs Vital Signs - First Documented 05/16/20 14:53 Temp 36.0 Pulse 91 Resp 18 B/P (MAP) 102/66 (78) Pulse Ox 96 O2 Delivery Room Air Capillary Refill : Height/Weight/BMI Height: 5'8.00" Weight: 240lbs. 3.0oz. [id number]; 42.55 BMI Method:Estimated General Appearance: WD/WN, no apparent distress, obese (she has no fevers chills or weakness, she is not tachycardic hypotensive or febrile.) Respiratory: no respiratory distress, no accessory muscle use Gastrointestinal: normal bowel sounds, non tender, soft Rectal: other (very tender nodule over the left Ishium) Genital/Rectal: other (over the left ischium there is induration and tenderness without overlying erythema. Bedside ultrasound reveals a fluid collection about 2 cm deep) Extremities: normal range of motion, non-tender Neurologic/Psychiatric: alert, normal mood/affect, oriented x 3 Skin: normal color (no), warm/dry Progress/Results/Core Measures Results/Orders My Orders Orders - LEON MONTOYA APRN Morphine Injection (Morphine Injection (05/16/20 14:56) Lidocaine/Epi 2% 1:100,000 (Xylocaine/Ep (05/16/20 15:00) Ceftriaxone For Im Use (Rocephin For Im (05/16/20 15:00) Lidocaine 1% Inj 20 Ml (Xylocaine 1% Inj (05/16/20 15:00) Metronidazole Tablet (Flagyl Tablet) (05/16/20 15:00) Wound Culture (05/16/20 14:58) Medications Given in ED Current Medications Medications Dose Ordered Sig/Susanna Route Start Time Stop Time Status Last Admin Dose Admin Lidocaine HCl 2.1 ml ONCE ONCE INJ 05/16/20 15:00 05/16/20 15:01 DC 05/16/20 15:17 2.1 ML Lidocaine/ Epinephrine 20 ml ONCE ONCE INJ 05/16/20 15:00 05/16/20 15:01 DC 05/16/20 15:29 20 ML Metronidazole 500 mg ONCE ONCE PO 05/16/20 15:00 05/16/20 15:01 DC 05/16/20 15:15 500 MG Vital Signs/I&O 05/16/20 14:53 Temp 36.0 Pulse 91 Resp 18 B/P (MAP) 102/66 (78) Pulse Ox 96 O2 Delivery Room Air Departure Communication (Admissions) 1546-Did needle aspiration ultrasound-guided of this abscess. Aspirated 10 mL of purulent material. This was about 3 and half centimeters deep, deeper than I was comfortable sticking a scalpel. Was able to aspirate using a 20 mL syringe and an 18-gauge 1-1/2 inch needle Impression Primary Impression: Perianal abscess Disposition: HOME, SELF-CARE Condition: Stable Departure-Patient Inst. Decision time for Depature: 15:03 Referrals: MARCI SERRANO MD, RACHEL L MD (PCP/Family) Primary Care Physician Patient Instructions: Anal Abscess and Fistula Add. Discharge Instructions: 1. Antibiotics and pain medication as directed. Call Dr. SERRANO for follow-up as soon as possible. Return to ER for any worsening. All discharge instructions reviewed with patient and/or family. Voiced understan ayse. Scripts Hydrocodone/Acetaminophen (Lorcet 5-325 mg Tablet) 1 Each Tablet 1 EACH PO Q4-6HR PRN for PAIN-MODERATE MDD 10 for 7 Days, #10 TAB Prov: LEON MONTOYA SPECIAL NEEDS TUTOR 05/16/20 Metronidazole (Flagyl) 500 Mg Tablet 500 MG PO TID, #21 TAB Prov: LEON MONTOYA SPECIAL NEEDS TUTOR 05/16/20 Ciprofloxacin HCl (Cipro) 500 Mg Tablet 500 MG PO BID, #14 TAB Prov: LEON MONTOYA SPECIAL NEEDS TUTOR 05/16/20 Copy Copies To 1: MARCI SERRANO MD, PETER J SPECIAL NEEDS TUTOR May 16, 2020 15:03
[2020-05-16] MEDS: LIDOCAINE/EPI 2% 1:100,00 (XYLOCAINE) 20 ML VIAL INJ ONE ×2 (15:14→15:29)
[2020-05-16] MEDS ORDERED: CIPR-225 PO (15:49)
[2020-05-16] MEDS ORDERED: METR500T PO (15:49)
[2020-05-16] MEDS ORDERED: HYDR-3870 PO (15:49)
[2020-05-16 16:14] VITALS: BP 108/69
== END 2020-05-16 16:14 | disposition home or self-care (01) ==
LOC: EDUNIT# 14:41 → ER 14:42
DX: K61.0 Anal abscess (principal); E66.9 Obesity, unspecified; E03.9 Hypothyroidism, unspecified; K21.9 Gastro-esophageal reflux disease without esophagitis; F31.9 Bipolar disorder, unspecified; G40.909 Epilepsy, unspecified, not intractable, without status epilepticus; I10 Essential (primary) hypertension; F17.210 Nicotine dependence, cigarettes, uncomplicated; Z68.41 Body mass index [BMI] 40.0-44.9, adult; Z82.49 Family history of ischemic heart disease and other diseases of the circulatory system; Z79.890 Hormone replacement therapy; Z88.0 Allergy status to penicillin; Z88.2 Allergy status to sulfonamides; Z88.8 Allergy status to other drugs, medicaments and biological substances
CPT/HCPCS: 46050; 87070; 87077; 87186; 87205

== ENCOUNTER 2020-05-21 05:31 | Outpatient (RCR) | payer MEDICAID ==
[~2020-05-21] VITALS: Ht 172.7 cm; Wt 125.9 kg
[~2020-05-21 05:31] MED LIST changes: +CIPR-225 PO; +METR500T PO
== END 2020-05-21 10:28 | disposition home or self-care (01) ==
LOC: PREOP 05:31
PROVIDERS: ATTEND Surgery
DX: Z01.812 Encounter for preprocedural laboratory examination (principal); L02.818 Cutaneous abscess of other sites; Z20.828 Contact with and (suspected) exposure to other viral communicable diseases
CPT/HCPCS: 87635

== ENCOUNTER 2020-05-23 10:51 | Day surgery (SDC) | payer MEDICAID ==
[2020-05-23] VITALS (10 sets, daily range): BP systolic 82–112; BP diastolic 45–96
[~2020-05-23] VITALS: Ht 172 cm; Wt 125.0 kg
[2020-05-23] MEDS ORDERED: LACTATED RINGERS 1,000 ML IV PRN (11:10)
[2020-05-23] MEDS ORDERED: CLINDAMYCIN 600 MG/50 ML IVPB 50 ML IV ONE (11:15)
[2020-05-23] MEDS ORDERED: BUP/EPI 0.5% 1:200,000 (SENSORCAINE) 30 ML VIAL ONE (11:24)
--- NOTE | 2020-05-23 11:38 | Progress Note-Pre Operative ---
Pre-Operative Progress Note H&P Reviewed The H&P was reviewed, patient examined and no changes noted. Date Seen by Provider: May 23, 2020 Time Seen by Provider: 11:35 Date H&P Reviewed: May 23, 2020 Time H&P Reviewed: 11:35 Pre-Operative Diagnosis: Symptomatic left ischiorectal abscess SIMI PALMER APRN May 23, 2020 11:38
[2020-05-23] MEDS ORDERED: HYDR-4227 PO (11:40)
--- NOTE | 2020-05-23 11:41 | Discharge Inst-Surgical ---
D/C Lap Instructions-KIDO Reconcile Patient Problems Problems Reviewed?: Yes New, Converted, or Re-Newed RX: RX on Chart Follow Up Appt in 2 weeks Activity as tolerated No driving for 24 hours No driving while on pain medications Incentive Spirometry use every 2 hours while awake Regular Diet Symptoms to Report: Fever over 101 degree F, Nausea/Vomiting Infection Signs and Symptoms to report: Increased redness, Foul odor of wound, Increased drainage Bathing instructions: May shower Operative Area Clean/Dry; Keep incision clean/dry If any problems/questions: Contact your physician or go to Emergency Room SIMI PALMER APRN May 23, 2020 11:41
[2020-05-23] MEDS ORDERED: HYDROcodone/APAP 5 MG/325 MG (LORTAB) TAB PO ONE (11:45)
[2020-05-23] MEDS ORDERED: ACETAMINOPHEN 325 MG TABLET PO PRN (11:45)
[2020-05-23] MEDS ORDERED: morphine INJ 10 MG/ML 1ML (SYR OR VIAL) IVP PRN (11:45)
[2020-05-23] MEDS ORDERED: ONDANSETRON 4 MG/2 ML (SDV) Z0FRAN IVP PRN ×2 (11:45→15:00)
[2020-05-23 12:09] LABS: AMPHETAMINE SCREEN, URINE NEGATIVE (NEGATIVE); BARBITURATE SCREEN URINE NEGATIVE (NEGATIVE); BENZODIAZEPINES SCREEN URINE NEGATIVE (NEGATIVE); CANNABINOID SCREEN, URINE POSITIVE (NEGATIVE); COCAINE SCREEN URINE NEGATIVE (NEGATIVE); METHADONE STAT NEGATIVE (NEGATIVE); METHAMPHETAMINE SCREEN URINE S NEGATIVE (NEGATIVE); OPIATE SCREEN URINE POSITIVE (NEGATIVE); OXYCODONE STAT NEGATIVE (NEGATIVE); PROPOXYPHENE STAT NEGATIVE (NEGATIVE); TRICYCLIC ANTIDEPRESSANTS SCRE NEGATIVE (NEGATIVE)
[2020-05-23] MEDS ORDERED: MIDAZOLAM 2 MG/2 ML (VERSED) VIAL ONE ×2 (12:12→13:44)
[2020-05-23] MEDS ORDERED: fentaNYL INJECTION 100 MCG/2 ML AMP ONE (12:13)
[2020-05-23] MEDS ORDERED: SEVOFLURANE (ULTANE) 15 ML INHAL SOLN ONE ×4 (13:10→14:34)
[2020-05-23] MEDS ORDERED: proPOfol 200 MG/20 ML (DIPRIVAN) VIAL IV ONE (13:10)
[2020-05-23] MEDS ORDERED: LIDOCAINE PF 2% 5 ML (XYLOCAINE) VIAL ONE (13:10)
[2020-05-23] MEDS ORDERED: ONDANSETRON 4 MG/2 ML (SDV) Z0FRAN ONE (13:10)
--- NOTE | 2020-05-23 14:53 | Progress Note-Post Operative ---
Post-Operative Progess Note Surgeon (s)/Hand Molder Meat (s) Surgeon MARCI SERRANO MD Hand Molder Meat: taco palomo ASSOCIATE DIRECTOR QA Pre-Operative Diagnosis Symptomatic left ischiorectal abscess Post-Operative Diagnosis same(complex) Procedure & Operative Findings Date of Procedure 05/23/20 Procedure Performed/Findings pudendal nerve block, anal exam under anesthesia, incision and drainage complex left ischiorectal abscess. Anesthesia Type general LMA Estimated Blood Loss Estimated blood loss (mL): minimal Specimens/Packing Specimens Removed abscess drainage for c&s. MARCI SERRANO MD May 23, 2020 14:53
[2020-05-23] MEDS ORDERED: morphine INJ 10 MG/ML 1ML (SYR OR VIAL) IVP ONE (15:00)
[2020-05-23] MEDS ORDERED: KETOROLAC 30 MG/ML VIAL IVP ONE (15:00)
[2020-05-23] MEDS ORDERED: HYDROmorphone 2 MG/ML VIAL (DILAUDID) IV ONE (15:00)
--- NOTE | 2020-05-23 15:07 | Anesthesia-General Post-Op ---
General Patient Condition Mental Status/LOC: Same as Preop Cardiovascular: Satisfactory Nausea/Vomiting: Absent Respiratory: Satisfactory Pain: Controlled Complications: Absent Post Op Complications Complications None Follow Up Care/Instructions Patient Instructions None needed. Anesthesia/Patient Condition Patient Condition Patient is doing well, no complaints, stable vital signs, no apparent adverse anesthesia problems. No complications reported per nursing. JARET TUCKER CRNA May 23, 2020 15:07
[2020-05-23] MEDS ORDERED: HYDROcodone/APAP 5 MG/325 MG (LORTAB) TAB ONE (15:59)
--- NOTE | 2020-05-24 02:03 | OPERATIVE REPORT ---
DATE OF SERVICE: 05/23/2020 ATTENDING PRIMARY PHYSICIAN: Dr. Scarlet Mina. PREOPERATIVE DIAGNOSIS: Left ischiorectal abscess. POSTOPERATIVE DIAGNOSIS: Left ischiorectal complex abscess identified. No fistulas. PROCEDURE: Anal exam under anesthesia, pudendal nerve block. Incision and drainage complex ischiorectal abscess. SURGEON: Marci Serrano MD. FIELD ARTILLERY SENIOR SERGEANT: José Miguel Bran APRN. ANESTHESIA: General laryngeal mask airway. ESTIMATED BLOOD LOSS: Minimal. FINDINGS: Left ischiorectal abscess with complex abscess identified. No fistulas. DISPOSITION: The patient tolerated the procedure well. INDICATIONS: The patient is a 34-year-old female with history of developmental delay, who resides in a shelter setting and is accompanied by her caregiver. She developed pain in the left perianal and buttock region initially in early April and was seen in the Emergency Department where she underwent a needle aspiration in the Emergency Department. She then underwent an anal exam under anesthesia and was found to have a superficial fistula and a fistulotomy was performed. She reported that she had done well; however, redeveloped pain as well as drainage from the left perianal region. An ultrasound was performed, which was consistent with a complex abscess and she underwent needle drainage again. Upon examination in the office, she was found to have an abscess in the left ischiorectal region. DESCRIPTION OF PROCEDURE: The patient was brought to the operating room, laid supine on the table. After adequate IV pain and sedative medications and general laryngeal mask airway intubation, the patient was placed in lithotomy position and the perineum was prepped and draped in standard surgical fashion. A 1% lidocaine with epinephrine was used to anesthetize the pudendal nerves and to allow the anal sphincters to relax and a large self-retaining speculum was placed. The anal canal was examined and there were no openings to any fistulous tracts identified. Upon examination, there was a hard palpable mass overlying just posterior and the left of the ischial tuberosity. We then proceeded with incising the skin after this area was anesthetized using 1% lidocaine with epinephrine and a vertical skin incision made using 15-blade. The subcutaneous tissue was dissected down. We then proceeded to identify the abscess cavity, which was opened using electrocautery where a significant amount of purulent drainage was identified and this was sent for culture and sensitivity. We then proceeded with breaking up of multiple loculations within the abscess cavity using digital manipulation. Good hemostasis was observed. A counter incision was then made, left lateral and through this opening, a 1-inch Ladi drain was placed and sutured to both openings using 0 silk suture. The abscess cavity was then packed with one-inch iodoform gauze. The wound was then cleaned and covered with sterile gauze followed by ABD, followed by mesh shorts. The patient tolerated the procedure well. We will have her continue with oral antibiotics as well as pain control and staff will be instructed to remove the packing tomorrow and to place gauze dressing on a b.i.d. basis to allow the wound to heal by secondary intention. We will see her in the office in one week. Job ID: [id number] DocumentID: [id number] Dictated Date: 05/23/2020 15:10:29 Log Roller Date: 05/24/2020 02:02:17 Dictated By: MARCI SERRANO MD MTDD
== END 2020-05-23 16:45 ==
LOC: SDC 10:51
PROVIDERS: ATTEND Surgery
DX: K61.39 Other ischiorectal abscess (principal); I10 Essential (primary) hypertension; K21.9 Gastro-esophageal reflux disease without esophagitis; E03.9 Hypothyroidism, unspecified; F41.9 Anxiety disorder, unspecified; F32.9 Major depressive disorder, single episode, unspecified; G47.00 Insomnia, unspecified; F43.10 Post-traumatic stress disorder, unspecified; F17.210 Nicotine dependence, cigarettes, uncomplicated; E66.01 Morbid (severe) obesity due to excess calories; Z68.41 Body mass index [BMI] 40.0-44.9, adult; Z79.899 Other long term (current) drug therapy; Z91.030 Bee allergy status; Z88.5 Allergy status to narcotic agent; Z88.0 Allergy status to penicillin; Z88.2 Allergy status to sulfonamides; Z88.8 Allergy status to other drugs, medicaments and biological substances; Z91.013 Allergy to seafood; Z87.11 Personal history of peptic ulcer disease
CPT/HCPCS: 80306; 84703; 87070; 87075; 87205

== ENCOUNTER 2020-07-12 12:44 | Emergency (ER) | payer MEDICAID ==
[~2020-07-12] VITALS: Ht 172 cm; Wt 115.0 kg
[2020-07-12 14:20] VITALS: BP 104/66
[2020-07-12] MEDS ORDERED: CIPR500T4 PO (15:07)
[2020-07-12] MEDS ORDERED: METR500T PO (15:07)
--- NOTE | 2020-07-12 15:08 | ED Integumentary General ---
General Chief Complaint: Skin/Wound Problems Stated Complaint: ABCESS ON L BUTTOCKS Nursing Triage Note: PT HAS WOUND ON BUTTOCKS, PT STATES OPENED UP ON HAS BRIGHT GREEN DRAINAGE FROM WOUND. HAS HAD 2 PREVIOUS SURG ON BUTTOCKS. Source: patient Exam Limitations: no limitations History of Present Illness Date Seen by Provider: Jul 12, 2020 Time Seen by Provider: 19:00 Initial Comments abscess left buttocks Timing/Duration: constant Severity: moderate Associated Symptoms: denies symptoms Allergies and Home Medications Allergies Coded Allergies: Fish Containing Products (Verified Allergy, Unknown, 05/23/20) Penicillins (Verified Allergy, Unknown, 05/23/20) Sulfa (Sulfonamide Antibiotics) (Verified Allergy, Unknown, 05/23/20) haloperidol (Verified Allergy, Unknown, 05/23/20) Home Medications Acetaminophen 325 Mg Tablet, 650 MG PO Q6H PRN for PAIN-MILD, (Reported) Atenolol 25 Mg Tablet, 25 MG PO BID, (Reported) Baclofen 10 Mg Tablet, 10 MG PO HS, (Reported) Benztropine Mesylate 1 Mg Tablet, 1 MG PO HS, (Reported) Cefdinir 300 Mg Capsule, 300 MG PO BID Prescribed by: LEON MONTOYA on 04/12/202019 Chlorpromazine HCl 100 Mg Tablet, 200 MG PO HS, (Reported) Ciprofloxacin HCl 500 Mg Tablet, 500 MG PO BID Prescribed by: LEON MONTOYA on 05/16/20 154 Ciprofloxacin HCl 500 Mg Tablet, 500 MG PO BID Prescribed by: LEON MONTOYA on 07/12/20 1507 Divalproex Sodium 500 Mg Tab.er.24h, 500 MG PO DAILY, (Reported) Divalproex Sodium 500 Mg Tab.er.24h, 1,000 MG PO HS, (Reported) Docusate Sodium 100 Mg Capsule, 200 MG PO DAILY, (Reported) Ferrous Sulfate 325 Mg Tablet, 325 MG PO DAILY@1700, (Reported) Hydrocodone/Acetaminophen 1 Each Tablet, 1 EACH PO Q4-6HR PRN for PAIN-MODERATE Prescribed by: LENO MONTOYA on 04/12/202020 Hydrocodone/Acetaminophen 1 Each Tablet, 1-2 TAB PO Q4H Prescribed by: SIMI PALMER on 04/18/20 0919 Hydrocodone/Acetaminophen 1 Each Tablet, 1 EACH PO Q4-6HR PRN for PAIN-MODERATE Prescribed by: LEON MONTOYA on 05/16/20 1550 Hydrocodone/Acetaminophen 1 Each Tablet, 1-2 TAB PO Q4H Prescribed by: SIMI PALMER on 05/23/20 1140 Levothyroxine Sodium 50 Mcg Tablet, 50 MCG PO DAILY, (Reported) Medroxyprogesterone Acetate 150 Mg/1 Ml Syringe, 150 MG IM every 3 months, (Reported) Metronidazole 500 Mg Tablet, 500 MG PO TID Prescribed by: LEON MONTOYA on 04/12/202019 Metronidazole 500 Mg Tablet, 500 MG PO TID Prescribed by: LEON MONTOYA on 05/16/20 154 Metronidazole 500 Mg Tablet, 500 MG PO TID Prescribed by: LEON MONTOYA on 07/12/20 1507 Multivitamin/Iron/Folic Acid 1 Each Tablet, 2 TAB PO DAILY, (Reported) Pantoprazole Sodium 40 Mg Tablet.dr, 40 MG PO DAILY, (Reported) Polyethylene Glycol 1000 500 Gm Powder, 17 GM PO DAILY, (Reported) Sennosides/Docusate Sodium 1 Each Tablet, 2 TAB PO HS, (Reported) Sertraline HCl 100 Mg Tablet, 100 MG PO DAILY, (Reported) Sucralfate 1 Gm Tablet, 2 GM PO QID, (Reported) Trazodone HCl 150 Mg Tablet, 200 MG PO HS, (Reported) Patient Home Medication List Home Medication List Reviewed: Yes Review of Systems Review of Systems Constitutional: see HPI EENTM: see HPI Respiratory: no symptoms reported Cardiovascular: no symptoms reported Genitourinary: no symptoms reported Musculoskeletal: no symptoms reported Skin: no symptoms reported Psychiatric/Neurological: No Symptoms Reported Endocrine: No Symptoms Reported All Other Systems Reviewed Negative Unless Noted: Yes Past Wgcjrfw-Srkudo-Xaqfos Hx Patient Social History Alcohol Use: Denies Use Number of Drinks Today: FF Alcohol Beverage of Choice: Vodka Recreational Drug Use: No Drug of Choice: HX: meth, THC Smoking Status: Current Everyday Smoker Type Used: Cigarettes 2nd Hand Smoke Exposure: Yes Recent Foreign Travel: No Contact w/Someone Who Travel: No Recent Infectious Disease Expo: No Recent Hopitalizations: No Physical Abuse: No Sexual Abuse: No Immunizations Up To Date Tetanus Booster (TDap): Less than 5yrs PED Vaccines UTD: No Date of Influenza Vaccine: May 17, 2019 Seasonal Allergies Seasonal Allergies: No Past Medical History Surgeries: Yes (bilat upper arm F.B. removal, colon resection with F.B removal) Gallbladder Respiratory: No Currently Using CPAP: No Currently Using BIPAP: No Cardiac: Yes Hypertension Neurological: Yes Seizure Disorder Genitourinary: No Gastrointestinal: Yes (rectal abscess) Gastroesophageal Reflux Musculoskeletal: No Endocrine: Yes Hypothyroidsim HEENT: No Cancer: No Psychosocial: Yes Bipolar Integumentary: No Blood Disorders: No Family Medical History Hypertension Physical Exam Vital Signs Vital Signs - First Documented 07/12/20 14:20 Temp 36.5 Pulse 82 Resp 18 B/P (MAP) 104/66 (79) Pulse Ox 100 Capillary Refill : Less Than 3 Seconds General Appearance: WD/WN, no apparent distress Neck: non-tender, full range of motion Respiratory: no respiratory distress, no accessory muscle use Gastrointestinal: normal bowel sounds, non tender, soft Extremities: normal range of motion, non-tender Neurologic/Psychiatric: alert, normal mood/affect, oriented x 3 Skin: normal color, warm/dry Skin Problem Character: abscess Progress/Results/Core Measures Results/Orders Vital Signs/I&O 07/12/20 14:20 Temp 36.5 Pulse 82 Resp 18 B/P (MAP) 104/66 (79) Pulse Ox 100 Blood Pressure Mean: 79 Departure Impression Primary Impression: Perianal wound Disposition: 01 HOME, SELF-CARE Condition: Stable Departure-Patient Inst. Decision time for Depature: 15:06 Referrals: BILL HILL BRETT D DO KIDO, TAKAAKI MD STEVENS, RACHEL L MD (PCP/Family) Primary Care Physician Patient Instructions: Skin Abscess Add. Discharge Instructions: 1. Go home and take a pain pill. Return to ER for any concerns Follow-up with your surgeon next week. All discharge instructions reviewed with patient and/or family. Voiced understanding. Scripts Metronidazole (Flagyl) 500 Mg Tablet 500 MG PO TID, #21 TAB Prov: LEON MONTOYA BAR PILOT 07/12/20 Ciprofloxacin HCl (Ciprofloxacin HCl) 500 Mg Tablet 500 MG PO BID, #14 TAB Prov: LEON MONTOYA BAR PILOT 07/12/20 LEON MONTOYA APRN Jul 12, 2020 15:07
== END 2020-07-12 15:17 | disposition home or self-care (01) ==
LOC: EDUNIT# 12:44 → ER 12:45
DX: S31.502A Unspecified open wound of unspecified external genital organs, female, initial encounter (principal); K21.9 Gastro-esophageal reflux disease without esophagitis; I10 Essential (primary) hypertension; G40.909 Epilepsy, unspecified, not intractable, without status epilepticus; E03.9 Hypothyroidism, unspecified; F31.9 Bipolar disorder, unspecified; F17.210 Nicotine dependence, cigarettes, uncomplicated; Z88.0 Allergy status to penicillin; Z88.2 Allergy status to sulfonamides; Z88.8 Allergy status to other drugs, medicaments and biological substances; Z79.890 Hormone replacement therapy; Z82.49 Family history of ischemic heart disease and other diseases of the circulatory system
CPT/HCPCS: 99282

== ENCOUNTER 2020-09-02 05:29 | Outpatient (RCR) | payer MEDICAID ==
[~2020-09-02] VITALS: Ht 172.7 cm; Wt 115.9 kg
[~2020-09-02 05:29] MED LIST changes: +CIPR500T4 PO
== END 2020-09-02 12:43 | disposition home or self-care (01) ==
LOC: PREOP 05:29
PROVIDERS: ATTEND Surgery
DX: Z01.812 Encounter for preprocedural laboratory examination (principal); L02.31 Cutaneous abscess of buttock; Z20.822 Contact with and (suspected) exposure to COVID-19

== ENCOUNTER 2020-09-04 07:06 | Day surgery (SDC) | payer MEDICAID ==
[~2020-09-04] VITALS: Ht 172.7 cm; Wt 115.9 kg
[2020-09-04] VITALS (10 sets, daily range): BP systolic 90–125; BP diastolic 59–96
[~2020-09-04 07:06] MED LIST changes: -CIPR500T4 PO; +CIPR500T5 PO; +SERT-414 PO; -SERT100T8 PO
[2020-09-04] MEDS ORDERED: LIDOCAINE/EPI 1%-1:100,000 (XYLOCAINE) 50 ML ONE (07:11)
[2020-09-04] MEDS ORDERED: proPOfol 200 MG/20 ML (DIPRIVAN) VIAL IV ONE ×2 (07:20→07:21)
[2020-09-04] MEDS ORDERED: fentaNYL INJECTION 100 MCG/2 ML AMP ONE (07:20)
[2020-09-04] MEDS ORDERED: MIDAZOLAM 2 MG/2 ML (VERSED) VIAL ONE (07:20)
[2020-09-04] MEDS ORDERED: LIDOCAINE PF 2% 5 ML (XYLOCAINE) VIAL ONE ×2 (07:21→08:16)
[2020-09-04] MEDS ORDERED: SEVOFLURANE (ULTANE) 15 ML INHAL SOLN ONE ×2 (07:21→07:42)
[2020-09-04] MEDS ORDERED: ONDANSETRON 4 MG/2 ML (SDV) Z0FRAN ONE (07:21)
[2020-09-04] MEDS ORDERED: ROCURONIUM 10 MG/ML 5 ML SYRINGE IV ONE (07:26)
[2020-09-04] MEDS ORDERED: LACTATED RINGERS 1,000 ML IV PRN (07:30)
[2020-09-04] MEDS ORDERED: CLINDAMYCIN 600 MG/50 ML IVPB 50 ML IV ONE (07:30)
[2020-09-04] MEDS ORDERED: CATHETER FLUSH 10 ML SYR IV PRN (07:45)
[2020-09-04 08:07] LABS: AMPHETAMINE SCREEN, URINE NEGATIVE (NEGATIVE); BARBITURATE SCREEN URINE NEGATIVE (NEGATIVE); BENZODIAZEPINES SCREEN URINE NEGATIVE (NEGATIVE); CANNABINOID SCREEN, URINE POSITIVE (NEGATIVE); COCAINE SCREEN URINE NEGATIVE (NEGATIVE); METHADONE STAT NEGATIVE (NEGATIVE); METHAMPHETAMINE SCREEN URINE S NEGATIVE (NEGATIVE); OPIATE SCREEN URINE NEGATIVE (NEGATIVE); OXYCODONE STAT NEGATIVE (NEGATIVE); PROPOXYPHENE STAT NEGATIVE (NEGATIVE); TRICYCLIC ANTIDEPRESSANTS SCRE NEGATIVE (NEGATIVE)
--- NOTE | 2020-09-04 08:22 | Progress Note-Pre Operative ---
Pre-Operative Progress Note H&P Reviewed The H&P was reviewed, patient examined and no changes noted. Time Seen by Provider: 08:17 Date H&P Reviewed: Sep 04, 2020 Time H&P Reviewed: 08:18 Pre-Operative Diagnosis: Left gluteal abscess, side marked. BILL HILL DO Sep 04, 2020 08:22
[2020-09-04] MEDS ORDERED: SUCCINYLCHOLINE INJ 100 MG/5 ML SYR/VIAL ONE (08:48)
[2020-09-04] MEDS ORDERED: fentaNYL INJECTION 100 MCG/2 ML AMP IVP ONE (09:00)
[2020-09-04] MEDS ORDERED: MEPERIDINE (DEMEROL) INJ 50 MG/ML IVP ONE (09:00)
[2020-09-04] MEDS ORDERED: morphine INJ 10 MG/ML 1ML (SYR OR VIAL) IVP ONE (09:00)
[2020-09-04] MEDS ORDERED: ONDANSETRON 4 MG/2 ML (SDV) Z0FRAN IVP PRN (09:00)
--- NOTE | 2020-09-04 09:10 | Progress Note-Post Operative ---
Post-Operative Progess Note Surgeon (s)/[employer] Program Coordinator (s) Surgeon BILL HILL DO [employer] Program Coordinator: Jeremiah Ribera MSIII Pre-Operative Diagnosis Left gluteal abscess, side marked. Post-Operative Diagnosis same pending path Procedure & Operative Findings Date of Procedure 09/04/20 Procedure Performed/Findings Exc Left gluteal abscess cavity, 4.7cm incision Anesthesia Type GET Estimated Blood Loss Estimated blood loss (mL): less than 5ml Specimens/Packing Specimens Removed skin and left gluteal abscess cavity BILL HILL DO Sep 04, 2020 09:10
--- NOTE | 2020-09-04 09:12 | Discharge Inst-Surgical ---
Discharge Inst-Surgical Depart Medication/Instructions New, Converted or Re-Newed RX: Other (use home meds) Patient Instructions Follow up Appt: Make appointment for 1 week. [phone] Instructions: No strenuous activity. May shower in 24 hours, no tub bath or soaking. Use incentive spirometer at home as directed. No Smoking Skin/Wound Care: May remove bandages in am. You need to leave the Dermabond on incision it will fall off on it's own. Symptoms to Report: Appetite Changes, Extremity Discoloration, Numbness/Tingling, Swelling Increased, Bleeding Excessive, Eyesight Changes, Pain Increased, Urine Color Zelda nge, Constipation(Persistent), Fever over 101 degree F, Pain/Pressure in chest, Urinating Difficulty, Cough Up/Vomit Blood, Heart Beat Irreg/Pounding, Pain/Pressure in jaw, Cramps in feet or legs, Lightheadedness, Pain/Pressure in shoulder, Diarrhea(Persistent), Memory Changes Suddenly, Questions/Concerns, Weight gain consecutive days, Dizziness/Fainting, Nausea/Vomiting, Shortness of Breath, Weight gain over 2 pounds If questions or concerns contact your physician Or seek help at emergency department. Activity Activity as Tolerated: Yes Activity Instructions: Avoid Stress to Incision Diet Discharge Diet: No Restrictions Diet After 24 Hours: Clear Liquid if Nauseous If Any Problems/Questions/Issu: Contact Your Physician, Go to Emergency Room Skin/Wound Care Infection Signs and Symptoms: Increased Redness, Foul Odor of Wound, Increased Drainage, Skin Itchy or Has a Rash, Increased Swelling, Temperature Above 101 F Bathing Instructions: Shower Stitches/Lexi/Dermabond Dis: BILL Saunders DO Sep 04, 2020 09:12
[2020-09-04] MEDS ORDERED: morphine INJ 10 MG/ML 1ML (SYR OR VIAL) ONE (09:41)
--- NOTE | 2020-09-04 09:56 | Anesthesia-General Post-Op ---
General Patient Condition Mental Status/LOC: Same as Preop Cardiovascular: Satisfactory Nausea/Vomiting: Absent Respiratory: Satisfactory Pain: Controlled Complications: Absent Post Op Complications Complications None Follow Up Care/Instructions Patient Instructions None needed. Anesthesia/Patient Condition Patient Condition Patient is doing well, no complaints, stable vital signs, no apparent adverse anesthesia problems. No complications reported per nursing. SHARON BAER CRNA Sep 04, 2020 09:56
--- NOTE | 2020-09-04 19:20 | OPERATIVE REPORT ---
DATE OF SERVICE: 09/04/2020 PREOPERATIVE DIAGNOSIS: Left gluteal mass. POSTOPERATIVE DIAGNOSIS: Left gluteal mass, pending pathology. PROCEDURE: Excision of left gluteal mass, 4.7 cm incision. SURGEON: Roland Newell DO BAGGAGE CHECKER: Jreemiah Nascimento MS3. ANESTHESIA: General endotracheal tube. SPECIMEN: Left gluteal mass. BLOOD LOSS: Scant. FLUIDS: Per anesthesia. POSTOPERATIVE CONDITION: Stable. INDICATION FOR PROCEDURE: The patient is a 35-year-old female who had a mass that was most likely an abscess in the left gluteal area. Had been draining, was stopped and then restarted. When seen today, it looked like it was closed and healed. There is no erythema, but there was some erythema higher up on the right gluteal cheek. PROCEDURE NOTE: Left side had been marked and confirmed during timeout. She had been placed in the right lateral decubitus position. She was sterilely prepped and draped in normal fashion. Local lidocaine was used to infiltrate around this area. There is a scar from previous open incision. Did elliptical incision and then increasing superiorly and inferiorly with Bovie electrocautery, this incision measured 4.7 cm. I then started dissecting down into the subcutaneous fat, went down about 3 or 4 cm at least and able to actually followed this tracked down and then completely removed this mass or abscess cavity with Bovie electrocautery. There was a little bit of the wall of this abscess cavity was left. This was cauterized, debrided and then copiously irrigated with normal saline. There was really no gross contamination. There was looked like there may have been a tract going towards the perianal area, but did not see any obvious tubular structure. After irrigating and obtaining hemostasis, I elected to close this area because it was a pretty clean, so closed with 3-0 Vicryl 3 interrupted subcutaneous stitches and closed the skin with 4-0 undyed Monocryl, 5 interrupted subcuticular stitches. Area was cleaned and dried. Dermabond placed as well as a dressing. The patient tolerated the procedure. Sponge, instrument and needle count correct at the end of the case. Job ID: [id number] DocumentID: [id number] Dictated Date: 09/04/2020 15:50:44 Wide Area Network Administrator Date: 09/04/2020 19:20:06 Dictated By: ROLAND NEWELL DO
== END 2020-09-04 11:10 | disposition home or self-care (01) ==
LOC: SDC 07:06
PROVIDERS: ATTEND Surgery
DX: L02.31 Cutaneous abscess of buttock (principal); Z91.013 Allergy to seafood; I10 Essential (primary) hypertension; K21.9 Gastro-esophageal reflux disease without esophagitis; E03.9 Hypothyroidism, unspecified; E66.01 Morbid (severe) obesity due to excess calories; Z68.38 Body mass index [BMI] 38.0-38.9, adult; F17.210 Nicotine dependence, cigarettes, uncomplicated; Z79.899 Other long term (current) drug therapy; Z88.0 Allergy status to penicillin; Z88.2 Allergy status to sulfonamides; Z88.8 Allergy status to other drugs, medicaments and biological substances; Z91.030 Bee allergy status; Z80.9 Family history of malignant neoplasm, unspecified
CPT/HCPCS: 80306; 84703; 87070; 87075; 87076; 87081; 87205; 88304

== ENCOUNTER 2020-12-19 06:50 | Outpatient (CLI) | payer MEDICAID ==
[~2020-12-19] VITALS: Ht 177.8 cm; Wt 115.7 kg
[2020-12-23] MEDS ORDERED: LEVE500T6 PO (09:20)
[2020-12-23] MEDS ORDERED: TRAZ-227 PO (09:20)
[2020-12-23] MEDS ORDERED: CYCL10TA9 PO (09:20)
[2020-12-23] MEDS ORDERED: TOPI100T11 PO (09:20)
[2020-12-23] MEDS ORDERED: KETO10TA PO (09:20)
[2020-12-23] MEDS ORDERED: DCS100C PO (09:20)
[2020-12-23] MEDS ORDERED: LISI1TAB26 PO (09:20)
== END 2020-12-23 09:29 | disposition home or self-care (01) ==
LOC: PREOP 06:50
PROVIDERS: ATTEND Surgery
DX: Z01.818 Encounter for other preprocedural examination (principal)

== ENCOUNTER 2020-12-25 06:56 | Day surgery (SDC) | payer MEDICAID ==
[2020-12-25] VITALS (8 sets, daily range): BP systolic 83–97; BP diastolic 32–64
[~2020-12-25] VITALS: Ht 177 cm; Wt 115.7 kg
[~2020-12-25 06:56] MED LIST changes: +CYCL10TA9 PO; +DCS100C PO; +KETO10TA PO; +LEVE500T6 PO; +LIDOCAINE/EPI 1%-1:200,000 (XYLOCAINE) 30 ML VIAL ONE; +LISI1TAB26 PO; +TOPI100T11 PO; +TRAZ-227 PO
[2020-12-25] MEDS ORDERED: fentaNYL INJ 100 MCG/2 ML AMP ONE (07:35)
[2020-12-25] MEDS ORDERED: MIDAZOLAM 2 MG/2 ML (VERSED) VIAL ONE ×2 (07:36→07:38)
[2020-12-25] MEDS ORDERED: CLINDAMYCIN 600 MG/50 ML IVPB 50 ML IV ONE ×2 (07:38→07:45)
[2020-12-25] MEDS: LACTATED RINGERS 1,000 ML IV PRN ×2 (07:58→09:20)
--- NOTE | 2020-12-25 07:59 | Progress Note-Pre Operative ---
Pre-Operative Progress Note H&P Reviewed The H&P was reviewed, patient examined and no changes noted. Time Seen by Provider: 07:56 Date H&P Reviewed: December 25, 2020 Time H&P Reviewed: 07:56 Pre-Operative Diagnosis: Gluteal abscess BILL HILL DO December 25, 2020 07:59
[2020-12-25] MEDS ORDERED: ATEN50TA PO (08:06)
[2020-12-25] MEDS ORDERED: LEVE500T99 PO (08:06)
--- NOTE | 2020-12-25 08:31 | Progress Note-Post Operative ---
Post-Operative Progess Note Surgeon (s)/Aircraft Maintenance Technician (s) Surgeon BILL HILL DO Aircraft Maintenance Technician: none Pre-Operative Diagnosis Gluteal abscess Post-Operative Diagnosis same Procedure & Operative Findings Date of Procedure 12/25/20 Procedure Performed/Findings I&D with packing Debridement Anesthesia Type GET Estimated Blood Loss Estimated blood loss (mL): less than 10ml Specimens/Packing Specimens Removed debrided tissue BILL HILL DO December 25, 2020 08:31
--- NOTE | 2020-12-25 08:33 | Discharge Inst-Surgical ---
Discharge Inst-Surgical Depart Medication/Instructions New, Converted or Re-Newed RX: Other (use OTC meds for pain) Patient Instructions Follow up Appt: Make appointment for 1 week. [phone] Instructions: No lifting greater than 20 pounds. No strenuous activity. May shower in 24 hours, no tub bath or soaking. Use incentive spirometer at home as directed. No Smoking Skin/Wound Care: May remove bandages in am. You need to leave the packing in and changed it daily. Symptoms to Report: Appetite Changes, Extremity Discoloration, Numbness/Tingling, Swelling Increased, Bleeding Excessive, Eyesight Changes, Pain Increased, Urine Color Change, Constipation(Persistent), Fever over 101 degree F, Pain/Pressure in chest, Urinating Difficulty, Cough Up/Vomit Blood, Heart Beat Irreg/Pounding, Pain/Pressure in jaw, Cramps in feet or legs, Lightheadedness, Pain/Pressure in shoulder, Diarrhea(Persistent), Memory Changes Suddenly, Questions/Concerns, Weight gain consecutive days, Dizziness/Fainting, Nausea/Vomiting, Shortness of Breath, Weight gain over 2 pounds If questions or concerns contact your physician Or seek help at emergency department. Activity Activity as Tolerated: Yes Activity Instructions: Avoid Stress to Incision Driving Instructions: No Driving/Refer to Dr. George Discharge Diet: No Restrictions Diet After 24 Hours: Clear Liquid if Nauseous If Any Problems/Questions/Issu: Contact Your Physician, Go to Emergency Room Skin/Wound Care Infection Signs and Symptoms: Increased Redness, Foul Odor of Wound, Increased Drainage, Skin Itchy or Has a Rash, Increased Swelling, Temperature Above 101 F Bathing Instructions: BILL Castillo DO December 25, 2020 08:33
[2020-12-25] MEDS ORDERED: proPOfol 200 MG/20 ML (DIPRIVAN) VIAL IV ONE (08:45)
[2020-12-25] MEDS ORDERED: SEVOFLURANE (ULTANE) 15 ML INHAL SOLN ONE (08:45)
[2020-12-25] MEDS ORDERED: LIDOCAINE PF 2% 5 ML (XYLOCAINE) VIAL ONE (08:45)
[2020-12-25] MEDS ORDERED: ONDANSETRON 4 MG/2 ML (SDV) Z0FRAN ONE (08:45)
[2020-12-25] MEDS ORDERED: LACTATED RINGERS 1,000 ML IV ONE (08:56)
--- NOTE | 2020-12-25 09:23 | Anesthesia-General Post-Op ---
General Patient Condition Mental Status/LOC: Same as Preop Cardiovascular: Satisfactory Nausea/Vomiting: Absent Respiratory: Satisfactory Pain: Controlled Complications: Absent Post Op Complications Complications None Follow Up Care/Instructions Patient Instructions None needed. Anesthesia/Patient Condition Patient Condition Patient is doing well, no complaints, stable vital signs, no apparent adverse anesthesia problems. No complications reported per nursing. MARGY ARGUELLO CRNA December 25, 2020 09:23
--- NOTE | 2020-12-25 14:17 | OPERATIVE REPORT ---
DATE OF SERVICE: PREOPERATIVE DIAGNOSIS: Gluteal abscess. POSTOPERATIVE DIAGNOSIS: Gluteal abscess. PROCEDURES: 1. Incision and drainage of gluteal abscess with packing. 2. Debridement approximately 8 square cm. SURGEON: Roland Newell DO CUSTOMER SERVICE ASSOCIATE: None. ANESTHESIA: General endotracheal tube. SPECIMEN: Debrided tissue measuring approximately just over 2 cm and just under 4 cm. BLOOD LOSS: Scant. FLUIDS: Per anesthesia. POSTOPERATIVE CONDITION: Stable. INDICATION FOR PROCEDURE: The patient is a 35-year-old female, who had an abscess and had it excised and closed within it continued to drain. FINDINGS: The patient had gluteal abscess, was on the left gluteal cheek. PROCEDURE NOTE: After informed consent was obtained, the patient was brought to the operating room, placed on the table in lithotomy position. She was sterilely prepped and draped in normal fashion. Local lidocaine was used to infiltrate the skin around this abscess, then going right through the previous scar with a #15 blade, carried down to skin and subcutaneous tissue opened up and there was a pocket on the inside that had not healed. This area was then roughly debrided with Bovie electrocautery and then did a cut out section measuring just over 2 cm and just under 4 cm. This was passed off the table. Hemostasis obtained using Bovie electrocautery. I then elected to pack this with a half inch iodoform packing. Area was packed and the surrounding area cleaned and dried, dressing placed. The patient tolerated the procedure and transferred to recovery room in stable condition. Sponge, instrument and needle count correct at the end of the case. Job ID: [id number] DocumentID: [id number] Dictated Date: 12/25/2020 09:31:15 Dairy Farm Worker Date: 12/25/2020 14:16:35 Dictated By: ROLAND NEWELL DO
== END 2020-12-25 10:00 | disposition home or self-care (01) ==
LOC: SDC 06:56
PROVIDERS: ATTEND Surgery
DX: L02.31 Cutaneous abscess of buttock (principal); I10 Essential (primary) hypertension; F41.9 Anxiety disorder, unspecified; K21.9 Gastro-esophageal reflux disease without esophagitis; F32.9 Major depressive disorder, single episode, unspecified; E66.01 Morbid (severe) obesity due to excess calories; Z68.36 Body mass index [BMI] 36.0-36.9, adult; F17.210 Nicotine dependence, cigarettes, uncomplicated; Z79.899 Other long term (current) drug therapy
CPT/HCPCS: 84703; 87081; 88304

== ENCOUNTER 2021-01-27 09:35 | Emergency (ER) | payer MEDICAID ==
[~2021-01-27] VITALS: Ht 175 cm; Wt 117.0 kg
[~2021-01-27 09:35] MED LIST changes: +ATEN50TA PO; +LEVE500T99 PO; -LIDOCAINE/EPI 1%-1:200,000 (XYLOCAINE) 30 ML VIAL ONE; +MIRT-69 PO; -MIRT30TA6 PO; -OMEP40CA27 PO; +OMEP40CA6 PO
[2021-01-27 10:27] LABS: BASOPHILS % (AUTO) 1 % (0-10); EOSINOPHILS # (AUTO) 0.1 10^3/uL (0.0-0.3); EOSINOPHILS % (AUTO) 2 % (0-10); HEMATOCRIT 38 % (35-52); HEMOGLOBIN 12.4 g/dL (11.5-16.0); LYMPHOCYTES # (AUTO) 2.1 10^3/uL (1.0-4.0); LYMPHOCYTES % (AUTO) 32 % (12-44); MEAN CORPUSCULAR HEMOGLOBIN 30 pg (25-34); MEAN CORPUSCULAR HGB CONC 33 g/dL (32-36); MEAN CORPUSCULAR VOLUME 91 fL (80-99); MEAN PLATELET VOLUME 10.9 fL (9.0-12.2); MONOCYTES # (AUTO) 0.4 10^3/uL (0.0-1.0); MONOCYTES % (AUTO) 6 % (0-12); NEUTROPHILS # (AUTO) 3.9 10^3/uL (1.8-7.8); NEUTROPHILS % (AUTO) 59 % (42-75); PLATELET COUNT 232 10^3/uL (130-400); WHITE BLOOD COUNT 6.6 10^3/uL (4.3-11.0)
[2021-01-27 10:39] LABS: ALANINE AMINOTRANSFERASE 16 U/L (0-55); ALBUMIN 3.9 GM/DL (3.2-4.5); ALKALINE PHOSPHATASE 55 U/L (40-136); BILIRUBIN,TOTAL 0.5 MG/DL (0.1-1.0); BUN/CREATININE RATIO 22; CALCIUM 9.6 MG/DL (8.5-10.1); CARBON DIOXIDE 17 MMOL/L (21-32); CHLORIDE 112 MMOL/L (98-107); GFR ESTIMATED > 60; GLUCOSE 126 MG/DL (70-105); POTASSIUM 2.9 MMOL/L (3.6-5.0); SALICYLATE < 5.0 MG/DL (5.0-20.0); SODIUM 140 MMOL/L (135-145)
[2021-01-27 10:40] LABS: ACETAMINOPHEN < 10 UG/ML (10-30)
[2021-01-27 10:43] LABS: HCG,QUALITATIVE URINE NEGATIVE (NEGATIVE)
[2021-01-27 10:45] LABS: VALPROIC ACID 22.1 UG/ML (50.0-100.0)
[2021-01-27 10:51] LABS: AMPHETAMINE SCREEN, URINE NEGATIVE (NEGATIVE); BARBITURATE SCREEN URINE NEGATIVE (NEGATIVE); BENZODIAZEPINES SCREEN URINE NEGATIVE (NEGATIVE); CANNABINOID SCREEN, URINE POSITIVE (NEGATIVE); COCAINE SCREEN URINE NEGATIVE (NEGATIVE); METHADONE STAT NEGATIVE (NEGATIVE); METHAMPHETAMINE SCREEN URINE S NEGATIVE (NEGATIVE); OPIATE SCREEN URINE NEGATIVE (NEGATIVE); OXYCODONE STAT NEGATIVE (NEGATIVE); PROPOXYPHENE STAT NEGATIVE (NEGATIVE); TRICYCLIC ANTIDEPRESSANTS SCRE NEGATIVE (NEGATIVE)
[2021-01-27 11:25] VITALS: BP 133/103
--- NOTE | 2021-01-30 02:17 | ED Psychosocial ---
General Chief Complaint: Psych/Social Disorder Stated Complaint: SUICIDAL IDEATIONS Nursing Triage Note: PT ARRIVED PER EMS AMB TO ROOM 8 PT CO OF HAVING THOUGHTS OF HARMING SELF TODAY. PLAN IS TO SWALLOW SOMETHING AND NOT TELL ANYONE. DENIES DOING ANYTHING AT THIS X. PT IS PARANOID. PT STATES STRESSED OUT OVER WORKERS AT HALFWAY. STATES HAD SEIZURE YESTERDAY. STATES REFUSING TO TAKE MEDS FOR STAFF. Source: patient Exam Limitations: no limitations History of Present Illness Date Seen by Provider: Jan 27, 2021 Time Seen by Provider: 09:45 Initial Comments [place] is a 35-year-old female who presents to the emergency department today with a chief complaint of thoughts of harming herself. She states that she is very frustrated with her [place] [facility]. She states that she feels like people are out to get her. She states that she is considering harming herself by swallowing things. She does endorse some suicidal ideation. Patient denies h omicidal ideation. She denies recent illness such as fevers, chills, cough or congestion. She reiterates that she is frustrated with the caregivers that supervise her and her [place] [facility] and that they are bullying her. She has been refusing to take her medication. She has "run away" many times. She denies auditory or visual hallucinations. She does have a guardian. All other review of systems reviewed and negative except as stated above. Timing/Duration: getting worse Severity: severe Associated Symptoms: suicidal ideation Allergies and Home Medications Allergies Coded Allergies: Fish Containing Products (Verified Allergy, Unknown, 05/23/20) Penicillins (Verified Allergy, Unknown, 05/23/20) Sulfa (Sulfonamide Antibiotics) (Verified Allergy, Unknown, 05/23/20) haloperidol (Verified Allergy, Unknown, 05/23/20) Home Medications Atenolol 50 Mg Tablet, 50 MG PO DAILY, (Reported) Cyclobenzaprine HCl 10 Mg Tablet, 10 MG PO DAILY, (Reported) Divalproex Sodium 500 Mg Tab.er.24h, 500 MG PO DAILY, (Reported) Divalproex Sodium 500 Mg Tab.er.24h, 1,000 MG PO HS, (Reported) Docusate Sodium 100 Mg Capsule, 100 MG PO DAILY, (Reported) Ferrous Sulfate 325 Mg Tablet, 325 MG PO DAILY@1700, (Reported) Levetiracetam 500 Mg Tablet, 500 MG PO DAILY, (Reported) Levetiracetam 500 Mg Tablet, 500 MG PO BID, (Reported) Levothyroxine Sodium 50 Mcg Tablet, 50 MCG PO DAILY, (Reported) Lisinopril/Hydrochlorothiazide 1 Each Tablet, 1 EACH PO DAILY, (Reported) Medroxyprogesterone Acetate 150 Mg/1 Ml Syringe, 150 MG IM every 3 months, (Reported) Multivitamin/Iron/Folic Acid 1 Each Tablet, 2 TAB PO DAILY, (Reported) Pantoprazole Sodium 40 Mg Tablet.dr, 40 MG PO DAILY, (Reported) Sennosides/Docusate Sodium 1 Each Tablet, 2 TAB PO HS, (Reported) Sertraline HCl 100 Mg Tablet, 100 MG PO DAILY, (Reported) Sucralfate 1 Gm Tablet, 2 GM PO QID, (Reported) Topiramate 100 Mg Tablet, 100 MG PO DAILY, (Reported) Trazodone HCl 100 Mg Tablet, 100 MG PO TID, (Reported) Patient Home Medication List Home Medication List Reviewed: Yes Review of Systems Constitutional: see HPI EENTM: no symptoms reported Respiratory: no symptoms reported Gastrointestinal: no symptoms reported Genitourinary: no symptoms reported : No Musculoskeletal: no symptoms reported Skin: no symptoms reported Psychiatric/Neurological: Anxiety, Depressed, Other (Suicidal ideation) All Other Systems Reviewed Negative Unless Noted: Yes Past Mgoykud-Xvumnd-Qdysup Hx Patient Social History Smoking Status: Current Everyday Smoker Immunizations Up To Date Tetanus Booster (TDap): Less than 5yrs PED Vaccines UTD: No Seasonal Allergies Seasonal Allergies: Yes Past Medical History Surgeries: Yes (bilat upper arm F.B. removal, colon resection with F.B removal) Abdominal, Gallbladder Respiratory: No Currently Using CPAP: No Currently Using BIPAP: No Cardiac: Yes Hypertension Neurological: Yes Seizure Disorder Genitourinary: No Gastrointestinal: Yes Gastroesophageal Reflux, Chronic Constipation Musculoskeletal: No Endocrine: Yes Hypothyroidsim HEENT: Yes (WEARS GLASSES) Cancer: No Psychosocial: Yes Anxiety, Bipolar, Depression Integumentary: No Blood Disorders: No Family Medical History Hypertension Physical Exam Vital Signs - First Documented 01/27/21 09:35 Temp 35.3 Pulse 108 Resp 20 B/P (MAP) 133/103 (113) Pulse Ox 98 Capillary Refill : Less Than 3 Seconds Height, Weight, BMI Height: 5'8.00" Weight: 240lbs. 3.0oz. [id number]; 38.00 BMI Method:Estimated General Appearance: WD/WN, no apparent distress HEENT: PERRL/EOMI Neck: normal inspection Respiratory: lungs clear, normal breath sounds, no respiratory distress, no accessory muscle use Cardiovascular: regular rate, rhythm Gastrointestinal: non tender, soft Extremities: normal range of motion, non-tender, normal inspection, no pedal edema Neurologic/Psychiatric: reverser II-XII nml as tested, no motor/sensory deficits, alert, normal mood/affect, oriented x 3 Appearance/Memory: appropriate appearance, appropriate insight, neat Behavior/Eye Contact: cooperative, good eye contact, normal speech Thoughts/Hallucinations: no apparent hallucination, paranoid Skin: normal color, warm/dry Progress/Results/Core Measures Results/Orders Blood Pressure Mean: 113 Progress Progress Note : Progress Note I was notified by the nursing staff midmorning after her laboratory studies have been obtained and reviewed that the patient wanted to leave. This is prior to any evaluation by [facility]. The patient was frustrated and actually walked out of the department past the nurses saying that she had to leave. She was not on an involuntary commitment. I had not at this point spoken with her guardian. Labs were reviewed and she had a low potassium of 2.9 also low CO2. I had planned on replacing her potassium however the patient elected to leave AGAINST MEDICAL ADVICE prior to this. Departure Impression Primary Impression: Suicidal ideations Additional Impression: Hypokalemia Disposition: AGAINST MEDICAL ADVICE Condition: Against Medical Advice Departure-Patient Inst. Referrals: BUD GARCIA MD (PCP) Primary Care Physician CHARLY LEDEZMA MD Jan 30, 2021 02:16
== END 2021-01-27 11:26 | disposition left against medical advice (07) ==
LOC: EDUNIT# 09:36 → ER 09:38
DX: R45.851 Suicidal ideations (principal)
CPT/HCPCS: 80053; 80164; 80306; 84703; 85025; G0480 ×3; 36415; 80320; 80329; 93005

== ENCOUNTER 2021-01-28 12:29 | Day surgery (SDC) | payer MEDICAID ==
[~2021-01-28] VITALS: Ht 172.7 cm; Wt 117.0 kg
[~2021-01-28 12:29] MED LIST changes: -OLAN10TA19 PO; +OLAN10TA71 PO
[2021-01-28] MEDS ORDERED: SEVOFLURANE (ULTANE) 15 ML INHAL SOLN INH ONE (12:37)
[2021-01-28 12:57] LABS: BASOPHILS # (AUTO) 0.1 10^3/uL (0.0-0.1); BASOPHILS % (AUTO) 1 % (0-10); EOSINOPHILS # (AUTO) 0.1 10^3/uL (0.0-0.3); EOSINOPHILS % (AUTO) 1 % (0-10); HEMATOCRIT 37 % (35-52); HEMOGLOBIN 12.4 g/dL (11.5-16.0); LYMPHOCYTES # (AUTO) 3.1 10^3/uL (1.0-4.0); LYMPHOCYTES % (AUTO) 38 % (12-44); MEAN CORPUSCULAR HEMOGLOBIN 30 pg (25-34); MEAN CORPUSCULAR HGB CONC 34 g/dL (32-36); MEAN CORPUSCULAR VOLUME 89 fL (80-99); MONOCYTES # (AUTO) 0.5 10^3/uL (0.0-1.0); MONOCYTES % (AUTO) 6 % (0-12); NEUTROPHILS # (AUTO) 4.4 10^3/uL (1.8-7.8); NEUTROPHILS % (AUTO) 55 % (42-75); PLATELET COUNT 263 10^3/uL (130-400); WHITE BLOOD COUNT 8.1 10^3/uL (4.3-11.0)
[2021-01-28 13:11] LABS: ALBUMIN 3.9 GM/DL (3.2-4.5); CHLORIDE 110 MMOL/L (98-107); SODIUM 139 MMOL/L (135-145)
[2021-01-28 13:12] LABS: CALCIUM 9.3 MG/DL (8.5-10.1)
[2021-01-28 13:13] LABS: GLUCOSE 113 MG/DL (70-105)
[2021-01-28 13:13] LABS: BILIRUBIN,URINE NEGATIVE (NEGATIVE); CLARITY,URINE SL CLOUDY; COLOR,URINE YELLOW; GLUCOSE, URINE (UA) NEGATIVE (NEGATIVE); KETONES,URINE TRACE (NEGATIVE); LEUKOCYTE ESTERASE ,URINE NEGATIVE (NEGATIVE); NITRITE,URINE NEGATIVE (NEGATIVE); PROTEIN,URINE NEGATIVE (NEGATIVE)
[2021-01-28 13:14] LABS: POTASSIUM 3.9 MMOL/L (3.6-5.0); TOTAL PROTEIN 7.1 GM/DL (6.4-8.2)
--- NOTE | 2021-01-28 13:14 | ED Psychosocial ---
General Chief Complaint: Psych/Social Disorder Stated Complaint: SWALLOWED A NAIL History of Present Illness Date Seen by Provider: Jan 28, 2021 Time Seen by Provider: 12:30 Initial Comments 35-year-old female presents via EMS after swallowing hussein nail 30-60 min ago that she acquired while walking outside her assisted. She is at [facility] in a assisted where she has been having some disagreements with the staff. Her mental health provider, Odell Phelps reports that it has been a power struggle betw een her and the staff, as her behaviors have worsened she has been limited on her activities which has caused her to further regress. She is wanting to move to a new home and refuses to return to [facility]. She reports finding a nail on the side of the road and swallowing prior to arrival. She denies any other self-harm, she has not been taking her medications as prescribing, refusing to take them from staff. She has a state appointed guardian and is unable to make medical decisions on her own. She has swallowed foreign objects in the past requiring surgical retrieval, 11/04/19 nail and 03/18/19 anna. She denies any suicidal thoughts, she just doesn't want to return to [facility] and will continue to cause self harm to get out of the facility. She is to be watched at all times, but she is allowed to walk to her counseling appointments and she was not supervised when she swallowed the nail today. Patient was evaluated in this emergency department briefly with yesterday for thoughts of self-harm and threatening to swallow a nail and not tell anyone. She left AMA. Timing/Duration: just prior to arrival Associated Symptoms: impaired concentration, ingestion, suicidal ideation Allergies and Home Medications Allergies Coded Allergies: Fish Containing Products (Verified Allergy, Unknown, 05/23/20) Penicillins (Verified Allergy, Unknown, 05/23/20) Sulfa (Sulfonamide Antibiotics) (Verified Allergy, Unknown, 05/23/20) haloperidol (Verified Allergy, Unknown, 05/23/20) Home Medications Atenolol 50 Mg Tablet, 50 MG PO DAILY, (Reported) Cyclobenzaprine HCl 10 Mg Tablet, 10 MG PO DAILY, (Reported) Divalproex Sodium 500 Mg Tab.er.24h, 500 MG PO DAILY, (Reported) Divalproex Sodium 500 Mg Tab.er.24h, 1,000 MG PO HS, (Reported) Docusate Sodium 100 Mg Capsule, 100 MG PO DAILY, (Reported) Ferrous Sulfate 325 Mg Tablet, 325 MG PO DAILY@1700, (Reported) Levetiracetam 500 Mg Tablet, 500 MG PO DAILY, (Reported) Levetiracetam 500 Mg Tablet, 500 MG PO BID, (Reported) Levothyroxine Sodium 50 Mcg Tablet, 50 MCG PO DAILY, (Reported) Lisinopril/Hydrochlorothiazide 1 Each Tablet, 1 EACH PO DAILY, (Reported) Medroxyprogesterone Acetate 150 Mg/1 Ml Syringe, 150 MG IM every 3 months, (Reported) Multivitamin/Iron/Folic Acid 1 Each Tablet, 2 TAB PO DAILY, (Reported) Pantoprazole Sodium 40 Mg Tablet.dr, 40 MG PO DAILY, (Reported) Sennosides/Docusate Sodium 1 Each Tablet, 2 TAB PO HS, (Reported) Sertraline HCl 100 Mg Tablet, 100 MG PO DAILY, (Reported) Sucralfate 1 Gm Tablet, 2 GM PO QID, (Reported) Topiramate 100 Mg Tablet, 100 MG PO DAILY, (Reported) Trazodone HCl 100 Mg Tablet, 100 MG PO TID, (Reported) Patient Home Medication List Home Medication List Reviewed: Yes Review of Systems Constitutional: no symptoms reported, see HPI Respiratory: no symptoms reported, see HPI; No cough, No short of breath Cardiovascular: no symptoms reported, see HPI; No chest pain Gastrointestinal: no symptoms reported, see HPI; No abdominal pain, No heartburn, No nausea, No vomiting Psychiatric/Neurological: See HPI, Emotional Problems, Pre-Existing Deficit All Other Systems Reviewed Negative Unless Noted: Yes Past Pidlgus-Rghgwc-Cmevck Hx Past Med/Social Hx: Reviewed Nursing Past Med/Soc Hx Patient Social History Alcohol Beverage of Choice: Vodka Drug of Choice: HX: meth, THC Type Used: Cigarettes 2nd Hand Smoke Exposure: Yes Recent Hopitalizations: No Immunizations Up To Date Tetanus Booster (TDap): Less than 5yrs PED Vaccines UTD: No Date of Influenza Vaccine: May 17, 2020 Seasonal Allergies Seasonal Allergies: Yes Past Medical History Surgeries: Yes (bilat upper arm F.B. removal, colon resection with F.B removal) Abdominal, Gallbladder Respiratory: No Currently Using CPAP: No Currently Using BIPAP: No Cardiac: Yes Hypertension Neurological: Yes Seizure Disorder Genitourinary: No Gastrointestinal: Yes Gastroesophageal Reflux, Chronic Constipation Musculoskeletal: No Endocrine: Yes Hypothyroidsim HEENT: Yes (WEARS GLASSES) Cancer: No Psychosocial: Yes Anxiety, Bipolar, Depression Integumentary: No Blood Disorders: No Family Medical History Hypertension Physical Exam Vital Signs - First Documented 01/28/21 01/28/21 12:29 14:47 Temp 35.7 Pulse 91 Resp 18 B/P (MAP) 108/80 (89) Pulse Ox 98 O2 Delivery Room Air Capillary Refill : Height, Weight, BMI Height: 5'8.00" Weight: 240lbs. 3.0oz. 108.067606ik; 38.00 BMI Method:Estimated General Appearance: WD/WN, no apparent distress HEENT: PERRL/EOMI, normal ENT inspection, TMs normal, pharynx normal Neck: non-tender, full range of motion, supple, normal inspection Respiratory: chest non-tender, lungs clear, normal breath sounds, no respiratory distress, no accessory muscle use Cardiovascular: normal peripheral pulses, regular rate, rhythm Gastrointestinal: normal bowel sounds, non tender, soft; No guarding, No rebound, No tenderness; other (Well-healed abdominal anterior incision from previous surgeries.) Extremities: normal range of motion, non-tender, normal inspection, no pedal edema Neurologic/Psychiatric: no motor/sensory deficits, alert, normal mood/affect Appearance/Memory: appropriate appearance, impaired insight Behavior/Eye Contact: cooperative, good eye contact, normal speech Thoughts/Hallucinations: no apparent hallucination, paranoid Skin: normal color, warm/dry Progress/Results/Core Measures Results/Orders Lab Results Laboratory Tests Test 01/28/21 12:50 01/28/21 13:06 Range/Units White Blood Count 8.1 4.3-11.0 10^3/uL Red Blood Count 4.11 3.80-5.11 10^6/uL Hemoglobin 12.4 11.5-16.0 g/dL Hematocrit 37 35-52 % Mean Corpuscular Volume 89 80-99 fL Mean Corpuscular Hemoglobin 30 25-34 pg Mean Corpuscular Hemoglobin Concent 34 32-36 g/dL Red Cell Distribution Width 11.9 10.0-14.5 % Platelet Count 263 130-400 10^3/uL Mean Platelet Volume 11.0 9.0-12.2 fL Immature Granulocyte % (Auto) 0 % Neutrophils (%) (Auto) 55 42-75 % Lymphocytes (%) (Auto) 38 12-44 % Monocytes (%) (Auto) 6 0-12 % Eosinophils (%) (Auto) 1 0-10 % Basophils (%) (Auto) 1 0-10 % Neutrophils # (Auto) 4.4 1.8-7.8 10^3/uL Lymphocytes # (Auto) 3.1 1.0-4.0 10^3/uL Monocytes # (Auto) 0.5 0.0-1.0 10^3/uL Eosinophils # (Auto) 0.1 0.0-0.3 10^3/uL Basophils # (Auto) 0.1 0.0-0.1 10^3/uL Immature Granulocyte # (Auto) 0.0 0.0-0.1 10^3/uL Sodium Level 139 135-145 MMOL/L Potassium Level 3.9 3.6-5.0 MMOL/L Chloride Level 110 H 98-107 MMOL/L Carbon Dioxide Level 18 L 21-32 MMOL/L Anion Gap 11 5-14 MMOL/L Blood Urea Nitrogen 23 H 7-18 MG/DL Creatinine 0.93 0.60-1.30 MG/DL Estimat Glomerular Filtration Rate > 60 BUN/Creatinine Ratio 25 Glucose Level 113 H 70-105 MG/DL Calcium Level 9.3 8.5-10.1 MG/DL Corrected Calcium 9.4 8.5-10.1 MG/DL Total Bilirubin 0.4 0.1-1.0 MG/DL Aspartate Amino Transf (AST/SGOT) 27 5-34 U/L Alanine Aminotransferase (ALT/SGPT) 25 0-55 U/L Alkaline Phosphatase 55 40-136 U/L Total Protein 7.1 6.4-8.2 GM/DL Albumin 3.9 3.2-4.5 GM/DL Urine Color YELLOW Urine Clarity SL CLOUDY Urine pH 6.0 5-9 Urine Specific Thurmond 1.025 H 1.016-1.022 Urine Protein NEGATIVE NEGATIVE Urine Glucose (UA) NEGATIVE NEGATIVE Urine Ketones TRACE H NEGATIVE Urine Nitrite NEGATIVE NEGATIVE Urine Bilirubin NEGATIVE NEGATIVE Urine Urobilinogen 0.2 < = 1.0 MG/DL Urine Leukocyte Esterase NEGATIVE NEGATIVE Urine RBC (Auto) NEGATIVE NEGATIVE Urine RBC NONE /HPF Urine WBC 0-2 /HPF Urine Squamous Epithelial Cells 10-25 H /HPF Urine Crystals PRESENT H /LPF Urine Amorphous Sediment FEW GLENN URATES H /LPF Urine Bacteria MODERATE H /HPF Urine Casts NONE /LPF Urine Mucus NEGATIVE /LPF Urine Culture Indicated YES My Orders Orders - ARIADNA CLEVELAND Abdomen/Kub 1view (01/28/21 12:36) Cbc With Automated Diff (01/28/21 12:43) Comprehensive Metabolic Panel (01/28/21 12:43) Ua Culture If Indicated (01/28/21 12:43) Urine Bedside (01/28/21 12:43) Ed Iv/Invasive Line Start (01/28/21 13:29) Lactated Ringers (Lr 1000 Ml Iv Solution (01/28/21 13:30) Urine Culture (01/28/21 13:06) Ziprasidone Injection (Geodon Injection) (01/28/21 14:15) Water (Sterile) For Injection (Sterile W (01/28/21 14:15) Dipht,Pertuss(Acell),Tet Adult (Boostrix (01/28/21 14:45) Restraints: Behavioral ONCE (01/28/21 14:10) Medications Given in ED Current Medications Medications Dose Ordered Sig/Susanna Route Start Time Stop Time Status Last Admin Dose Admin Lactated Ringer's 1,000 ml @ 0 mls/hr Q0M ONCE IV 01/28/21 13:30 01/28/21 13:31 DC 01/28/21 14:33 1,000 MLS/HR Vital Signs/I&O 01/28/21 01/28/21 01/28/21 01/28/21 12:29 14:47 16:41 16:41 Temp 35.7 37.2 Pulse 91 77 Resp 18 18 20 B/P (MAP) 108/80 (89) 104/72 114/78 (90) Pulse Ox 98 96 100 O2 Delivery Room Air OxyMask OxyMask O2 Flow Rate 5 5 01/28/21 01/28/21 01/28/21 01/28/21 16:45 16:50 17:00 17:00 Resp 20 20 B/P (MAP) 112/79 (90) 111/80 (90) Pulse Ox 99 100 O2 Delivery OxyMask Room Air Room Air Room Air O2 Flow Rate 5 01/28/21 01/28/21 01/28/21 01/28/21 17:15 17:15 17:15 17:40 Temp 37.2 35.3 35.7 Pulse 72 72 Resp 20 16 16 B/P (MAP) 129/76 (93) 107/81 102/80 Pulse Ox 100 99 100 O2 Delivery Room Air Room Air Room Air Room Air 01/28/21 17:55 Temp 35.7 Pulse 72 Resp 16 B/P (MAP) 102/80 Pulse Ox 100 O2 Delivery Room Air Progress Progress Note : Time: 12:30 Progress Note Patient seen and evaluated, [place] [employer] outside of room. Patient shows no signs of aggression towards staff during the initial evaluation and exam. She is refusing to have any staff from [facility] in her room. 1250 Dr. Phillips in ED, consult accepted, will plan EGD pending x-ray. 1315 Nail identified on x-ray. Dr. Phillips recommending EGD. [facility] has medical authority and signed paperwork designating they can provide consent for her. 1335 spoke to Tito Jenkins, Director of [facility]. Explained patient's assessment and findings with recommendation for surgery. Consent reviewed with him by phone, along with Brittni Knapp RN on speaker phone. Risks versus benefits of surgery were reviewed, verbal consent provided by Tito. Surgical consent signed by myself and Brittni. 1345 patient threatening to leave AGAINST MEDICAL ADVICE, warned her of the risks of further trauma to her GI system as the nail passes. She voices that she wants the nail to hurt her, so she doesn't have to return to [facility]. Patient became hostile with staff, law enforcement not present in ED, she went outside to parking lot where law enforcement spoke to her and she returned to her exam room. 1350 patient cooperative in room, explained that she needs to proceed with surgery. Patient desiring to talk to her guardian, Carlos. A phone call has been placed to her and a message left, requesting she call us. 1410 patient became hostile and aggressive towards staff regarding who her surgeon would be, she pulled her IV out. Law enforcement calmed her down. For safety of staff and patient, soft restraints in place times 4. Geodon [address] Mcgowan in room, agreed with plan. 1425 Patient calm and continues to be restrained. Bendaryl 25 mg IV. 1430 Spoke to Carlos Anne, guardian. Agreed with plan to proceed with surgery. She will work with [facility] about options for her placement after surgery and dismissal. 1445 Endo staff took patient by cart. Departure Impression Primary Impression: Foreign body ingestion Qualified Codes: T18.9XXA - Foreign body of alimentary tract, part unspecified, initial encounter Additional Impression: Mental health impairment Disposition: ADMITTED INPATIENT Condition: Stable Departure-Patient Inst. Referrals: BUD GARCIA MD (PCP/Family) Primary Care Physician ARIADNA CLEVELAND Jan 28, 2021 13:14
[2021-01-28 13:15] LABS: BILIRUBIN,TOTAL 0.4 MG/DL (0.1-1.0); CARBON DIOXIDE 18 MMOL/L (21-32)
[2021-01-28 13:17] LABS: ALKALINE PHOSPHATASE 55 U/L (40-136); CREATININE SERUM 0.93 MG/DL (0.60-1.30); GFR ESTIMATED > 60
[2021-01-28 13:18] LABS: BUN/CREATININE RATIO 25
[2021-01-28 13:20] LABS: ALANINE AMINOTRANSFERASE 25 U/L (0-55)
[2021-01-28 13:29] LABS: AMORPHOUS SEDIMENT,UR FEW AMOR URATES /LPF; BACTERIA,URINE MODERATE /HPF; WBC,URINE 0-2 /HPF
[2021-01-28] MEDS ORDERED: LACTATED RINGERS 1,000 ML IV ONE ×2 (13:30→16:08)
--- NOTE | 2021-01-28 13:34 | Consultation - Surgery ---
History of Present Illness History of Present Illness Patient Consulted On(luis miguel/time) 01/28/21 13:30 Date Seen by Provider: Jan 28, 2021 Time Seen by Provider: 13:30 History of Present Illness Consult requested by Renata José for foreign body stomach. Seen in ER. 35 year old female with hx of swallowing objects. Swallowed nail about 30 min prior to arrival. Wanting to harm herself. Live in [facility]. No other complaints at this time. Denies n/v fever sweats chills shortness of breath or chest pain. Xray showing metallic object in epigastric area. Allergies and Home Medications Allergies Coded Allergies: Fish Containing Products (Verified Allergy, Unknown, 05/23/20) Penicillins (Verified Allergy, Unknown, 05/23/20) Sulfa (Sulfonamide Antibiotics) (Verified Allergy, Unknown, 05/23/20) haloperidol (Verified Allergy, Unknown, 05/23/20) Home Medications Atenolol 50 Mg Tablet, 50 MG PO DAILY, (Reported) Cyclobenzaprine HCl 10 Mg Tablet, 10 MG PO DAILY, (Reported) Divalproex Sodium 500 Mg Tab.er.24h, 500 MG PO DAILY, (Reported) Divalproex Sodium 500 Mg Tab.er.24h, 1,000 MG PO HS, (Reported) Docusate Sodium 100 Mg Capsule, 100 MG PO DAILY, (Reported) Ferrous Sulfate 325 Mg Tablet, 325 MG PO DAILY@1700, (Reported) Levetiracetam 500 Mg Tablet, 500 MG PO DAILY, (Reported) Levetiracetam 500 Mg Tablet, 500 MG PO BID, (Reported) Levothyroxine Sodium 50 Mcg Tablet, 50 MCG PO DAILY, (Reported) Lisinopril/Hydrochlorothiazide 1 Each Tablet, 1 EACH PO DAILY, (Reported) Medroxyprogesterone Acetate 150 Mg/1 Ml Syringe, 150 MG IM every 3 months, (Reported) Multivitamin/Iron/Folic Acid 1 Each Tablet, 2 TAB PO DAILY, (Reported) Pantoprazole Sodium 40 Mg Tablet.dr, 40 MG PO DAILY, (Reported) Sennosides/Docusate Sodium 1 Each Tablet, 2 TAB PO HS, (Reported) Sertraline HCl 100 Mg Tablet, 100 MG PO DAILY, (Reported) Sucralfate 1 Gm Tablet, 2 GM PO QID, (Reported) Topiramate 100 Mg Tablet, 100 MG PO DAILY, (Reported) Trazodone HCl 100 Mg Tablet, 100 MG PO TID, (Reported) Patient Home Medication List Home Medication List Reviewed: Yes Past Zvckayu-Aaeztl-Syyvuw Hx Patient Social History Drug of Choice: HX: meth, THC Type Used: Cigarettes 2nd Hand Smoke Exposure: Yes Recent Hopitalizations: No Immunizations Up To Date Tetanus Booster (TDap): Less than 5yrs PED Vaccines UTD: No Date of Influenza Vaccine: May 17, 2020 Seasonal Allergies Seasonal Allergies: Yes Surgeries History of Surgeries: Yes (bilat upper arm F.B. removal, colon resection with F.B removal) Surgeries: Abdominal, Gallbladder Respiratory History of Respiratory Disorde: No Cardiovascular History of Cardiac Disorders: Yes Cardiac Disorders: Hypertension Neurological History of Neurological Disord: Yes Neurological Disorders: Seizure Disorder Genitourinary History of Genitourinary Disor: No Gastrointestinal History of Gastrointestinal Di: Yes Gastrointestinal Disorders: Gastroesophageal Reflux, Chronic Constipation Musculoskeletal History of Musculoskeletal Dis: No Endocrine History of Endocrine Disorders: Yes Endocrine Disorders: Hypothyroidsim HEENT History of HEENT Disorders: Yes (WEARS GLASSES) Cancer History of Cancer: No Psychosocial History of Psychiatric Problem: Yes Behavioral Health Disorders: Anxiety, Bipolar, Depression Integumentary History of Skin or Integumenta: No Blood Transfusions History of Blood Disorders: No Reviewed Nursing Assessment Reviewed/Agree w Nursing PMH: Yes Family Medical History Significant Family History: No Pertinent Family Hx, Hypertension Review of Systems-General Constitutional: No chills, No diaphoresis EENTM: No blurred vision, No double vision Respiratory: No cough, No dyspnea on exertion Cardiovascular: No chest pain, No palpitations Gastrointestinal: No abdominal pain, No heartburn Genitourinary: No decreased output, No discharge Musculoskeletal: No back pain, No joint pain Skin: No change in color, No change in hair/nails Psychiatric/Neurological: Denies Anxiety; Depressed; Denies Emotional Problems All Other Systems Reviewed Negative Unless Noted: Yes (Negative excepted noted.) Physical Exam-General Problems Physical Exam Vital Signs Capillary Refill : General Appearance: no apparent distress, obese HEENT: PERRL/EOMI, normal ENT inspection Neck: non-tender, normal inspection Respiratory: chest non-tender, no respiratory distress, no accessory muscle use Cardiovascular: regular rate, rhythm, no JVD Gastrointestinal: normal bowel sounds, non tender Back: normal inspection, no CVA tenderness Extremities: normal range of motion, non-tender Neurologic/Psychiatric: no motor/sensory deficits, alert, depressed affect Skin: normal color, warm/dry Lymphatic: no adenopathy Data Review Labs Laboratory Tests 01/28/21 12:50: White Blood Count 8.1, Red Blood Count 4.11, Hemoglobin 12.4, Hematocrit 37, Mean Corpuscular Volume 89, Mean Corpuscular Hemoglobin 30, Mean Corpuscular Hemoglobin Concent 34, Red Cell Distribution Width 11.9, Platelet Count 263, M jam Platelet Volume 11.0, Immature Granulocyte % (Auto) 0, Neutrophils (%) (Auto) 55, Lymphocytes (%) (Auto) 38, Monocytes (%) (Auto) 6, Eosinophils (%) (Auto) 1, Basophils (%) (Auto) 1, Neutrophils # (Auto) 4.4, Lymphocytes # (Auto) 3.1, Monocytes # (Auto) 0.5, Eosinophils # (Auto) 0.1, Basophils # (Auto) 0.1, Immature Granulocyte # (Auto) 0.0, Sodium Level 139, Potassium Level 3.9, Chloride Level 110H, Carbon Dioxide Level 18L, Anion Gap 11, Blood Urea Nitrogen 23H, Creatinine 0.93, Estimat Glomerular Filtration Rate > 60, BUN/Creatinine Ratio 25, Glucose Level 113H, Calcium Level 9.3, Corrected Calcium 9.4, Total Bilirubin 0.4, Aspartate Amino Transf (AST/SGOT) 27, Alanine Aminotransferase (ALT/SGPT) 25, Alkaline Phosphatase 55, Total Protein 7.1, Albumin 3.9 01/28/21 13:06: Urine Color YELLOW, Urine Clarity SL CLOUDY, Urine pH 6.0, Urine Specific [place] 1.025H, Urine Protein NEGATIVE, Urine Glucose (UA) NEGATIVE, Urine Ketones TRACEH, Urine Nitrite NEGATIVE, Urine Bilirubin NEGATIVE, Urine Urobilinogen 0.2, Urine Leukocyte Esterase NEGATIVE, Urine RBC (Auto) NEGATIVE, Urine RBC NONE, Urine WBC 0-2, Urine Squamous Epithelial Cells 10-25H, Urine Crystals PRESENTH, Urine Amorphous Sediment FEW GLENN URATESH, Urine Bacteria MODERATEH, Urine Casts NONE, Urine Mucus NEGATIVE, Urine Culture Indicated YES Assessment/Plan Assessment/Plan Assessment/Plan foreign body- swallowed will get consent for egd all other indicated procedures to remove foreign body if can if not will may need surgical intervention NPO To endoscopy GRACE QUEZADA DO Jan 28, 2021 13:34
--- NOTE | 2021-01-28 13:37 | Diagnostic Imaging Report ---
INDICATION: Foreign body ingestion. COMPARISON: None. FINDINGS: Two supine radiographic views of the abdomen were obtained. A metallic foreign body is noted within the right upper abdominal quadrant, consistent with the provided history of an ingested nail. The small bowel loops are nondistended. There is no large collection of free intraperitoneal air. No unexpected extraosseous calcifications are seen. The osseous structures show no gross acute abnormalities. IMPRESSION: Metallic foreign body projecting over the right upper abdominal quadrant, consistent with the provided clinical history of an ingested nail. Dictated by: Dictated on workstation # [id number]
[2021-01-28] MEDS ORDERED: WATER (STERILE) FOR INJECTION 10 ML ONE (14:10)
[2021-01-28] MEDS ORDERED: ZIPRASIDONE 20 MG INJ (GEODON) VIAL IM ONE ×3 (14:10→14:22)
[2021-01-28] MEDS ORDERED: WATER (STERILE) FOR INJ 10 ML BTL INJ SCH (14:15)
[2021-01-28] MEDS ORDERED: diphenhydrAMINE 50 MG/ML INJ (BENADRYL) ONE (14:22)
[2021-01-28] MEDS ORDERED: TETANUS,DIPTH,PERTUSS P/F (BOOSTRIX) 0.5 ML VIAL IM ONE (14:45)
[2021-01-28] MEDS ORDERED: MIDAZOLAM 2 MG/2 ML (VERSED) VIAL ONE (15:02)
[2021-01-28] MEDS ORDERED: proPOfol 200 MG/20 ML (DIPRIVAN) VIAL IV ONE (15:03)
[2021-01-28] MEDS ORDERED: fentaNYL INJ 100 MCG/2 ML AMP ONE (15:03)
[2021-01-28] MEDS ORDERED: SUCCINYLCHOLINE INJ 100 MG/5 ML SYR/VIAL ONE (15:03)
[2021-01-28] MEDS ORDERED: LIDOCAINE PF 2% 5 ML (XYLOCAINE) VIAL ONE (15:03)
[2021-01-28] MEDS ORDERED: LACTATED RINGERS 1,000 ML IV STA (16:23)
--- NOTE | 2021-01-28 16:34 | Progress Note-Post Operative ---
Post-Operative Progess Note Surgeon (s)/Brand Marketing Intern (s) Surgeon GRACE QUEZADA DO Brand Marketing Intern: na Pre-Operative Diagnosis foreign body swallowed Post-Operative Diagnosis nail in stomach Procedure & Operative Findings Date of Procedure 01/28/21 Procedure Performed/Findings egd c removal foreign body. Anesthesia Type general Estimated Blood Loss Estimated blood loss (mL): na Specimens/Packing Specimens Removed foreign body stomach GRACE QUEZADA DO Jan 28, 2021 16:34
--- NOTE | 2021-01-28 16:40 | Discharge Inst-Simple/Standard ---
Discharge Inst-Standard Patient Instructions/Follow Up Plan of Care/Instructions/FU: Follow up with psychiatrist in next 2 weeks. Patient to have 24 hour supervision until changed by psychiatrist. Activity as Tolerated: Yes Discharge Diet: Regular Diet Other Inst to Patient Follow up Appt: Make appointment in next 2 weeks with psychiatrist. Patient to have 24 hour supervision until changed by psychiatrist. Symptoms to Report: Appetite Changes, Extremity Discoloration, Numbness/Tingling, Swelling Increased, Bleeding Excessive, Eyesight Changes, Pain Increased, Urine Color Change, Constipation(Persistent), Fever over 101 degree F, Pain/Pressure in chest, Urinating Difficulty, Cough Up/Vomit Blood, Heart Beat Irreg/Pounding, Pain/Pressure in jaw, Vaginal Bleeding Increase, Cramps in feet or legs, Lightheadedness, Pain/Pressure in shoulder, Diarrhea(Persistent), Memory Changes Suddenly, Questions/Concerns, Weight gain consecutive days, Dizziness/Fainting, Nausea/Vomiting, Shortness of Breath, Weight gain over 2 pounds If questions or concerns contact your physician Or seek help at emergency department. GRACE QUEZADA DO Jan 28, 2021 16:40
[2021-01-28 16:41] VITALS: BP 114/78
--- NOTE | 2021-01-28 16:44 | Anesthesia-General Post-Op ---
General Patient Condition Mental Status/LOC: Same as Preop Cardiovascular: Satisfactory Nausea/Vomiting: Absent Respiratory: Satisfactory Pain: Controlled Complications: Absent Post Op Complications Complications None Follow Up Care/Instructions Patient Instructions None needed. Anesthesia/Patient Condition Patient Condition Patient is doing well, no complaints, stable vital signs, no apparent adverse anesthesia problems. No complications reported per nursing. SOURAV SARABIA CRNA Jan 28, 2021 16:44
[2021-01-28] MEDS ORDERED: morphine INJ 10 MG/ML 1ML (SYR OR VIAL) IVP ONE (16:45)
[2021-01-28 16:50] VITALS: BP 112/79
[2021-01-28 17:00] VITALS: BP 111/80
[2021-01-28 17:15] VITALS: BP_SYST 107; BP_SYST 129; BP_DIAS 76; BP_DIAS 81
[2021-01-28 17:40] VITALS: BP 102/80
[2021-01-28 17:55] VITALS: BP 102/80
--- NOTE | 2021-01-28 18:26 | OPERATIVE REPORT ---
DATE OF SERVICE: 01/28/2021 PREOPERATIVE DIAGNOSIS: Foreign body swallow. POSTOPERATIVE DIAGNOSIS: Foreign body stomach. PROCEDURE: EGD with removal of foreign body from stomach. SURGEON: Grace Phillips DO ANESTHESIA: General. ESTIMATED BLOOD LOSS: None. COMPLICATIONS: None. INDICATIONS: The patient is a 35-year-old female with history of swallowing foreign objects. The patient swallowed a nail earlier. It is visualized in the epigastric area on x-ray. We obtained consent for EGD and all other indicated procedures. DESCRIPTION OF PROCEDURE: The patient was taken to the endoscopy suite. General endotracheal intubation was performed. Timeout was performed. Scope was inserted in mouth, down the esophagus and into the stomach where a nail was visualized. A Reynolds Net was used to lasso the head of the nail and then this was then retracted out in its entirety. The scope was then reinserted into the mouth, down the esophagus, stomach and into the duodenum without difficulty. There were no polyps, masses or ulcerations or foreign bodies in the duodenum. Scope was slowly retracted back to stomach where it was further insufflated. No other foreign bodies present. Scope was retroflexed noting no other pathology. Scope was returned to its normal position, slowly withdrawn to distal esophagus in normal appearance. Scope was slowly retracted back until completely removed noting no other pathology. The patient tolerated procedure well without any complications. She was taken to recovery room in stable condition. Job ID: [id number] DocumentID: [id number] Dictated Date: 01/28/2021 16:43:30 Sheet Metal Insulator Date: 01/28/2021 18:26:09 Dictated By: GRACE PHILLIPS DO [facility]
== END 2021-01-28 17:55 | disposition home or self-care (01) ==
LOC: EDUNIT# 12:34 → ER 12:36 → ENDO 14:03 → ER 17:55
PROVIDERS: ATTEND Surgery
DX: T18.2XXA Foreign body in stomach, initial encounter (principal); I10 Essential (primary) hypertension; G40.909 Epilepsy, unspecified, not intractable, without status epilepticus; K21.9 Gastro-esophageal reflux disease without esophagitis; E03.9 Hypothyroidism, unspecified; F41.9 Anxiety disorder, unspecified; F32.9 Major depressive disorder, single episode, unspecified; Z79.899 Other long term (current) drug therapy; Z79.890 Hormone replacement therapy; K59.09 Other constipation
CPT/HCPCS: 36415; 74018; 80053; 81000; 84703; 85025; 87088; 88300; 90471; 90715; 96372

== ENCOUNTER 2021-02-09 12:45 | Emergency (ER) | payer MEDICAID ==
[~2021-02-09] VITALS: Ht 170 cm; Wt 117.9 kg
[~2021-02-09 12:45] MED LIST changes: +OLAN10TA19 PO; -OLAN10TA71 PO
[2021-02-09 12:53] VITALS: BP 96/60
--- NOTE | 2021-02-09 12:56 | ED General ---
General Stated Complaint: SEIZURE Source of Information: Patient Exam Limitations: No Limitations History of Present Illness Date Seen by Provider: Feb 09, 2021 Time Seen by Provider: 12:53 Initial Comments To ER with reports of seizure[place]. She states that her staff members from [facility] where she resides have not been giving her her seizure medications. She also has an ongoing issue with a sore on the right ischium Timing/Duration: 1-2 Days Severity: Moderate Associated Systoms: Denies Symptoms Allergies and Home Medications Allergies Coded Allergies: Fish Containing Products (Verified Allergy, Unknown, 05/23/20) Penicillins (Verified Allergy, Unknown, 05/23/20) Sulfa (Sulfonamide Antibiotics) (Verified Allergy, Unknown, 05/23/20) haloperidol (Verified Allergy, Unknown, 05/23/20) Home Medications Atenolol 50 Mg Tablet, 50 MG PO DAILY, (Reported) Cyclobenzaprine HCl 10 Mg Tablet, 10 MG PO DAILY, (Reported) Divalproex Sodium 500 Mg Tab.er.24h, 500 MG PO DAILY, (Reported) Divalproex Sodium 500 Mg Tab.er.24h, 1,000 MG PO HS, (Reported) Docusate Sodium 100 Mg Capsule, 100 MG PO DAILY, (Reported) Ferrous Sulfate 325 Mg Tablet, 325 MG PO DAILY@1700, (Reported) Levetiracetam 500 Mg Tablet, 500 MG PO DAILY, (Reported) Levetiracetam 500 Mg Tablet, 500 MG PO BID, (Reported) Levothyroxine Sodium 50 Mcg Tablet, 50 MCG PO DAILY, (Reported) Lisinopril/Hydrochlorothiazide 1 Each Tablet, 1 EACH PO DAILY, (Reported) Medroxyprogesterone Acetate 150 Mg/1 Ml Syringe, 150 MG IM every 3 months, (Reported) Multivitamin/Iron/Folic Acid 1 Each Tablet, 2 TAB PO DAILY, (Reported) Pantoprazole Sodium 40 Mg Tablet.dr, 40 MG PO DAILY, (Reported) Sennosides/Docusate Sodium 1 Each Tablet, 2 TAB PO HS, (Reported) Sertraline HCl 100 Mg Tablet, 100 MG PO DAILY, (Reported) Sucralfate 1 Gm Tablet, 2 GM PO QID, (Reported) Topiramate 100 Mg Tablet, 100 MG PO DAILY, (Reported) Trazodone HCl 100 Mg Tablet, 100 MG PO TID, (Reported) Patient Home Medication List Home Medication List Reviewed: Yes Review of Systems Review of Systems Constitutional: see HPI EENTM: see HPI Respiratory: no symptoms reported Cardiovascular: no symptoms reported Genitourinary: no symptoms reported Musculoskeletal: no symptoms reported Skin: no symptoms reported Psychiatric/Neurological: See HPI, Anxiety Hematologic/Lymphatic: No Symptoms Reported Immunological/Allergic: no symptoms reported Past Pmkysze-Ebozfd-Mkvqfy Hx Immunizations Up To Date Tetanus Booster (TDap): Less than 5yrs PED Vaccines UTD: No Seasonal Allergies Seasonal Allergies: Yes Past Medical History Surgeries: Yes (bilat upper arm F.B. removal, colon resection with F.B removal) Abdominal, Gallbladder Respiratory: No Currently Using CPAP: No Currently Using BIPAP: No Cardiac: Yes Hypertension Neurological: Yes Seizure Disorder Genitourinary: No Gastrointestinal: Yes Gastroesophageal Reflux, Chronic Constipation Musculoskeletal: No Endocrine: Yes Hypothyroidsim HEENT: Yes (WEARS GLASSES) Cancer: No Psychosocial: Yes Anxiety, Bipolar, Depression Integumentary: No Blood Disorders: No Family Medical History No Pertinent Family Hx, Hypertension Physical Exam Vital Signs Capillary Refill : Height, Weight, BMI Height: 5'8.00" Weight: 240lbs. 3.0oz. [id number]; 39.00 BMI Method:Estimated General Appearance: No Apparent Distress, WD/WN, Other (alert and oriented no distress and not postictal) Eyes: Bilateral Eye Normal Inspection, Bilateral Eye PERRL, Bilateral Eye EOMI HEENT: PERRL/EOMI, TMs Normal Neck: Full Range of Motion, Normal Inspection Respiratory: No Accessory Muscle Use, No Respiratory Distress Cardiovascular: Regular Rate, Rhythm, Normal Peripheral Pulses Gastrointestinal: Non Tender, Soft Extremity: Normal Capillary Refill, Normal Inspection Neurologic/Psychiatric: Alert, Oriented x3 Skin: Normal Color, Warm/Dry, Other (The ischial abscess/draining wound was examined with Whitney TUBBS at the bedside. There is no surrounding cellulitis there is a punctum with some purulent drainage from it.) Progress/Results/Core Measures Suspected Sepsis SIRS Temperature: Pulse: Respiratory Rate: Blood Pressure / Mean: Results/Orders My Orders Orders - LEON MONTOYA APRN Divalproex Er 24 Hr Tablet (Depakote Er (02/09/21 13:00) Levetiracetam Tablet (Keppra Tablet) (02/09/21 13:00) Alprazolam Tablet (Xanax Tablet) (02/09/21 13:00) Vital Signs/I&O Capillary Refill : Departure Impression Primary Impression: Seizure disorder Additional Impression: Ischial wound Disposition: HOME, SELF-CARE Condition: Stable Departure-Patient Inst. Decision time for Depature: 12:56 Referrals: BUD GARCIA MD (PCP/Family) Primary Care Physician Patient Instructions: Seizures, Adult (DC) Add. Discharge Instructions: 1. Return to ER for any concerns 2. Follow-up with your doctor next week 3. LEON MONTOYA APRN Feb 09, 2021 12:56
[2021-02-09] MEDS ORDERED: DIVALPROEX EXT RELEASE 500 MG (DEPAKOTE ER) TAB PO SCH (13:00)
[2021-02-09] MEDS ORDERED: ALPRAZolam 0.5 MG (XANAX) TAB PO SCH (13:00)
== END 2021-02-09 13:20 | disposition home or self-care (01) ==
LOC: EDUNIT# 12:45 → ER 12:45
DX: S31.809A Unspecified open wound of unspecified buttock, initial encounter (principal); G40.909 Epilepsy, unspecified, not intractable, without status epilepticus; I10 Essential (primary) hypertension; K21.9 Gastro-esophageal reflux disease without esophagitis; K59.09 Other constipation; E03.9 Hypothyroidism, unspecified; F41.9 Anxiety disorder, unspecified; F31.9 Bipolar disorder, unspecified; Z79.890 Hormone replacement therapy; Z79.899 Other long term (current) drug therapy; X58.XXXA Exposure to other specified factors, initial encounter
CPT/HCPCS: 99283

== ENCOUNTER 2021-09-03 05:30 | Outpatient (RCR) | payer MEDICAID ==
[~2021-09-03] VITALS: Ht 167.7 cm; Wt 136.4 kg
[~2021-09-03 05:30] MED LIST changes: +CYCL10TA25 PO; -CYCL10TA9 PO; -DCS100C; -DCS100C PO; +DOCU-239; +DOCU-239 PO; -LISI1TAB26; -LISI1TAB26 PO; +LISI1TAB48; +LISI1TAB48 PO; -OLAN10TA19 PO; +OLAN10TA71 PO
[2021-09-09] MEDS ORDERED: BACL10TA PO (14:05)
[2021-09-09] MEDS ORDERED: CYCL10TA25 PO (14:06)
[2021-09-09] MEDS ORDERED: NF-DIASG RC (14:06)
[2021-09-10] MEDS ORDERED: ACHD5005 PO (14:15)
== END 2021-09-12 08:44 | disposition home or self-care (01) ==
LOC: PREOP 05:30 → EDSTATUS 09:30 → PREOP 09-12 08:44
PROVIDERS: ATTEND Surgery
DX: Z01.812 Encounter for preprocedural laboratory examination (principal); K20.90 Esophagitis, unspecified without bleeding; L02.31 Cutaneous abscess of buttock; Z20.822 Contact with and (suspected) exposure to COVID-19
CPT/HCPCS: 87635

== ENCOUNTER 2021-09-10 09:39 | Day surgery (SDC) | payer MEDICAID ==
[~2021-09-10] VITALS: Ht 167.7 cm; Wt 136.4 kg
[2021-09-10] VITALS (11 sets, daily range): BP systolic 92–121; BP diastolic 44–82
[~2021-09-10 09:39] MED LIST changes: +NF-DIASG RC
[2021-09-10] MEDS ORDERED: LACTATED RINGERS 1,000 ML IV PRN (10:00)
[2021-09-10] MEDS ORDERED: CLINDAMYCIN 600 MG/50 ML IVPB 50 ML IV ONE (10:00)
[2021-09-10] MEDS ORDERED: LIDOCAINE/EPI 1%-1:200,000 (XYLOCAINE) 30 ML VIAL ONE (11:15)
[2021-09-10] MEDS ORDERED: fentaNYL INJ 100 MCG/2 ML AMP ONE (13:19)
[2021-09-10] MEDS ORDERED: ROCURONIUM 50 MG/5 ML (ZEMURON) VIAL IV ONE (13:19)
[2021-09-10] MEDS ORDERED: proPOfol 200 MG/20 ML (DIPRIVAN) VIAL IV ONE (13:19)
[2021-09-10] MEDS ORDERED: MIDAZOLAM 2 MG/2 ML (VERSED) VIAL ONE (13:19)
[2021-09-10] MEDS ORDERED: LIDOCAINE PF 2% 5 ML (XYLOCAINE) VIAL ONE (13:19)
[2021-09-10] MEDS ORDERED: ONDANSETRON 4 MG/2 ML (SDV) Z0FRAN ONE (13:20)
--- NOTE | 2021-09-10 14:12 | Progress Note-Post Operative ---
Post-Operative Progess Note Surgeon (s)/Balloon Maker (s) Surgeon BILL HILL DO Balloon Maker: none Pre-Operative Diagnosis ESOPHOGITIS Post-Operative Diagnosis Gastritis, Hiatal hernia, Esophagitis Procedure & Operative Findings Date of Procedure 09/10/21 Procedure Performed/Findings 1) EGD with bx PROCEDURE NOTE: After informed consent was obtained, the patient was brought to the endoscopy suite, placed in bed in left lateral decubitus position. She was administered IV sedation by the WELDING PANTOGRAPH OPERATOR who then monitored vitals the entire time, heart rate, blood pressure and pulse ox and the scope was inserted down the mouth through the esophagus into the stomach. On the way down, noted some mild esophagitis, took a picture, pushed into the stomach, pushed past the antrum into the duodenum. Duodenum looked good. Pulled back and did a biopsy of antrum, then retroflexed the scope, saw at least 2cm hiatal hernia, took a picture of this and then pulled the scope into the GE junction, took another picture of the eophagitis and then did a biopsy of the GE junction. Pushed the scope back into the stomach, suctioned all the air out of the stomach. At this point pulled the scope up the esophagus and out the mouth. Then repositioned pt to perform surgery Anesthesia Type GET Estimated Blood Loss Estimated blood loss (mL): scant Specimens/Packing Specimens Removed antral bx body of stomach bx GE jxn bx BILL HILL DO Sep 10, 2021 14:12
--- NOTE | 2021-09-10 14:14 | Progress Note-Post Operative ---
Post-Operative Progess Note Surgeon (s)/Marine Specialist (s) Surgeon BILL HILL DO Marine Specialist: AURELIA Enriquez Pre-Operative Diagnosis Gluteal abscess Post-Operative Diagnosis same plus tract Procedure & Operative Findings Date of Procedure 09/10/21 Procedure Performed/Findings Excision of gluteal abscess with tract, incision is 5cm long by 3.5cm deep Anesthesia Type GET Estimated Blood Loss Estimated blood loss (mL): scant Specimens/Packing Specimens Removed gluteal abscess and tract, measuring 3.5 x 2.5 x 1cm BILL HILL DO Sep 10, 2021 14:14
[2021-09-10] MEDS ORDERED: ACHD5005 PO (14:15)
--- NOTE | 2021-09-10 14:16 | Discharge Inst-Surgical ---
Discharge Inst-Surgical Depart Medication/Instructions New, Converted or Re-Newed RX: Transmitted to Pharmacy Patient Instructions Follow up Appt: Make appointment for 1 week. [phone] Instructions: No lifting greater than 20 pounds. No strenuous activity. May shower in 24 hours, no tub bath or soaking. Use incentive spirometer at home as directed. No Smoking Skin/Wound Care: May remove bandages in am. You need to leave the Dermabond on incision it will fall off on it's own. Symptoms to Report: Appetite Changes, Extremity Discoloration, Numbness/Tingling, Swelling Increased, Bleeding Excessive, Eyesight Changes, Pain Increased, Urine Color Change, Constipation(Persistent), Fever over 101 degree F, Pain/Pressure in chest, Urinating Difficulty, Cough Up/Vomit Blood, Heart Beat Irreg/Pounding, Pain/Pressure in jaw, Cramps in feet or legs, Lightheadedness, Pain/Pressure in shoulder, Diarrhea(Persistent), Memory Changes Suddenly, Questions/Concerns, Weight gain consecutive days, Dizziness/Fainting, Nausea/Vomiting, Shortness of Breath, Weight gain over 2 pounds If questions or concerns contact your physician Or seek help at emergency department. Activity Activity as Tolerated: Yes Activity Instructions: Avoid Stress to Incision Diet Discharge Diet: No Restrictions Diet After 24 Hours: Clear Liquid if Nauseous If Any Problems/Questions/Issu: Contact Your Physician, Go to Emergency Room Skin/Wound Care Infection Signs and Symptoms: Increased Redness, Foul Odor of Wound, Increased Drainage, Skin Itchy or Has a Rash, Increased Swelling, Temperature Above 101 F Stitches/Lexi/Dermabond Dis: BILL Saunders DO Sep 10, 2021 14:16
--- NOTE | 2021-09-10 14:16 | Endoscopy Discharge Instruct ---
Endo Procedure/Findings Findings 1.: Gastritis 2.: Hiatal Hernia Discharge Instructions - Activity: You might feel a little sleepy until tomorrow. This is due to the medicine you received to relax you. Until tomorrow, you should: NOT drive a car, operate machinery or power tools. NOT drink any alcoholic beverages. NOT make any important decisions or sign importortant papers. Do not return to work until tomorrow, unless otherwise instructed. Resume previous activities tomorrow. Diet: Start by taking liquids. If you tolerate liquids, advance to solid food. 1.: EGD in 3 years Notify Physician - If you experience excessive bleeding, unusual abdominal pain, fever, or chest pain, contact your doctor immediately. BILL HILL DO Sep 10, 2021 14:16
[2021-09-10] MEDS ORDERED: SEVOFLURANE (ULTANE) 15 ML INHAL SOLN ONE (14:23)
[2021-09-10] MEDS ORDERED: NEOSTIGMINE 3 MG/3 ML VIAL ONE (14:25)
[2021-09-10] MEDS ORDERED: GLYCOPYRROLATE 0.2 MG/ML (ROBINUL) 2 ML VIAL ONE (14:25)
[2021-09-10] MEDS ORDERED: PROMETHAZINE INJ 25 MG/ML (PHENERGAN) AMP IVP ONE (14:45)
[2021-09-10] MEDS ORDERED: HYDROmorphone 2 MG/ML VIAL (DILAUDID) IV ONE (14:45)
[2021-09-10] MEDS ORDERED: MEPERIDINE (DEMEROL) INJ 50 MG/ML IVP ONE (14:45)
[2021-09-10] MEDS ORDERED: morphine INJ 10 MG/ML 1ML (SYR OR VIAL) IVP ONE (14:45)
[2021-09-10] MEDS ORDERED: ONDANSETRON 4 MG/2 ML (SDV) Z0FRAN IVP PRN (14:45)
--- NOTE | 2021-09-10 15:13 | Anesthesia-General Post-Op ---
General Patient Condition Mental Status/LOC: Same as Preop Cardiovascular: Satisfactory Nausea/Vomiting: Absent Respiratory: Satisfactory Pain: Controlled Complications: Absent Post Op Complications Complications None Follow Up Care/Instructions Patient Instructions None needed. Anesthesia/Patient Condition Patient Condition Patient is doing well, no complaints, stable vital signs, no apparent adverse anesthesia problems. No complications reported per nursing. SOURAV SARABIA CRNA Sep 10, 2021 15:13
[2021-09-10] MEDS ORDERED: ACETAMINOPHEN 500 MG TAB (TYLENOL) PO ONE (16:00)
[2021-09-10] MEDS ORDERED: ACETAMINOPHEN 500 MG TAB (TYLENOL) ONE (16:02)
--- NOTE | 2021-09-10 18:35 | OPERATIVE REPORT ---
DATE OF SERVICE: 09/10/2021 PREOPERATIVE DIAGNOSIS: Left gluteal abscess. POSTOPERATIVE DIAGNOSIS: Left gluteal abscess with tract. PROCEDURE: Excision of gluteal abscess and tract, incision measuring 5 cm long x 3.5 cm deep. SURGEON: Roland Newell DO INSTRUMENTATION ENGINEERING TECHNICIAN: Denny Rodriguez MS4 ANESTHESIA: General endotracheal tube. SPECIMEN: Portion of skin and subcutaneous tissue measuring 3.5 x 2.5 x 1 cm. BLOOD LOSS: Scant. FLUIDS: Per anesthesia. POSTOPERATIVE CONDITION: Stable. INDICATION FOR PROCEDURE: The patient is a 36-year-old female who has had this chronic gluteal abscess. Previous attempts to remove it have been unsuccessful. It is much smaller that has been in the past, but has an open tract, it drains and she wanted to get this removed. We did discuss the fact that she had this done at least twice previously and does not worked, but she would like to try. FINDINGS: The patient had a left gluteal abscess, could see a tract going down. We were able to get below this, removed the entire tract. We made an incision 5 cm long x 3.5 cm deep and the specimen came out was 3.5 cm x 2.5 x 1 cm. PROCEDURE NOTE: After informed consent was obtained, the patient was brought to the operating room, placed on the table in left lateral decubitus position. She was sterilely prepped and draped in normal fashion. Local lidocaine was used to infiltrate around this abscess, then made an elliptical incision, it measured 5 cm long x 3.5 cm deep. Used #15 blade to make this incision, carried down through the skin into subcutaneous tissue going around and excised the previous scar as well as the tract came to the surface, then dissected down with Bovie electrocautery, going straight down, able to monitor the tract and then actually got below it and got all the way under it. With a Bovie electrocautery, we removed this piece of tissue measured about 3.5 cm deep x about 2 cm wide x about 1 cm thickness, removed this, passed this off the table. Copiously irrigated the area with normal saline. Hemostasis was obtained using Bovie electrocautery, then elected to close the incision with 4-0 undyed Monocryl 3 interrupted subcuticular stitches. Area was cleaned and dried, dressings placed. The patient tolerated the procedure. She was transferred to recovery room in stable condition. Sponge and needle count correct at the end of the case. Job ID: [id number] DocumentID: [id number] Dictated Date: 09/10/2021 14:50:59 Rn Pediatric Date: 09/10/2021 18:34:28 Dictated By: ROLAND NEWELL DO
== END 2021-09-10 16:55 | disposition home or self-care (01) ==
LOC: SDC 09:39
PROVIDERS: ATTEND Surgery
DX: L02.31 Cutaneous abscess of buttock (principal); K20.90 Esophagitis, unspecified without bleeding; K44.9 Diaphragmatic hernia without obstruction or gangrene; K21.9 Gastro-esophageal reflux disease without esophagitis; I10 Essential (primary) hypertension; F32.A Depression, unspecified; F41.9 Anxiety disorder, unspecified; E03.9 Hypothyroidism, unspecified; K29.50 Unspecified chronic gastritis without bleeding; F17.210 Nicotine dependence, cigarettes, uncomplicated; Z98.890 Other specified postprocedural states; Z79.899 Other long term (current) drug therapy; Z79.890 Hormone replacement therapy; Z79.2 Long term (current) use of antibiotics; Z79.1 Long term (current) use of non-steroidal anti-inflammatories (NSAID); Z85.9 Personal history of malignant neoplasm, unspecified
CPT/HCPCS: 84703; 87081; 88305

== ENCOUNTER → 2022-01-09 | Outpatient (CLI) | payer MEDICAID ==
[~2022-01-09] MED LIST changes: +ACHD5005 PO
--- NOTE | 2022-01-09 12:33 | Diagnostic Imaging Report ---
INDICATION: Chronic left hand pain. Time of Exam: 12:08 PM The metacarpals are intact. Phalanges are intact. No fractures are seen. There appears to be an old healed fracture of the 2nd metacarpal. Alignment is normal. IMPRESSION: No acute bony abnormalities detected. Dictated by: Dictated on workstation # [id number]
--- NOTE | 2022-01-09 12:33 | Diagnostic Imaging Report ---
INDICATION: Left wrist and hand pain. Time of Exam: 12:09 PM 3 views of the left wrist were obtained. Distal radius and ulna are intact. Carpal bones are intact. Metacarpals are intact. No fractures are seen. IMPRESSION: No acute bony abnormality is detected. Dictated by: Dictated on workstation # [id number]
== END ==
LOC: RAD 11:51
PROVIDERS: ATTEND Nurse Practitioner Family
DX: M79.642 Pain in left hand (principal); M25.532 Pain in left wrist; G89.29 Other chronic pain; Z87.81 Personal history of (healed) traumatic fracture
CPT/HCPCS: 73110; 73130

== ENCOUNTER → 2022-12-13 | Day surgery (SDC) | payer MEDICAID ==
[~2022-12-13] MED LIST changes: -BENZ1TAB6 PO; +BENZ1TAB74 PO; -CHLO100T22 PO; +LIDOCAINE PF 2% 5 ML (XYLOCAINE) VIAL ONE; +MIDAZOLAM 2 MG/2 ML (VERSED) VIAL ONE; +ONDANSETRON 4 MG/2 ML (SDV) Z0FRAN ONE; +SEVOFLURANE (ULTANE) 15 ML INHAL SOLN ONE; +SUCCINYLCHOLINE INJ 20 MG/1 ML 10 ML VIAL ONE; +[UNRECOGNIZED DRUG - CODE] PO; +fentaNYL INJ 100 MCG/2 ML AMP ONE; +proPOfol 200 MG/20 ML (DIPRIVAN) VIAL IV ONE
[2022-12-13 10:20] LABS: BASOPHILS # (AUTO) 0.1 10^3/uL (0.0-0.1); BASOPHILS % (AUTO) 1 % (0-10); EOSINOPHILS # (AUTO) 0.3 10^3/uL (0.0-0.3); EOSINOPHILS % (AUTO) 3 % (0-10); HEMATOCRIT 39 % (35-52); HEMOGLOBIN 13.2 g/dL (11.5-16.0); LYMPHOCYTES % (AUTO) 41 % (12-44); MEAN CORPUSCULAR HEMOGLOBIN 31 pg (25-34); MEAN CORPUSCULAR HGB CONC 34 g/dL (32-36); MEAN CORPUSCULAR VOLUME 91 fL (80-99); MEAN PLATELET VOLUME 10.5 fL (9.0-12.2); MONOCYTES # (AUTO) 0.5 10^3/uL (0.0-1.0); MONOCYTES % (AUTO) 7 % (0-12); NEUTROPHILS # (AUTO) 3.5 10^3/uL (1.8-7.8); NEUTROPHILS % (AUTO) 48 % (42-75); PLATELET COUNT 224 10^3/uL (130-400); WHITE BLOOD COUNT 7.3 10^3/uL (4.3-11.0)
[2022-12-13 10:28] LABS: BILIRUBIN,URINE NEGATIVE (NEGATIVE); CLARITY,URINE CLEAR; COLOR,URINE DARK YELLOW; GLUCOSE, URINE (UA) NEGATIVE (NEGATIVE); KETONES,URINE TRACE (NEGATIVE); LEUKOCYTE ESTERASE ,URINE NEGATIVE (NEGATIVE); NITRITE,URINE NEGATIVE (NEGATIVE); PROTEIN,URINE TRACE (NEGATIVE)
[2022-12-13 10:32] LABS: ALBUMIN 3.8 GM/DL (3.2-4.5); CHLORIDE 113 MMOL/L (98-107); POTASSIUM 4.1 MMOL/L (3.6-5.0); SODIUM 139 MMOL/L (135-145)
[2022-12-13 10:33] LABS: CALCIUM 9.3 MG/DL (8.5-10.1)
[2022-12-13 10:34] LABS: HCG,QUALITATIVE URINE NEGATIVE (NEGATIVE)
[2022-12-13 10:35] LABS: GLUCOSE 113 MG/DL (70-105)
[2022-12-13 10:35] LABS: BACTERIA,URINE FEW /HPF
[2022-12-13 10:36] LABS: BILIRUBIN,TOTAL 0.2 MG/DL (0.1-1.0); CARBON DIOXIDE 13 MMOL/L (21-32)
[2022-12-13 10:38] LABS: ALKALINE PHOSPHATASE 50 U/L (40-136); CREATININE SERUM 0.83 MG/DL (0.60-1.30); GFR ESTIMATED 94
[2022-12-13 10:40] LABS: BUN/CREATININE RATIO 16
[2022-12-13 10:41] LABS: SALICYLATE < 5.0 MG/DL (5.0-20.0)
[2022-12-13 10:41] LABS: AMPHETAMINE SCREEN, URINE NEGATIVE (NEGATIVE); BARBITURATE SCREEN URINE NEGATIVE (NEGATIVE); BENZODIAZEPINES SCREEN URINE NEGATIVE (NEGATIVE); CANNABINOID SCREEN, URINE NEGATIVE (NEGATIVE); COCAINE SCREEN URINE NEGATIVE (NEGATIVE); METHADONE STAT NEGATIVE (NEGATIVE); OPIATE SCREEN URINE NEGATIVE (NEGATIVE); OXYCODONE STAT NEGATIVE (NEGATIVE); PROPOXYPHENE STAT NEGATIVE (NEGATIVE); TRICYCLIC ANTIDEPRESSANTS SCRE POSITIVE (NEGATIVE)
[2022-12-13 10:42] LABS: ALANINE AMINOTRANSFERASE 17 U/L (0-55)
--- NOTE | 2022-12-13 10:50 | Diagnostic Imaging Report ---
INDICATION: Pain, ingested foreign bodies. COMPARISON: Imaging of the abdomen from the same date. TECHNIQUE: Single radiograph of the chest dated 12/13/2022. FINDINGS: The cardiac silhouette is within normal limits in size. No significant pulmonary vascular congestion. The lungs are clear. No pleural effusion. No pneumothorax. Surgical clips in the right upper abdomen. No acute osseous abnormality. IMPRESSION: No acute cardiopulmonary abnormality. Dictated by: Dictated on workstation # [id number]
[2022-12-13 10:51] LABS: ACETAMINOPHEN < 10 UG/ML (10-30)
--- NOTE | 2022-12-13 10:53 | Diagnostic Imaging Report ---
INDICATION: Abdominal pain. COMPARISON: 01/28/2021 TECHNIQUE: 2 radiographs of the abdomen dated 12/13/2022. FINDINGS: Surgical clips are again noted within the right upper abdomen. However, multiple metallic screws and nails are identified overlying the midline upper abdomen. No additional suspicious metallic foreign body within the mid to inferior abdomen. Nonobstructive bowel gas pattern. No free air. Mild scattered osseous degenerative changes without acute osseous abnormality. IMPRESSION: Multiple metallic densities related to screws and nails overlying the midline upper abdomen likely related to ingested foreign bodies. Given location, these are overlying the expected location of the distal stomach. No evidence of bowel obstruction or free air. Dictated by: Dictated on workstation # [id number]
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
--- NOTE | 2022-12-13 12:01 | Consultation - Surgery ---
History of Present Illness History of Present Illness Patient Consulted On(luis miguel/time) 12/13/22 11:56 Date Seen by Provider: December 13, 2022 Time Seen by Provider: 11:56 History of Present Illness CC: swallowed nails and screws. Patient is a 37 year old female who was trying to hurt herself by swallowing nails and screws. She is unhappy with her [place] [facility]. Reports slight discomfort in epigastric area. No other complaints. Denies n/v fever sweats chills shortness of breath or chest pain. Abdominal x ray showing metallic foreign bodies in stomach appears to be screws and maybe nails. Allergies and Home Medications Allergies Coded Allergies: Fish Containing Products (Verified Allergy, Unknown, 09/09/21) Penicillins (Verified Allergy, Unknown, 09/09/21) Sulfa (Sulfonamide Antibiotics) (Verified Allergy, Unknown, 09/09/21) haloperidol (Verified Allergy, Unknown, 09/09/21) Patient Home Medication List Home Medication List Reviewed: Yes Baclofen (Baclofen) 10 Mg Tablet, 10 MG PO DAILY, (Reported) Entered as Reported by: MACY BEE on 09/09/21 1405 Cyclobenzaprine HCl (Cyclobenzaprine HCl) 10 Mg Tablet, 10 MG PO UD, (Reported) Entered as Reported by: MACY BEE on 09/09/21 1406 Diazepam (Diastat Acudial) 10 Mg Gel, 10 MG RC UD, (Reported) Entered as Reported by: MACY BEE on 09/09/21 1406 Divalproex Sodium (Depakote ER) 500 Mg Tab.er.24h, 500 MG PO DAILY, (Reported) Entered as Reported by: AVA DOVER on 01/25/19 1151 Divalproex Sodium (Divalproex Sodium ER) 500 Mg Tab.er.24h, 500 MG PO HS, (Reported) Entered as Reported by: AVA DOVER on 01/25/19 1151 Docusate Sodium (Dok) 100 Mg Capsule, 100 MG PO DAILY, (Reported) Entered as Reported by: ESTHER BARROW on 12/23/20 0920 Ferrous Sulfate (Ferrous Sulfate) 325 Mg Tablet, 325 MG PO DAILY@1700, (Reported) Entered as Reported by: MARYANN COOPER on 01/24/202051 Hydrocodone Bit/Acetaminophen (HYDROcodone/APAP 5 MG/325 MG TAB) 1 Tab Tab, 1 TAB PO Q8H PRN for PAIN-MODERATE (5-7) Prescribed by: BILL HILL on 09/10/21 1415 Levetiracetam (Levetiracetam) 500 Mg Tablet, 500 MG PO DAILY, (Reported) Entered as Reported by: ESTHER BARROW on 12/23/20 0920 Levetiracetam (Keppra) 500 Mg Tablet, 500 MG PO BID, (Reported) Entered as Reported by: JANET CHAVIS on 12/25/20 0806 Levothyroxine Sodium (Levothyroxine Sodium) 50 Mcg Tablet, 50 MCG PO DAILY, (Reported) Entered as Reported by: AVA DOVER on 01/25/19 115 Lisinopril/Hydrochlorothiazide (Lisinopril-Hctz 20-25 mg Tab) 1 Each Tablet, 1 EACH PO DAILY, (Reported) Entered as Reported by: ESTHER BARROW on 12/23/20 0920 Medroxyprogesterone Acetate (Medroxyprogesterone Acetate) 150 Mg/1 Ml Syringe, 150 MG IM every 3 months, (Reported) Entered as Reported by: AVA DOVER on 01/25/19 1151 Multivitamin/Iron/Folic Acid (One Daily Plus Iron Tablet) 1 Each Tablet, 2 TAB PO DAILY, (Reported) Entered as Reported by: AVA DOVER on 01/25/19 1155 Pantoprazole Sodium (Pantoprazole Sodium) 40 Mg Tablet.dr, 40 MG PO DAILY, (Reported) Entered as Reported by: HANNAH CHRISTOPHER on 01/31/19 1025 Sennosides/Docusate Sodium (Senna S Tablet) 1 Each Tablet, 2 TAB PO HS, (Reported) Entered as Reported by: AVA DOVER on 01/25/19 1204 Sertraline HCl (Sertraline HCl) 100 Mg Tablet, 100 MG PO DAILY, (Reported) Entered as Reported by: AVA DOVER on 01/25/19 1501 Sucralfate (Sucralfate) 1 Gm Tablet, 2 GM PO QID, (Reported) Entered as Reported by: HANNAH CHRISTOPHER on 01/31/19 1025 Topiramate (Topiramate) 100 Mg Tablet, 100 MG PO DAILY, (Reported) Entered as Reported by: ESTHER BARROW on 12/23/20919 Trazodone HCl (Trazodone HCl) 100 Mg Tablet, 100 MG PO TID, (Reported) Entered as Reported by: ESTHER BARROW on 12/23/20919 Past Noegebw-Pzaknz-Lhdzea Hx Patient Social History Drug of Choice: HX: meth, THC Smoking Status: Current Everyday Smoker Type Used: Cigarettes 2nd Hand Smoke Exposure: Yes Recent Hopitalizations: No Alcohol Use?: No Have you traveled recently?: No Immunizations Up To Date Tetanus Booster (TDap): Less than 5yrs PED Vaccines UTD: No Date of Influenza Vaccine: May 17, 2020 Seasonal Allergies Seasonal Allergies: Yes Surgeries History of Surgeries: Yes (bilat upper arm F.B. removal, colon resection with F.B removal) Surgeries: Abdominal, Gallbladder Respiratory History of Respiratory Disorde: No Cardiovascular History of Cardiac Disorders: Yes Cardiac Disorders: Hypertension Neurological History of Neurological Disord: Yes Neurological Disorders: Seizure Disorder Genitourinary History of Genitourinary Disor: No Gastrointestinal History of Gastrointestinal Di: Yes Gastrointestinal Disorders: Gastroesophageal Reflux, Chronic Constipation Musculoskeletal History of Musculoskeletal Dis: No Endocrine History of Endocrine Disorders: Yes Endocrine Disorders: Hypothyroidsim HEENT History of HEENT Disorders: Yes (WEARS GLASSES) Cancer History of Cancer: No Psychosocial History of Psychiatric Problem: Yes (BOARDERLINE, DISRUPTIVE MOOD DYSREGULATION, ADULT ANTISOCIAL DISORDER, IDD) Behavioral Health Disorders: Anxiety, Bipolar, Depression Integumentary History of Skin or Integumenta: No Blood Transfusions History of Blood Disorders: No Reviewed Nursing Assessment Reviewed/Agree w Nursing PMH: Yes Family Medical History Significant Family History: No Pertinent Family Hx, Hypertension Review of Systems-General Constitutional: No chills, No diaphoresis EENTM: No ear pain, No blurred vision, No double vision Respiratory: No cough Cardiovascular: No chest pain, No palpitations Gastrointestinal: see HPI, abdominal pain Genitourinary: No decreased output, No discharge Musculoskeletal: No back pain, No joint pain Skin: No change in color, No change in hair/nails Psychiatric/Neurological: Other (suidcidal ideation) All Other Systems Reviewed Negative Unless Noted: Yes (Negative excepted noted.) Physical Exam-General Problems Physical Exam Vital Signs Vital Signs - First Documented 12/13/22 10:00 Temp 36.0 Pulse 126 Resp 20 B/P (MAP) 124/93 (103) Pulse Ox 100 Capillary Refill : Less Than 3 Seconds General Appearance: no apparent distress, obese HEENT: PERRL/EOMI, normal ENT inspection Neck: non-tender, supple Respiratory: chest non-tender, no respiratory distress, no accessory muscle use Cardiovascular: regular rate, rhythm, no JVD Gastrointestinal: non tender, soft Rectal: deferred Back: normal inspection, no CVA tenderness Extremities: non-tender, normal inspection Neurologic/Psychiatric: alert, oriented x 3, depressed affect Skin: normal color, warm/dry Lymphatic: no adenopathy Data Review Labs Laboratory Tests 12/13/22 10:12: SARS-CoV-2 RNA (RT-PCR) Not Detected 12/13/22 10:13: White Blood Count 7.3, Red Blood Count 4.21, Hemoglobin 13.2, Hematocrit 39, Mean Corpuscular Volume 91, Mean Corpuscular Hemoglobin 31, Mean Corpuscular Hemoglobin Concent 34, Red Cell Distribution Width 11.3, Platelet Count 224, Mean Platelet Volume 10.5, Immature Granulocyte % (Auto) 0, Neutrophils (%) (Auto) 48, Lymphocytes (%) (Auto) 41, Monocytes (%) (Auto) 7, Eosinophils (%) (Auto) 3, Basophils (%) (Auto) 1, Neutrophils # (Auto) 3.5, Lymphocytes # (Auto) 3.0, Monocytes # (Auto) 0.5, Eosinophils # (Auto) 0.3, Basophils # (Auto) 0.1, Immature Granulocyte # (Auto) 0.0, Sodium Level 139, Potassium Level 4.1, C hloride Level 113H, Carbon Dioxide Level 13L, Anion Gap 13, Blood Urea Nitrogen 13, Creatinine 0.83, Estimat Glomerular Filtration Rate 94, BUN/Creatinine Ratio 16, Glucose Level 113H, Calcium Level 9.3, Corrected Calcium 9.5, Total Bilirubin 0.2, Aspartate Amino Transf (AST/SGOT) 17, Alanine Aminotransferase (ALT/SGPT) 17, Alkaline Phosphatase 50, Total Protein 7.0, Albumin 3.8, TSH Leonard Testing 0.76, Salicylates Level < 5.0L, Acetaminophen Level < 10L, Serum Alcohol < 10 12/13/22 10:24: Urine Color DARK YELLOW, Urine Clarity CLEAR, Urine pH 7.0, Urine Specific Solen 1.020, Urine Protein TRACEH, Urine Glucose (UA) NEGATIVE, Urine Ketones TRACEH, Urine Nitrite NEGATIVE, Urine Bilirubin NEGATIVE, Urine Urobilinogen 1.0, Urine Leukocyte Esterase NEGATIVE, Urine RBC (Auto) NEGATIVE, Urine RBC NONE, Urine WBC NONE, Urine Squamous Epithelial Cells 10-25H, Urine Crystals NONE, Urine Bacteria FEWH, Urine Casts NONE, Urine Mucus NEGATIVE, Urine Culture Indicated NO, Urine Test NEGATIVE, Urine Opiates Screen NEGATIVE, Urine Oxycodone Screen NEGATIVE, Urine Methadone Screen NEGATIVE, Urine Propoxyphene Screen NEGATIVE, Urine Barbiturates Screen NEGATIVE, Ur Tricyclic Antidepressants Screen POSITIVEH, Urine Phencyclidine Screen NEGATIVE, Urine Amphetamines Screen NEGATIVE, Urine Methamphetamines Screen NEGATIVE, Urine Benzodiazepines Screen NEGATIVE, Urine Cocaine Screen NEGATIVE, Urine Cannabinoids Screen NEGATIVE Assessment/Plan Assessment/Plan Assessment/Plan suicidal ideation ingested metal foreign objects plan for egd to retrieve foreign bodies NPO Consent for procedure May need surgical intervention if causes perforation. GRACE QUEZADA DO December 13, 2022 12:01
[2022-12-13 12:35] VITALS: BP 117/83
--- NOTE | 2022-12-13 12:39 | Progress Note-Post Operative ---
Post-Operative Progess Note Surgeon (s)/Quarry Supervisor Dimension Stone (s) Surgeon GRACE QUEZADA DO Quarry Supervisor Dimension Stone: na Pre-Operative Diagnosis foreign body ingestion Post-Operative Diagnosis same Procedure & Operative Findings Date of Procedure 12/13/22 Procedure Performed/Findings egd with removal foreign body x 6 Anesthesia Type general Estimated Blood Loss Estimated blood loss (mL): scant Specimens/Packing Specimens Removed foreign bodies GRACE QUEZADA DO December 13, 2022 12:38
[2022-12-13 12:40] VITALS: BP 121/88
--- NOTE | 2022-12-13 12:46 | Anesthesia-General Post-Op ---
General Patient Condition Mental Status/LOC: Same as Preop Cardiovascular: Satisfactory Nausea/Vomiting: Absent Respiratory: Satisfactory Pain: Controlled Complications: Absent Post Op Complications Complications None Follow Up Care/Instructions Patient Instructions None needed. Anesthesia/Patient Condition Patient Condition Patient is doing well, no complaints, stable vital signs, no apparent adverse anesthesia problems. No complications reported per nursing. MARGY ARGUELLO CRNA December 13, 2022 12:46
[2022-12-13 12:50] VITALS: BP 118/92
--- NOTE | 2022-12-13 12:58 | OPERATIVE REPORT ---
DATE OF SERVICE: 12/13/2022 PREOPERATIVE DIAGNOSIS: Foreign body ingestion. POSTOPERATIVE DIAGNOSIS: Foreign body ingestion. PROCEDURE: EGD with removal of foreign body x6. SURGEON: Grace Phillips DO ANESTHESIA: General. ESTIMATED BLOOD LOSS: Scant. COMPLICATIONS: None. INDICATIONS: The patient is a 37-year-old female who is trying to cause self-harm. She swallowed multiple screws and a nail. These were visualized on x-ray, it appeared to be in the stomach. Consent was obtained for procedure. Consent was signed on the chart. DESCRIPTION OF PROCEDURE: The patient was taken to the operating suite. A timeout was performed. Scope was inserted in the mouth, down the esophagus, stomach, visualizing foreign bodies, which appeared to be nail and screws. A snare was used to start removing foreign bodies. The screws and nails in the stomach were removed. The scope was then inserted into the duodenum, which had 2 in this area, which the snare was again used to remove. A total of 5 screws and 1 nail was removed. Scope was inserted back into the mouth, down the esophagus, stomach and into the duodenum. No foreign bodies within the duodenum. Scope was slowly retracted back to the stomach where no further foreign bodies were present. Scope was retroflexed noting no other pathology. Scope was returned to its normal position, slowly withdrawn until distal esophagus, had normal appearance. Scope was then slowly retracted back until completely removed, noting no other foreign bodies or pathology. The patient tolerated the procedure well, no complications, to recovery room in stable condition. Job ID: [id number] DocumentID: [id number] Dictated Date: 12/13/2022 12:42:14 Armature Straightener Date: 12/13/2022 12:56:00 Dictated By: GRACE PHILLIPS DO [facility] PS[facility]CHIATRIC CENTERLisa
[2022-12-13 13:00] VITALS: BP 124/92
[2022-12-13 13:10] VITALS: BP 127/93
[2022-12-13 20:49] VITALS: BP 128/90
== END ==
LOC: EDUNIT# 09:56 → ER 09:58 → SDC 11:43
PROVIDERS: ATTEND Surgery
DX: T18.2XXA Foreign body in stomach, initial encounter (principal); R45.88 Nonsuicidal self-harm; F17.210 Nicotine dependence, cigarettes, uncomplicated; R45.851 Suicidal ideations; E66.9 Obesity, unspecified
CPT/HCPCS: 43247; 71045; 74018; 80053; 80306; 81000; 84443; 84703; 85025; 87636; 93005; 99284; G0480 ×3; 36415; 80320; 80329

== ENCOUNTER 2023-05-20 19:09 | Emergency (ER) | payer MEDICAID ==
[~2023-05-20] VITALS: Ht 170 cm; Wt 110.6 kg
[~2023-05-20 19:09] MED LIST changes: -LIDOCAINE PF 2% 5 ML (XYLOCAINE) VIAL ONE; -MIDAZOLAM 2 MG/2 ML (VERSED) VIAL ONE; -ONDANSETRON 4 MG/2 ML (SDV) Z0FRAN ONE; -SEVOFLURANE (ULTANE) 15 ML INHAL SOLN ONE; -SUCCINYLCHOLINE INJ 20 MG/1 ML 10 ML VIAL ONE; -fentaNYL INJ 100 MCG/2 ML AMP ONE; -proPOfol 200 MG/20 ML (DIPRIVAN) VIAL IV ONE
--- NOTE | 2023-05-20 19:37 | ED Abdominal Pain ---
General Chief Complaint: Abdominal/GI Problems Stated Complaint: HURTS TO BREATHE, LOWER ABD PAIN, DIZZINESS Nursing Triage Note: PATIENT STATES ABDOMINAL PAIN LEFT UPPER SIDE/BACK, STATES PAIN INCREASES WITH TAKING DEEP BREATH. 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 DENIES N/V Source of Information: Patient Exam Limitations: No Limitations (VESNA WILSON) History of Present Illness Date Seen by Provider: May 20, 2023 Time Seen by Provider: 19:35 Initial Comments Patient is a 37-year-old female with a history of seizures, mental health disorder who presents to ED with staff from [facility] for left upper and left flank pain. This started 1 hour ago. Denies any specific injury. Pain hurts with deep inspiration. She denies cough, vomiting, diarrhea, headache, dizziness, vomiting. She did feel nauseous earlier. Denies of any frequent urination pain with urination. No history of previous abdominal surgery. She states she gets relief when she puts pressure on the left flank and left lateral abdomen. Here with staff. She denies eating anything as she has a history of eating screws and nails. (VESNA WILSON) Allergies and Home Medications Allergies Coded Allergies: Fish Containing Products (Verified Allergy, Unknown, 09/09/21) Penicillins (Verified Allergy, Unknown, 09/09/21) Sulfa (Sulfonamide Antibiotics) (Verified Allergy, Unknown, 09/09/21) haloperidol (Verified Allergy, Unknown, 09/09/21) Patient Home Medication List Home Medication List Reviewed: Yes (VESNA WILSON) Baclofen (Baclofen) 10 Mg Tablet, 10 MG PO DAILY, (Reported) Entered as Reported by: MACY BEE on 09/09/21 1405 Cyclobenzaprine HCl (Cyclobenzaprine HCl) 10 Mg Tablet, 10 MG PO UD, (Reported) Entered as Reported by: MACY BEE on 09/09/21 1406 Diazepam (Diastat Acudial) 10 Mg Gel, 10 MG RC UD, (Reported) Entered as Reported by: MACY BEE on 09/09/21 1406 Divalproex Sodium (Depakote ER) 500 Mg Tab.er.24h, 500 MG PO DAILY, (Reported) Entered as Reported by: AVA DOVER on 01/25/19 1151 Divalproex Sodium (Divalproex Sodium ER) 500 Mg Tab.er.24h, 500 MG PO HS, (Reported) Entered as Reported by: AVA DOVER on 01/25/19 115 Docusate Sodium (Dok) 100 Mg Capsule, 100 MG PO DAILY, (Reported) Entered as Reported by: ESTHER BARROW on 12/23/20 09 Ferrous Sulfate (Ferrous Sulfate) 325 Mg Tablet, 325 MG PO DAILY@1700, (Reported) Entered as Reported by: MARYANN COOPER on 01/24/202051 Hydrocodone Bit/Acetaminophen (HYDROcodone/APAP 5 MG/325 MG TAB) 1 Tab Tab, 1 TAB PO Q8H PRN for PAIN-MODERATE (5-7) Prescribed by: BILL HILL on 09/10/21 1415 Levetiracetam (Levetiracetam) 500 Mg Tablet, 500 MG PO DAILY, (Reported) Entered as Reported by: ESTHER BARROW on 12/23/20 09 Levetiracetam (Keppra) 500 Mg Tablet, 500 MG PO BID, (Reported) Entered as Reported by: JANET CHAVIS on 12/25/20 0806 Levothyroxine Sodium (Levothyroxine Sodium) 50 Mcg Tablet, 50 MCG PO DAILY, (Reported) Entered as Reported by: AVA DOVER on 01/25/19 115 Lisinopril/Hydrochlorothiazide (Lisinopril-Hctz 20-25 mg Tab) 1 Each Tablet, 1 EACH PO DAILY, (Reported) Entered as Reported by: ESTHER BARROW on 12/23/20919 Medroxyprogesterone Acetate (Medroxyprogesterone Acetate) 150 Mg/1 Ml Syringe, 150 MG IM every 3 months, (Reported) Entered as Reported by: AVA DOVER on 01/25/19 115 Multivitamin/Iron/Folic Acid (One Daily Plus Iron Tablet) 1 Each Tablet, 2 TAB PO DAILY, (Reported) Entered as Reported by: AVA DOVER on 01/25/19 115 Pantoprazole Sodium (Pantoprazole Sodium) 40 Mg Tablet.dr, 40 MG PO DAILY, (Reported) Entered as Reported by: HANNAH CHRISTOPHER on 01/31/19 1025 Sennosides/Docusate Sodium (Senna S Tablet) 1 Each Tablet, 2 TAB PO HS, (Reported) Entered as Reported by: AVA DOVER on 01/25/19 1204 Sertraline HCl (Sertraline HCl) 100 Mg Tablet, 100 MG PO DAILY, (Reported) Entered as Reported by: AVA DOVER on 01/25/19 1501 Sucralfate (Sucralfate) 1 Gm Tablet, 2 GM PO QID, (Reported) Entered as Reported by: HANNAH CHRISTOPHER on 01/31/19 1025 Topiramate (Topiramate) 100 Mg Tablet, 100 MG PO DAILY, (Reported) Entered as Reported by: ESTHER BARROW on 12/23/20 0920 Trazodone HCl (Trazodone HCl) 100 Mg Tablet, 100 MG PO TID, (Reported) Entered as Reported by: ESTHER BARROW on 12/23/20919 Review of Systems Review of Systems Constitutional: No chills, No diaphoresis, No fever, No malaise EENTM: No Blurred Vision, No Double Vision, No Eye Pain Respiratory: Denies Cough, Denies Orthopnea Cardiovascular: Denies Chest Pain Gastrointestinal: Abdominal Pain; Denies Diarrhea, Denies Vomiting Genitourinary: Denies Burning, Denies Discharge, Denies Drainage, Denies Frequency, Denies Flank Pain Musculoskeletal: back pain; No joint pain Skin: No change in color, No change in hair/nails (VESNA WILSON) All Other Systems Reviewed Negative Unless Noted: Yes (VESNA WILSON) Past Tpbwgjr-Ejaqkt-Blnrfw Hx Immunizations Up To Date Tetanus Booster (TDap): Less than 5yrs PED Vaccines UTD: No First/Initial COVID19 Vaccinat: NO Second COVID19 Vaccination Christian: NO Third COVID19 Vaccination Date: NO (VESNA WILSON) Seasonal Allergies Seasonal Allergies: Yes (VESNA WILSON) Past Medical History Surgery/Hospitalization HX: GB, REMOVAL OF FOREIGN BODIES FROM STOMACH AND SKIN. SEIZURES, HTN, BIPOLAR, CHRONIC CONSTIPATION. ANEMIA. Surgeries: Yes (bilat upper arm F.B. removal, colon resection with F.B removal) Abdominal, Gallbladder Respiratory: No Currently Using CPAP: No Currently Using BIPAP: No Cardiac: Yes Hypertension Neurological: Yes Seizure Disorder Genitourinary: No Gastrointestinal: Yes Gastroesophageal Reflux, Chronic Constipation Musculoskeletal: No Endocrine: Yes Hypothyroidsim HEENT: Yes (WEARS GLASSES) Cancer: No Psychosocial: Yes (BOARDERLINE, DISRUPTIVE MOOD DYSREGULATION, ADULT ANTISOCIAL DISORDER, IDD) Anxiety, Bipolar, Depression Integumentary: No Blood Disorders: No (VESNA WILSON) Family Medical History No Pertinent Family Hx, Hypertension (VESNA WILSON) Physical Exam Vital Signs Vital Signs - First Documented 05/20/23 19:21 Temp 36.2 Pulse 90 Resp 97 B/P (MAP) 132/91 (105) Pulse Ox 98 O2 Delivery Room Air (CRYSTAL MARQUIS MD) Vital Signs Capillary Refill : Less Than 3 Seconds (VESNA WILSON) Height/Weight/BMI Height: 5'8.00" Weight: 240lbs. 3.0oz. 108.223422kp; 38.00 BMI Method:Estimated General Appearance: WD/WN, no apparent distress HEENT: PERRL/EOMI, normal ENT inspection, TMs normal, pharynx normal Neck: non-tender, full range of motion, supple Respiratory: chest non-tender, lungs clear, normal breath sounds, no respiratory distress, no accessory muscle use Cardiovascular: regular rate, rhythm Gastrointestinal: normal bowel sounds, soft, no organomegaly, no pulsatile mass, tenderness (Left flank tenderness, left upper abdominal tenderness. Normal bowel sound throughout. No rebound or guarding) Extremities: normal range of motion, non-tender, normal inspection, no pedal edema Back: normal inspection, no CVA tenderness Neurologic/Psychiatric: gusset edger II-XII nml as tested, no motor/sensory deficits, alert, normal mood/affect Skin: normal color, warm/dry (VESNA WILSON) Progress/Results/Core Measures Results/Orders Lab Results Laboratory Tests Test 05/20/23 19:41 Range/Units White Blood Count 8.1 4.3-11.0 10^3/uL Red Blood Count 4.13 3.80-5.11 10^6/uL Hemoglobin 13.0 11.5-16.0 g/dL Hematocrit 38 35-52 % Mean Corpuscular Volume 91 80-99 fL Mean Corpuscular Hemoglobin 32 25-34 pg Mean Corpuscular Hemoglobin Concent 35 32-36 g/dL Red Cell Distribution Width 11.2 10.0-14.5 % Platelet Count 192 130-400 10^3/uL Mean Platelet Volume 9.9 9.0-12.2 fL Immature Granulocyte % (Auto) 0 % Neutrophils (%) (Auto) 43 42-75 % Lymphocytes (%) (Auto) 49 H 12-44 % Monocytes (%) (Auto) 5 0-12 % Eosinophils (%) (Auto) 2 0-10 % Basophils (%) (Auto) 0 0-10 % Neutrophils # (Auto) 3.5 1.8-7.8 10^3/uL Lymphocytes # (Auto) 3.9 1.0-4.0 10^3/uL Monocytes # (Auto) 0.4 0.0-1.0 10^3/uL Eosinophils # (Auto) 0.2 0.0-0.3 10^3/uL Basophils # (Auto) 0.0 0.0-0.1 10^3/uL Immature Granulocyte # (Auto) 0.0 0.0-0.1 10^3/uL Urine Color YELLOW Urine Clarity CLEAR Urine pH 7.0 5-9 Urine Specific Connelly 1.020 1.016-1.022 Urine Protein TRACE H NEGATIVE Urine Glucose (UA) NEGATIVE NEGATIVE Urine Ketones TRACE H NEGATIVE Urine Nitrite NEGATIVE NEGATIVE Urine Bilirubin NEGATIVE NEGATIVE Urine Urobilinogen 1.0 < = 1.0 MG/DL Urine Leukocyte Esterase NEGATIVE NEGATIVE Urine RBC (Auto) NEGATIVE NEGATIVE Urine RBC NONE /HPF Urine WBC 2-5 /HPF Urine Squamous Epithelial Cells 10-25 H /HPF Urine Crystals NONE /LPF Urine Bacteria MODERATE H /HPF Urine Casts NONE /LPF Urine Mucus NEGATIVE /LPF Urine Culture Indicated NO Sodium Level 138 135-145 MMOL/L Potassium Level 3.9 3.6-5.0 MMOL/L Chloride Level 110 H 98-107 MMOL/L Carbon Dioxide Level 18 L 21-32 MMOL/L Anion Gap 10 5-14 MMOL/L Blood Urea Nitrogen 16 7-18 MG/DL Creatinine 0.74 0.60-1.30 MG/DL Estimat Glomerular Filtration Rate 108 BUN/Creatinine Ratio 22 Glucose Level 88 70-105 MG/DL Calcium Level 9.1 8.5-10.1 MG/DL Corrected Calcium 9.2 8.5-10.1 MG/DL Total Bilirubin 0.2 0.1-1.0 MG/DL Aspartate Amino Transf (AST/SGOT) 13 5-34 U/L Alanine Aminotransferase (ALT/SGPT) 12 0-55 U/L Alkaline Phosphatase 54 40-136 U/L Troponin I < 0.028 <0.028 NG/ML Total Protein 6.8 6.4-8.2 GM/DL Albumin 3.9 3.2-4.5 GM/DL Lipase 45 8-78 U/L Influenza Type A (RT-PCR) Not Detected Not Detecte Influenza Type B (RT-PCR) Not Detected Not Detecte SARS-CoV-2 RNA (RT-PCR) Not Detected Not Detecte (CRYSTAL MARQUIS MD) My Orders Orders - CRYSTAL MARQUIS MD Covid 19 Inhouse Test (05/20/23 19:12) Influenza A And B By Pcr (05/20/23 19:12) (CRYSTAL MARQUIS MD) Medications Given in ED Current Medications Medications Dose Ordered Sig/Susanna Route Start Time Stop Time Status Last Admin Dose Admin Ketorolac Tromethamine 30 mg ONCE ONCE IM 05/20/23 20:30 05/20/23 20:31 DC 05/20/23 20:42 30 MG (CRYSTAL MARQUIS MD) Vital Signs/I&O 05/20/23 05/20/23 19:21 20:44 Temp 36.2 36.2 Pulse 90 74 Resp 97 16 B/P (MAP) 132/91 (105) 110/86 Pulse Ox 98 100 O2 Delivery Room Air Room Air (CRYSTAL MARQUIS MD) Blood Pressure Mean: 105 Comment Sinus rhythm, incomplete right bundle branch block, voltage criteria for LVH, minimal ST depression 88 bpm, QRS duration 108 MS, QTc 401 MS (VESNA WILSON) Departure Communication (PCP) Patient presents ED with left upper abdominal pain, left flank pain and pain with deep inspiration. Denies of any injury. History of swallowing foreign bodies. She denies eating anything foreign. Denies history of coronary artery disease, asthma. No cough, runny nose vomiting or diarrhea. Did feel nauseous. Due to location of pain and tenderness EKG troponin CBC, CMP, lipase with chest x-ray was ordered. She received a dose of Toradol with some improvement of pain. Pain appears to be worse with deep inspiration. She is not tachycardic or hypoxic. No appreciation of lower leg swelling. EKG showed sinus rhythm with incomplete right bundle branch block. Very similar to her EKG back in November of this year. CBC, CMP grossly unremarkable. Normal troponin. Chest x-ray was unremarkable. No evidence suggesting pancreatitis, gastritis, pneumonia, pneumothorax, ACS. Other etiologies would be pleurisy, costochondritis. Reassuring lab work and clinical presentation unlikely cardiac or any evidence of surgical abdomen. At this time recommend anti-inflammatories. If any worsening symptoms such as fever chills vomiting short of breath to return back to ED. Follow-up with your PCP in 2 to 3 days for evaluation (VESNA WILSON) Impression Primary Impression: Abdominal pain Additional Impression: Flank pain Disposition: HOME, SELF-CARE Condition: Stable Departure-Patient Inst. Decision time for Depature: 20:29 (VESNA WILSON) Referrals: SIMI HAMMOND MD (PCP/Family) Primary Care Physician Patient Instructions: Flank Pain Add. Discharge Instructions: Recommend continue monitoring symptoms. Suggest Tylenol or ibuprofen for pain. If any worsening pain fever vomiting diarrhea shortness of breath return back to ED All discharge instructions reviewed with patient and/or family. Voiced understanding. ATTENDING PHYSICIAN NOTE: I was physically present as attending physician in the emergency department during the care of this patient, but I was not directly involved in the decision making or delivery of care for this patient. (CRYSTAL MARQUIS MD) VESNA WILSON May 20, 2023 19:37 CRYSTAL MARQUIS MD May 21, 2023 04:36
[2023-05-20 19:49] LABS: BASOPHILS % (AUTO) 0 % (0-10); EOSINOPHILS # (AUTO) 0.2 10^3/uL (0.0-0.3); EOSINOPHILS % (AUTO) 2 % (0-10); HEMATOCRIT 38 % (35-52); LYMPHOCYTES # (AUTO) 3.9 10^3/uL (1.0-4.0); LYMPHOCYTES % (AUTO) 49 % (12-44); MEAN CORPUSCULAR HEMOGLOBIN 32 pg (25-34); MEAN CORPUSCULAR HGB CONC 35 g/dL (32-36); MEAN CORPUSCULAR VOLUME 91 fL (80-99); MEAN PLATELET VOLUME 9.9 fL (9.0-12.2); MONOCYTES # (AUTO) 0.4 10^3/uL (0.0-1.0); MONOCYTES % (AUTO) 5 % (0-12); NEUTROPHILS # (AUTO) 3.5 10^3/uL (1.8-7.8); NEUTROPHILS % (AUTO) 43 % (42-75); PLATELET COUNT 192 10^3/uL (130-400); WHITE BLOOD COUNT 8.1 10^3/uL (4.3-11.0)
[2023-05-20 19:57] LABS: BACTERIA,URINE MODERATE /HPF; BILIRUBIN,URINE NEGATIVE (NEGATIVE); CLARITY,URINE CLEAR; COLOR,URINE YELLOW; GLUCOSE, URINE (UA) NEGATIVE (NEGATIVE); KETONES,URINE TRACE (NEGATIVE); LEUKOCYTE ESTERASE ,URINE NEGATIVE (NEGATIVE); NITRITE,URINE NEGATIVE (NEGATIVE); PROTEIN,URINE TRACE (NEGATIVE)
[2023-05-20 20:06] LABS: ALANINE AMINOTRANSFERASE 12 U/L (0-55); ALBUMIN 3.9 GM/DL (3.2-4.5); ALKALINE PHOSPHATASE 54 U/L (40-136); BILIRUBIN,TOTAL 0.2 MG/DL (0.1-1.0); BUN/CREATININE RATIO 22; CALCIUM 9.1 MG/DL (8.5-10.1); CARBON DIOXIDE 18 MMOL/L (21-32); CHLORIDE 110 MMOL/L (98-107); CREATININE SERUM 0.74 MG/DL (0.60-1.30); GFR ESTIMATED 108; GLUCOSE 88 MG/DL (70-105); LIPASE 45 U/L (8-78); POTASSIUM 3.9 MMOL/L (3.6-5.0); SODIUM 138 MMOL/L (135-145); TOTAL PROTEIN 6.8 GM/DL (6.4-8.2)
--- NOTE | 2023-05-20 20:07 | Diagnostic Imaging Report ---
INDICATION: Chest and abdominal pain, worsens with inspiration. TECHNIQUE: A frontal chest was obtained at 8:01 PM. FINDINGS: The heart and mediastinal silhouette are normal in appearance. The lungs are clear. There is no pneumothorax or pleural fluid. IMPRESSION: Negative chest. Dictated by: Dictated on workstation # [id number]
[2023-05-20] MEDS ORDERED: KETOROLAC INJ 30 MG/ML VIAL IM ONE (20:30)
[2023-05-20 20:44] VITALS: BP 110/86
== END 2023-05-20 20:45 | disposition home or self-care (01) ==
LOC: EDUNIT# 19:09 → ER 19:11
DX: R10.12 Left upper quadrant pain (principal); R11.0 Nausea; I45.10 Unspecified right bundle-branch block; Z11.52 Encounter for screening for COVID-19; Z87.19 Personal history of other diseases of the digestive system; Z79.899 Other long term (current) drug therapy
CPT/HCPCS: 36415; 71045; 80053; 81000; 83690; 84484; 85025; 87636; 93005; 96372